=== PATIENT | female | born 1970 | race Caucasian/White ===

== ENCOUNTER 2017-10-27 16:56 | Emergency (ER) | payer MEDICAID ==
[~2017-10-27] VITALS: Ht 165.1 cm; Wt 154.2 kg
[~2017-10-27 16:56] MED LIST: ALBU17AE23 IH; ALBU8.5H2 INH; ALPR1T PO; ASP81CT PO; ASPI-875 PO; ATR20T PO; BENZ100C8 PO; BSP10T PO; BUPR150T6; CALC-793 PO; CANA300T PO; CYCL10TA9 PO; ESCT10T PO; FLOXIN; FLUT16SP22; FLUT1DIS27; FURO80TA3 PO; GLIP5TAB13; HYDR-34 PO; IBP800T PO; IBUP-1780 PO; INSASP10V SC; INSU100V6; INSU100V6 SQ; INSU300I SQ; LEVO75TA57 PO; LISI5TAB PO; MECL25TA3 PO; MORP30TA28 PO; MPR22TI; NEBI5TAB8 PO; NF-ESOM40C PO; OMEP40CA36 PO; OMG1KC; ONDA4TAB8 PO; OXYC-191 PO; OXYC1TAB87 PO; OXYC1TAB95 PO; POTA10TA36 PO; POTA20TA15 PO; PRCD5U GT; PREG100C22 PO; PREG200C PO; PRM25T PO; SCOP1PAT11 TD; SCR1T1 PO; SITA1TAB6 PO; SOLI10TA4 PO; SULF1TAB38; TRZ50T; [UNRECOGNIZED DRUG - REMARK]
--- OUTSIDE RECORDS SUMMARY | 2017-10-27 17:01 | XMS REPORT ---
Author Author SELVIN TAYLOR Organization [employer] Address Unknown Phone Unavailable Care Team Providers Care Automatic Pinsetter Adjuster Name Role Phone SELVIN TAYLOR Unavailable Allergies No Known Allergies Problems Problem Type Condition ICD-9 Code Onset Dates Condition Status Problem Counseling on substance use and abuse V65.42 Active Problem Bipolar I disorder, most recent episode (or current) depressed, in partial or unspecified remission 296.55 Active Problem Insomnia, unspecified 780.52 Active Problem 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 Problem Bipolar I disorder, most recent episode (or current) depressed, mild 296.51 Active Medications Medication Code System Code Instructions Start Date End Date Status Dosage Alprazolam [facility] [address]-25 1 MG Orally 3 times a day PRN must last 30 days Apr 23, 2014 1 tablet Results No Known Results Summary Purpose eClinicalWorks Submission
--- OUTSIDE RECORDS SUMMARY | 2017-10-27 17:01 | XMS REPORT ---
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 Unknown Non Drug Allergy Apr, Unknown SOCIAL HISTORY No smoking Hx information available PLAN OF CARE Activity Details Follow Up prn Reason:Multi TE"s- [address] Hendrickson VITAL SIGNS Blood pressure systolic 151 mmHg 2016-04-20 Blood pressure diastolic 87 mmHg 2016-04-20 MEDICATIONS Medication Instructions Dosage Frequency Start Date End Date Duration Status VESIcare 10 MG Orally Once a day 1 tablet 24h Active Hydrochlorothiazide Active Nexium 40 mg 1 Capsule by Oral route 2 times per day Nov, Active Oxycodone-Acetaminophen 10-325 mg 2 Tablet by Oral route every 4-6 hours PRN pain Apr, Active Ibuprofen 400 MG Orally Three times a day PRN 2 tablets Active Albuterol Sulfate 2.5 mg/0.5 mL 1 Inhaler by Inhalation route 4 times per day Jul, Active Meclizine HCl Active Levothyroxine Sodium 75 MCG Orally Once a day 1 tablet 24h Active Lasix 40 MG Orally Once a day 1 tablet 24h Active NovoLog 100 UNIT/ML Subcutaneous 2 times a day 40 units 12h Aug, Active promethazine 25 mg 1 Tablet by Oral route every 6 hours PRN nausea Nov, Active Potassium Chloride 10 mEq 2 Tablet by Oral route 2 times per day take additional 2 tabs if extra Lasix taken Nov, Active Amoxicillin 500 MG Orally 4 times daily 1 capsule 7 days Active Lisinopril 5 MG Orally Once a day 1 tablet 24h Active Xanax 1 MG TAKE ONE TABLET BY MOUTH THREE TIMES A DAY NEEDED 30 Active Nasonex 50 MCG/ACT Nasally Once a day 2 sprays in each nostril 24h Active Bystolic 5 MG Orally Once a day 1 tablet 24h Active Toujeo SoloStar Active Lyrica 200 MG Orally Once a day 1 capsule 24h Active RESULTS No Results PROCEDURES Procedure Date Ordered Related Diagnosis Body Site EXTRAC ERUPTED TOOTH/EXPOSED ROOT Apr 20, 2016 IMMUNIZATIONS No Known Immunizations
--- OUTSIDE RECORDS SUMMARY | 2017-10-27 17:02 | XMS REPORT ---
Author Author PARAS CLEARY [facility] e[employer] Address Unknown Phone Unavailable Care Team Providers Care Textile Machine Maintenance Mechanic Name Role Phone PARAS CLEARY Unavailable Allergies No Known Allergies Problems Problem Type Condition Code Onset Dates Condition Status Assessment Other insomnia not due to a substance or known physiological condition F51.09 Active Problem Counseling on substance use and abuse V65.42 Active Problem Bipolar I disorder, most recent episode (or current) depressed, in partial or unspecified remission 296.55 Active Problem Insomnia, unspecified 780.52 Active Assessment Bipolar disorder, in partial remission, most recent episode depressed F31.75 Active Assessment Agoraphobia with panic disorder F40.01 Active Problem 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 Problem Bipolar I disorder, most recent episode (or current) depressed, mild 296.51 Active Medications Medication Code System Code Instructions Start Date End Date Status Dosage Oxycodone-Acetaminophen [facility] [address]-38 10-325 mg Apr 22, 2014 2 Tablet by Oral route every 4-6 hours PRN pain Janumet [facility] [address]-74 50-1,000 mg Apr 22, 2014 1 Tablet by Oral route 1 time per day Diflucan [facility] [address]-05 100 mg December 06, 2013 1 Tablet by Oral route 1 time per day PRN yeast infection Invokana [facility] [address]-22 300 mg December 06, 2013 1 Tablet by Oral route 1 time per day NovoLog [facility] [address]-76 100 UNIT/ML Subcutaneous 2 times a day August 29, 2013 40 units Albuterol Sulfate [facility] [address]-42 2.5 mg/0.5 mL July 20, 2011 1 Inhaler by Inhalation route 4 times per day Bystolic [facility] [address]-25 5 MG Orally Once a day 1 tablet Lisinopril [facility] [address]-15 5 MG Orally Once a day 1 tablet Lantus [facility] [address]-21 100 UNIT/ML Subcutaneous Once a day qAM 140 units Levothyroxine Sodium [facility] [address]-79 75 MCG Orally Once a day 1 tablet Nexium [facility] [address]-18 40 mg December 06, 2013 1 Capsule by Oral route 2 times per day Cyclobenzaprine HCl [facility] [address]-77 10 MG Orally Three times a day 1 tablet Lyrica [facility] [address]-56 200 MG Orally Once a day 1 capsule Xanax [facility] [address]-37 1 TAKE ONE TABLET BY MOUTH THREE TIMES A DAY NEEDED Ibuprofen [facility] [address]-95 400 MG Orally Three times a day PRN 2 tablets VESIcare [facility] [address]-63 10 MG Orally Once a day 1 tablet Lipitor [facility] [address]-00 20 MG Orally Once a day 1 tablet Lasix [facility] [address]-43 80 MG Orally Once a day 1 tablet Potassium Chloride [facility] [address]-72 10 mEq December 06, 2013 2 Tablet by Oral route 2 times per day take additional 2 tabs if extra Lasix taken Trazodone HCl [facility] 86627543091 150 TAKE ONE TABLET BY MOUTH EVERY NIGHT AT BEDTIME NEEDED Nasonex [facility] [address]-67 50 MCG/ACT Nasally Once a day 2 sprays in each nostril promethazine [facility] 0 25 mg December 06, 2013 1 Tablet by Oral route every 6 hours PRN nausea Procedures Procedure Coding System Code Date Office Visit, Est Pt., Level 4 CPT-4 69643 May 29, 2015 Vital Signs Date/Time: May 29, 2015 Cardiac Monitoring Heart Rate 74 bpm Weight 321.5 lbs Height 65 in BMI 53.49 Index Blood Pressure Diastolic 78 mmHg Blood Pressure Systolic 130 mmHg Results No Known Results Summary Purpose eClinicalWorks Submission
--- OUTSIDE RECORDS SUMMARY | 2017-10-27 17:02 | XMS REPORT ---
Author Author CAMILA MOTA [facility] eClinicalWorks Address Unknown Phone Unavailable Care Team Providers Care Die Cutter Operator Name Role Phone CAMILA MOTA CP Unavailable Allergies No Known Allergies Problems Problem Type Condition Code Onset Dates Condition Status Problem Counseling [...] Instructions Start Date End Date Status Dosage Xanax [facility] [address]-70 1 TAKE ONE TABLET BY MOUTH THREE TIMES A DAY NEEDED Results No Known Results Summary Purpose eClinicalWorks Submission
--- OUTSIDE RECORDS SUMMARY | 2017-10-27 17:02 | XMS REPORT ---
Author Author CINTIA TELLEZ [employer] Address Unknown Phone Unavailable Care Team Providers Care Mica Plate Layer Name Role Phone CINTIA TELLEZ CP Unavailable Allergies, Adverse Reactions, Alerts Substance Reaction Event Type N.K.D.A. Info Not Available Non Drug Allergy Problems Problem Type Condition Code Onset Dates Condition Status Problem Counseling on substance use and abuse V65.42 Active Problem Bipolar I disorder, most recent episode (or current) depressed, in partial or unspecified remission 296.55 Active Problem Insomnia, unspecified 780.52 Active Assessment Dental caries K02.9 Active Problem 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 Problem Bipolar I disorder, most recent episode (or current) depressed, mild 296.51 Active Medications Medication Code System Code Instructions Start Date End Date Status Dosage Janumet [facility] [address]-56 50-1,000 mg Apr 22, 2014 1 Tablet by Oral route 1 time per day Lantus [facility] [address]-48 100 UNIT/ML Subcutaneous Once a day qAM 140 units Ibuprofen [facility] [address]-69 400 MG Orally Three times a day PRN 2 tablets Nasonex [facility] [address]-40 50 MCG/ACT Nasally Once a day 2 sprays in each nostril Lisinopril [facility] [address]-48 5 MG Orally Once a day 1 tablet Potassium Chloride [facility] [address]-67 10 mEq December 06, 2013 2 Tablet by Oral route 2 times per day take additional 2 tabs if extra Lasix taken Oxycodone-Acetaminophen [facility] [address]-51 10-325 mg Apr 22, 2014 2 Tablet by Oral route every 4-6 hours PRN pain Lasix [facility] [address]-02 80 MG Orally Once a day 1 tablet Diflucan [facility] [address]-73 100 mg December 06, 2013 1 Tablet by Oral route 1 time per day PRN yeast infection VESIcare [facility] [address]-67 10 MG Orally Once a day 1 tablet Nexium [facility] [address]-35 40 mg December 06, 2013 1 Capsule by Oral route 2 times per day Xanax [facility] [address]-34 1 TAKE ONE TABLET BY MOUTH THREE TIMES A DAY NEEDED Levothyroxine Sodium [facility] [address]-93 75 MCG Orally Once a day 1 tablet Lyrica [facility] [address]-49 200 MG Orally Once a day 1 capsule NovoLog [facility] [address]-07 100 UNIT/ML Subcutaneous 2 times a day August 29, 2013 40 units Albuterol Sulfate [facility] [address]-15 2.5 mg/0.5 mL July 20, 2011 1 Inhaler by Inhalation route 4 times per day Cyclobenzaprine HCl [facility] [address]-19 10 MG Orally Three times a day 1 tablet promethazine [facility] 0 25 mg December 06, 2013 1 Tablet by Oral route every 6 hours PRN nausea Invokana [facility] [address]-77 300 mg December 06, 2013 1 Tablet by Oral route 1 time per day Lipitor [facility] [address]-59 20 MG Orally Once a day 1 tablet Bystolic [facility] [address]-75 5 MG Orally Once a day 1 tablet Procedures Procedure Coding System Code Date EXTRAC ERUPTED TOOTH/EXPOSED ROOT CPT-4 D7140 Jun 01, 2015 EXTRAC ERUPTED TOOTH/EXPOSED ROOT CPT-4 D7140 Jun 01, 2015 Vital Signs Date/Time: Jun 01, 2015 Blood Pressure Diastolic 75 mmHg Blood Pressure Systolic 129 mmHg Height 65 in Results No Known Results Summary Purpose eClinicalWorks Submission
--- OUTSIDE RECORDS SUMMARY | 2017-10-27 17:02 | XMS REPORT ---
Author Author ANDRÉS Aguila [facility] Address Unknown Care Team Providers Care Senior Application Software Engineer Name Role Phone ANDRÉS Aguila Unavailable PROBLEMS Type Condition ICD9-CM Code [id number] Code Onset Dates Condition Status SNOMED Code Problem Bipolar I disorder, most recent episode (or current) depressed, mild 296.51 Active 410595385 Problem Bipolar I disorder, most recent episode (or current) depressed, in partial or unspecified remission 296.55 Active 06069913 Problem Counseling on substance use and abuse V65.42 Active 950797066 Problem 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 12511540 Problem Insomnia, unspecified 780.52 Active 327050387 ALLERGIES Substance Reaction Event Type Date Status N.K.D.A. Unknown Non Drug Allergy Mar, Unknown SOCIAL HISTORY No smoking Hx information available PLAN OF CARE Activity Details Follow Up prn Reason:TE 29 VITAL SIGNS Height 65 in 2016-04-04 Blood pressure systolic 129 mmHg 2016-04-04 Blood pressure diastolic 86 mmHg 2016-04-04 MEDICATIONS Medication Instructions Dosage Frequency Start Date End Date Duration Status VESIcare 10 MG Orally Once a day 1 tablet 24h Active Potassium Chloride 10 mEq 2 Tablet by Oral route 2 times per day take additional 2 tabs if extra Lasix taken Nov, Active Ibuprofen 400 MG Orally Three times a day PRN 2 tablets Active Albuterol Sulfate 2.5 mg/0.5 mL 1 Inhaler by Inhalation route 4 times per day Jul, Active Nexium 40 mg 1 Capsule by Oral route 2 times per day Nov, Active Lyrica 200 MG Orally Once a day 1 capsule 24h Active Lisinopril 5 MG Orally Once a day 1 tablet 24h Active promethazine 25 mg 1 Tablet by Oral route every 6 hours PRN nausea Nov, Active Levothyroxine Sodium 75 MCG Orally Once a day 1 tablet 24h Active Bystolic 5 MG Orally Once a day 1 tablet 24h Active Oxycodone-Acetaminophen 10-325 mg 2 Tablet by Oral route every 4-6 hours PRN pain 09 Apr, 2014 Active Amoxicillin 500 MG Orally 4 times daily 1 capsule 7 days Active NovoLog 100 UNIT/ML Subcutaneous 2 times a day 40 units 12h Aug, Active Nasonex 50 MCG/ACT Nasally Once a day 2 sprays in each nostril 24h Active Lasix 40 MG Orally Once a day 1 tablet 24h Active Xanax 1 MG TAKE ONE TABLET BY MOUTH THREE TIMES A DAY NEEDED 30 Active Yuliya Lu Active RESULTS No Results PROCEDURES Procedure Date Ordered Related Diagnosis Body Site LTD ORAL EVALUATION - PROBLEM FOCUS Apr 04, 2016 INTRAORL-PERIAPICAL 1 FILM 64305 Apr 04, 2016 IMMUNIZATIONS No Known Immunizations
--- OUTSIDE RECORDS SUMMARY | 2017-10-27 17:03 | XMS REPORT ---
Author Author SELVIN TAYLOR [facility] eClinicalWorks Address Unknown Phone Unavailable Care Team Providers Care Printing Gray Cloth Tender Name Role Phone SELVIN TAYLOR Unavailable Allergies, Adverse Reactions, Alerts Substance Reaction Event Type N.K.D.A. 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 [address]-54 300 mg December 06, 2013 1 Tablet by Oral route 1 time per day Lantus [facility] [address]-56 100 UNIT/ML Subcutaneous Once a day qAM 140 units Bystolic [facility] [address]-66 5 MG Orally Once a day 1 tablet Bactrim [facility] [address]-17 400-80 MG Orally Once a day 2 tablets Lipitor [facility] [address]-60 20 MG Orally Once a day 1 tablet Lyrica [facility] [address]-74 200 MG Orally Once a day 1 capsule Aspirin Adult Low Strength [facility] [address]-14 81 MG Orally Once a day 1 tablet Diflucan [facility] [address]-87 100 mg December 06, 2013 1 Tablet by Oral route 1 time per day PRN yeast infection Cyclobenzaprine HCl [facility] [address]-56 10 MG Orally Three times a day 1 tablet Albuterol Sulfate [facility] [address]-91 2.5 mg/0.5 mL July 20, 2011 1 Inhaler by Inhalation route 4 times per day promethazine [place] 0 25 mg December 06, 2013 1 Tablet by Oral route every 6 hours PRN nausea Nexium [facility] [address]-01 40 mg December 06, 2013 1 Capsule by Oral route 2 times per day Lasix [facility] [address]-37 80 MG Orally Once a day 1 tablet Lisinopril [facility] [address]-60 5 MG Orally Once a day 1 tablet Janumet [facility] [address]-78 50-1,000 mg Apr 22, 2014 1 Tablet by Oral route 1 time per day Oxycodone-Acetaminophen [facility] [address]-07 10-325 mg Apr 22, 2014 2 Tablet by Oral route every 4-6 hours PRN pain Trazodone HCl [facility] 50486751498 150 TAKE ONE TABLET BY MOUTH EVERY NIGHT AT BEDTIME NEEDED Alprazolam [facility] [address]-18 1 MG Orally 3 times a day PRN must last 30 days Apr 23, 2014 1 tablet Levothyroxine Sodium [facility] [address]-13 75 MCG Orally Once a day 1 tablet Nasonex [facility] [address]-58 50 MCG/ACT Nasally Once a day 2 sprays in each nostril NovoLog [facility] [address]-91 100 UNIT/ML Subcutaneous 2 times a day August 29, 2013 40 units Duloxetine HCl [facility] [address]-16 30 MG Orally Once a day November 27, 2014 1 capsule VESIcare [facility] [address]-89 10 MG Orally Once a day 1 tablet Ibuprofen [facility] [address]-41 400 MG Orally Three times a day PRN 2 tablets Potassium Chloride [facility] [address]-16 10 mEq December 06, 2013 2 Tablet by Oral route 2 times per day take additional 2 tabs if extra Lasix taken Procedures Procedure Coding System Code Date Office Visit, Est Pt., Level 3 CPT-4 54928 Jan 29, 2015 Vital Signs Date/Time: Jan 29, 2015 Temperature 98.0 F Weight 326.5 lbs Height 65 in BMI 54.33 Index Blood Pressure Diastolic 66 mmHg Blood Pressure Systolic 120 mmHg Cardiac Monitoring Heart Rate 76 bpm Results No Known Results Summary Purpose eClinicalWorks Submission
--- OUTSIDE RECORDS SUMMARY | 2017-10-27 17:03 | XMS REPORT | Continuity of Care Document ---
Author Author [facility] Address Unknown Phone Unavailable Allergies Active Description Code Type Severity Reaction Onset Reported/Identified Relationship to Patient Clinical Status Yes No Known Drug Allergies [id number] Drug Allergy Mild N/A 12/19/2008 Yes Sulfa(Sulfonamide Antibiotics) Drug Allergy 07/20/2011 Yes Sulfa(Sulfonamide Antibiotics) Drug Allergy N/A N/A 07/20/2011 Medications There is no data. Problems Date Dx Coded Attending Type Code Diagnosis Diagnosed By 08/10/2010 NILS SAENZ DO 296.30 MAJOR DEPRESSIVE AFFECTIVE DISORDER RECURRENT EPISODE UNSPECIFIED DEGREE 08/10/2010 NILS SAENZ DO 300.01 AN PANIC DIS W/O AGORA 08/10/2010 NILS SAENZ DO 307.47 OTHER DYSFUNCTIONS OF SLEEP STAGES OR AROUSAL FROM SLEEP 08/10/2010 NILS SAENZ DO 316 PSYCHIC FACTORS ASSOCIATED WITH DISEASES CLASSIFIED ELSEWHERE 08/10/2010 NILS SAENZ DO 296.30 MAJOR DEPRESSIVE AFFECTIVE DISORDER RECURRENT EPISODE UNSPECIFIED DEGREE 08/10/2010 NILS SAENZ DO 300.01 AN PANIC DIS W/O AGORA 08/10/2010 NILS SAENZ DO 307.47 OTHER DYSFUNCTIONS OF SLEEP STAGES OR AROUSAL FROM SLEEP 08/10/2010 NILS SAENZ DO 316 PSYCHIC FACTORS ASSOCIATED WITH DISEASES CLASSIFIED ELSEWHERE 08/10/2010 296.30 MAJOR DEPRESSIVE AFFECTIVE DISORDER RECURRENT EPISODE UNSPECIFIED DEGREE 08/10/2010 300.01 AN PANIC DIS W/O AGORA 08/10/2010 307.47 OTHER DYSFUNCTIONS OF SLEEP STAGES OR AROUSAL FROM SLEEP 08/10/2010 316 PSYCHIC FACTORS ASSOCIATED WITH DISEASES CLASSIFIED ELSEWHERE 08/10/2010 NILS SAENZ DO 296.30 MAJOR DEPRESSIVE AFFECTIVE DISORDER RECURRENT EPISODE UNSPECIFIED DEGREE 08/10/2010 NILS SAENZ DO 300.01 AN PANIC DIS W/O AGORA 08/10/2010 NILS SAENZ DO 307.47 OTHER DYSFUNCTIONS OF SLEEP STAGES OR AROUSAL FROM SLEEP 08/10/2010 NILS SAENZ DO 316 PSYCHIC FACTORS ASSOCIATED WITH DISEASES CLASSIFIED ELSEWHERE 08/10/2010 CAMILA MOTA MD 296.30 MAJOR DEPRESSIVE AFFECTIVE DISORDER RECURRENT EPISODE UNSPECIFIED DEGREE 08/10/2010 CAMILA MOTA MD 300.01 AN PANIC DIS W/O AGORA 08/10/2010 CAMILA MOTA MD 307.47 OTHER DYSFUNCTIONS OF SLEEP STAGES OR AROUSAL FROM SLEEP 08/10/2010 CAIMLA MOTA MD 316 PSYCHIC FACTORS ASSOCIATED WITH DISEASES CLASSIFIED ELSEWHERE 08/10/2010 BRANDON HUB BORER, SELVIN 296.30 MAJOR DEPRESSIVE AFFECTIVE DISORDER RECURRENT EPISODE UNSPECIFIED DEGREE 08/10/2010 BRANDON HUB BORER, SELVIN 300.01 AN PANIC DIS W/O AGORA 08/10/2010 BRANDON HUB BORER, SELVIN 307.47 OTHER DYSFUNCTIONS OF SLEEP STAGES OR AROUSAL FROM SLEEP 08/10/2010 BRANDON HUB BORER, SELVIN 316 PSYCHIC FACTORS ASSOCIATED WITH DISEASES CLASSIFIED ELSEWHERE 08/10/2010 BRANDON HUB BORER, SELVIN 296.30 MAJOR DEPRESSIVE AFFECTIVE DISORDER RECURRENT EPISODE UNSPECIFIED DEGREE 08/10/2010 BRANDON HUB BORER, SELVIN 300.01 AN PANIC DIS W/O AGORA 08/10/2010 BRANDON HUB BORER, SELVIN 307.47 OTHER DYSFUNCTIONS OF SLEEP STAGES OR AROUSAL FROM SLEEP 08/10/2010 BRANDON HUB BORER, SELVIN 316 PSYCHIC FACTORS ASSOCIATED WITH DISEASES CLASSIFIED ELSEWHERE 08/10/2010 BRANDON HUB BORER, SELVIN 296.30 MAJOR DEPRESSIVE AFFECTIVE DISORDER RECURRENT EPISODE UNSPECIFIED DEGREE 08/10/2010 BRANDON HUB BORER, SELVIN 300.01 AN PANIC DIS W/O AGORA 08/10/2010 BRANDON HUB BORER, SELVIN 307.47 OTHER DYSFUNCTIONS OF SLEEP STAGES OR AROUSAL FROM SLEEP 08/10/2010 BRANDON HUB BORER, SELVIN 316 PSYCHIC FACTORS ASSOCIATED WITH DISEASES CLASSIFIED ELSEWHERE 08/10/2010 BRANDON HUB BORER, SELVIN 296.30 MAJOR DEPRESSIVE AFFECTIVE DISORDER RECURRENT EPISODE UNSPECIFIED DEGREE 08/10/2010 BRANDON HUB BORER, SELVIN 300.01 AN PANIC DIS W/O AGORA 08/10/2010 BRANDON HUB BORER, SELVIN 307.47 OTHER DYSFUNCTIONS OF SLEEP STAGES OR AROUSAL FROM SLEEP 08/10/2010 BRANDON HUB BORER, SELVIN 316 PSYCHIC FACTORS ASSOCIATED WITH DISEASES CLASSIFIED ELSEWHERE 08/10/2010 BRANDON HUB BORER, SELVIN 296.30 MAJOR DEPRESSIVE AFFECTIVE DISORDER RECURRENT EPISODE UNSPECIFIED DEGREE 08/10/2010 LÓPEZ TAYLOR APRNETTE 300.01 AN PANIC DIS W/O AGORA 08/10/2010 BRANDON NEVAREZ SELVIN 307.47 OTHER DYSFUNCTIONS OF SLEEP STAGES OR AROUSAL FROM SLEEP 08/10/2010 BRANDON NEVAREZ SELVIN 316 PSYCHIC FACTORS ASSOCIATED WITH DISEASES CLASSIFIED ELSEWHERE 08/10/2010 ROSALINDA ANDERSENSCINTIA 296.30 MAJOR DEPRESSIVE AFFECTIVE DISORDER RECURRENT EPISODE UNSPECIFIED DEGREE 08/10/2010 TELLEZ GANESHSCINTIA 300.01 AN PANIC DIS W/O AGORA 08/10/2010 ROSALINDA ANDERSENSCINTIA 307.47 OTHER DYSFUNCTIONS OF SLEEP STAGES OR AROUSAL FROM SLEEP 08/10/2010 ROSALINDA ANDERSENSCINTIA 316 PSYCHIC FACTORS ASSOCIATED WITH DISEASES CLASSIFIED ELSEWHERE 08/10/2010 JAVIER ROBBINS PSYD 296.30 MAJOR DEPRESSIVE AFFECTIVE DISORDER RECURRENT EPISODE UNSPECIFIED DEGREE 08/10/2010 JAVIER ROBBINS PSYD L 300.01 AN PANIC DIS W/O AGORA 08/10/2010 JAVIER ROBBINS PSYD 307.47 OTHER DYSFUNCTIONS OF SLEEP STAGES OR AROUSAL FROM SLEEP 08/10/2010 JAVIER ROBBINS PSYD L 316 PSYCHIC FACTORS ASSOCIATED WITH DISEASES CLASSIFIED ELSEWHERE 08/10/2010 LÓPEZ TAYLOR APRNETTE 296.30 MAJOR DEPRESSIVE AFFECTIVE DISORDER RECURRENT EPISODE UNSPECIFIED DEGREE 08/10/2010 BRANDON NEVAREZ SELVIN 300.01 AN PANIC DIS W/O AGORA 08/10/2010 BRANDON NEVAREZ SELVIN 307.47 OTHER DYSFUNCTIONS OF SLEEP STAGES OR AROUSAL FROM SLEEP 08/10/2010 BRANDON NEVAREZ SELVIN 316 PSYCHIC FACTORS ASSOCIATED WITH DISEASES CLASSIFIED ELSEWHERE 08/10/2010 BRANDON NEVAREZ SELVIN 296.30 MAJOR DEPRESSIVE AFFECTIVE DISORDER RECURRENT EPISODE UNSPECIFIED DEGREE 08/10/2010 BRANDON NEVAREZ SELVIN 300.01 AN PANIC DIS W/O AGORA 08/10/2010 BRANDON NEVAREZ SELVIN 307.47 OTHER DYSFUNCTIONS OF SLEEP STAGES OR AROUSAL FROM SLEEP 08/10/2010 BRANDON NEVAREZ SELVIN 316 PSYCHIC FACTORS ASSOCIATED WITH DISEASES CLASSIFIED ELSEWHERE 08/15/2010 Ot 401.9 HYPERTENSION NOS 08/15/2010 Ot 490 BRONCHITIS NOS 08/15/2010 Ot 786.2 COUGH 11/10/2010 WERDER DO, NILS F 300.21 AN PANIC DIS W AGORA 11/10/2010 NILS SAENZ DO 300.21 AN PANIC DIS W AGORA 11/10/2010 300.21 AN PANIC DIS W AGORA 11/10/2010 NILS SAENZ DO 300.21 AN PANIC DIS W AGORA 11/10/2010 CAMILA MOTA MD 300.21 AN PANIC DIS W AGORA 11/10/2010 BRANDON HUB BORER, SELVIN 300.21 AN PANIC DIS W AGORA 11/10/2010 BRANDON HUB BORER, SELVIN 300.21 AN PANIC DIS W AGORA 11/10/2010 BRANDON HUB BORER, SELVIN 300.21 AN PANIC DIS W AGORA 11/10/2010 BRANDON HUB BORER, SELVIN 300.21 AN PANIC DIS W AGORA 11/10/2010 BRANDON HUB BORER, SELVIN 300.21 AN PANIC DIS W AGORA 11/10/2010 ROSALINDA FOURNIER, CINTIA 300.21 AN PANIC DIS W AGORA 11/10/2010 JAVIER ROBBINS PSYD 300.21 AN PANIC DIS W AGORA 11/10/2010 BRANDON HUB BORER, SELVIN 300.21 AN PANIC DIS W AGORA 11/10/2010 BRANDON HUB BORER, SELVIN 300.21 AN PANIC DIS W AGORA 01/10/2011 Ot 530.81 ESOPHAGEAL REFLUX 01/10/2011 Ot 535.50 UNSP GASTRITIS GASTRODUODENITIS W/O ME 01/10/2011 Ot 787.91 DIARRHEA 01/10/2011 Ot 789.00 ABDOMINAL PAIN, UNSPECIFIED SITE 02/08/2011 NILS SAENZ DO 296.32 MO DEPRESSIVE RECURRENT MODERATE 02/08/2011 NILS SAENZ DO 296.32 MO DEPRESSIVE RECURRENT MODERATE 02/08/2011 296.32 MO DEPRESSIVE RECURRENT MODERATE 02/08/2011 NILS SAENZ DO 296.32 MO DEPRESSIVE RECURRENT MODERATE 02/08/2011 CAMILA MOTA MD 296.32 MO DEPRESSIVE RECURRENT MODERATE 02/08/2011 BRANDON HUB BORER, SELVIN 296.32 MO DEPRESSIVE RECURRENT MODERATE 02/08/2011 BRANDON HUB BORER, SELVIN 296.32 MO DEPRESSIVE RECURRENT MODERATE 02/08/2011 BRANDON HUB BORER, SELVIN 296.32 MO DEPRESSIVE RECURRENT MODERATE 02/08/2011 BRANDON HUB BORER, SELVIN 296.32 MO DEPRESSIVE RECURRENT MODERATE 02/08/2011 BRANDON HUB BORER, SELVIN 296.32 MO DEPRESSIVE RECURRENT MODERATE 02/08/2011 TELLEZ SHANTANU, CINTIA 296.32 MO DEPRESSIVE RECURRENT MODERATE 02/08/2011 JAVIER ROBBINS PSYD 296.32 MO DEPRESSIVE RECURRENT MODERATE 02/08/2011 BRANDON HUB BORER, SELVIN 296.32 MO DEPRESSIVE RECURRENT MODERATE 02/08/2011 BRANDON HUB BORER, SELVIN 296.32 MO DEPRESSIVE RECURRENT MODERATE 01/20/2012 NILS SAENZ DO F 780.52 INSOMNIA UNSPECIFIED 01/20/2012 LETTY JONES NILS F V65.42 TOBACCO COUNSELING 01/20/2012 LETTY DO NILS F 780.52 INSOMNIA UNSPECIFIED 01/20/2012 LETTY DO NILS F V65.42 TOBACCO COUNSELING 01/20/2012 780.52 INSOMNIA UNSPECIFIED 01/20/2012 V65.42 TOBACCO COUNSELING 01/20/2012 LETTY JONES NILS F 780.52 INSOMNIA UNSPECIFIED 01/20/2012 LETTY JONES NILS F V65.42 TOBACCO COUNSELING 01/20/2012 CAMILA MOTA MD 780.52 INSOMNIA UNSPECIFIED 01/20/2012 CAMILA MOTA MD V65.42 TOBACCO COUNSELING 01/20/2012 BRANDON HUB BORER, SELVIN 780.52 INSOMNIA UNSPECIFIED 01/20/2012 BRANDON HUB BORER, SELVIN V65.42 TOBACCO COUNSELING 01/20/2012 BRANDON HUB BORER, SELVIN 780.52 INSOMNIA UNSPECIFIED 01/20/2012 BRANDON HUB BORER, SELVIN V65.42 TOBACCO COUNSELING 01/20/2012 BRANDON HUB BORER, SELVIN 780.52 INSOMNIA UNSPECIFIED 01/20/2012 BRANDON HUB BORER, SELVIN V65.42 TOBACCO COUNSELING 01/20/2012 BRANDON HUB BORER, SELVIN 780.52 INSOMNIA UNSPECIFIED 01/20/2012 BRANDON HUB BORER, SELVIN V65.42 TOBACCO COUNSELING 01/20/2012 BRANDON HUB BORER, SELVIN 780.52 INSOMNIA UNSPECIFIED 01/20/2012 BRANDON HUB BORER, SELVIN V65.42 TOBACCO COUNSELING 01/20/2012 TELLEZ CINTIA FOURNIER 780.52 INSOMNIA UNSPECIFIED 01/20/2012 TELLEZ CINTIA FOURNIER V65.42 TOBACCO COUNSELING 01/20/2012 JAVIER ROBBINS PSYD 780.52 INSOMNIA UNSPECIFIED 01/20/2012 JAVIER ROBBINS PSYD V65.42 TOBACCO COUNSELING 01/20/2012 SELVIN TAYLOR APRN 780.52 INSOMNIA UNSPECIFIED 01/20/2012 SELVIN TAYLOR APRN V65.42 TOBACCO COUNSELING 01/20/2012 SELVIN TAYLOR APRN 780.52 INSOMNIA UNSPECIFIED 01/20/2012 SELVIN TAYLOR APRN V65.42 TOBACCO COUNSELING 04/14/2012 Ot 465.9 ACUTE URI NOS 04/14/2012 Ot 786.09 RESPIRATORY ABNORM NEC 04/17/2012 Ot 041.12 METHICILLIN RESISTANT STAPHYLOCOCCUS AUR 04/17/2012 Ot 682.9 CELLULITIS NOS 06/26/2012 Ot 327.23 OBSTRUCTIVE SLEEP APNEA (ADULT) (PEDIATR 04/29/2013 DONALDO BARKSDALE HUB BORER Ot 455.3 EXT HEMORRHOID W/O COMPL 04/29/2013 DONALDO BARKSDALE HUB BORER Ot 569.3 RECTAL ANAL HEMORRHAGE 04/29/2013 DONALDO BARKSDALE HUB BORER Ot 578.1 BLOOD IN STOOL 07/24/2013 CHRISTINE JONES, KAY S Ot 244.9 HYPOTHYROIDISM NOS 07/24/2013 CHRISTINE DO, KAY S Ot 250.00 DIAB MILAN WO COMPL, TYPE II OR UNSPEC TY 07/24/2013 VERONDAMADO DO KAY S Ot 272.0 PURE HYPERCHOLESTEROLEM 07/24/2013 CHRISTINE DO, KAY S Ot 272.4 HYPERLIPIDEMIA NEC/NOS 07/24/2013 CHRISTINE JONES KAY S Ot 278.01 MORBID OBESITY 07/24/2013 VERONDAMADO DO KAY S Ot 300.00 ANXIETY STATE NOS 07/24/2013 VERONDAMADO JONES, KAY S Ot 305.1 TOBACCO USE DISORDER 07/24/2013 ORENDAMADO DO, KAY S Ot 311 DEPRESSIVE DISORDER NEC 07/24/2013 VERONDAMADO DO KAY S Ot 338.4 CHRONIC PAIN SYNDROME 07/24/2013 VERONDAMADO JONES KAY S Ot 355.9 MONONEURITIS NOS 07/24/2013 CHRISTINE JONES KAY S Ot 401.9 HYPERTENSION NOS 07/24/2013 ROBB KING DOQUELINE S Ot 455.8 HEMRRHOID NOS W COMP NEC 07/24/2013 DIAN KING DOLINE S Ot 496 CHR AIRWAY OBSTRUCT NEC 07/24/2013 VERONDROBB FISCHER DOQUELINE S Ot 530.81 ESOPHAGEAL REFLUX 07/24/2013 VERONDAMADO JONES KAY S Ot 722.6 DISC DEGENERATION NOS 07/24/2013 VERONDER DO KAY S Ot 727.09 SYNOVITIS NEC 07/24/2013 VERONDAMADO JONES KAY S Ot 729.1 MYALGIA AND MYOSITIS NOS 07/24/2013 VERONDAMADO JONES KAY S Ot 782.3 EDEMA 07/24/2013 VERONDAMADO JONES KAY S Ot 786.09 RESPIRATORY ABNORM NEC 07/24/2013 VERONDAMADO DO KAY S Ot 786.52 PAINFUL RESPIRATION 07/24/2013 CHRISTINE JONES KAY S Ot 786.59 CHEST PAIN NEC 07/24/2013 VEROSABIHA JONES KAY S Ot V13.02 PERSONAL HISTORY, URINARY (TRACT) INFECT 07/24/2013 CHRISTINE JONES KAY S Ot V17.49 FAMILY HISTORY OF OTHER CARDIOVASCULAR D 07/24/2013 FALGUNIAMADO JONES KAY S Ot V58.66 LONG-TERM (CURRENT) USE OF ASPIRIN 07/24/2013 FALGUNIAMADO JONES KAY S Ot V58.67 LONG-TERM (CURRENT) USE OF INSULIN 07/24/2013 CHRISTINE KAY S Ot V58.69 OTH MED,LT,CURRENT USE 07/24/2013 CHRISTINE JONES KAY S Ot V85.44 BODY MASS INDEX 60.0-69.9, ADULT 08/29/2013 CAMILA MOTA MD 296.51 MO BIPOLAR I DEPRESSED MILD 08/29/2013 CAMILA MOTA MD 307.42 PERSISTENT DISORDER OF INITIATING OR MAINTAINING SLEEP 08/29/2013 SELVIN TAYLOR APRN 296.51 MO BIPOLAR I DEPRESSED MILD 08/29/2013 SELVIN TAYLOR APRN 307.42 PERSISTENT DISORDER OF INITIATING OR MAINTAINING SLEEP 08/29/2013 SELVIN TAYLOR APRN 296.51 MO BIPOLAR I DEPRESSED MILD 08/29/2013 SELVIN TAYLOR APRN 307.42 PERSISTENT DISORDER OF INITIATING OR MAINTAINING SLEEP 08/29/2013 SELVIN TAYLOR APRN 296.51 MO BIPOLAR I DEPRESSED MILD 08/29/2013 SELVIN TAYLOR APRN 307.42 PERSISTENT DISORDER OF INITIATING OR MAINTAINING SLEEP 08/29/2013 SELVIN TAYLOR APRN 296.51 MO BIPOLAR I DEPRESSED MILD 08/29/2013 SELVIN TAYLOR APRN 307.42 PERSISTENT DISORDER OF INITIATING OR MAINTAINING SLEEP 08/29/2013 SELVIN TAYLOR APRN 296.51 MO BIPOLAR I DEPRESSED MILD 08/29/2013 SELVIN TAYLOR APRN 307.42 PERSISTENT DISORDER OF INITIATING OR MAINTAINING SLEEP 08/29/2013 CINTIA TELLEZ DDS 296.51 MO BIPOLAR I DEPRESSED MILD 08/29/2013 ROSALINDA ANDERSENSCINTIA 307.42 PERSISTENT DISORDER OF INITIATING OR MAINTAINING SLEEP 08/29/2013 JAVIER ROBBINS PSYD 296.51 MO BIPOLAR I DEPRESSED MILD 08/29/2013 JAVIER ROBBINS PSYD 307.42 PERSISTENT DISORDER OF INITIATING OR MAINTAINING SLEEP 08/29/2013 SELVIN TAYLOR APRN 296.51 MO BIPOLAR I DEPRESSED MILD 08/29/2013 SELVIN TAYLOR APRN 307.42 PERSISTENT DISORDER OF INITIATING OR MAINTAINING SLEEP 08/29/2013 SELVIN TAYLOR APRN 296.51 MO BIPOLAR I DEPRESSED MILD 08/29/2013 SELVIN TAYLOR APRN 307.42 PERSISTENT DISORDER OF INITIATING OR MAINTAINING SLEEP 04/22/2014 SELVIN TAYLOR APRN 296.55 MO BIPOLAR I DEPRESSED IN PART OR UNSPECIFIED REMISSION 04/22/2014 SELVIN TAYLOR APRN 296.55 MO BIPOLAR I DEPRESSED IN PART OR UNSPECIFIED REMISSION 09/15/2014 KAY KING DO S Ot 240.9 09/15/2014 KAY KING DO S Ot 789.00 09/22/2014 FRANCINE HORTA, MARIA VICTORIA Iyer Ot 244.9 HYPOTHYROIDISM NOS 09/22/2014 FRANCINE HORTA, MARIA VICTORIA Iyer Ot 250.00 DIAB MILAN WO COMPL, TYPE II OR UNSPEC TY 09/22/2014 FRANCINE HORTA, MARIA VICTORIA Iyer Ot 272.4 HYPERLIPIDEMIA NEC/NOS 09/22/2014 MARIA VICTORIA ESCAMILLA MD Ot 311 DEPRESSIVE DISORDER NEC 09/22/2014 MARIA VICTORIA ESCAMILLA MD Ot 401.9 HYPERTENSION NOS 09/22/2014 MARIA VICTORIA ESCAMILLA MD Ot 535.50 UNSP GASTRITIS GASTRODUODENITIS W/O ME 11/04/2014 ROBB KING DOQUELINE S Ot 240.9 11/04/2014 CHRISTINE JONES, KAY S Ot 789.00 01/11/2015 YASMEEN HARRINGTON DO Ot 780.4 DIZZINESS AND GIDDINESS 01/11/2015 YASMEEN HARRINGTON DO Ot 786.50 CHEST PAIN NOS 02/26/2015 VERONDER DO, KAY S Ot M54.6 03/12/2015 VERONDER , KAY S Ot M54.6 03/27/2015 VERONDER , KAY S Ot M54.6 04/01/2015 VERONDER DO, KAY S Ot M54.6 PAIN IN THORACIC SPINE 06/19/2015 Ot M51.36 07/01/2015 CHRISTINE JONES, KAY S Ot M51.36 07/10/2015 FALGUNIER , KAY S Ot M51.36 10/01/2015 Ot 785.0 TACHYCARDIA NOS 10/01/2015 Ot 786.09 RESPIRATORY ABNORM NEC 10/01/2015 Ot 786.50 CHEST PAIN NOS 10/01/2015 Ot 793.1 NOSP (ABN) FINDINGS ON RADIOLOGICAL OT 10/01/2015 Ot V81.5 SCREEN FOR NEPHROPATHY 10/01/2015 Ot 578.1 BLOOD IN STOOL 10/01/2015 Ot 700 CORNS AND CALLOSITIES 10/01/2015 Ot 729.5 PAIN IN LIMB 10/01/2015 Ot 782.3 EDEMA 10/01/2015 Ot 788.20 RETENTION OF URINE NOS 10/01/2015 Ot 041.12 METHICILLIN RESISTANT STAPHYLOCOCCUS AUR 10/01/2015 Ot 682.9 CELLULITIS NOS 10/01/2015 FALGUNIER DO, KAY S Ot 611.71 MASTODYNIA 10/01/2015 FALGUNIER DO, KAY S Ot 611.72 LUMP OR MASS IN BREAST 10/01/2015 FRANCINE HORTA, MARIA VICTORIA Iyer Ot V72.84 EXAM PRE-OPERATIVE NOS 10/01/2015 VERONDER , KAY S Ot 240.9 GOITER NOS 10/01/2015 FALGUNIER DO, KAY S Ot 789.00 ABDOMINAL PAIN, UNSPECIFIED SITE 10/01/2015 FRANCINE HORTA, MARIA VICTORIA Iyer Ot V72.84 EXAM PRE-OPERATIVE NOS 10/01/2015 Ot M51.36 OTHER INTERVERTEBRAL DISC DEGENERATION, 10/01/2015 KAY KING DO Ot M51.36 OTHER INTERVERTEBRAL DISC DEGENERATION, 10/02/2015 NELSON BARRAZA MD Ot G56.02 CARPAL TUNNEL SYNDROME, LEFT UPPER LIMB 10/02/2015 NELSON BARRAZA MD Ot M65.312 TRIGGER THUMB, LEFT THUMB 10/02/2015 NELSON BARRAZA MD Ot Z01.818 ENCOUNTER FOR OTHER PREPROCEDURAL EXAMIN 10/05/2015 NELSON BARRAZA MD Ot G56.02 CARPAL TUNNEL SYNDROME, LEFT UPPER LIMB 10/05/2015 NELSON BARRAZA MD Ot M65.312 TRIGGER THUMB, LEFT THUMB 10/05/2015 NELSON BARRAZA MD Ot Z01.818 ENCOUNTER FOR OTHER PREPROCEDURAL EXAMIN 10/06/2015 KAY KING DO Ot G47.33 OBSTRUCTIVE SLEEP APNEA (ADULT) (PEDIATR 10/07/2015 Ot R10.11 RIGHT UPPER QUADRANT PAIN 10/07/2015 Ot R11.2 NAUSEA WITH VOMITING, UNSPECIFIED 10/07/2015 Ot R10.11 RIGHT UPPER QUADRANT PAIN 10/07/2015 Ot R11.2 NAUSEA WITH VOMITING, UNSPECIFIED 10/07/2015 NELSON BARRAZA MD Ot E03.9 HYPOTHYROIDISM, UNSPECIFIED 10/07/2015 NELSON BARRAZA MD Ot E11.9 TYPE 2 DIABETES MELLITUS WITHOUT COMPLIC 10/07/2015 NELSON BARRAZA MD Ot E78.5 HYPERLIPIDEMIA, UNSPECIFIED 10/07/2015 NELSON BARRAZA MD Ot F17.210 NICOTINE DEPENDENCE, CIGARETTES, UNCOMPL 10/07/2015 NELSON BARRAZA MD Ot G56.02 CARPAL TUNNEL SYNDROME, LEFT UPPER LIMB 10/07/2015 NELSON BARRAZA MD Ot I10 ESSENTIAL (PRIMARY) HYPERTENSION 10/07/2015 NELSON BARRAZA MD Ot J44.9 CHRONIC OBSTRUCTIVE PULMONARY DISEASE, U 10/07/2015 NELSON BARRAZA MD Ot M65.312 TRIGGER THUMB, LEFT THUMB 10/07/2015 NELSON BARRAZA MD Ot Z11.2 ENCOUNTER FOR SCREENING FOR OTHER BACTER 10/08/2015 NELSON BARRAZA MD Ot E03.9 HYPOTHYROIDISM, UNSPECIFIED 10/08/2015 NELSON BARRAZA MD Ot E11.9 TYPE 2 DIABETES MELLITUS WITHOUT COMPLIC 10/08/2015 NELSON BARRAZA MD Ot E78.5 HYPERLIPIDEMIA, UNSPECIFIED 10/08/2015 NELSON BARRAZA MD Ot F17.210 NICOTINE DEPENDENCE, CIGARETTES, UNCOMPL 10/08/2015 NELSON BARRAZA MD Ot G56.02 CARPAL TUNNEL SYNDROME, LEFT UPPER LIMB 10/08/2015 NELSON BARRAZA MD Ot I10 ESSENTIAL (PRIMARY) HYPERTENSION 10/08/2015 NELSON BARRAZA MD Ot J44.9 CHRONIC OBSTRUCTIVE PULMONARY DISEASE, U 10/08/2015 NELSON BARRAZA MD Ot M65.312 TRIGGER THUMB, LEFT THUMB 10/08/2015 NELSON BARRAZA MD Ot Z11.2 ENCOUNTER FOR SCREENING FOR OTHER BACTER 10/08/2015 NELSON BARRAZA MD Ot E03.9 HYPOTHYROIDISM, UNSPECIFIED 10/08/2015 NELSON BARRAZA MD Ot E11.9 TYPE 2 DIABETES MELLITUS WITHOUT COMPLIC 10/08/2015 NELSON BARRAZA MD Ot E78.5 HYPERLIPIDEMIA, UNSPECIFIED 10/08/2015 NELSON BARRAZA MD Ot F17.210 NICOTINE DEPENDENCE, CIGARETTES, UNCOMPL 10/08/2015 NELSON BARRAZA MD Ot G56.02 CARPAL TUNNEL SYNDROME, LEFT UPPER LIMB 10/08/2015 NELSON BARRAZA MD Ot I10 ESSENTIAL (PRIMARY) HYPERTENSION 10/08/2015 NELSON BARRAZA MD Ot J44.9 CHRONIC OBSTRUCTIVE PULMONARY DISEASE, U 10/08/2015 NELSON BARRAZA MD Ot M65.312 TRIGGER THUMB, LEFT THUMB 10/08/2015 NELSON BARRAZA MD Ot Z11.2 ENCOUNTER FOR SCREENING FOR OTHER BACTER 10/16/2015 Ot R10.11 RIGHT UPPER QUADRANT PAIN 10/16/2015 Ot R11.2 NAUSEA WITH VOMITING, UNSPECIFIED 12/07/2015 PEGGY PORTER MD Ot E86.0 DEHYDRATION 12/07/2015 PEGGY PORTER MD Ot R20.0 ANESTHESIA OF SKIN 12/08/2015 PEGGY PORTER MD Ot E86.0 DEHYDRATION 12/08/2015 PEGGY PORTER MD Ot R20.0 ANESTHESIA OF SKIN 02/08/2016 Ot 785.0 TACHYCARDIA NOS 02/08/2016 Ot 786.09 RESPIRATORY ABNORM NEC 02/08/2016 Ot 786.50 CHEST PAIN NOS 02/08/2016 Ot 793.1 NOSP (ABN) FINDINGS ON RADIOLOGICAL OT 02/08/2016 Ot V81.5 SCREEN FOR NEPHROPATHY 02/08/2016 Ot 578.1 BLOOD IN STOOL 02/08/2016 Ot 700 CORNS AND CALLOSITIES 02/08/2016 Ot 729.5 PAIN IN LIMB 02/08/2016 Ot 782.3 EDEMA 02/08/2016 Ot 788.20 RETENTION OF URINE NOS 02/08/2016 Ot 041.12 METHICILLIN RESISTANT STAPHYLOCOCCUS AUR 02/08/2016 Ot 682.9 CELLULITIS NOS 02/08/2016 DIAN KING DOLINE S Ot 611.71 MASTODYNIA 02/08/2016 DIAN KING DOLINE S Ot 611.72 LUMP OR MASS IN BREAST 02/08/2016 FRANCINE HORTA, MARIA VICTORIA Iyer Ot V72.84 EXAM PRE-OPERATIVE NOS 02/08/2016 DIAN KING DOLINE S Ot 240.9 GOITER NOS 02/08/2016 DIAN KING DOLINE S Ot 789.00 ABDOMINAL PAIN, UNSPECIFIED SITE 02/08/2016 FRANCINE HORTA, MARIA VICTORIA Iyer Ot V72.84 EXAM PRE-OPERATIVE NOS 02/08/2016 Ot M51.36 OTHER INTERVERTEBRAL DISC DEGENERATION, 02/08/2016 DIAN KING DOLINE S Ot M51.36 OTHER INTERVERTEBRAL DISC DEGENERATION, 02/08/2016 Ot R10.11 RIGHT UPPER QUADRANT PAIN 02/08/2016 Ot R11.2 NAUSEA WITH VOMITING, UNSPECIFIED 02/09/2016 NEHAL HORTA, NELSON Harden Ot E04.9 NONTOXIC GOITER, UNSPECIFIED 02/09/2016 NELSON CALVERT MD Ot E04.9 NONTOXIC GOITER, UNSPECIFIED 02/19/2016 NELSON CALVERT MD Ot E04.9 NONTOXIC GOITER, UNSPECIFIED 02/26/2016 NELSON CALVERT MD Ot E04.9 NONTOXIC GOITER, UNSPECIFIED Procedures Code [place] [address] PSYCH DIAGNOSTIC EVALUATION 04/17/2014 Results There is no data. Encounters ACCT No. Visit Date/Time Discharge Status Pt. Type Provider Facility Loc./Unit Complaint [id number] 07/22/2014 13:25:00 07/22/2014 23:59:59 CLS Outpatient [facility] BORERSELVIN [id number] 04/22/2014 13:08:00 04/22/2014 23:59:59 CLS Outpatient [facility] BORERSELVIN Esposito [id number] 04/17/2014 12:50:00 04/17/2014 23:59:59 CLS Outpatient JAVIER ROBBINS PSYD [id number] 03/13/2014 10:06:00 03/13/2014 23:59:59 CLS Outpatient CINTIA TELLEZ DDS [id number] 01/21/2014 11:27:00 01/21/2014 23:59:59 CLS Outpatient BR[facility]ON [facility] BORER, SELVIN [id number] 01/21/2014 11:27:00 01/21/2014 23:59:59 CLS Outpatient [facility] BORER, SELVIN [id number] 12/06/2013 15:26:00 12/06/2013 23:59:59 CLS Outpatient [facility] BORER, SELVIN [id number] 12/06/2013 15:26:00 12/06/2013 23:59:59 CLS Outpatient BRANDON [facility] BORER, SELVIN [id number] 08/29/2013 13:10:00 08/29/2013 23:59:59 CLS Outpatient BRANDON H[facility] BORER, SELVIN [id number] 08/29/2013 13:10:00 08/29/2013 23:59:59 CLS Outpatient SVETLANA HORTA, CAMILA [id number] 11/24/2012 14:52:00 11/24/2012 23:59:59 CLS Outpatient NILS SAENZ DO [id number] 07/25/2012 13:36:00 07/25/2012 23:59:59 CLS Outpatient NILS SAENZ DO [id number] 04/26/2012 13:33:00 04/26/2012 23:59:59 CLS Outpatient NILS SAENZ DO [id number] 08/30/2012 14:19:00 Document Registration [id number] 02/08/2016 12:40:00 02/08/2016 23:59:59 CLS Outpatient NEHAL HORTA, NELSON Harden [facility] RAD GOITER [id number] 12/07/2015 16:12:00 12/07/2015 19:49:00 DIS Emergency CHARLOTTE HORTA, PEGGY Richardson [facility] ER DIZZINESS/NUMBNESS R SIDE [id number] 10/07/2015 09:46:00 10/07/2015 12:55:00 DIS Outpatient NELSON BARRAZA MD [facility] LEFT TRIGGER FINGER, LEFT CARPAL TUNNEL SYNDROME [id number] 10/05/2015 21:15:00 10/06/2015 06:05:00 DIS Outpatient KAY KING DO S [facility] SLEEP OBSERVED APNEAS, SNORING,HTN,MOOD DISORDER [id number] 10/02/2015 11:42:00 10/02/2015 12:32:00 DIS Outpatient NELSON BARRAZA MD [facility] PREOP LEFT TRIGGER THUMB , LEFT CARPAL TUNNEL SYNDROME [id number] 06/30/2015 14:44:00 06/30/2015 23:59:59 CLS Outpatient KAY KING DO S [facility] RAD LUMBAR DEG DISC DISEASE [id number] 02/19/2015 12:56:00 04/01/2015 14:52:00 DIS Outpatient KAY KING DO S [facility] REHAB THORACIC / RIB PAIN [id number] 01/11/2015 18:43:00 01/11/2015 21:33:00 DIS Emergency YASMEEN HARRINGTON DO [facility] ER DIZZINESS,HEADACHE, TINGLING,CHEST PAIN [id number] 09/22/2014 08:31:00 09/22/2014 10:55:00 DIS Outpatient MARIA VICTORIA ESCAMILLA MD [facility] SDC ABD PAIN; NAUSEA [id number] 09/18/2014 06:54:00 09/18/2014 23:59:59 CLS Outpatient MARIA VICTORIA ESCAMILLA MD [facility] PREOP ABD PAIN; NAUSEA [id number] 09/10/2014 07:07:00 09/10/2014 23:59:59 CLS Outpatient KAY KING DO S [facility] RAD ABDOMINAL PAIN THYROID GOITER [id number] 04/24/2014 15:13:00 04/24/2014 23:59:59 CLS Preadmit KAY KING DO S [facility] REHAB [id number] 02/20/2014 07:20:00 02/20/2014 23:59:59 CLS Outpatient FRANCINE HORTA, MARIA VICTORIA Iyer [facility] PREOP ABDOMINAL PAIN [id number] 07/23/2013 21:15:00 07/24/2013 19:15:00 DIS Inpatient ORENDER DO, KAY S [facility] CSD CHEST PAIN [id number] 07/10/2013 11:08:00 07/10/2013 23:59:59 CLS Outpatient FALGUNIER DO KAY S [facility] RAD MASTALGIA [id number] 04/29/2013 17:45:00 04/29/2013 23:03:00 DIS Emergency DONALDO BARKSDALE APRN [facility] ER RECTAL BLEED [id number] 04/27/2013 17:36:00 04/27/2013 23:59:59 CLS Outpatient [id number] 10/06/2015 09:10:00 Document Registration [id number] 10/01/2015 08:59:00 Document Registration [id number] 10/01/2015 08:59:00 Document Registration [id number] 06/16/2015 15:05:00 Document Registration [id number] 06/25/2012 20:19:00 Document Registration [id number] 04/18/2012 00:00:00 Document Registration [id number] 04/13/2012 22:18:00 Document Registration [id number] 01/23/2012 13:58:00 Document Registration [id number] 03/31/2011 19:43:00 Document Registration [id number] 02/03/2011 16:50:00 Document Registration [id number] 01/10/2011 11:30:00 Document Registration [id number] 12/08/2010 12:35:00 Document Registration [id number] 08/24/2010 07:39:00 Document Registration [id number] 08/15/2010 15:57:00 Document Registration [id number] 02/19/2015 12:57:03 ACT Document Registration 09/201710/03/2017 08:06:24 10/03/2017 23:59:59 CLS Outpatient Orender, Kay S.
--- OUTSIDE RECORDS SUMMARY | 2017-10-27 17:03 | XMS REPORT ---
Author Author CINTIA TELLEZ [facility] [place] eClinicalWorks Address Unknown Phone Unavailable Care Team Providers Care [employer] Supervisor Name Role Phone CINTIA TELLEZ Unavailable Allergies No Known Allergies Problems Problem Type Condition Code Onset Dates Condition Status Problem Counseling on substance use and abuse V65.42 Active Problem Bipolar I disorder, most recent episode (or current) depressed, in partial or unspecified remission 296.55 Active Problem Insomnia, unspecified 780.52 Active Assessment Dental examination Z01.20 Active Problem 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 Problem Bipolar I disorder, most recent episode (or current) depressed, mild 296.51 Active Medications No Known Medications Procedures Procedure Coding System Code Date Dental no charge CPT-4 D0099 September 17, 2015 Results No Known Results Summary Purpose eClinicalWorks Submission
--- NOTE | 2017-10-27 17:38 | ED Cough/URI ---
General Chief Complaint: Cough/Cold/Flu Symptoms Stated Complaint: CONGESTION Nursing Triage Note: pt reports cough/cold x 1 week but has progressively gotten worse. Pt reports zhong, and soa today. Source: patient Exam Limitations: no limitations History of Present Illness Date Seen by Provider: Oct 27, 2017 Time Seen by Provider: 17:35 Initial Comments To ER with complaints of several symptoms over the past week. These began on 10/23/17. It initially began with nasal congestion, headache and itchy throat. Since then she is reportedly worsening of symptoms now including headache, nausea, general malaise, shortness of breath, wheezing, palpitations, chest pain. She has a productive cough. Timing/Duration: week, getting worse Severity/Quality: moderate Associated Symptoms: cough, shortness of breath, wheezing Allergies and Home Medications Allergies Coded Allergies: baclofen (Verified Allergy, Unknown, 10/27/17) Home Medications Albuterol 8.5 Gm Hfa.aer.ad, 2 PUFF INH Q4H PRN for SHORTNESS OF BREATH, ( Reported) NEEDED FOR SHORTNESS OF BREATH Alprazolam 1 Mg Tablet, 1 MG PO TID, (Reported) Aspirin 81 Mg Tablet.dr, 81 MG PO DAILY, (Reported) Calcium/Vitamin D 1 Tab Tablet, 1 TAB PO DAILY, (Reported) Canagliflozin 300 Mg Tablet, 300 MG PO DAILY, (Reported) Cyclobenzaprine HCl 10 Mg Tablet, 10 MG PO TID PRN for MUSCLE SPASMS, (Reported) Esomeprazole Mag Trihydrate 40 Mg Capsule.dr, 40 MG PO BID, (Reported) Fluticasone Propionate 16 Gm Naspr, 1 SPRAY NA BID PRN for CONGESTION, (Reported ) NEEDED FOR CONGESTION Furosemide 80 Mg Tablet, 80 MG PO DAILY, (Reported) Hydrocodone Bit/Acetaminophen 1 Each Tablet, 1 TAB PO Q4H PRN for PAIN Prescribed by: NEYDA CARMICHAEL on 10/07/15 1232 Ibuprofen 800 Mg Tablet, 800 MG PO Q8H PRN for PAIN, (Reported) Insulin Aspart 10 Unit/0.1 Ml Vial, 25-45 UNITS SC TID, (Reported) WITH MEALS Insulin Glargine,Hum.rec.anlog 300 Unit/1 Ml Insuln.pen, 125 UNIT SQ DAILY, ( Reported) Levothyroxine Sodium 75 Mcg Tablet, 75 MCG PO DAILY, (Reported) Lisinopril 5 Mg Tablet, 5 MG PO DAILY, (Reported) Nebivolol Hcl 5 Mg Tablet, 5 MG PO HS, (Reported) Oxycodone Hcl/Acetaminophen 1 Tab Tablet, 1-2 TAB PO Q4H PRN for SEV, (Reported) TAKES 1 TO 2 (10-325MG) TABLETS NEEDED FOR SEVERE PAIN Potassium Chloride 10 Meq Tab.prt.sr, 20 MEQ PO DAILY, (Reported) TAKES 2 (10MEQ) TABLETS DAILY Pregabalin 200 Mg Capsule, 200 MG PO DAILY, (Reported) Promethazine Hcl 25 Mg Tablet, 25 MG PO BID PRN for NAUSEA, (Reported) NEEDED FOR NAUSEA Solifenacin Succinate 10 Mg Tablet, 10 MG PO DAILY, (Reported) Patient Home Medication List Home Medication List Reviewed: Yes Review of Systems Constitutional: see HPI; No chills, No fever EENTM: see HPI, nose congestion Respiratory: see HPI, cough, short of breath, wheezing Cardiovascular: no symptoms reported Genitourinary: no symptoms reported Musculoskeletal: no symptoms reported Skin: no symptoms reported Psychiatric/Neurological: No Symptoms Reported Hematologic/Lymphatic: No Symptoms Reported Immunological/Allergic: no symptoms reported Past Oxjwprs-Fwnsyl-Puhxdo Hx Patient Social History Alcohol Use: Denies Use Recreational Drug Use: No Smoking Status: Former Smoker Former Smoker, Quit: Oct 14, 2015 2nd Hand Smoke Exposure: No Recent Foreign Travel: No Contact w/Someone Who Travel: No Recent Infectious Disease Expo: No Recent Hopitalizations: No Physical Abuse: No Sexual Abuse: No Mistreated: No Fear: No Immunizations Up To Date Tetanus Booster (TDap): More than 5yrs Date of Pneumonia Vaccine: September 19, 2012 Seasonal Allergies Seasonal Allergies: No Past Medical History Surgeries: Yes ( X 3, RIGHT CTR) Adenoidectomy, Section, Hysterectomy, Oophorectomy, Tonsillectomy Respiratory: Yes COPD Cardiac: Yes High Cholesterol Neurological: Yes Reproductive Disorders: No Female 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 Sexually Transmitted Disease: No HIV/AIDS: No Gastrointestinal: Yes Gastroesophageal Reflux, Gall Bladder Disease Musculoskeletal: Yes Degenerate Disk Disease, Fibromyalgia, Back Injury, Chronic Back Pain, Fractures Endocrine: Yes Diabetes, Insulin dep, Hypothyroidsim Cancer: No Psychosocial: Yes Anxiety, Depression Nursing Suicide Risk Score: 0 Integumentary: No Blood Disorders: No Adverse Reaction/Blood Tranf: No Family Medical History No Pertinent Family Hx Physical Exam Vital Signs Vital Signs - First Documented 10/27/17 17:17 Temp 98.2 Pulse 102 Resp 20 B/P (MAP) 114/72 (86) Pulse Ox 94 O2 Delivery Room Air Capillary Refill : Less Than 3 Seconds General Appearance: WD/WN, no apparent distress Eyes: Bilateral Eye Normal Inspection, Bilateral Eye PERRL, Bilateral Eye EOMI HEENT: PERRL/EOMI, normal ENT inspection Respiratory: normal breath sounds, no respiratory distress, no accessory muscle use, decreased breath sounds, wheezing Cardiovascular: regular rate, rhythm, no murmur Gastrointestinal: normal bowel sounds, non tender, soft Extremities: normal range of motion, non-tender Neurologic/Psychiatric: alert, normal mood/affect, oriented x 3 Skin: normal color, warm/dry Progress/Results/Core Measures Suspected Sepsis Recent Fever Within 48 Hours: No Infection Criteria Present: None New/Unexplained Altered Menta: No Sepsis Screen: No Definite Risk SIRS Temperature:98.2 Pulse: 102 Respiratory Rate: 20 Laboratory Tests 10/27/17 18:40: White Blood Count 7.7 Blood Pressure 114 /72 Mean: 86 Laboratory Tests 10/27/17 18:40: Creatinine 1.04, Platelet Count 269, Total Bilirubin 0.3 Results/Orders Lab Results Laboratory Tests Test 10/27/17 18:40 10/27/17 18:51 Range/Units White Blood Count 7.7 4.3-11.0 10^3/uL Red Blood Count 4.77 4.35-5.85 10^6/uL Hemoglobin 13.9 11.5-16.0 G/DL Hematocrit 41 35-52 % Mean Corpuscular Volume 85 80-99 FL Mean Corpuscular Hemoglobin 29 25-34 PG Mean Corpuscular Hemoglobin Concent 34 32-36 G/DL Red Cell Distribution Width 13.6 10.0-14.5 % Platelet Count 269 130-400 10^3/uL Mean Platelet Volume 10.0 7.4-10.4 FL Neutrophils (%) (Auto) 47 42-75 % Lymphocytes (%) (Auto) 45 H 12-44 % Monocytes (%) (Auto) 7 0-12 % Eosinophils (%) (Auto) 1 0-10 % Basophils (%) (Auto) 0 0-10 % Neutrophils # (Auto) 3.6 1.8-7.8 X 10^3 Lymphocytes # (Auto) 3.5 1.0-4.0 X 10^3 Monocytes # (Auto) 0.5 0.0-1.0 X 10^3 Eosinophils # (Auto) 0.1 0.0-0.3 10^3/uL Basophils # (Auto) 0.0 0.0-0.1 10^3/uL Sodium Level 135 135-145 MMOL/L Potassium Level 4.1 3.6-5.0 MMOL/L Chloride Level 99 98-107 MMOL/L Carbon Dioxide Level 26 21-32 MMOL/L Anion Gap 10 5-14 MMOL/L Blood Urea Nitrogen 21 H 7-18 MG/DL Creatinine 1.04 0.60-1.30 MG/DL Estimat Glomerular Filtration Rate 57 BUN/Creatinine Ratio 20 Glucose Level 280 H 70-105 MG/DL Calcium Level 9.5 8.5-10.1 MG/DL Total Bilirubin 0.3 0.1-1.0 MG/DL Aspartate Amino Transf (AST/SGOT) 11 5-34 U/L Alanine Aminotransferase (ALT/SGPT) 15 0-55 U/L Alkaline Phosphatase 80 40-136 U/L Troponin I < 0.30 <0.30 NG/ML Total Protein 7.0 6.4-8.2 GM/DL Albumin 3.9 3.2-4.5 GM/DL D-Dimer 0.38 0.00-0.49 UG/ML My Orders Orders - DONALDO BARKSDALE APRN Troponin I (10/27/17 17:34) Continuous Ekg Monitoring (10/27/17 17:34) Cbc With Automated Diff (10/27/17 17:34) Comprehensive Metabolic Panel (10/27/17 17:34) Chest Pa/Lat (2 View) (10/27/17 17:34) Albuterol/Ipra Inhalation Soln (Duoneb I (10/27/17 17:45) Svn Small Volume Nebulizer (10/27/17 17:34) Ketorolac Injection (Toradol Injection) (10/27/17 17:45) Fibrin Degradation Products (10/27/17 18:51) Albuterol/Ipra Inhalation Soln (Duoneb I (10/27/17 19:00) Svn Small Volume Nebulizer (10/27/17 18:51) Promethazine Tablet (Phenergan Tablet) (10/27/17 19:15) Medications Given in ED Current Medications Medications Dose Ordered Sig/Yisel Route Start Time Stop Time Status Last Admin Dose Admin Albuterol/ Ipratropium 3 ml ONCE ONCE INH 10/27/17 17:45 10/27/17 17:46 DC 10/27/17 17:58 3 ML Albuterol/ Ipratropium 3 ml ONCE ONCE INH 10/27/17 19:00 10/27/17 19:01 DC 10/27/17 19:02 3 ML Ketorolac Tromethamine 60 mg ONCE ONCE IM 10/27/17 17:45 10/27/17 17:46 DC 10/27/17 18:11 60 MG Promethazine HCl 25 mg ONCE ONCE PO 10/27/17 19:15 10/27/17 19:16 DC 10/27/17 19:24 25 MG Vital Signs/I&O 10/27/17 10/27/17 10/27/17 10/27/17 17:17 17:17 17:59 19:04 Temp 98.2 Pulse 102 Resp 20 B/P (MAP) 114/72 (86) Pulse Ox 94 94 96 O2 Delivery Room Air Room Air Room Air Capillary Refill : Less Than 3 Seconds Blood Pressure Mean: 86 Diagnostic Imaging Diagonstic Imaging: Xray Plain Films/CT/US/NM/MRI: chest Comments NAME: KADEN PINK [facility] REC#: [id number] PT STATUS: REG ER : 1970 PHYSICIAN: DONALDO BARKSDALE APRN ADMIT DATE: 10/27/17/ER Draft Date of Exam:10/27/17 CHEST PA/LAT (2 VIEW) EXAM: Chest PA/LAT (2 views). INDICATION: Shortness of breath. Cough. COMPARISON: Chest radiograph, 01/11/2015. FINDINGS: Normal heart size and pulmonary vascularity. No focal pulmonary opacity, pleural effusion or pneumothorax. Osseous structures are unremarkable. IMPRESSION: No acute cardiopulmonary findings. Dictated on workstation # [id number] Dict: 10/27/17 1749 Trans: 10/27/17 1757 [facility] [id number] Interpreted by: VICK BAHENA MD Electronically signed by: Departure Impression Primary Impression: Upper respiratory infection Additional Impression: Bronchitis Disposition: 01 HOME, SELF-CARE Condition: Stable Departure-Patient Inst. Decision time for Depature: 19:27 Referrals: INDU KING DO (PCP/Family) Primary Care Physician Patient Instructions: NO INSTRUCTIONS GIVEN Add. Discharge Instructions: 1. Antibiotic as directed 2. Follow-up with your doctor next week 3. Return to ER for any worsening All discharge instructions reviewed with patient and/or family. Voiced understanding. Scripts Prednisone (Prednisone) 20 Mg Tab 40 MG PO DAILY, #6 TAB Prov: DONALDO BARKSDALE RAMP FLIGHT ATTENDANT 10/27/17 Azithromycin (Azithromycin) 250 Mg Tablet 250 MG PO DAILY, #4 TAB Prov: DONALDO BARKSDALE RAMP FLIGHT ATTENDANT 10/27/17 DONALDO BARKSDALE APRN Oct 27, 2017 17:38
[2017-10-27] MEDS ORDERED: KETOROLAC 60 MG/2 ML VIAL IM ONE (17:45)
[2017-10-27] MEDS ORDERED: RT-ALBUTEROL/IPRATROPIUM 3 ML (DUONEB) VIAL INH ONE ×2 (17:45→19:00)
--- NOTE | 2017-10-27 17:55 | Diagnostic Imaging Report ---
EXAM: Chest PA/LAT (2 views). INDICATION: Shortness of breath. Cough. COMPARISON: Chest radiograph, 01/11/2015. FINDINGS: Normal heart size and pulmonary vascularity. No focal pulmonary opacity, pleural effusion or pneumothorax. Osseous structures are unremarkable. IMPRESSION: No acute cardiopulmonary findings. Dictated by: Dictated on workstation # [id number]
[2017-10-27 18:50] LABS: EOSINOPHILS % (AUTO) 1 % (0-10); HEMATOCRIT 41 % (35-52); HEMOGLOBIN 13.9 G/DL (11.5-16.0); LYMPHOCYTES % (AUTO) 45 % (12-44); MEAN CORPUSCULAR HEMOGLOBIN 29 PG (25-34); MEAN CORPUSCULAR HGB CONC 34 G/DL (32-36); MEAN CORPUSCULAR VOLUME 85 FL (80-99); MONOCYTES % (AUTO) 7 % (0-12); NEUTROPHILS % (AUTO) 47 % (42-75); PLATELET COUNT 269 10^3/uL (130-400); RED BLOOD COUNT 4.77 10^6/uL (4.35-5.85); RED CELL DISTRIBUTION WIDTH 13.6 % (10.0-14.5); WHITE BLOOD COUNT 7.7 10^3/uL (4.3-11.0)
[2017-10-27 18:51] LABS: BASOPHILS % (AUTO) 0 % (0-10); EOSINOPHILS # (AUTO) 0.1 10^3/uL (0.0-0.3); LYMPHOCYTES # (AUTO) 3.5 X 10^3 (1.0-4.0); MONOCYTES # (AUTO) 0.5 X 10^3 (0.0-1.0); NEUTROPHILS # (AUTO) 3.6 X 10^3 (1.8-7.8)
[2017-10-27 19:15] LABS: ALANINE AMINOTRANSFERASE 15 U/L (0-55); ALBUMIN 3.9 GM/DL (3.2-4.5); ALKALINE PHOSPHATASE 80 U/L (40-136); BILIRUBIN,TOTAL 0.3 MG/DL (0.1-1.0); BUN/CREATININE RATIO 20; CALCIUM 9.5 MG/DL (8.5-10.1); CARBON DIOXIDE 26 MMOL/L (21-32); CHLORIDE 99 MMOL/L (98-107); CREATININE SERUM 1.04 MG/DL (0.60-1.30); GFR ESTIMATED 57; GLUCOSE 280 MG/DL (70-105); POTASSIUM 4.1 MMOL/L (3.6-5.0); SODIUM 135 MMOL/L (135-145)
[2017-10-27] MEDS ORDERED: PROMETHAZINE 25 MG (PHENERGAN) TAB PO ONE (19:15)
[2017-10-27] MEDS ORDERED: PRD20T PO (19:29)
[2017-10-27] MEDS ORDERED: AZIT250T12 PO (19:29)
[2017-10-27] MEDS ORDERED: AZITHROMYCIN 250 MG TAB (ZITHROMAX) PO SCH (19:30)
[2017-10-27] MEDS ORDERED: predniSONE 20 MG TAB PO ONE (19:30)
[2017-10-27 19:48] VITALS: BP 108/83
== END 2017-10-27 19:48 | disposition home or self-care (01) ==
LOC: EDUNIT# 16:56 → ER 16:57
DX: J06.9 Acute upper respiratory infection, unspecified (principal); J40 Bronchitis, not specified as acute or chronic; E78.00 Pure hypercholesterolemia, unspecified; K21.9 Gastro-esophageal reflux disease without esophagitis; E11.9 Type 2 diabetes mellitus without complications; E03.9 Hypothyroidism, unspecified; F41.9 Anxiety disorder, unspecified; F32.9 Major depressive disorder, single episode, unspecified; Z90.89 Acquired absence of other organs; Z87.59 Personal history of other complications of pregnancy, childbirth and the puerperium; Z90.710 Acquired absence of both cervix and uterus; Z87.19 Personal history of other diseases of the digestive system; Z87.81 Personal history of (healed) traumatic fracture; Z87.891 Personal history of nicotine dependence; Z79.4 Long term (current) use of insulin; Z88.6 Allergy status to analgesic agent
CPT/HCPCS: 36415; 71046; 80053; 84484; 85025; 85379; 94640; 94664; 96372

== ENCOUNTER → 2017-11-14 | Outpatient (CLI) | payer MEDICAID ==
[~2017-11-14] MED LIST changes: +AZIT250T12 PO; +PRD20T PO
--- NOTE | 2017-11-14 08:03 | Diagnostic Imaging Report ---
PROCEDURE: US Gallbladder. TECHNIQUE: Multiple real-time grayscale images were obtained over the right upper quadrant in various projections. INDICATION: Abdominal pain COMPARISON: 10/06/2015 FINDINGS: There is diffuse hepatic steatosis. This limits evaluation for focal hepatic abnormality. None are demonstrated. The common bile duct is not well seen however no gross biliary dilatation is demonstrated. The pancreas is not well visualized. The gallbladder appears unremarkable. Right kidney measures 12.1 cm in length and appears normal. No sonographic Campbell sign or ascites. IMPRESSION: Limited exam. There is diffuse hepatic steatosis. No additional abnormality is seen. Evaluation of the common bile duct and the pancreas however are limited. Dictated by: Dictated on workstation # [id number]
== END ==
LOC: RAD 07:25
PROVIDERS: ATTEND Family Medicine
DX: K76.0 Fatty (change of) liver, not elsewhere classified (principal)
CPT/HCPCS: 76705

== ENCOUNTER → 2017-12-22 | Outpatient (CLI) | payer MEDICAID ==
--- NOTE | 2017-12-22 12:28 | Diagnostic Imaging Report ---
PROCEDURE: US right lower extremity venous. TECHNIQUE: Multiple real-time grayscale images were obtained over the right lower extremity in various projections. Additional duplex Doppler and color Doppler images were also obtained. INDICATION: Right calf pain and swelling. There is no evidence of a right lower extremity DVT. Right lower extremity deep venous system shows normal compressibility with normal response to augmentation and Valsalva. No fluid collection or mass is seen. IMPRESSION: No evidence of right lower extremity DVT. Dictated by: Dictated on workstation # [id number]
== END ==
LOC: RAD 11:59
PROVIDERS: ATTEND Family Medicine
DX: M79.661 Pain in right lower leg (principal); M79.89 Other specified soft tissue disorders

== ENCOUNTER 2018-09-04 09:22 | Outpatient (CLI) | payer MEDICAID ==
[~2018-09-04] VITALS: Ht 165.1 cm; Wt 157.9 kg
[2018-09-04] MEDS ORDERED: HYDR25TA4 PO (12:21)
[2018-09-04] MEDS ORDERED: POTA10TA10 PO (12:21)
[2018-09-04] MEDS ORDERED: RT-ALBUINH IH (12:21)
[2018-09-04] MEDS ORDERED: INSU100I14 SQ (12:21)
[2018-09-04] MEDS ORDERED: FAMO-119 PO (12:21)
[2018-09-04] MEDS ORDERED: MECL-106 PO (12:21)
[2018-09-04] MEDS ORDERED: ALBU2.5V4 INH (12:21)
[2018-09-04] MEDS ORDERED: METF-399 PO (12:21)
[2018-09-04] MEDS ORDERED: LISI-556 PO (12:21)
[2018-09-04] MEDS ORDERED: LEVO75TA6 PO (12:21)
[2018-09-04] MEDS ORDERED: FURO40TA4 PO (12:21)
[2018-09-04] MEDS ORDERED: PREG200C PO (12:21)
[2018-09-04] MEDS ORDERED: OXYC-465 PO (12:21)
[2018-09-04] MEDS ORDERED: INSU100I32 SQ (12:25)
[2018-09-04] MEDS ORDERED: MULT-141 PO (12:25)
[2018-09-04] MEDS ORDERED: SEMA1PEN SQ (12:25)
[2018-09-04] MEDS ORDERED: TIZA4TAB11 PO (12:25)
[2018-09-04] MEDS ORDERED: PROM25TA14 PO (12:25)
[2018-09-04] MEDS ORDERED: FLUT16SP22 NSEACH (12:25)
[2018-09-04] MEDS ORDERED: NEBI5TAB8 PO (12:25)
[2018-09-05] MEDS ORDERED: PANT40TA2 PO (12:11)
== END 2018-09-04 12:27 | disposition home or self-care (01) ==
LOC: PREOP 09:22
PROVIDERS: ATTEND Surgery
DX: Z01.818 Encounter for other preprocedural examination (principal)

== ENCOUNTER 2018-09-05 11:10 | Day surgery (SDC) | payer MEDICAID ==
[~2018-09-05] VITALS: Ht 165.1 cm; Wt 157.9 kg
[~2018-09-05 11:10] MED LIST changes: +ALBU2.5V4 INH; +FAMO-119 PO; +FLUT16SP22 NSEACH; +FURO40TA4 PO; +HYDR25TA4 PO; +INSU100I14 SQ; +INSU100I32 SQ; +LEVO75TA6 PO; +LISI-556 PO; +MECL-106 PO; +METF-399 PO; +MULT-141 PO; +OXYC-465 PO; +POTA10TA10 PO; +PROM25TA14 PO; +RT-ALBUINH IH; +SEMA1PEN SQ; +TIZA4TAB11 PO
[2018-09-05] MEDS ORDERED: NS IV 500 ML 500 ML IV PRN (11:22)
[2018-09-05] MEDS ORDERED: NS IV 500 ML 500 ML ONE (11:23)
[2018-09-05] MEDS ORDERED: HURRICAINE EXT TUBE (BENZOCAINE) XX PRN (11:30)
[2018-09-05] MEDS ORDERED: LIDOCAINE JELLY 2% 6 ML SYRINGE MM PRN (11:30)
[2018-09-05] MEDS ORDERED: fentaNYL INJECTION 100 MCG/2 ML AMP IVP ONE (11:30)
[2018-09-05] MEDS ORDERED: MIDAZOLAM 2 MG/2 ML (VERSED) VIAL IVP ONE (11:30)
[2018-09-05 11:42] VITALS: BP 136/89
--- NOTE | 2018-09-05 12:06 | Progress Note-Pre Operative ---
Pre-Operative Progress Note H&P Reviewed The H&P was reviewed, patient examined and no changes noted. Date Seen by Provider: Sep 05, 2018 Time Seen by Provider: 12:00 Date H&P Reviewed: Sep 05, 2018 Time H&P Reviewed: 12:00 Pre-Operative Diagnosis: KURTIS ARIZMENDI MD Sep 05, 2018 12:06
[2018-09-05] MEDS ORDERED: PANT40TA2 PO (12:11)
--- NOTE | 2018-09-05 12:12 | Discharge Inst-Surgical ---
D/C Lap Instructions-KIDO New, Converted, or Re-Newed RX: RX on Chart Follow Up Activity as tolerated High Fiber Diet 25g or more per day Avoid Alcohol, Caffeine, Spicy [place] and Acid foods. Drink 64 fluid oz or more of fluids per day. Symptoms to Report: Fever over 101 degree F, Nausea/Vomiting If any problems/questions: Contact your physician or go to Emergency Room KURTIS TINOCO MD Sep 05, 2018 12:12
[2018-09-05] MEDS ORDERED: ACETAMINOPHEN 325 MG TABLET PO PRN (12:15)
[2018-09-05] MEDS ORDERED: HYDROcodone/APAP 5 MG/325 MG (LORTAB) TAB PO PRN (12:15)
[2018-09-05] MEDS ORDERED: morphine INJ 10 MG/ML 1ML (SYR OR VIAL) IV PRN (12:15)
[2018-09-05] MEDS ORDERED: ONDANSETRON 4 MG/2 ML (SDV) Z0FRAN IV PRN (12:15)
[2018-09-05] MEDS ORDERED: LIDOCAINE JELLY 2% 6 ML SYRINGE ONE (12:57)
[2018-09-05] MEDS ORDERED: HURRICAINE EXT TUBE (BENZOCAINE) ONE (12:57)
--- OUTSIDE RECORDS SUMMARY | 2018-09-05 13:18 | XMS REPORT ---
Author Author Migration, Doctor Organization [facility] Address Unknown Phone Unavailable Care Team Providers Care Hospice Registered Nurse Name Role Phone Migration, Doctor Unavailable Unavailable PROBLEMS Type Condition ICD9-CM Code ANX80-XF Code Onset Dates Condition Status SNOMED Code Problem Bipolar I disorder, most recent episode (or current) depressed, in partial or unspecified remission 296.55 Active 08076882 Problem Bipolar I disorder, most recent episode (or current) depressed, mild 296.51 Active 093976261 Problem Counseling on substance use and abuse V65.42 Active 507554700 Problem Insomnia, unspecified 780.52 Active 035433653 Problem 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 48882649 ALLERGIES No Information ENCOUNTERS Encounter Location Date Diagnosis [facility] [address] [address] 07 Apr, 2016 Dental caries K02.9 [facility] [address] [address] Mar, Dental examination Z01.20 [facility] [address] [id number] September, Dental examination Z01.20 [facility] [id number] [place] [id number] September, Dental examination Z01.20 [facility] [address] [id number] Aug, 2015 Encounter for dental examination and cleaning without abnormal findings Z01.20 [facility] [address] [address] Aug, [facility] [address] [address] Jul, [facility] [address] [address] Jun, [facility] [address] [id number] May, Dental caries K02.9 [facility] [id number] [place] [address] [id number]- [address] May, Bipolar disorder, in partial remission, most recent episode depressed F31.75 ; Agoraphobia with panic disorder F40.01 and Other insomnia not due to a substance or known physiological condition F51.09 [facility] [id number] [place] [address] 102752- [address] Jan, [facility] [id number] [place] [address]- [address] Jan, Panic disorder with agoraphobia and moderate panic attacks 300.21 ; Persistent disorder of initiating or maintaining sleep 307.42 and Unspecified episodic mood disorder 296.90 [facility] [id number] [place] [address] [id number]- [address] Dec, [facility] [id number] [place] [address] [id number] Nov, Dental examination V72.2 [facility] [id number] [place] [address] [id number]- [address]166 Nov, Persistent disorder of initiating or maintaining sleep 307.42 ; Bipolar I disorder, most recent episode (or current) depressed, in partial or unspecified remission 296.55 and Panic disorder with agoraphobia 300.21 [facility] [id number] [place] [address] [id number] Oct, Dental examination V72.2 [facility] [address] [place] [address]- [address] Oct, [facility] [id number] [place] [address] [id number] Oct, Dental examination V72.2 [facility] [id number] [place] [address] [id number] September, Dental examination V72.2 [facility] [address] [id number] [place] [id number] September, Dental examination V72.2 [facility] [address] [id number] [place] [address] September, [facility] [address] [id number] [place] [address] September, [facility] [address] [id number] [place] [address]- 6068 Aug, [facility] [address] [id number] [place] [address] 7759 Aug, [facility] [address] [id number] [place] [address]- 1293 Jul, [facility] [address] [id number] [place] [address] 3283 Jul, [facility] [address] [id number] [place] [address]- 9650 Jul, [facility] [address] [id number] [place] [address]- 9672 Jul, [facility] [address] [id number] [place] [address]- 62[address] Jul, [facility] [address] [id number] [place] [address]- 1288 Apr, [facility] [place] [facility] [address] [id number] [place] [address]- 7906 Apr, [facility] [place] [facility] [address] [id number] [place] [address]- 9741 Apr, [facility] [place] [facility] [address] [id number] [place] [address] Apr, [facility] [place] [facility] [address] [id number] [place] [address] Apr, [facility] [place] [facility] [address] [id number] [place] [address]- 0747 04 Apr, 2014 [facility] [place] [facility] [address] [id number] [place] [address]- 7559 Mar, [facility] [place] [facility] [address] [id number] [place] [address]- 0[address] 14 Mar, 2014 [facility] [place] [facility] [address] [id number] [place] [address]- 2129 17 Feb, 2014 [facility] [place] [facility] [address] [id number] [place] [address]- 8377 16 Feb, 2014 [facility] [place] [facility] [address] [id number] [place] [address]- 9619 16 Feb, 2014 [facility] [place] [facility] [address] [id number] [place] [address]- 3428 18 Jan, 2014 [facility] [place] [facility] [address] [id number] [place] [address]- 6184 18 Jan, 2014 [facility] [place] [facility] [address] [id number] [place] [address]- 1110 15 Jan, 2014 [facility] [place] [facility] [address] [id number] [place] [address]- 4700 15 Jan, 2014 [facility] [place] [facility] [address] [id number] [place] [address]- 8873 09 Jan, 2014 [facility] [place] [facility] [address] [id number] [place] [address]- 9910 Jan, [facility] [place] [facility] [address] [id number] [address] Dec, [facility] [place] [facility] [address] [id number] [place] [address]- 6265 Dec, [facility] [place] [facility] [address] [id number] [place] [address]- 3011 Nov, [facility] [place] [facility] [address] [id number] [place] [address]- 5399 Nov, [facility] [place] [facility] [address] [id number] [place] [address]- 1522 Nov, [facility] [place] [facility] [address] [id number] [place] [address]- 3292 Nov, [facility] [place] [facility] [address] [id number] [place] [address]- 2635 Oct, [facility] [place] [facility] [address] [id number] [place] [address]- 3596 Oct, [facility] [place] [facility] [address] [id number] [place] [address]- 9352 Oct, [facility] [place] [facility] [address] [id number] [place] [address]- 0196 Oct, [facility] [place] [facility] [address] [id number] [place] [address]- 3898 Aug, [facility] [place] [facility] [address] [id number] [place] [address]- 1693 Aug, [facility] [place] [facility] [address] [id number] [place] [address]- 7591 Jul, [facility] [place] [facility] [address] [id number] [place] [address]- 7201 Jul, [facility] [place] [facility] [address] [id number] [place] [address]- 3607 Jul, [facility] [place] [facility] [address] [id number] [place] [address]- 9526 Jul, [facility] [place] [facility] [address] [id number] [place] [address]- 9919 Jul, [facility] [place] [facility] [address] [id number] [place] [address]- 5430 Jul, [facility] [place] [facility] [address] [id number] [place] [address]- 0338 Jun, [facility] [place] [facility] [address] [id number] [place] [address]- 4228 Jun, [facility] [place] [facility] [address] [id number] [place] [address]- 1054 Jun, [facility] [place] [facility] [address] [id number] [place] [address]- 0429 Jun, [facility] [place] [facility] [address] [id number] [place] [address]- 6104 May, [facility] [place] [facility] [address] [id number] [place] [address]- 9468 May, [facility] [place] [facility] [address] [id number] [place] [address]- 7202 Apr, [facility] [place] [facility] [address] [id number] [place] [address]- 8913 Apr, [facility] [place] [facility] [address] [id number] [place] [address]- 4388 Feb, [facility] [place] [facility] [address] [id number] [place] [address]- 2623 Feb, [facility] [place] [facility] [address] [id number] [place] [address]- 3925 Feb, [facility] [place] [facility] [address] [id number] [place] [address]- 5610 Feb, [facility] [place] [facility] [address] [id number] [address]- 9910 Feb, [facility] [place] [facility] [address] [id number] [address]- 6111 Jan, [facility] [place] [facility] [address] [id number] [place] [address]- 8535 Jan, [facility] [place] [facility] [address] [id number] [place] [address]- 0681 Dec, [facility] [place] [facility] [address] [id number] [place] [address]- 8134 Nov, [facility] [place] [facility] [address] [id number] [place] [address] 2546 13 Nov, 2012 [facility] [address] [id number] [place] [address]- 6296 Oct, [facility] [address] [id number] [place] [address] 2546 Oct, [facility] [address] [id number] [place] [address]- 0056 September, [facility] [address] [id number] [place] [address]- 0492 September, [facility] [address] [id number] [place] [address]- 0505 Aug, [facility] [address] [id number] [place] [address]- 5476 Jul, [facility] [address] [id number] [place] [address]- 6819 Jul, [facility] [address] [id number] [place] [address]- 9804 Jun, [facility] [address] [id number] [place] [address]- 5456 Jun, [facility] [address] [id number] [place] [address]- 0556 Jun, [facility] [address] [id number] [place] [address]- 6706 May, [facility] [address] [id number] [place] [address]- 0866 May, [facility] [address] [id number] [place] [address]- 7346 May, [facility] [address] [id number] [place] [address]- 2316 Apr, [facility] [address] [id number] [place] [address]- 5467 Apr, [facility] [place] [facility] [address] [id number] [place] [address]- 8927 Apr, [facility] [place] [facility] [address] [id number] [place] [address]- 7976 Apr, [facility] [place] [facility] [address] [id number] [place] [address] 2546 Feb, [facility] [place] [facility] [address] [id number] [place] [address]- 2546 Feb, [facility] [place] [facility] [address] [id number] [place] [address]- 1609 Feb, [facility] [place] [facility] [address] [id number] [place] [address]- 8556 Jan, [facility] [place] [facility] [address] [id number] [place] [address] 2546 Jan, [facility] [place] [facility] [address] [id number] [place] [address]- 5970 Dec, [facility] [place] [facility] [address] [id number] [place] [address]- 3340 Nov, [facility] [place] [facility] [address] [id number] [place] [address]- 0786 Nov, [facility] [place] [facility] [address] [id number] [address]- 8956 Oct, [facility] [place] [facility] [address] [id number], [place] [address] 2546 Oct, [facility] [place] [facility] [address] [id number] [place] [address]- 2546 Oct, [facility] [place] [facility] [address] [id number] [place] [address]- 1296 September, [facility] [place] [facility] [address] [id number] [place] [address]- 2546 September, [facility] [place] [facility] [address] [id number] [place] [address]- 0366 September, [facility] [address] [id number] [place] [address]- 6250 Aug, [facility] [place] [facility] [address] [id number] [place] [address]- 8395 Aug, [facility] [address] [id number] [place] [address]- 0195 Aug, [facility] [place] [facility] [address] [id number] [place] [address]- 0445 Jul, [facility] [address] [id number] [place] [address]- 0215 Jul, [facility] [address] [id number] [place] [address]- 1762 Jul, [facility] [address] [id number] [place] [address]- 0747 Jul, [facility] [address] [id number] [place] [address]- 8294 Jul, [facility] [address] [id number] [place] [address]- 0691 Jun, [facility] [address] [id number] [place] [address]- 5341 Jun, [facility] [address] [id number] [place] [address]- 0862 May, [facility] [address] [id number] [place] [address]- 5134 May, [facility] [place] [facility] [address] [id number] [place] [address]- 0496 Apr, [facility] [place] [facility] [address] [id number] [place] [address]- 2546 Apr, [facility] [place] [facility] [address] [id number] [place] [address]- 6996 Mar, [facility] [address] [facility] [id number] [address]- [address] Mar, [facility] [address] [facility] [id number], [place] [address]- 3086 Mar, [facility] [address] [facility] [id number], [place] [address]- 7889 Feb, [facility] [address] [facility] [id number] [address]- 2646 Feb, [facility] [address] [id number] [address]- 8317 Feb, [facility] [address] [id number] [address]- 8804 Dec, [facility] [address] [id number] [address]- 2590 Nov, IMMUNIZATIONS No Known Immunizations SOCIAL HISTORY Never Assessed REASON FOR VISIT [facility] PLAN OF CARE VITAL SIGNS MEDICATIONS No Known Medications RESULTS No Results PROCEDURES No Known procedures INSTRUCTIONS MEDICATIONS ADMINISTERED No Known Medications MEDICAL (GENERAL) HISTORY Type Description Date Medical History high blood pressure Medical History copd Medical History thyroid Medical History diabetes type 2 Medical History back issues Surgical History tonsils 1975 Surgical History c section 1989 Surgical History c section 1997 Surgical History c section 1999 Surgical History hysterectomy 2005 Surgical History Carpal tunnel surgery 2016 Hospitalization History back pain Hospitalization History chest pain
--- OUTSIDE RECORDS SUMMARY | 2018-09-05 13:18 | XMS REPORT ---
Author Author Migration, Doctor Organization [facility] Address Unknown Phone Unavailable Care Team Providers Care Front Edger Name Role Phone Migration, Doctor Unavailable Unavailable PROBLEMS Type Condition ICD9-CM Code [id number] Code Onset Dates Condition Status SNOMED Code Problem Bipolar I disorder, most recent episode (or current) depressed, in partial or unspecified remission 296.55 Active 94064484 Problem Bipolar I disorder, most recent episode (or current) depressed, mild 296.51 Active 388854209 Problem Counseling on substance use and abuse V65.42 Active 098829320 Problem Insomnia, unspecified 780.52 Active 245798663 Problem 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 [id number] ALLERGIES No Information ENCOUNTERS Encounter Location Date Diagnosis [facility] [address] [address] 07 Apr, 2016 Dental caries K02.9 [facility] [address] [address] Mar, Dental examination Z01.20 [facility] [address] [id number] September, Dental examination Z01.20 [facility] [id number] [place] [address] [id number] September, Dental examination Z01.20 [facility] [address] [id number] Aug, 2015 Encounter for dental examination and cleaning without abnormal findings Z01.20 [facility] [address] [address] 11 Aug, 2015 [facility] [address] [address] Jul, [facility] [address] [address] Jun, [facility] [address] [id number] May, Dental caries K02.9 [facility] [id number] [place] [address]269- [address] May, Bipolar disorder, in partial remission, most recent episode depressed F31.75 ; Agoraphobia with panic disorder F40.01 and Other insomnia not due to a substance or known physiological condition F51.09 [facility] [id number] [place] [address] [id number]- [address] Jan, [facility] [id number] [place] [address]- 6[address] Jan, Panic disorder with agoraphobia and moderate panic attacks 300.21 ; Persistent disorder of initiating or maintaining sleep 307.42 and Unspecified episodic mood disorder 296.90 [facility] [id number] [place] [address] [id number] [address]66 Dec, [facility] [address] [place] [address] [id number] Nov, Dental examination V72.2 [facility] [id number] [place] [address] 856231- 9616 Nov, Persistent disorder of initiating or maintaining sleep 307.42 ; Bipolar I disorder, most recent episode (or current) depressed, in partial or unspecified remission 296.55 and Panic disorder with agoraphobia 300.21 [facility] [address] [place] [address] [id number] Oct, Dental examination V72.2 [facility] [address] [place] [address]- 25[address] Oct, [facility] [address] [place] [address] [id number] Oct, Dental examination V72.2 [facility] [id number] [place] [address] [id number] September, Dental examination V72.2 [facility] [address] [id number] [place] [id number] September, Dental examination V72.2 [facility] [address] [id number] [place] [address] September, [facility] [address] [id number] [place] [address] 34[address] September, [facility] [address] [id number] [place] [address]- 6883 Aug, [facility] [address] [id number] [place] [address]- 8678 Aug, [facility] [address] [id number] [place] [address]- 4520 Jul, [facility] [address] [id number] [place] [address]- 7571 Jul, [facility] [address] [id number] [place] [address]- 1498 Jul, [facility] [address] [id number] [place] [address]- 0761 Jul, [facility] [address] [id number] [place] [address]- 0416 Jul, [facility] [address] [id number] [place] [address]- 2765 Apr, [facility] [place] [facility] [address] [id number] [place] [address]- 9656 Apr, [facility] [place] [facility] [address] [id number] [place] [address]- 7580 Apr, [facility] [place] [facility] [address] [id number] [place] [address] Apr, [facility] [place] [facility] [address] [id number] [place] [address] Apr, [facility] [place] [facility] [address] [id number] [place] [address]- 0664 04 Apr, 2014 [facility] [place] [facility] [address] [id number] [place] [address]- 1122 Mar, [facility] [place] [facility] [address] [id number] [place] [address]- 1003 14 Mar, 2014 [facility] [place] [facility] [address] [id number] [place] [address]- 1092 17 Feb, 2014 [facility] [place] [facility] [address] [id number] [place] [address]- 4120 16 Feb, 2014 [facility] [place] [facility] [address] [id number] [place] [address]- 6368 16 Feb, 2014 [facility] [place] [facility] [address] [id number] [place] [address]- 0923 18 Jan, 2014 [facility] [place] [facility] [address] [id number] [place] [address]- 4577 18 Jan, 2014 [facility] [place] [facility] [address] [id number] [place] [address]- 2455 15 Jan, 2014 [facility] [place] [facility] [address] [id number] [place] [address]- 3886 15 Jan, 2014 [facility] [place] [facility] [address] [id number] [place] [address]- 4682 09 Jan, 2014 [facility] [place] [facility] [address] [id number] [place] [address]- 8281 Jan, [facility] [place] [facility] [address] [id number], [place] [address] Dec, [facility] [place] [facility] [address] [id number] [place] [address]- 1793 Dec, [facility] [place] [facility] [address] [id number] [place] [address]- 1938 Nov, [facility] [place] [facility] [address] [id number] [place] [address]- 3710 Nov, [facility] [place] [facility] [address] [id number] [place] [address]- 1600 Nov, [facility] [place] [facility] [address] [id number] [place] [address]- 3686 Nov, [facility] [place] [facility] [address] [id number] [place] [address]- 6068 Oct, [facility] [place] [facility] [address] [id number] [place] [address]- 5201 Oct, [facility] [place] [facility] [address] [id number] [place] [address]- 8382 Oct, [facility] [place] [facility] [address] [id number] [place] [address]- 4900 Oct, [facility] [place] [facility] [address] [id number] [place] [address]- 7158 Aug, [facility] [place] [facility] [address] [id number] [place] [address]- 2925 Aug, [facility] [place] [facility] [address] [id number] [place] [address]- 4798 Jul, [facility] [place] [facility] [address] [id number] [place] [address]- 1465 Jul, [facility] [place] [facility] [address] [id number] [place] [address]- 2801 Jul, [facility] [place] [facility] [address] [id number] [place] [address]- 7159 Jul, [facility] [place] [facility] [address] [id number] [place] [address]- 3591 Jul, [facility] [place] [facility] [address] [id number] [place] [address]- 1741 Jul, [facility] [place] [facility] [address] [id number] [place] [address]- 1028 Jun, [facility] [place] [facility] [address] [id number] [place] [address]- 4054 Jun, [facility] [place] [facility] [address] [id number] [place] [address]- 0335 Jun, [facility] [place] [facility] [address] [id number] [place] [address]- 5858 Jun, [facility] [place] [facility] [address] [id number] [place] [address]- 2132 May, [facility] [place] [facility] [address] [id number] [place] [address]- 3961 May, [facility] [place] [facility] [address] [id number] [place] [address]- 8871 Apr, [facility] [place] [facility] [address] [id number] [place] [address]- 4300 Apr, [facility] [place] [facility] [address] [id number] [place] [address]- 0054 Feb, [facility] [place] [facility] [address] [id number] [place] [address]- 2754 Feb, [facility] [place] [facility] [address] [id number] [place] [address]- 2087 Feb, [facility] [place] [facility] [address] [id number] [place] [address]- 4324 Feb, [facility] [place] [facility] [address] [id number], [place] [address]- 6167 Feb, [facility] [place] [facility] [address] [id number], [place] [address]- 4505 Jan, [facility] [place] [facility] [address] [id number] [place] [address]- 6720 Jan, [facility] [place] [facility] [address] [id number] [place] [address]- 0313 Dec, [facility] [place] [facility] [address] [id number] [place] [address]- 4636 Nov, [facility] [place] [facility] [address] [id number] [place] [address] 2546 13 Nov, 2012 [facility] [address] [id number] [place] [address]- 2573 Oct, [facility] [address] [id number] [place] [address] 2546 Oct, [facility] [address] [id number] [place] [address]- 0936 September, [facility] [address] [id number] [place] [address]- 6277 September, [facility] [address] [id number] [place] [address]- 0220 Aug, [facility] [address] [id number] [place] [address]- 4236 Jul, [facility] [address] [id number] [place] [address]- 4165 Jul, [facility] [address] [id number] [place] [address]- 6249 Jun, [facility] [address] [id number] [place] [address]- 7516 Jun, [facility] [address] [id number] [place] [address]- 4456 Jun, [facility] [address] [id number] [place] [address]- 3666 May, [facility] [address] [id number] [place] [address]- 5319 May, [facility] [address] [id number] [place] [address]- 8636 May, [facility] [address] [id number] [place] [address]- 2536 Apr, [facility] [address] [id number] [place] [address]- 8217 Apr, [facility] [place] [facility] [address] [id number] [place] [address]- 0140 Apr, [facility] [place] [facility] [address] [id number] [place] [address]- 1126 Apr, [facility] [place] [facility] [address] [id number] [place] [address] 2546 Feb, [facility] [place] [facility] [address] [id number] [place] [address]- 2546 Feb, [facility] [place] [facility] [address] [id number] [place] [address]- 2998 Feb, [facility] [place] [facility] [address] [id number] [place] [address]- 6596 Jan, [facility] [place] [facility] [address] [id number] [place] [address] 2546 Jan, [facility] [place] [facility] [address] [id number] [place] [address]- 6133 Dec, [facility] [place] [facility] [address] [id number] [place] [address]- 6229 Nov, [facility] [place] [facility] [address] [id number] [place] [address]- 0796 Nov, [facility] [place] [facility] [address] [id number], [place] [address]- 8476 Oct, [facility] [place] [facility] [address] [id number], [place] [address] 2546 Oct, [facility] [place] [facility] [address] [id number] [place] [address]- 2546 Oct, [facility] [place] [facility] [address] [id number] [place] [address]- 3706 September, [facility] [place] [facility] [address] [id number] [place] [address]- 2546 September, [facility] [place] [facility] [address] [id number] [place] [address]- 5846 September, [facility] [address] [id number] [place] [address]- 4541 Aug, [facility] [place] [facility] [address] [id number] [place] [address]- 2057 Aug, [facility] [address] [id number] [place] [address]- 2892 Aug, [facility] [place] [facility] [address] [id number] [place] [address]- 4858 Jul, [facility] [address] [id number] [place] [address]- 8865 Jul, [facility] [address] [id number] [place] [address]- 8439 Jul, [facility] [address] [id number] [place] [address]- 1133 Jul, [facility] [address] [id number] [place] [address]- 6854 Jul, [facility] [address] [id number] [place] [address]- 3785 Jun, [facility] [address] [id number] [place] [address]- 8329 Jun, [facility] [address] [id number] [place] [address]- 5663 May, [facility] [address] [id number] [place] [address]- 6666 May, [facility] [place] [facility] [address] [id number] [place] [address]- 9990 Apr, [facility] [place] [facility] [address] [id number] [place] [address]- 2546 Apr, [facility] [place] [facility] [address] [id number] [place] [address]- 2042 Mar, [facility] [address] [facility] [id number], [place] [address]- 9555 Mar, [facility] [address] [facility] [id number], [place] [address]- 7356 Mar, [facility] [address] [facility] [id number], [place] [address]- 9401 Feb, [facility] [address] [facility] [id number], [place] [address]- 2463 Feb, [facility] [address] [id number], [place] [address] 4976 Feb, [facility] [address] [id number], [place] [address]- 3799 Dec, [facility] [address] [id number], [place] [address]- 5349 Nov, IMMUNIZATIONS No Known Immunizations SOCIAL HISTORY Never Assessed REASON FOR VISIT [facility] [place] [place] CARE VITAL SIGNS MEDICATIONS No [...]
--- OUTSIDE RECORDS SUMMARY | 2018-09-05 13:19 | XMS REPORT ---
Author Author Migration, Doctor Organization [facility] Address Unknown Phone Unavailable Care Team Providers Care Rumper Name Role Phone Migration, Doctor Unavailable Unavailable PROBLEMS Type Condition ICD9-CM Code [id number] Code Onset Dates Condition Status SNOMED Code Problem Bipolar I disorder, most recent episode (or current) depressed, in partial or unspecified remission 296.55 Active 35730096 Problem Bipolar I disorder, most recent episode (or current) depressed, mild 296.51 Active 574618482 Problem Counseling on substance use and abuse V65.42 Active 636694729 Problem Insomnia, unspecified 780.52 Active 563884954 Problem 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 47166863 ALLERGIES No Information ENCOUNTERS Encounter Location Date Diagnosis [facility] [address] [address] 07 Apr, 2016 Dental caries K02.9 [facility] [address] [address] Mar, Dental examination Z01.20 [facility] [address] [id number] September, Dental examination Z01.20 [facility] [id number] [place] [address] [id number] September, Dental examination Z01.20 [facility] [address] [id number] Aug, 2015 Encounter for dental examination and cleaning without abnormal findings Z01.20 [facility] [address] [address] 11 Aug, 2015 [facility] [address] [address] Jul, [facility] [address] [address] Jun, [facility] [address] [id number] May, Dental caries K02.9 [facility] [id number] [place] [address] [id number]- [address] May, Bipolar disorder, in partial remission, most recent episode depressed F31.75 ; Agoraphobia with panic disorder F40.01 and Other insomnia not due to a substance or known physiological condition F51.09 [facility] [id number] [place] [address] [id number]- [address] Jan, [facility] [id number] [place] [address]68- 2685 Jan, Panic disorder with agoraphobia and moderate panic attacks 300.21 ; Persistent disorder of initiating or maintaining sleep 307.42 and Unspecified episodic mood disorder 296.90 [facility] [id number] [place] [address] [id number]- [address]26 Dec, [facility] [address] [place] [address] [id number] Nov, Dental examination V72.2 [facility] [id number] [place] [address] 347216- 7986 Nov, Persistent disorder of initiating or maintaining sleep 307.42 ; Bipolar I disorder, most recent episode (or current) depressed, in partial or unspecified remission 296.55 and Panic disorder with agoraphobia 300.21 [facility] [address] [place] [address] [id number] Oct, Dental examination V72.2 [facility] [address] [place] [address] 9[address]34- 2546 Oct, [facility] [address] [place] [address] [id number] Oct, Dental examination V72.2 [facility] [id number] [place] [address] [id number] September, Dental examination V72.2 [facility] [address] [id number] [place] [id number] September, Dental examination V72.2 [facility] [address] [id number] [place] [address] September, [facility] [address] [id number] [place] [address]- 0962 September, [facility] [address] [id number] [place] [address] 3609 Aug, [facility] [address] [id number] [place] [address]- 3827 Aug, [facility] [address] [id number] [place] [address]- 8920 Jul, [facility] [address] [id number] [place] [address]- 6092 Jul, [facility] [address] [id number] [place] [address]- 9445 Jul, [facility] [address] [id number] [place] [address]- 0906 Jul, [facility] [address] [id number] [place] [address]- 5807 Jul, [facility] [address] [id number] [place] [address]- 8233 Apr, [facility] [place] [facility] [address] [id number] [place] [address]- 3117 Apr, [facility] [place] [facility] [address] [id number] [place] [address]- 9395 Apr, [facility] [place] [facility] [address] [id number] [place] [address] Apr, [facility] [place] [facility] [address] [id number] [place] [address] Apr, [facility] [place] [facility] [address] [id number] [place] [address]- 3032 04 Apr, 2014 [facility] [place] [facility] [address] [id number] [place] [address]- 7622 Mar, [facility] [place] [facility] [address] [id number] [place] [address]- 7808 14 Mar, 2014 [facility] [place] [facility] [address] [id number] [place] [address]- 4810 17 Feb, 2014 [facility] [place] [facility] [address] [id number] [place] [address]- 5874 16 Feb, 2014 [facility] [place] [facility] [address] [id number] [place] [address]- 1316 16 Feb, 2014 [facility] [place] [facility] [address] [id number] [place] [address]- 3104 18 Jan, 2014 [facility] [place] [facility] [address] [id number] [place] [address]- 7318 18 Jan, 2014 [facility] [place] [facility] [address] [id number] [place] [address]- 6988 15 Jan, 2014 [facility] [place] [facility] [address] [id number] [place] [address]- 0058 15 Jan, 2014 [facility] [place] [facility] [address] [id number] [place] [address]- 6[address] 09 Jan, 2014 [facility] [place] [facility] [address] [id number] [place] [address]- 3149 Jan, [facility] [place] [facility] [address] [id number] [address]- 37[address] Dec, [facility] [place] [facility] [address] [id number] [place] [address]- 2921 Dec, [facility] [place] [facility] [address] [id number] [place] [address]- 8422 Nov, [facility] [place] [facility] [address] [id number] [place] [address]- 5040 Nov, [facility] [place] [facility] [address] [id number] [place] [address]- 0174 Nov, [facility] [place] [facility] [address] [id number] [place] [address]- 6103 Nov, [facility] [place] [facility] [address] [id number] [place] [address]- 2411 Oct, [facility] [place] [facility] [address] [id number] [place] [address]- 0125 Oct, [facility] [place] [facility] [address] [id number] [place] [address]- 1018 Oct, [facility] [place] [facility] [address] [id number] [place] [address]- 2740 Oct, [facility] [place] [facility] [address] [id number] [place] [address]- 4067 Aug, [facility] [place] [facility] [address] [id number] [place] [address]- 2124 Aug, [facility] [place] [facility] [address] [id number] [place] [address]- 4015 Jul, [facility] [place] [facility] [address] [id number] [place] [address]- 1723 Jul, [facility] [place] [facility] [address] [id number] [place] [address]- 4843 Jul, [facility] [place] [facility] [address] [id number] [place] [address]- 6533 Jul, [facility] [place] [facility] [address] [id number] [place] [address]- 1889 Jul, [facility] [place] [facility] [address] [id number] [place] [address]- 5076 Jul, [facility] [place] [facility] [address] [id number] [place] [address]- 0640 Jun, [facility] [place] [facility] [address] [id number] [place] [address]- 6715 Jun, [facility] [place] [facility] [address] [id number] [place] [address]- 2934 Jun, [facility] [place] [facility] [address] [id number] [place] [address]- 2863 Jun, [facility] [place] [facility] [address] [id number] [place] [address]- 5855 May, [facility] [place] [facility] [address] [id number] [place] [address]- 5450 May, [facility] [place] [facility] [address] [id number] [place] [address]- 4407 Apr, [facility] [place] [facility] [address] [id number] [place] [address]- 2874 Apr, [facility] [place] [facility] [address] [id number] [place] [address]- 0817 Feb, [facility] [place] [facility] [address] [id number] [place] [address]- 2152 Feb, [facility] [place] [facility] [address] [id number] [place] [address]- 2275 Feb, [facility] [place] [facility] [address] [id number] [place] [address]- 5180 Feb, [facility] [place] [facility] [address] [id number] [address]- 4440 Feb, [facility] [place] [facility] [address] [id number] [address]- 9171 Jan, [facility] [place] [facility] [address] [id number] [place] [address]- 2205 Jan, [facility] [place] [facility] [address] [id number] [place] [address]- 4674 Dec, [facility] [place] [facility] [address] [id number] [place] [address]- 6958 Nov, [facility] [place] [facility] [address] [id number] [place] [address] 2546 13 Nov, 2012 [facility] [address] [id number] [place] [address]- 5704 Oct, [facility] [address] [id number] [place] [address] 2546 Oct, [facility] [address] [id number] [place] [address]- 2626 September, [facility] [address] [id number] [place] [address]- 4413 September, [facility] [address] [id number] [place] [address]- 0592 Aug, [facility] [address] [id number] [place] [address]- 6456 Jul, [facility] [address] [id number] [place] [address]- 6933 Jul, [facility] [address] [id number] [place] [address]- 5440 Jun, [facility] [address] [id number] [place] [address]- 5266 Jun, [facility] [address] [id number] [place] [address]- 2586 Jun, [facility] [address] [id number] [place] [address]- 6816 May, [facility] [address] [id number] [place] [address]- 5260 May, [facility] [address] [id number] [place] [address]- 3306 May, [facility] [address] [id number] [place] [address]- 2936 Apr, [facility] [address] [id number] [place] [address]- 0742 Apr, [facility] [place] [facility] [address] [id number] [place] [address]- 8693 Apr, [facility] [place] [facility] [address] [id number] [place] [address]- 0096 Apr, [facility] [place] [facility] [address] [id number] [place] [address] 2546 Feb, [facility] [place] [facility] [address] [id number] [place] [address]- 2546 Feb, [facility] [place] [facility] [address] [id number] [place] [address]- 4616 Feb, [facility] [place] [facility] [address] [id number] [place] [address]- 4606 Jan, [facility] [place] [facility] [address] [id number] [place] [address] 2546 Jan, [facility] [place] [facility] [address] [id number] [place] [address]- 9315 Dec, [facility] [place] [facility] [address] [id number] [place] [address]- 6488 Nov, [facility] [place] [facility] [address] [id number] [place] [address]- 9116 Nov, [facility] [place] [facility] [address] [id number] [address]- 9186 Oct, [facility] [place] [facility] [address] [id number] [place] [address] 2546 Oct, [facility] [place] [facility] [address] [id number] [place] [address]- 2546 Oct, [facility] [place] [facility] [address] [id number] [place] [address]- 7896 September, [facility] [place] [facility] [address] [id number] [place] [address]- 2546 September, [facility] [place] [facility] [address] [id number] [place] [address]- 3332 September, [facility] [address] [id number] [place] [address]- 5701 Aug, [facility] [place] [facility] [address] [id number] [place] [address]- 0648 Aug, [facility] [address] [id number] [place] [address]- 9479 Aug, [facility] [place] [facility] [address] [id number] [place] [address]- 3512 Jul, [facility] [address] [id number] [place] [address]- 8051 Jul, [facility] [address] [id number] [place] [address]- 7504 Jul, [facility] [address] [id number] [place] [address]- 9156 Jul, [facility] [address] [id number] [place] [address]- 2857 Jul, [facility] [address] [id number] [place] [address]- 3826 Jun, [facility] [address] [id number] [place] [address]- 4975 Jun, [facility] [address] [id number] [place] [address]- 7295 May, [facility] [address] [id number] [place] [address]- 5287 May, [facility] [place] [facility] [address] [id number] [place] [address]- 3666 Apr, [facility] [place] [facility] [address] [id number] [place] [address]- 2546 Apr, [facility] [place] [facility] [address] [id number] [place] [address]- 6404 Mar, [facility] [address] [facility] [id number] [address]- 3787 Mar, [facility] [address] [facility] [id number] [place] [address]- 0706 Mar, [facility] [address] [facility] [id number] [place] [address]- 3939 Feb, [facility] [address] [facility] [id number] [place] [address]- 1391 Feb, [facility] [address] [id number] [address]- 9664 Feb, [facility] [address] [id number] [address]- 2566 Dec, [facility] [address] [id number] [address]- 9697 Nov, IMMUNIZATIONS No Known Immunizations SOCIAL HISTORY Never Assessed REASON FOR VISIT [facility] [place] VITAL SIGNS MEDICATIONS No [...]
--- OUTSIDE RECORDS SUMMARY | 2018-09-05 13:19 | XMS REPORT ---
Author Author Migration, Doctor Organization [facility] Address Unknown Phone Unavailable Care Team Providers Care Lead Architect Name Role Phone Migration, Doctor Unavailable Unavailable PROBLEMS Type Condition ICD9-CM Code GQK40-OT Code Onset Dates Condition Status SNOMED Code Problem Bipolar I disorder, most recent episode (or current) depressed, in partial or unspecified remission 296.55 Active 11170706 Problem Bipolar I disorder, most recent episode (or current) depressed, mild 296.51 Active 827643772 Problem Counseling on substance use and abuse V65.42 Active 072658626 Problem Insomnia, unspecified 780.52 Active 561831699 Problem 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 [id number] ALLERGIES No Information ENCOUNTERS Encounter Location Date Diagnosis [facility] [address] [address] 07 Apr, 2016 Dental caries K02.9 [facility] [address] [address] Mar, Dental examination Z01.20 [facility] [address] [id number] September, Dental examination Z01.20 [facility] [id number] [place] [address] [id number] September, Dental examination Z01.20 [facility] [address] [id number] Aug, Encounter for dental examination and cleaning without abnormal findings Z01.20 [facility] [address] [address] Aug, [facility] [address] [address] Jul, [facility] [address] [address] Jun, [facility] [id number] [place] [id number] May, Dental caries K02.9 [facility] [id number] [place] [address] [phone]- [address] May, Bipolar disorder, in partial remission, most recent episode depressed F31.75 ; Agoraphobia with panic disorder F40.01 and Other insomnia not due to a substance or known physiological condition F51.09 [facility] [id number] [place] [address] 285241- [address] Jan, [facility] [id number] [place] [address]- [address] Jan, Panic disorder with agoraphobia and moderate panic attacks 300.21 ; Persistent disorder of initiating or maintaining sleep 307.42 and Unspecified episodic mood disorder 296.90 [facility] [id number] [place] [address] 413054- [address] Dec, [facility] [id number] [place] [address] [id number] Nov, Dental examination V72.2 [facility] [id number] [place] [address] [id number]- 6766 Nov, Persistent disorder of initiating or maintaining sleep 307.42 ; Bipolar I disorder, most recent episode (or current) depressed, in partial or unspecified remission 296.55 and Panic disorder with agoraphobia 300.21 [facility] [id number] [place] [address] [id number] Oct, Dental examination V72.2 [facility] [id number] [place] [address]- [address] Oct, [facility] [id number] [place] [address] [id number] Oct, Dental examination V72.2 [facility] [id number] [place] [address] [id number] September, Dental examination V72.2 [facility] [address] [id number] [place] [id number] September, Dental examination V72.2 [facility] [address] [id number] [place] [address] September, [facility] [address] [id number] [place] [address]- 3265 September, [facility] [address] [id number] [place] [address]- 6757 Aug, [facility] [address] [id number] [place] [address]- 1460 Aug, [facility] [address] [id number] [place] [address]- 7886 Jul, [facility] [address] [id number] [place] [address]- 6666 Jul, [facility] [address] [id number] [place] [address]- 6481 Jul, [facility] [address] [id number] [place] [address]- 4683 Jul, [facility] [address] [id number] [place] [address]- 5201 Jul, [facility] [address] [id number] [place] [address]- 4934 Apr, [facility] [place] [facility] [address] [id number] [place] [address]- 1261 Apr, [facility] [place] [facility] [address] [id number] [place] [address]- 6133 Apr, [facility] [place] [facility] [address] [id number] [place] [address] Apr, [facility] [place] [facility] [address] [id number] [place] [address] Apr, [facility] [place] [facility] [address] [id number] [place] [address]- [address]26 04 Apr, 2014 [facility] [place] [facility] [address] [id number] [place] [address]- 9342 Mar, [facility] [place] [facility] [address] [id number] [place] [address]- 3396 14 Mar, 2014 [facility] [place] [facility] [address] [id number] [place] [address]- 7593 17 Feb, 2014 [facility] [place] [facility] [address] [id number] [place] [address]- 5633 16 Feb, 2014 [facility] [place] [facility] [address] [id number] [place] [address]- 7996 16 Feb, 2014 [facility] [place] [facility] [address] [id number] [place] [address]- 0411 18 Jan, 2014 [facility] [place] [facility] [address] [id number] [place] [address]- 7624 18 Jan, 2014 [facility] [place] [facility] [address] [id number] [place] [address]- 4084 15 Jan, 2014 [facility] [place] [facility] [address] [id number] [place] [address]- 0033 15 Jan, 2014 [facility] [place] [facility] [address] [id number] [place] [address]- 7289 09 Jan, 2014 [facility] [place] [facility] [address] [id number] [place] [address]- 7086 Jan, [facility] [place] [facility] [address] [id number] [place] [address]- 5[address] Dec, [facility] [place] [facility] [address] [id number] [place] [address]- 0707 Dec, [facility] [place] [facility] [address] [id number] [place] [address]- 5912 Nov, [facility] [place] [facility] [address] [id number] [place] [address]- 8358 Nov, [facility] [place] [facility] [address] [id number] [place] [address]- 2518 Nov, [facility] [place] [facility] [address] [id number] [place] [address]- 8299 Nov, [facility] [place] [facility] [address] [id number] [place] [address]- 5766 Oct, [facility] [place] [facility] [address] [id number] [place] [address]- 4241 Oct, [facility] [place] [facility] [address] [id number] [place] [address]- 2153 Oct, [facility] [place] [facility] [address] [id number] [place] [address]- 4295 Oct, [facility] [place] [facility] [address] [id number] [place] [address]- 0486 Aug, [facility] [place] [facility] [address] [id number] [place] [address]- 3338 Aug, [facility] [place] [facility] [address] [id number] [place] [address]- 5183 Jul, [facility] [place] [facility] [address] [id number] [place] [address]- 1039 Jul, [facility] [place] [facility] [address] [id number] [place] [address]- 9857 Jul, [facility] [place] [facility] [address] [id number] [place] [address]- 0293 Jul, [facility] [place] [facility] [address] [id number] [place] [address]- 5933 Jul, [facility] [place] [facility] [address] [id number] [place] [address]- 4252 Jul, [facility] [place] [facility] [address] [id number] [place] [address]- 7603 Jun, [facility] [place] [facility] [address] [id number] [place] [address]- 4467 Jun, [facility] [place] [facility] [address] [id number] [place] [address]- 7997 Jun, [facility] [place] [facility] [address] [id number] [place] [address]- 6370 Jun, [facility] [place] [facility] [address] [id number] [place] [address]- 0255 May, [facility] [place] [facility] [address] [id number] [place] [address]- 5086 May, [facility] [place] [facility] [address] [id number] [place] [address]- 0324 Apr, [facility] [place] [facility] [address] [id number] [place] [address]- 2989 Apr, [facility] [place] [facility] [address] [id number] [place] [address]- 7840 Feb, [facility] [place] [facility] [address] [id number] [place] [address]- 9458 Feb, [facility] [place] [facility] [address] [id number] [place] [address]- 6171 Feb, [facility] [place] [facility] [address] [id number] [place] [address]- 9191 Feb, [facility] [place] [facility] [address] [id number] [place] [address]- 3469 Feb, [facility] [place] [facility] [address] [id number] [place] [address]- 9038 Jan, [facility] [place] [facility] [address] [id number] [place] [address]- 9075 Jan, [facility] [place] [facility] [address] [id number] [place] [address]- 4750 Dec, [facility] [place] [facility] [address] [id number] [place] [address]- 8610 Nov, [facility] [place] [facility] [address] [id number] [place] [address] 2546 13 Nov, 2012 [facility] [address] [id number] [place] [address]- 6957 Oct, [facility] [address] [id number] [place] [address] 2546 Oct, [facility] [address] [id number] [place] [address]- 9246 September, [facility] [address] [id number] [place] [address]- 9853 September, [facility] [address] [id number] [place] [address]- 5550 Aug, [facility] [address] [id number] [place] [address]- 7906 Jul, [facility] [address] [id number] [place] [address]- 0902 Jul, [facility] [address] [id number] [place] [address]- 6233 Jun, [facility] [address] [id number] [place] [address]- 1686 Jun, [facility] [address] [id number] [place] [address]- 2616 Jun, [facility] [address] [id number] [place] [address]- 8276 May, [facility] [address] [id number] [place] [address]- 7500 May, [facility] [address] [id number] [place] [address]- 3196 May, [facility] [address] [id number] [place] [address]- 8616 Apr, [facility] [address] [id number] [place] [address]- 6200 Apr, [facility] [place] [facility] [address] [id number] [place] [address]- 2052 Apr, [facility] [place] [facility] [address] [id number] [place] [address]- 2586 Apr, [facility] [place] [facility] [address] [id number] [place] [address] 2546 Feb, [facility] [place] [facility] [address] [id number] [place] [address]- 2546 Feb, [facility] [place] [facility] [address] [id number] [place] [address]- 3633 Feb, [facility] [place] [facility] [address] [id number] [place] [address]- 4916 Jan, [facility] [place] [facility] [address] [id number] [place] [address] 2546 Jan, [facility] [place] [facility] [address] [id number] [place] [address]- 4129 Dec, [facility] [place] [facility] [address] [id number] [place] [address]- 6401 Nov, [facility] [place] [facility] [address] [id number] [place] [address]- 7956 Nov, [facility] [place] [facility] [address] [id number] [place] [address]- 8176 Oct, [facility] [place] [facility] [address] [id number] [place] [address] 2546 Oct, [facility] [place] [facility] [address] [id number] [place] [address]- 2546 Oct, [facility] [place] [facility] [address] [id number] [place] [address]- 4576 September, [facility] [place] [facility] [address] [id number] [place] [address]- 2546 September, [facility] [place] [facility] [address] [id number] [place] [address]- 5626 September, [facility] [address] [id number] [place] [address]- 4423 Aug, [facility] [place] [facility] [address] [id number] [place] [address]- 3450 Aug, [facility] [address] [id number] [place] [address]- 1472 Aug, [facility] [place] [facility] [address] [id number] [place] [address]- 9001 Jul, [facility] [address] [id number] [place] [address]- 8033 Jul, [facility] [address] [id number] [place] [address]- 7971 Jul, [facility] [address] [id number] [place] [address]- 7834 Jul, [facility] [address] [id number] [place] [address]- 8418 Jul, [facility] [address] [id number] [place] [address]- 8847 Jun, [facility] [address] [id number] [place] [address]- 3216 Jun, [facility] [address] [id number] [place] [address]- 5205 May, [facility] [address] [id number] [place] [address]- 9124 May, [facility] [place] [facility] [address] [id number] [place] [address]- 1308 Apr, [facility] [place] [facility] [address] [id number] [place] [address]- 2546 Apr, [facility] [place] [facility] [address] [id number] [place] [address]- 4936 Mar, [facility] [address] [facility] [id number] [place] [address]- 7219 Mar, [facility] [address] [facility] [id number] [place] [address]- 0656 Mar, [facility] [address] [facility] [id number] [place] [address]- 7328 Feb, [facility] [address] [facility] [id number] [place] [address]- 5195 Feb, [facility] [address] [id number] [place] [address]- 3300 Feb, [facility] [address] [id number] [place] [address]- 6933 Dec, [facility] [address] [id number] [place] [address]- 7656 Nov, IMMUNIZATIONS No Known Immunizations SOCIAL HISTORY Never Assessed REASON FOR VISIT [facility] PLAN OF CARE VITAL SIGNS MEDICATIONS No [...]
--- OUTSIDE RECORDS SUMMARY | 2018-09-05 13:19 | XMS REPORT ---
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 Shipyard Name Role Phone Migration, Doctor Unavailable Unavailable PROBLEMS Type Condition ICD9-CM Code LXE69-CG Code Onset Dates Condition Status SNOMED Code Problem Bipolar I disorder, most recent episode (or current) depressed, in partial or unspecified remission 296.55 Active 73224039 Problem Bipolar I disorder, most recent episode (or current) depressed, mild 296.51 Active 408068134 Problem Counseling on substance use and abuse V65.42 Active 304020859 Problem Insomnia, unspecified 780.52 Active 470427415 Problem 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 13450025 ALLERGIES No Information ENCOUNTERS Encounter Location Date Diagnosis [facility] [address] [address] 07 Apr, 2016 Dental caries K02.9 [facility] [address] [address] Mar, Dental examination Z01.20 [facility] [address] [id number] September, Dental examination Z01.20 [facility] [id number] [place] [address] [id number] September, Dental examination Z01.20 [facility] [address] [id number] Aug, 2015 Encounter for dental examination and cleaning without abnormal findings Z01.20 [facility] [address] [address] Aug, [facility] [address] [address] Jul, [facility] [address] [address] Jun, [facility] [address] [id number] May, Dental caries K02.9 [facility] [id number] [place] [id number] May, Bipolar disorder, in partial remission, most recent episode depressed F31.75 ; Agoraphobia with panic disorder F40.01 and Other insomnia not due to a substance or known physiological condition F51.09 [facility] [id number] [place] [address]- [address] Jan, [facility] [id number] [place] [address]- [address] Jan, Panic disorder with agoraphobia and moderate panic attacks 300.21 ; Persistent disorder of initiating or maintaining sleep 307.42 and Unspecified episodic mood disorder 296.90 [facility] [id number] [place] [address] 094919- [address] Dec, [facility] [address] [place] [address] [id number] Nov, Dental examination V72.2 [facility] [id number] [place] [address] 542912- [address] Nov, Persistent disorder of initiating or maintaining sleep 307.42 ; Bipolar I disorder, most recent episode (or current) depressed, in partial or unspecified remission 296.55 and Panic disorder with agoraphobia 300.21 [facility] [address] [place] [address] [id number] Oct, Dental examination V72.2 [facility] [address] [place] [address]- [address] Oct, [facility] [address] [place] [address] [id number] Oct, Dental examination V72.2 [facility] [id number] [place] [address] [id number] September, Dental examination V72.2 [facility] [address] [id number] [place] [id number] September, Dental examination V72.2 [facility] [address] [id number] [place] [address] September, [facility] [address] [id number] [place] [address] September, [facility] [address] [id number] [place] [address] Aug, [facility] [address] [id number] [place] [address]- 17[address] Aug, [facility] [address] [id number] [place] [address] Jul, [facility] [address] [id number] [place] [address]- 85[address] Jul, [facility] [address] [id number] [place] [address]- 15[address] Jul, [facility] [address] [id number] [place] [address]- 355[address] Jul, [facility] [address] [id number] [place] [address]- 9[address] Jul, [facility] [address] [id number] [place] [address]- 4[address] Apr, [facility] [place] [facility] [address] [id number] [place] [address]- 9867 Apr, [facility] [place] [facility] [address] [id number] [place] [address]- 49[address] Apr, [facility] [place] [facility] [address] [id number] [place] [address] Apr, [facility] [place] [facility] [address] [id number] [place] [address] Apr, [facility] [place] [facility] [address] [id number] [place] [address]- [address] 04 Apr, 2014 [facility] [place] [facility] [address] [id number] [place] [address]- 7099 Mar, [facility] [place] [facility] [address] [id number] [place] [address]- 6[address] 14 Mar, 2014 [facility] [place] [facility] [address] [id number] [place] [address]- 67[address] 17 Feb, 2014 [facility] [place] [facility] [address] [id number] [place] [address]- 4278 16 Feb, 2014 [facility] [place] [facility] [address] [id number] [place] [address]- 0503 16 Feb, 2014 [facility] [place] [facility] [address] [id number] [place] [address]- 69[address] 18 Jan, 2014 [facility] [place] [facility] [address] [id number] [place] [address]- 8830 18 Jan, 2014 [facility] [place] [facility] [address] [id number] [place] [address]- 3269 15 Jan, 2014 [facility] [place] [facility] [address] [id number] [place] [address]- 50[address] 15 Jan, 2014 [facility] [place] [facility] [address] [id number] [place] [address]- 5965 09 Jan, 2014 [facility] [place] [facility] [address] [id number] [place] [address]- 8149 Jan, [facility] [place] [facility] [address] [id number] [address] Dec, [facility] [place] [facility] [address] [id number] [place] [address]- 399[address] Dec, [facility] [place] [facility] [address] [id number] [place] [address]- 1632 Nov, [facility] [place] [facility] [address] [id number] [place] [address]- 1546 Nov, [facility] [place] [facility] [address] [id number] [place] [address]- 1434 Nov, [facility] [place] [facility] [address] [id number] [place] [address]- 7802 Nov, [facility] [place] [facility] [address] [id number] [place] [address]- 9290 Oct, [facility] [place] [facility] [address] [id number] [place] [address]- 6967 Oct, [facility] [place] [facility] [address] [id number] [place] [address]- [address] Oct, [facility] [place] [facility] [address] [id number] [place] [address]- 3181 Oct, [facility] [place] [facility] [address] [id number] [place] [address]- 3199 Aug, [facility] [place] [facility] [address] [id number] [place] [address]- 3655 Aug, [facility] [place] [facility] [address] [id number] [place] [address]- 0264 Jul, [facility] [place] [facility] [address] [id number] [place] [address]- 9952 Jul, [facility] [place] [facility] [address] [id number] [place] [address]- 8692 Jul, [facility] [place] [facility] [address] [id number] [place] [address]- 1333 Jul, [facility] [place] [facility] [address] [id number] [place] [address]- 0783 Jul, [facility] [place] [facility] [address] [id number] [place] [address]- 48[address] Jul, [facility] [place] [facility] [address] [id number] [place] [address]- 5326 Jun, [facility] [place] [facility] [address] [id number] [place] [address]- 8622 Jun, [facility] [place] [facility] [address] [id number] [place] [address]- 1770 Jun, [facility] [place] [facility] [address] [id number] [place] [address]- 1964 Jun, [facility] [place] [facility] [address] [id number] [place] [address]- 0724 May, [facility] [place] [facility] [address] [id number] [place] [address]- 2756 May, [facility] [place] [facility] [address] [id number] [place] [address]- 7501 Apr, [facility] [place] [facility] [address] [id number] [place] [address]- 8753 Apr, [facility] [place] [facility] [address] [id number] [place] [address]- 1361 Feb, [facility] [place] [facility] [address] [id number] [place] [address]- 0383 Feb, [facility] [place] [facility] [address] [id number] [place] [address]- 4998 Feb, [facility] [place] [facility] [address] [id number] [place] [address]- 6116 Feb, [facility] [place] [facility] [address] [id number], [place] [address]- 480[address] Feb, [facility] [place] [facility] [address] [id number], [place] [address]- 7082 Jan, [facility] [place] [facility] [address] [id number] [place] [address]- 5905 Jan, [facility] [place] [facility] [address] [id number] [place] [address]- 7329 Dec, [facility] [place] [facility] [address] [id number] [place] [address]- 6673 Nov, [facility] [place] [facility] [address] [id number] [place] [address] 2546 13 Nov, 2012 [facility] [address] [id number] [place] [address]- 8852 Oct, [facility] [address] [id number] [place] [address] 2546 Oct, [facility] [address] [id number] [place] [address]- 5246 September, [facility] [address] [id number] [place] [address]- 2133 September, [facility] [address] [id number] [place] [address]- 7036 Aug, [facility] [address] [id number] [place] [address]- 9506 Jul, [facility] [address] [id number] [place] [address]- 4287 Jul, [facility] [address] [id number] [place] [address]- 5987 Jun, [facility] [address] [id number] [place] [address]- 8736 Jun, [facility] [address] [id number] [place] [address]- 6326 Jun, [facility] [address] [id number] [place] [address]- 6476 May, [facility] [address] [id number] [place] [address]- 0901 May, [facility] [address] [id number] [place] [address]- 4036 May, [facility] [address] [id number] [place] [address]- 5186 Apr, [facility] [address] [id number] [place] [address]- 4457 Apr, [facility] [place] [facility] [address] [id number] [place] [address]- 4378 Apr, [facility] [place] [facility] [address] [id number] [place] [address]- 3426 Apr, [facility] [place] [facility] [address] [id number] [place] [address] 2546 Feb, [facility] [place] [facility] [address] [id number] [place] [address]- 2546 Feb, [facility] [place] [facility] [address] [id number] [place] [address]- 7363 Feb, [facility] [place] [facility] [address] [id number] [place] [address]- 3316 Jan, [facility] [place] [facility] [address] [id number] [place] [address] 2546 Jan, [facility] [place] [facility] [address] [id number] [place] [address]- 1265 Dec, [facility] [place] [facility] [address] [id number] [place] [address]- 9656 Nov, [facility] [place] [facility] [address] [id number] [place] [address]- 3316 Nov, [facility] [place] [facility] [address] [id number], [place] [address]- 7086 Oct, [facility] [place] [facility] [address] [id number], [place] [address] 2546 Oct, [facility] [place] [facility] [address] [id number] [place] [address]- 2546 Oct, [facility] [place] [facility] [address] [id number] [place] [address]- 6296 September, [facility] [place] [facility] [address] [id number] [place] [address]- 2546 September, [facility] [place] [facility] [address] [id number] [place] [address]- 1739 September, [facility] [address] [id number] [place] [address]- 4953 Aug, [facility] [place] [facility] [address] [id number] [place] [address]- 5419 Aug, [facility] [address] [id number] [place] [address]- 5414 Aug, [facility] [place] [facility] [address] [id number] [place] [address]- 6099 Jul, [facility] [address] [id number] [place] [address]- 3420 Jul, [facility] [address] [id number] [place] [address]- 5380 Jul, [facility] [address] [id number] [place] [address]- 2899 Jul, [facility] [address] [id number] [place] [address]- 7664 Jul, [facility] [address] [id number] [place] [address]- 9008 Jun, [facility] [address] [id number] [place] [address]- 0400 Jun, [facility] [address] [id number] [place] [address]- 9145 May, [facility] [address] [id number] [place] [address]- 1062 May, [facility] [place] [facility] [address] [id number] [place] [address]- 2787 Apr, [facility] [place] [facility] [address] [id number] [place] [address]- 2546 Apr, [facility] [place] [facility] [address] [id number] [place] [address]- 2324 Mar, [facility] [address] [facility] [id number], [place] [address]- 2271 Mar, [facility] [address] [facility] [id number], [place] [address]- 3566 Mar, [facility] [address] [facility] [id number], [place] [address]- 4323 Feb, [facility] [address] [facility] [id number], [place] [address]- 6311 Feb, [facility] [address] [id number], [place] [address]- 78[address] Feb, [facility] [address] [id number], [place] [address]- [address]33 Dec, [facility] [address] [id number], [place] [address]- 5834 Nov, IMMUNIZATIONS No Known Immunizations SOCIAL HISTORY Never Assessed REASON FOR VISIT [facility] [place] VITAL SIGNS MEDICATIONS [...]
--- OUTSIDE RECORDS SUMMARY | 2018-09-05 13:20 | XMS REPORT ---
Author Author Migration, Doctor Organization [facility] Address Unknown Phone Unavailable Care Team Providers Care Prism Inspector Name Role Phone Migration, Doctor Unavailable Unavailable PROBLEMS Type Condition ICD9-CM Code CSA23-FR Code Onset Dates Condition Status SNOMED Code Problem Bipolar I disorder, most recent episode (or current) depressed, in partial or unspecified remission 296.55 Active 49196935 Problem Bipolar I disorder, most recent episode (or current) depressed, mild 296.51 Active 892174959 Problem Counseling on substance use and abuse V65.42 Active 574571190 Problem Insomnia, unspecified 780.52 Active 438714479 Problem 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 62229892 ALLERGIES No Information ENCOUNTERS Encounter Location Date Diagnosis [facility] [address] [address] 07 Apr, 2016 Dental caries K02.9 [facility] [address] [address] Mar, Dental examination Z01.20 [facility] [address] [id number] September, Dental examination Z01.20 [facility] [id number] [place] [address] [id number] September, Dental examination Z01.20 [facility] [address] [id number] Aug, 2015 Encounter for dental examination and cleaning without abnormal findings Z01.20 [facility] [address] [address] Aug, [facility] [address] [address] Jul, [facility] [address] [address] Jun, [facility] [address] [id number] May, Dental caries K02.9 [facility] [id number] [place] [address]- [address] May, Bipolar disorder, in partial remission, most recent episode depressed F31.75 ; Agoraphobia with panic disorder F40.01 and Other insomnia not due to a substance or known physiological condition F51.09 [facility] [id number] [place] [address] 945614- [address] Jan, [facility] [id number] [place] [address]- 3692 Jan, Panic disorder with agoraphobia and moderate panic attacks 300.21 ; Persistent disorder of initiating or maintaining sleep 307.42 and Unspecified episodic mood disorder 296.90 [facility] [id number] [place] [address] 017305- [address] Dec, [facility] [id number] [place] [address] [id number] Nov, Dental examination V72.2 [facility] [id number] [place] [address] 408040- 4856 Nov, Persistent disorder of initiating or maintaining sleep 307.42 ; Bipolar I disorder, most recent episode (or current) depressed, in partial or unspecified remission 296.55 and Panic disorder with agoraphobia 300.21 [facility] [id number] [place] [address] [id number] Oct, Dental examination V72.2 [facility] [address] [place] [address]- 2546 Oct, [facility] [address] [place] [address] [id number] Oct, Dental examination V72.2 [facility] [id number] [place] [address] [id number] September, Dental examination V72.2 [facility] [address] [id number] [place] [id number] September, Dental examination V72.2 [facility] [address] [id number] [place] [address] September, [facility] [address] [id number] [place] [address]- 7[address] September, [facility] [address] [id number] [place] [address]- 8747 Aug, [facility] [address] [id number] [place] [address]- 0886 Aug, [facility] [address] [id number] [place] [address]- 6587 Jul, [facility] [address] [id number] [place] [address]- 5608 Jul, [facility] [address] [id number] [place] [address]- 9446 Jul, [facility] [address] [id number] [place] [address]- 7024 Jul, [facility] [address] [id number] [place] [address]- 1365 Jul, [facility] [address] [id number] [place] [address]- 1223 Apr, [facility] [place] [facility] [address] [id number] [place] [address] 1993 Apr, [facility] [place] [facility] [address] [id number] [place] [address]- 8752 Apr, [facility] [place] [facility] [address] [id number] [place] [address] Apr, [facility] [place] [facility] [address] [id number] [place] [address] Apr, [facility] [place] [facility] [address] [id number] [place] [address]- 9237 04 Apr, 2014 [facility] [place] [facility] [address] [id number] [place] [address]- 6095 Mar, [facility] [place] [facility] [address] [id number] [place] [address]- 0863 14 Mar, 2014 [facility] [place] [facility] [address] [id number] [place] [address]- 7803 17 Feb, 2014 [facility] [place] [facility] [address] [id number] [place] [address]- 6836 16 Feb, 2014 [facility] [place] [facility] [address] [id number] [place] [address]- 6782 16 Feb, 2014 [facility] [place] [facility] [address] [id number] [place] [address]- 9637 18 Jan, 2014 [facility] [place] [facility] [address] [id number] [place] [address]- 3921 18 Jan, 2014 [facility] [place] [facility] [address] [id number] [place] [address]- 0472 15 Jan, 2014 [facility] [place] [facility] [address] [id number] [place] [address]- 2301 15 Jan, 2014 [facility] [place] [facility] [address] [id number] [place] [address]- 4458 09 Jan, 2014 [facility] [place] [facility] [address] [id number] [place] [address]- 8333 Jan, [facility] [place] [facility] [address] [id number] [address] 7[address] Dec, [facility] [place] [facility] [address] [id number] [place] [address]- 0230 Dec, [facility] [place] [facility] [address] [id number] [place] [address]- 0243 Nov, [facility] [place] [facility] [address] [id number] [place] [address]- 1555 Nov, [facility] [place] [facility] [address] [id number] [place] [address]- 3019 Nov, [facility] [place] [facility] [address] [id number] [place] [address]- 4029 Nov, [facility] [place] [facility] [address] [id number] [place] [address]- 4946 Oct, [facility] [place] [facility] [address] [id number] [place] [address]- 7242 Oct, [facility] [place] [facility] [address] [id number] [place] [address]- 3807 Oct, [facility] [place] [facility] [address] [id number] [place] [address]- 8163 Oct, [facility] [place] [facility] [address] [id number] [place] [address]- 3263 Aug, [facility] [place] [facility] [address] [id number] [place] [address]- 5710 Aug, [facility] [place] [facility] [address] [id number] [place] [address]- 8653 Jul, [facility] [place] [facility] [address] [id number] [place] [address]- 5452 Jul, [facility] [place] [facility] [address] [id number] [place] [address]- 7266 Jul, [facility] [place] [facility] [address] [id number] [place] [address]- 0698 Jul, [facility] [place] [facility] [address] [id number] [place] [address]- 0086 Jul, [facility] [place] [facility] [address] [id number] [place] [address]- 4041 Jul, [facility] [place] [facility] [address] [id number] [place] [address]- 5942 Jun, [facility] [place] [facility] [address] [id number] [place] [address]- 8002 Jun, [facility] [place] [facility] [address] [id number] [place] [address]- 1748 Jun, [facility] [place] [facility] [address] [id number] [place] [address]- 2685 Jun, [facility] [place] [facility] [address] [id number] [place] [address]- 9545 May, [facility] [place] [facility] [address] [id number] [place] [address]- 0022 May, [facility] [place] [facility] [address] [id number] [place] [address]- 9340 Apr, [facility] [place] [facility] [address] [id number] [place] [address]- 8046 Apr, [facility] [place] [facility] [address] [id number] [place] [address]- 6537 Feb, [facility] [place] [facility] [address] [id number] [place] [address]- 0113 Feb, [facility] [place] [facility] [address] [id number] [place] [address]- 4102 Feb, [facility] [place] [facility] [address] [id number] [place] [address]- 3585 Feb, [facility] [place] [facility] [address] [id number], [place] [address]- 0861 Feb, [facility] [place] [facility] [address] [id number] [address]- 2176 Jan, [facility] [place] [facility] [address] [id number] [place] [address]- 8878 Jan, [facility] [place] [facility] [address] [id number] [place] [address]- 5295 Dec, [facility] [place] [facility] [address] [id number] [place] [address]- 0314 Nov, [facility] [place] [facility] [address] [id number] [place] [address] 2546 13 Nov, 2012 [facility] [address] [id number] [place] [address]- 1522 Oct, [facility] [address] [id number] [place] [address] 2546 Oct, [facility] [address] [id number] [place] [address]- 8126 September, [facility] [address] [id number] [place] [address]- 2221 September, [facility] [address] [id number] [place] [address]- 4548 Aug, [facility] [address] [id number] [place] [address]- 8246 Jul, [facility] [address] [id number] [place] [address]- 6563 Jul, [facility] [address] [id number] [place] [address]- 1983 Jun, [facility] [address] [id number] [place] [address]- 9116 Jun, [facility] [address] [id number] [place] [address]- 2556 Jun, [facility] [address] [id number] [place] [address]- 3386 May, [facility] [address] [id number] [place] [address]- 4611 May, [facility] [address] [id number] [place] [address]- 4916 May, [facility] [address] [id number] [place] [address]- 1416 Apr, [facility] [address] [id number] [place] [address]- 3727 Apr, [facility] [place] [facility] [address] [id number] [place] [address]- 4247 Apr, [facility] [place] [facility] [address] [id number] [place] [address]- 0356 Apr, [facility] [place] [facility] [address] [id number] [place] [address] 2546 Feb, [facility] [place] [facility] [address] [id number] [place] [address]- 2546 Feb, [facility] [place] [facility] [address] [id number] [place] [address]- 9501 Feb, [facility] [place] [facility] [address] [id number] [place] [address]- 2846 Jan, [facility] [place] [facility] [address] [id number] [place] [address] 2546 Jan, [facility] [place] [facility] [address] [id number] [place] [address]- 7649 Dec, [facility] [place] [facility] [address] [id number] [place] [address]- 9333 Nov, [facility] [place] [facility] [address] [id number] [place] [address]- 3586 Nov, [facility] [place] [facility] [address] [id number], [place] [address]- 0366 Oct, [facility] [place] [facility] [address] [id number], [place] [address] 2546 Oct, [facility] [place] [facility] [address] [id number] [place] [address]- 2546 Oct, [facility] [place] [facility] [address] [id number] [place] [address]- 3976 September, [facility] [place] [facility] [address] [id number] [place] [address]- 2546 September, [facility] [place] [facility] [address] [id number] [place] [address]- 3820 September, [facility] [address] [id number] [place] [address]- 2872 Aug, [facility] [place] [facility] [address] [id number] [place] [address]- 9764 Aug, [facility] [address] [id number] [place] [address]- 8583 Aug, [facility] [place] [facility] [address] [id number] [place] [address]- 3084 Jul, [facility] [address] [id number] [place] [address]- 1580 Jul, [facility] [address] [id number] [place] [address]- 0264 Jul, [facility] [address] [id number] [place] [address]- 2720 Jul, [facility] [address] [id number] [place] [address]- 6782 Jul, [facility] [address] [id number] [place] [address]- 5136 Jun, [facility] [address] [id number] [place] [address]- 8570 Jun, [facility] [address] [id number] [place] [address]- 7515 May, [facility] [address] [id number] [place] [address]- 1572 May, [facility] [place] [facility] [address] [id number] [place] [address]- 3460 Apr, [facility] [place] [facility] [address] [id number] [place] [address]- 2546 Apr, [facility] [place] [facility] [address] [id number] [place] [address]- 8880 Mar, [facility] [address] [facility] [id number], [place] [address]- 3956 Mar, [facility] [address] [id number] [address]- 6416 Mar, [facility] [address] [facility] [id number], [place] [address]- 7105 Feb, [facility] [address] [address]- 3076 Feb, [facility] [address] [facility] [id number], [place] [address]- 3040 Feb, [facility] [address] [id number] [address]- 1786 Dec, [facility] [address] [id number] [address]- 8240 Nov, IMMUNIZATIONS No Known Immunizations SOCIAL HISTORY Never Assessed REASON FOR VISIT [facility] [place] PLAN OF CARE VITAL SIGNS MEDICATIONS Medication Instructions Dosage Frequency Start Date End Date Duration Status NovoLog 100 unit/mL 45 units by Subcutaneous route 3 times per day Aug, Active duloxetine 30 mg 1 Capsule by Oral route 1 time per day Apr, Active promethazine 25 mg 1 Tablet by Oral route every 6 hours PRN nausea Nov, Active Janumet 50-1,000 mg 1 Tablet by Oral route 1 time per day Apr, Active Alprazolam 1 mg 1 tablet by Oral route 3 times per day PRN Must last 30 days. No early refills. Apr, Active Potassium Chloride 10 mEq 2 Tablet by Oral route 2 times per day take additional 2 tabs if extra Lasix taken Nov, Active Lantus 100 unit/mL 140 units by Subcutaneous route 1 time per day qAM AND60 units by Subcutaneous route 1 time per day qHS Nov, Active Nexium 40 mg 1 Capsule by Oral route 2 times per day Nov, Active Diflucan 100 mg 1 Tablet by Oral route 1 time per day PRN yeast infection Nov, Active Albuterol Sulfate 2.5 mg/0.5 mL 1 Inhaler by Inhalation route 4 times per day Jul, Active Invokana 300 mg 1 Tablet by Oral route 1 time per day Nov, Active Ibuprofen 800 mg 1 Tablet by Oral route 1 time per dayAs needed Jul Active Oxycodone-Acetaminophen 10-325 mg 2 Tablet by Oral route every 4-6 hours PRN pain Apr, Active RESULTS No Results PROCEDURES No Known procedures INSTRUCTIONS MEDICATIONS ADMINISTERED No Known Medications MEDICAL (GENERAL) HISTORY Type Description Date Medical History high blood pressure Medical History copd Medical History thyroid Medical History diabetes type 2 Medical History back issues Surgical History tonsils 1974 Surgical History c section 1989 Surgical History c section 1997 Surgical History c section 1999 Surgical History hysterectomy 2004 Surgical History Carpal tunnel surgery 2016 Hospitalization History back pain Hospitalization History chest pain
--- OUTSIDE RECORDS SUMMARY | 2018-09-05 13:22 | XMS REPORT | Continuity of Care Document ---
Author Organization Unknown Address Unknown Allergies Active Description Code Type Severity Reaction Onset Reported/Identified Relationship to Patient Clinical Status Yes No Known Drug Allergies [id number] Drug Allergy Mild N/A 12/19/2008 Yes Sulfa(Sulfonamide Antibiotics) Drug Allergy 07/20/2011 Yes Sulfa(Sulfonamide Antibiotics) Drug Allergy N/A N/A 07/20/2011 Yes baclofen [id number] Drug Allergy Unknown N/A 10/27/2017 Medications There is no data. Problems Date [...] SLEEP STAGES OR AROUSAL FROM SLEEP 08/10/2010 LETTY JONESNILS 316 PSYCHIC FACTORS ASSOCIATED WITH DISEASES CLASSIFIED ELSEWHERE 08/10/2010 CAMILA MOTA MD 296.30 MAJOR DEPRESSIVE AFFECTIVE DISORDER RECURRENT EPISODE UNSPECIFIED DEGREE 08/10/2010 CAMILA MOTA MD 300.01 AN PANIC DIS W/O AGORA 08/10/2010 CAMILA MOTA MD 307.47 OTHER DYSFUNCTIONS OF SLEEP STAGES OR AROUSAL FROM SLEEP 08/10/2010 CAMILA MOTA MD 316 PSYCHIC FACTORS ASSOCIATED WITH DISEASES CLASSIFIED ELSEWHERE 08/10/2010 BR[employer]ON [employer] INSTALLER, SELVIN 296.30 MAJOR DEPRESSIVE AFFECTIVE DISORDER RECURRENT EPISODE UNSPECIFIED DEGREE 08/10/2010 BR[employer]ON [employer] INSTALLER, SELVIN 300.01 AN PANIC DIS W/O AGORA 08/10/2010 BR[employer]ON [employer] INSTALLER, SELVIN 307.47 OTHER DYSFUNCTIONS OF SLEEP STAGES OR AROUSAL FROM SLEEP 08/10/2010 BR[employer]ON [employer] INSTALLER, SELVIN 316 PSYCHIC FACTORS ASSOCIATED WITH DISEASES CLASSIFIED ELSEWHERE 08/10/2010 BR[employer]ON [employer] INSTALLER, SELVIN 296.30 MAJOR DEPRESSIVE AFFECTIVE DISORDER RECURRENT EPISODE UNSPECIFIED DEGREE 08/10/2010 BR[employer]ON [employer] INSTALLER, SELVIN 300.01 AN PANIC DIS W/O AGORA 08/10/2010 BR[employer]ON [employer] INSTALLER, SELVIN 307.47 OTHER DYSFUNCTIONS OF SLEEP STAGES OR AROUSAL FROM SLEEP 08/10/2010 BR[employer]ON [employer] INSTALLER, SELVIN 316 PSYCHIC FACTORS ASSOCIATED WITH DISEASES CLASSIFIED ELSEWHERE 08/10/2010 BR[employer]ON [employer] INSTALLER, SELVIN 296.30 MAJOR DEPRESSIVE AFFECTIVE DISORDER RECURRENT EPISODE UNSPECIFIED DEGREE 08/10/2010 BR[employer]ON [employer] INSTALLER, SELVIN 300.01 AN PANIC DIS W/O AGORA 08/10/2010 BR[employer]ON [employer] INSTALLER, SELVIN 307.47 OTHER DYSFUNCTIONS OF SLEEP STAGES OR AROUSAL FROM SLEEP 08/10/2010 BR[employer]ON [employer] INSTALLER, SELVIN 316 PSYCHIC FACTORS ASSOCIATED WITH DISEASES CLASSIFIED ELSEWHERE 08/10/2010 BR[employer]ON [employer] INSTALLER, SELVIN 296.30 MAJOR DEPRESSIVE AFFECTIVE DISORDER RECURRENT EPISODE UNSPECIFIED DEGREE 08/10/2010 BR[employer]ON [employer] INSTALLER, SELVIN 300.01 AN PANIC DIS W/O AGORA 08/10/2010 BR[employer]ON [employer] INSTALLER, SELVIN 307.47 OTHER DYSFUNCTIONS OF SLEEP STAGES OR AROUSAL FROM SLEEP 08/10/2010 BR[employer]ON [employer] INSTALLER, SELVIN 316 PSYCHIC FACTORS ASSOCIATED WITH DISEASES CLASSIFIED ELSEWHERE 08/10/2010 BRNADON REFRIGERATION SYSTEMS INSTALLER, SELVIN 296.30 MAJOR DEPRESSIVE AFFECTIVE DISORDER RECURRENT EPISODE UNSPECIFIED DEGREE 08/10/2010 BRANDON NEVAREZ SELVIN 300.01 AN PANIC DIS W/O AGORA 08/10/2010 BRANDON NEVAREZ SELVIN 307.47 OTHER DYSFUNCTIONS OF SLEEP STAGES OR AROUSAL FROM SLEEP 08/10/2010 BRANDON NEVAREZ, SELVIN 316 PSYCHIC FACTORS ASSOCIATED WITH DISEASES CLASSIFIED ELSEWHERE 08/10/2010 ROSALINDA ANDERSENSCINTIA 296.30 MAJOR DEPRESSIVE AFFECTIVE DISORDER RECURRENT EPISODE UNSPECIFIED DEGREE 08/10/2010 TELLEZ DDSCINTIA 300.01 AN PANIC DIS W/O AGORA 08/10/2010 TELLEZ GANESHSCINTIA 307.47 OTHER DYSFUNCTIONS OF SLEEP STAGES OR AROUSAL FROM SLEEP 08/10/2010 ROSALINDA ANDERSENSCINTIA 316 PSYCHIC FACTORS ASSOCIATED WITH DISEASES CLASSIFIED ELSEWHERE 08/10/2010 JAVIER ROBBINS PSYD 296.30 MAJOR DEPRESSIVE AFFECTIVE DISORDER RECURRENT EPISODE UNSPECIFIED DEGREE 08/10/2010 JAVIER ROBBINS PSYD 300.01 AN PANIC DIS W/O AGORA 08/10/2010 [...] BRONCHITIS NOS 08/15/2010 Ot 786.2 COUGH 11/10/2010 NILS SAENZ DO 300.21 AN PANIC DIS W AGORA 11/10/2010 NILS SAENZ DO F 300.21 AN PANIC DIS W AGORA 11/10/2010 300.21 AN PANIC DIS W AGORA 11/10/2010 NILS SAENZ DO F 300.21 AN PANIC DIS W AGORA 11/10/2010 CAMILA MOTA MD 300.21 AN PANIC DIS W AGORA 11/10/2010 [employer] INSTALLER, SELVIN 300.21 AN PANIC DIS W AGORA 11/10/2010 BR[employer] INSTALLER, SELVIN 300.21 AN PANIC DIS W AGORA 11/10/2010 BR[employer]ON [employer] INSTALLER, SELVIN 300.21 AN PANIC DIS W AGORA 11/10/2010 BR[employer]ON [employer] INSTALLER, SELVIN 300.21 AN PANIC DIS W AGORA 11/10/2010 BR[employer]ON [employer] INSTALLER, SELVIN 300.21 AN PANIC DIS W AGORA 11/10/2010 CINTIA TELLEZ DDS 300.21 AN PANIC DIS W AGORA 11/10/2010 JAVIER ROBBINS PSYD 300.21 AN PANIC DIS W AGORA 11/10/2010 BR[employer] INSTALLER, SELVIN 300.21 AN PANIC DIS W AGORA 11/10/2010 BR[employer]ON [employer] INSTALLER, SELVIN 300.21 AN PANIC DIS W AGORA [...] 296.32 MO DEPRESSIVE RECURRENT MODERATE 02/08/2011 BR[employer] INSTALLER, SELVIN 296.32 MO DEPRESSIVE RECURRENT MODERATE 02/08/2011 BR[employer]ON [employer] INSTALLER, SELVIN 296.32 MO DEPRESSIVE RECURRENT MODERATE 02/08/2011 BR[employer]ON [employer] INSTALLER, SELVIN 296.32 MO DEPRESSIVE RECURRENT MODERATE 02/08/2011 BRANDON [employer] INSTALLER, SELVIN 296.32 MO DEPRESSIVE RECURRENT MODERATE 02/08/2011 BRANDON [employer] INSTALLER, SELVIN 296.32 MO DEPRESSIVE RECURRENT MODERATE 02/08/2011 CINTIA TELLEZ DDS 296.32 MO DEPRESSIVE RECURRENT MODERATE 02/08/2011 JAVIER ROBBINS PSYD 296.32 MO DEPRESSIVE RECURRENT MODERATE 02/08/2011 BR[employer]ON [employer] INSTALLER, SELVIN 296.32 MO DEPRESSIVE RECURRENT MODERATE 02/08/2011 BR[employer]ON [employer] INSTALLER, SELVIN 296.32 MO DEPRESSIVE RECURRENT MODERATE 01/20/2012 MARY SAENZ DOEN F 780.52 INSOMNIA UNSPECIFIED 01/20/2012 LETTY DO NILS F V65.42 TOBACCO COUNSELING 01/20/2012 LETTY DO NILS F 780.52 INSOMNIA UNSPECIFIED 01/20/2012 CATIEDER DO NILS F V65.42 TOBACCO COUNSELING 01/20/2012 780.52 INSOMNIA UNSPECIFIED 01/20/2012 V65.42 TOBACCO COUNSELING 01/20/2012 LETTY DO NILS F 780.52 INSOMNIA UNSPECIFIED 01/20/2012 LETTY DO NILS F V65.42 TOBACCO COUNSELING 01/20/2012 CAMILA MOTA MD 780.52 INSOMNIA UNSPECIFIED 01/20/2012 CAMILA MOTA MD V65.42 TOBACCO COUNSELING 01/20/2012 BR[employer]ON [employer] INSTALLER, SELVIN 780.52 INSOMNIA UNSPECIFIED 01/20/2012 BR[employer]ON [employer] INSTALLER, SELVIN V65.42 TOBACCO COUNSELING 01/20/2012 BR[employer]ON [employer] INSTALLER, SELVIN 780.52 INSOMNIA UNSPECIFIED 01/20/2012 BR[employer]ON [employer] INSTALLER, SELVIN V65.42 TOBACCO COUNSELING 01/20/2012 BR[employer]ON [employer] INSTALLER, SELVIN 780.52 INSOMNIA UNSPECIFIED 01/20/2012 BRANDON [employer]S INSTALLER, SELVIN V65.42 TOBACCO COUNSELING 01/20/2012 BRANDON [employer]S INSTALLER, SELVIN 780.52 INSOMNIA UNSPECIFIED 01/20/2012 BRANDON RE[employer] SYSTEMS INSTALLER, SELVIN V65.42 TOBACCO COUNSELING 01/20/2012 BRANDON RE[employer]S INSTALLER, SELVIN 780.52 INSOMNIA UNSPECIFIED 01/20/2012 BRANDON [employer] INSTALLER, SELVIN V65.42 TOBACCO COUNSELING 01/20/2012 TELLEZ CINTIA [...] SLEEP APNEA (ADULT) (PEDIATR 04/29/2013 DONALDO BARKSDALE REFRIGERATION SYSTEMS INSTALLER Ot 455.3 EXT HEMORRHOID W/O COMPL 04/29/2013 DONALDO BARKSDALE RE[employer]ATION SYSTEMS INSTALLER Ot 569.3 RECTAL ANAL HEMORRHAGE 04/29/2013 DONALDO BARKSDALE REFRIG[employer]ATION SYSTEMS INSTALLER Ot 578.1 BLOOD IN STOOL 07/24/2013 CHRISTINE JONES, KAY S Ot 244.9 HYPOTHYROIDISM NOS 07/24/2013 CHRISTINE JONES, KAY S Ot 250.00 DIAB MILAN WO COMPL, TYPE II OR UNSPEC TY 07/24/2013 CHRISTINE DO KAY S Ot 272.0 PURE HYPERCHOLESTEROLEM 07/24/2013 CHRISTINE JONES, KAY S Ot 272.4 HYPERLIPIDEMIA NEC/NOS 07/24/2013 ROBB REBOLLAR DOQUELINE S Ot 278.01 MORBID OBESITY 07/24/2013 CHRISTINE JONES KAY S Ot 300.00 ANXIETY STATE NOS 07/24/2013 CHRISTINE DO, KAY S Ot 305.1 TOBACCO USE DISORDER 07/24/2013 VERONDAMADO DO, KAY S Ot 311 DEPRESSIVE DISORDER NEC 07/24/2013 CHRISTINE JONES KAY S Ot 338.4 CHRONIC PAIN SYNDROME 07/24/2013 CHRISTINE JONES, KAY S Ot 355.9 MONONEURITIS NOS 07/24/2013 CHRISTINE JONES KAY S Ot 401.9 HYPERTENSION NOS 07/24/2013 RBOB REBOLLAR DOQUELINE S Ot 455.8 HEMRRHOID NOS W COMP NEC 07/24/2013 DIAN REBOLLAR DOLINE S Ot 496 CHR AIRWAY OBSTRUCT NEC 07/24/2013 DIAN REBOLLAR DOLINE S Ot 530.81 ESOPHAGEAL REFLUX 07/24/2013 VERONDROBB FISCHER DOQUELINE S Ot 722.6 DISC DEGENERATION NOS 07/24/2013 VERONDER ROBB JONESKAY S Ot 727.09 SYNOVITIS NEC 07/24/2013 VERONDROBB FISCHER DOQUELINE S Ot 729.1 MYALGIA AND MYOSITIS NOS 07/24/2013 VERONDAMADO JONES, KAY S Ot 782.3 EDEMA 07/24/2013 VERONDROBB FISCHER DOQUELINE S Ot 786.09 RESPIRATORY ABNORM NEC 07/24/2013 VERONDAMADO JONES KAY S Ot 786.52 PAINFUL RESPIRATION 07/24/2013 CHRISTINE JONES KAY S Ot 786.59 CHEST PAIN NEC 07/24/2013 DIAN REBOLLAR DOLINE S Ot V13.02 PERSONAL HISTORY, URINARY (TRACT) INFECT 07/24/2013 CHRISTINE JONES KAY S Ot V17.49 FAMILY HISTORY OF OTHER CARDIOVASCULAR D 07/24/2013 CHRISTINE JONES KAY S Ot V58.66 LONG-TERM (CURRENT) USE OF ASPIRIN 07/24/2013 FALGUNIAMADO JONES KAY S Ot V58.67 LONG-TERM (CURRENT) USE OF INSULIN 07/24/2013 FALGUNIAMADO JONES KAY S Ot V58.69 OTH MED,LT,CURRENT USE [...] IN PART OR UNSPECIFIED REMISSION 09/15/2014 KAY REBOLLAR DO S Ot 240.9 09/15/2014 KAY REBOLLAR DO S Ot 789.00 09/22/2014 FRANCINE HORTA, [...] 535.50 UNSP GASTRITIS GASTRODUODENITIS W/O ME 11/04/2014 CHRISTINE JONES, KAY S Ot 240.9 11/04/2014 CHRISTINE JONES, KAY S Ot 789.00 01/11/2015 YASMEEN HARRINGTON DO Ot 780.4 DIZZINESS AND GIDDINESS 01/11/2015 YASMEEN HARRINGTON DO Ot 786.50 CHEST PAIN NOS 02/26/2015 VERONDER DO, KAY S Ot M54.6 03/12/2015 VERONDER DO, KAY S Ot M54.6 03/27/2015 VERONDER DO, KAY S Ot M54.6 04/01/2015 VERONDER DO, KAY S Ot M54.6 PAIN IN THORACIC SPINE 06/19/2015 Ot M51.36 07/01/2015 CHRISTINE JONES, KAY S Ot M51.36 07/10/2015 CHRISTINE JONES, KAY S Ot M51.36 10/01/2015 Ot 785.0 [...] AUR 10/01/2015 Ot 682.9 CELLULITIS NOS 10/01/2015 CHRISTINE JONES, KAY S Ot 611.71 MASTODYNIA 10/01/2015 FALGUNIER , KAY S Ot 611.72 LUMP OR MASS IN BREAST 10/01/2015 FRANCINE HORTA, MARIA VICTORIA Iyer Ot V72.84 EXAM PRE-OPERATIVE NOS 10/01/2015 VERONDER DO, KAY S Ot 240.9 GOITER NOS 10/01/2015 VERONDER DO, KAY S Ot 789.00 ABDOMINAL PAIN, UNSPECIFIED SITE 10/01/2015 FRANCINE HORTA, MARIA VICTORIA Iyer Ot V72.84 EXAM PRE-OPERATIVE NOS 10/01/2015 Ot M51.36 OTHER INTERVERTEBRAL DISC DEGENERATION, 10/01/2015 KAY REBOLLAR DO Ot M51.36 OTHER INTERVERTEBRAL DISC DEGENERATION, 10/02/2015 NELSON BARRAZA MD Ot G56.02 CARPAL TUNNEL SYNDROME, LEFT UPPER LIMB 10/02/2015 NELSON BARRAZA MD Ot M65.312 TRIGGER THUMB, LEFT THUMB 10/02/2015 NELSON BARRAZA MD Ot Z01.818 ENCOUNTER FOR OTHER PREPROCEDURAL EXAMIN 10/05/2015 NELSON BARRAZA MD Ot G56.02 CARPAL TUNNEL SYNDROME, LEFT UPPER LIMB 10/05/2015 ENLSON BARRAZA MD Ot M65.312 TRIGGER THUMB, LEFT THUMB 10/05/2015 NELSON BARRAZA MD Ot Z01.818 ENCOUNTER FOR OTHER PREPROCEDURAL EXAMIN 10/06/2015 KAY REBOLLAR DO Ot G47.33 OBSTRUCTIVE SLEEP APNEA (ADULT) [...] AUR 02/08/2016 Ot 682.9 CELLULITIS NOS 02/08/2016 ORENDER DO, KAY S Ot 611.71 MASTODYNIA 02/08/2016 ORENDER DO, KAY S Ot 611.72 LUMP OR MASS IN BREAST 02/08/2016 FRANCINE HORTA, MARIA VICTORIA M Ot V72.84 EXAM PRE-OPERATIVE NOS 02/08/2016 ORENDER DO, KAY S Ot 240.9 GOITER NOS 02/08/2016 ORENDER DO, KAY S Ot 789.00 ABDOMINAL PAIN, UNSPECIFIED SITE 02/08/2016 FRANCINE HORTA, MARIA VICTORIA M Ot V72.84 EXAM PRE-OPERATIVE NOS 02/08/2016 Ot M51.36 OTHER INTERVERTEBRAL DISC DEGENERATION, 02/08/2016 ORENDER DO, KAY S Ot M51.36 OTHER INTERVERTEBRAL DISC DEGENERATION, 02/08/2016 Ot R10.11 RIGHT UPPER QUADRANT PAIN 02/08/2016 Ot R11.2 NAUSEA WITH VOMITING, UNSPECIFIED 02/09/2016 NEHAL HORTA, NELSON P Ot E04.9 NONTOXIC GOITER, UNSPECIFIED 02/09/2016 NELSON CALVERT MD Ot E04.9 NONTOXIC GOITER, UNSPECIFIED 02/19/2016 NELSON CALVERT MD Ot E04.9 NONTOXIC GOITER, UNSPECIFIED 02/26/2016 NELSON CALVERT MD Ot E04.9 NONTOXIC GOITER, UNSPECIFIED 10/27/2017 ORENDER DO, KAY S Ot 611.71 MASTODYNIA 10/27/2017 ORENDER DO, KAY S Ot 611.72 LUMP OR MASS IN BREAST 10/27/2017 FRANCINE HORTA, MARIA VICTORIA M Ot V72.84 EXAM PRE-OPERATIVE NOS 10/27/2017 ORENDER DO, KAY S Ot 240.9 GOITER NOS 10/27/2017 VERONDER DO, KAY S Ot 789.00 ABDOMINAL PAIN, UNSPECIFIED SITE 10/27/2017 FRANCINE HORTA, MARIA VICTORIA M Ot V72.84 EXAM PRE-OPERATIVE NOS 10/27/2017 Ot M51.36 OTHER INTERVERTEBRAL DISC DEGENERATION, 10/27/2017 VERONDER , KAY S Ot M51.36 OTHER INTERVERTEBRAL DISC DEGENERATION, 10/27/2017 Ot R10.11 RIGHT UPPER QUADRANT PAIN 10/27/2017 Ot R11.2 NAUSEA WITH VOMITING, UNSPECIFIED 10/27/2017 NEHAL HORTA, NELSON Harden Ot E04.9 NONTOXIC GOITER, UNSPECIFIED 10/27/2017 DONALDO BARKSDALE APRN Ot E03.9 HYPOTHYROIDISM, UNSPECIFIED 10/27/2017 DONALDO BARKSDALE APRN Ot E11.9 TYPE 2 DIABETES MELLITUS WITHOUT COMPLIC 10/27/2017 DONALDO BARKSDALE APRN Ot E78.00 PURE HYPERCHOLESTEROLEMIA, UNSPECIFIED 10/27/2017 DONALDO BARKSDALE APRN Ot F32.9 MAJOR DEPRESSIVE DISORDER, SINGLE EPISOD 10/27/2017 DONALDO BARKSDALE APRN Ot F41.9 ANXIETY DISORDER, UNSPECIFIED 10/27/2017 DONALDO BARKSDALE APRN Ot J06.9 ACUTE UPPER RESPIRATORY INFECTION, UNSPE 10/27/2017 DONALDO BARKSDALE APRN Ot J40 BRONCHITIS, NOT SPECIFIED ACUTE OR CH 10/27/2017 DONALDO BARKSDALE APRN Ot K21.9 GASTRO-ESOPHAGEAL REFLUX DISEASE WITHOUT 10/27/2017 DONALDO BARKSDALE APRN Ot R09.81 NASAL CONGESTION 10/27/2017 DONALDO BARKSDALE APRN Ot Z79.4 GLAZIER HELPER (CURRENT) USE OF INSULIN 10/27/2017 DONALDO BARKSDALE APRN Ot Z87.19 PERSONAL HISTORY OF OTHER DISEASES OF TH 10/27/2017 DONALDO BARKSDALE APRN Ot Z87.59 PERSONAL HISTORY OF COMP OF PREG, CHLDBR 10/27/2017 DONALDO BARKSDALE APRN Ot Z87.81 PERSONAL HISTORY OF (HEALED) TRAUMATIC F 10/27/2017 DONALDO BARKSDALE APRN Ot Z87.891 PERSONAL HISTORY OF NICOTINE DEPENDENCE 10/27/2017 DONALDO BARKSDALE APRN Ot Z88.6 ALLERGY STATUS TO ANALGESIC AGENT STATUS 10/27/2017 DONALDO BARKSDALE APRN Ot Z90.710 ACQUIRED ABSENCE OF BOTH CERVIX AND UTER 10/27/2017 DONALDO BARKSDALE APRN Ot Z90.89 ACQUIRED ABSENCE OF OTHER ORGANS 10/30/2017 DONALDO BARKSDALE APRN Ot E03.9 HYPOTHYROIDISM, UNSPECIFIED 10/30/2017 DONALDO BARKSDALE APRN Ot E11.9 TYPE 2 DIABETES MELLITUS WITHOUT COMPLIC 10/30/2017 DONALDO BARKSDALE APRN Ot E78.00 PURE HYPERCHOLESTEROLEMIA, UNSPECIFIED 10/30/2017 DONALDO BARKSDALE APRN Ot F32.9 MAJOR DEPRESSIVE DISORDER, SINGLE EPISOD 10/30/2017 DONALDO BARKSDALE APRN Ot F41.9 ANXIETY DISORDER, UNSPECIFIED 10/30/2017 DONALDO BARKSDALE APRN Ot J06.9 ACUTE UPPER RESPIRATORY INFECTION, UNSPE 10/30/2017 DONALDO BARKSDALE APRN Ot J40 BRONCHITIS, NOT SPECIFIED ACUTE OR CH 10/30/2017 DONALDO BARKSDALE APRN Ot K21.9 GASTRO-ESOPHAGEAL REFLUX DISEASE WITHOUT 10/30/2017 DONALDO BARKSDALE APRN Ot R09.81 NASAL CONGESTION 10/30/2017 DONALDO BARKSDALE APRN Ot Z79.4 INTERMEDIATE (CURRENT) USE OF INSULIN 10/30/2017 DONALDO BARKSDALE APRN Ot Z87.19 PERSONAL HISTORY OF OTHER DISEASES OF TH 10/30/2017 DONALDO BARKSDALE APRN Ot Z87.59 PERSONAL HISTORY OF COMP OF PREG, CHLDBR 10/30/2017 DONALDO BARKSDALE APRN Ot Z87.81 PERSONAL HISTORY OF (HEALED) TRAUMATIC F 10/30/2017 DONALDO BARKSDALE APRN Ot Z87.891 PERSONAL HISTORY OF NICOTINE DEPENDENCE 10/30/2017 DONALDO BARKSDALE APRN Ot Z88.6 ALLERGY STATUS TO ANALGESIC AGENT STATUS 10/30/2017 DONALDO BARKSDALE APRN Ot Z90.710 ACQUIRED ABSENCE OF BOTH CERVIX AND UTER 10/30/2017 DONALDO BARKSDALE APRN Ot Z90.89 ACQUIRED ABSENCE OF OTHER ORGANS 11/03/2017 DONALDO BARKSDALE APRN Ot E03.9 HYPOTHYROIDISM, UNSPECIFIED 11/03/2017 DONALDO BARKSDALE APRN Ot E11.9 TYPE 2 DIABETES MELLITUS WITHOUT COMPLIC 11/03/2017 DONALDO BARKSDALE APRN Ot E78.00 PURE HYPERCHOLESTEROLEMIA, UNSPECIFIED 11/03/2017 DONALDO BARKSDALE APRN Ot F32.9 MAJOR DEPRESSIVE DISORDER, SINGLE EPISOD 11/03/2017 DONALDO BARKSDALE APRN Ot F41.9 ANXIETY DISORDER, UNSPECIFIED 11/03/2017 DONALDO BARKSDALE APRN Ot J06.9 ACUTE UPPER RESPIRATORY INFECTION, UNSPE 11/03/2017 DONALDO BARKSDALE APRN Ot J40 BRONCHITIS, NOT SPECIFIED ACUTE OR CH 11/03/2017 DONALDO BARKSDALE APRN Ot K21.9 GASTRO-ESOPHAGEAL REFLUX DISEASE WITHOUT 11/03/2017 DONALDO BARKSDALE APRN Ot R09.81 NASAL CONGESTION 11/03/2017 DONALDO BARKSDALE APRN Ot Z79.4 INTERMEDIATE (CURRENT) USE OF INSULIN 11/03/2017 DONALDO BARKSDALE APRN Ot Z87.19 PERSONAL HISTORY OF OTHER DISEASES OF TH 11/03/2017 DONALDO BARKSDALE APRN Ot Z87.59 PERSONAL HISTORY OF COMP OF PREG, CHLDBR 11/03/2017 DONALDO BARKSDALE APRN Ot Z87.81 PERSONAL HISTORY OF (HEALED) TRAUMATIC F 11/03/2017 DONALDO BARKSDALE APRN Ot Z87.891 PERSONAL HISTORY OF NICOTINE DEPENDENCE 11/03/2017 DONALDO BARKSDALE APRN Ot Z88.6 ALLERGY STATUS TO ANALGESIC AGENT STATUS 11/03/2017 DONALDO BARKSDALE APRN Ot Z90.710 ACQUIRED ABSENCE OF BOTH CERVIX AND UTER 11/03/2017 DONALDO BARKSDALE APRN Ot Z90.89 ACQUIRED ABSENCE OF OTHER ORGANS 11/13/2017 ORENDER DO, KAY S Ot 611.71 MASTODYNIA 11/13/2017 ORENDER DO, KAY S Ot 611.72 LUMP OR MASS IN BREAST 11/13/2017 MARIA VICTORIA ESCAMILLA MD Ot V72.84 EXAM PRE-OPERATIVE NOS 11/13/2017 ORENDER DO, KAY S Ot 240.9 GOITER NOS 11/13/2017 ORENDER DO, KAY S Ot 789.00 ABDOMINAL PAIN, UNSPECIFIED SITE 11/13/2017 MARIA VICTORIA ESCAMILLA MD Ot V72.84 EXAM PRE-OPERATIVE NOS 11/13/2017 Ot M51.36 OTHER INTERVERTEBRAL DISC DEGENERATION, 11/13/2017 KAY ERBOLLAR DO Ot M51.36 OTHER INTERVERTEBRAL DISC DEGENERATION, 11/13/2017 Ot R10.11 RIGHT UPPER QUADRANT PAIN 11/13/2017 Ot R11.2 NAUSEA WITH VOMITING, UNSPECIFIED 11/13/2017 NEHAL HORTA, NELSON Harden Ot E04.9 NONTOXIC GOITER, UNSPECIFIED 11/16/2017 KAY REBOLLAR DO Ot K76.0 FATTY (CHANGE OF) LIVER, NOT ELSEWHERE C 11/16/2017 KAY REBOLLAR DO S Ot K76.0 FATTY (CHANGE OF) LIVER, NOT ELSEWHERE C 11/20/2017 CHRISTINE JONES, KAY Castañeda Ot K76.0 FATTY (CHANGE OF) LIVER, NOT ELSEWHERE C 11/24/2017 KAY REBOLLAR DO Ot K76.0 FATTY (CHANGE OF) LIVER, NOT ELSEWHERE C 01/02/2018 Ot M79.661 PAIN IN RIGHT LOWER LEG 01/02/2018 Ot M79.89 OTHER SPECIFIED SOFT TISSUE DISORDERS 01/09/2018 KAY REBOLLAR DO Ot M48.061 SPINAL STENOSIS, LUMBAR REGION WITHOUT N 01/09/2018 KAY REBOLLAR DO Ot M54.16 RADICULOPATHY, LUMBAR REGION 01/09/2018 KAY REBOLLAR DO Ot Z53.8 PROCEDURE AND TREATMENT NOT CARRIED OUT 01/09/2018 KAY REBOLLAR DO Ot Z95.0 PRESENCE OF CARDIAC PACEMAKER Procedures Code Description [place] [id number] [facility] DIAGNOSTIC EVALUATION 04/17/2014 Results Test Result Range Complete blood count (CBC) with automated white blood cell (WBC) differential - 10/27/17 18:40 Blood leukocytes automated count (number/volume) 7.7 10*3/uL 4.3-11.0 Blood erythrocytes automated count (number/volume) 4.77 10*6/uL 4.35-5.85 Venous blood hemoglobin measurement (mass/volume) 13.9 g/dL 11.5-16.0 Blood hematocrit (volume fraction) 41 % 35-52 Automated erythrocyte mean corpuscular volume 85 [foz_us] 80-99 Automated erythrocyte mean corpuscular hemoglobin (mass per erythrocyte) 29 pg 25-34 Automated erythrocyte mean corpuscular hemoglobin concentration measurement ( mass/volume) 34 g/dL 32-36 Automated erythrocyte distribution width ratio 13.6 % 10.0-14.5 Automated blood platelet count (count/volume) 269 10*3/uL 130-400 Automated blood platelet mean volume measurement 10.0 [foz_us] 7.4-10.4 Automated blood neutrophils/100 leukocytes 47 % 42-75 Automated blood lymphocytes/100 leukocytes 45 % 12-44 Blood monocytes/100 leukocytes 7 % 0-12 Automated blood eosinophils/100 leukocytes 1 % 0-10 Automated blood basophils/100 leukocytes 0 % 0-10 Blood neutrophils automated count (number/volume) 3.6 10*3 1.8-7.8 Blood lymphocytes automated count (number/volume) 3.5 10*3 1.0-4.0 Blood monocytes automated count (number/volume) 0.5 10*3 0.0-1.0 Automated eosinophil count 0.1 10*3/uL 0.0-0.3 Automated blood basophil count (count/volume) 0.0 10*3/uL 0.0-0.1 Comprehensive metabolic panel - 10/27/17 18:40 Serum or plasma sodium measurement (moles/volume) 135 mmol/L 135-145 Serum or plasma potassium measurement (moles/volume) 4.1 mmol/L 3.6-5.0 Serum or plasma chloride measurement (moles/volume) 99 mmol/L 98-107 Carbon dioxide 26 mmol/L 21-32 Serum or plasma anion gap determination (moles/volume) 10 mmol/L 5-14 Serum or plasma urea nitrogen measurement (mass/volume) 21 mg/dL 7-18 Serum or plasma creatinine measurement (mass/volume) 1.04 mg/dL 0.60-1.30 Serum or plasma urea nitrogen/creatinine mass ratio 20 NRG Serum or plasma creatinine measurement with calculation of estimated glomerular filtration rate 57 NRG Serum or plasma glucose measurement (mass/volume) 280 mg/dL 70-105 Serum or plasma calcium measurement (mass/volume) 9.5 mg/dL 8.5-10.1 Serum or plasma total bilirubin measurement (mass/volume) 0.3 mg/dL 0.1-1.0 Serum or plasma alkaline phosphatase measurement (enzymatic activity/volume) 80 U/L 40-136 Serum or plasma aspartate aminotransferase measurement (enzymatic activity/ volume) 11 U/L 5-34 Serum or plasma alanine aminotransferase measurement (enzymatic activity/volume ) 15 U/L 0-55 Serum or plasma protein measurement (mass/volume) 7.0 g/dL 6.4-8.2 Serum or plasma albumin measurement (mass/volume) 3.9 g/dL 3.2-4.5 Serum or plasma troponin i.cardiac measurement (mass/volume) - 10/27/17 18:40 Serum or plasma troponin i.cardiac measurement (mass/volume) < ng/ mL <0.30 Fibrin D-dimer FEU measurement in platelet poor plasma (mass/volume) - 18:51 Fibrin D-dimer FEU measurement in platelet poor plasma (mass/volume) 0.38 ug/mL 0.00-0.49 Encounters ACCT No. Visit Date/Time Discharge Status Pt. Type Provider Facility Loc./Unit Complaint 09/201709/03/2018 00:17:13 ACT Outpatient Kay Rebollar [id number] 03/21/2018 15:49:00 03/21/2018 23:59:59 CLS Preadmit DIAN REBOLLAR DOLINE S [facility] RAD LT MASTODYNIA/LT UPPER OUTER QUAD NODULE [id number] 01/08/2018 16:14:00 01/08/2018 23:59:59 CLS Outpatient KAY REBOLLAR DO S [facility] RAD SPINAL STENOSIS AND RADICULOPATHY [id number] 11/27/2017 09:07:00 11/27/2017 23:59:59 CLS Preadmit KAY REBOLLAR DO S [facility] CARD UNSPECIFIED ABDOMINAL PAIN R10.9 [id number] 11/14/2017 07:25:00 11/14/2017 23:59:59 CLS Outpatient KAY REBOLLAR DO S [facility] RAD RUQ PAIN [id number] 10/27/2017 16:57:00 10/27/2017 19:48:00 DIS Emergency DONALDO BARKSDALE APRN [facility] ER CONGESTION [id number] 02/08/2016 12:40:00 02/08/2016 23:59:59 CLS Outpatient NELSON CALVERT MD [facility] RAD GOITER [id number] 12/07/2015 16:12:00 12/07/2015 19:49:00 DIS Emergency CHARLOTTE HORTA, PEGGY Richardson [facility] ER DIZZINESS/NUMBNESS R SIDE [id number] 10/07/2015 09:46:00 10/07/2015 12:55:00 DIS Outpatient NELSON BARRAZA MD [facility] SDC LEFT TRIGGER FINGER, LEFT CARPAL TUNNEL SYNDROME [id number] 10/05/2015 21:15:00 10/06/2015 06:05:00 DIS Outpatient KAY REBOLLAR DO [facility] SLEEP OBSERVED APNEAS, SNORING,HTN,MOOD DISORDER [id number] 10/02/2015 11:42:00 10/02/2015 12:32:00 DIS Outpatient NELSON BARRAZA MD [facility] PREOP LEFT TRIGGER THUMB , LEFT CARPAL TUNNEL SYNDROME [id number] 06/30/2015 14:44:00 06/30/2015 23:59:59 CLS Outpatient KAY REBOLLAR DO [facility] RAD LUMBAR DEG DISC DISEASE [id number] 02/19/2015 12:56:00 04/01/2015 14:52:00 DIS Outpatient KAY REBOLLAR DO [facility] REHAB THORACIC / RIB PAIN [id number] 01/11/2015 18:43:00 01/11/2015 21:33:00 DIS Emergency YASMEEN HARRINGTON DO [facility] ER DIZZINESS,HEADACHE, TINGLING,CHEST PAIN [id number] 09/22/2014 08:31:00 09/22/2014 10:55:00 DIS Outpatient MARIA VICTORIA ESCAMILLA MD [facility] SDC ABD PAIN; NAUSEA [id number] 09/18/2014 06:54:00 09/18/2014 23:59:59 CLS Outpatient MARIA VICTORIA ESCAMILLA MD [facility] PREOP ABD PAIN; NAUSEA [id number] 09/10/2014 07:07:00 09/10/2014 23:59:59 CLS Outpatient KAY REBOLLAR DO [facility] RAD ABDOMINAL PAIN THYROID GOITER [id number] 04/24/2014 15:13:00 04/24/2014 23:59:59 CLS Preadmit CHRISTINE JONESKAY S [facility] REHAB [id number] 02/20/2014 07:20:00 02/20/2014 23:59:59 CLS Outpatient MARIA VICTORIA ESCAMILLA MD [facility] PREOP ABDOMINAL PAIN [id number] 07/23/2013 21:15:00 07/24/2013 19:15:00 DIS Inpatient CHRISTINE JONESKAY S [facility] CSD CHEST PAIN [id number] 07/10/2013 11:08:00 07/10/2013 23:59:59 CLS Outpatient CHRISTINE JONESKAY S [facility] RAD MASTALGIA [id number] 04/29/2013 17:45:00 04/29/2013 23:03:00 DIS Emergency DONALDO BARKSDALE APRN [facility] ER RECTAL BLEED [id number] 04/27/2013 17:36:00 04/27/2013 23:59:59 CLS Outpatient [id number] 09/05/2018 12:30:00 PEN Preadmit KURTIS TINOCO MD [facility] ENDO RELUX/N V [id number] 09/04/2018 09:22:00 ACT Outpatient KURTIS TINOCO MD [facility] PREOP EGD [id number] 12/22/2017 11:59:00 Document Registration [id number] 10/06/2015 09:10:00 Document Registration [id number] 10/01/2015 08:59:00 Document Registration [id number] 10/01/2015 08:59:00 Document Registration [id number] 06/16/2015 15:05:00 Document Registration [id number] 06/25/2012 20:19:00 Document Registration [id number] 04/18/2012 00:00:00 Document Registration [id number] 04/13/2012 22:18:00 Document Registration [id number] 01/23/2012 13:58:00 Document Registration [id number] 03/31/2011 19:43:00 Document Registration [id number] 02/03/2011 16:50:00 Document Registration [id number] 01/10/2011 11:30:00 Document Registration [id number] 12/08/2010 12:35:00 Document Registration [id number] 08/24/2010 07:39:00 Document Registration [id number] 08/15/2010 15:57:00 Document Registration [id number] 07/22/2014 13:25:00 07/22/2014 23:59:59 CLS Outpatient [employer], SELVIN [id number] 04/22/2014 13:08:00 04/22/2014 23:59:59 CLS Outpatient [employer], SELVIN [id number] 04/17/2014 12:50:00 04/17/2014 23:59:59 CLS Outpatient JAVIER ROBBINS PSYD [id number] 03/13/2014 10:06:00 03/13/2014 23:59:59 CLS Outpatient CINTIA TELLEZ DDS [id number] 01/21/2014 11:27:00 01/21/2014 23:59:59 CLS Outpatient [employer], SELVIN [id number] 01/21/2014 11:27:00 01/21/2014 23:59:59 CLS Outpatient [employer], SELVIN [id number] 12/06/2013 15:26:00 12/06/2013 23:59:59 CLS Outpatient [employer], SELVIN [id number] 12/06/2013 15:26:00 12/06/2013 23:59:59 CLS Outpatient [employer], SELVIN [id number] 08/29/2013 13:10:00 08/29/2013 23:59:59 CLS Outpatient [employer], SELVIN [id number] 08/29/2013 13:10:00 08/29/2013 23:59:59 CLS Outpatient CAMILA MOTA MD [id number] 11/24/2012 14:52:00 11/24/2012 23:59:59 CLS Outpatient NILS SAENZ DO [id number] 07/25/2012 13:36:00 07/25/2012 23:59:59 CLS Outpatient NILS SAENZ DO [id number] 04/26/2012 13:33:00 04/26/2012 23:59:59 [facility] Outpatient NILS SAENZ DO [id number] 08/30/2012 14:19:00 Document Registration
[2018-09-05] MEDS ORDERED: PROPOFOL INJECTION 50 ML IV ONE (13:29)
[2018-09-05] MEDS ORDERED: MIDAZOLAM 2 MG/2 ML (VERSED) VIAL ONE (13:30)
[2018-09-05 14:20] VITALS: BP 146/81
--- NOTE | 2018-09-05 14:26 | Anesthesia-General Post-Op ---
MAC Patient Condition Mental Status/LOC: Same as Preop Cardiovascular: Satisfactory Nausea/Vomiting: Absent Respiratory: Satisfactory Pain: Controlled Complications: Absent Post Op Complications Complications None Follow Up Care/Instructions Patient Instructions None needed. Anesthesiology Discharge Order Discharge Order Patient is doing well, no complaints, stable vital signs, no apparent adverse anesthesia problems. No complications reported per nursing. WILMAR ADAM CRNA Sep 05, 2018 14:26
--- NOTE | 2018-09-05 14:29 | Progress Note-Post Operative ---
Post-Operative Progess Note Surgeon (s)/Director Of Restaurant Operations (s) Surgeon KURTIS TINOCO MD Director Of Restaurant Operations: none Pre-Operative Diagnosis GERD Post-Operative Diagnosis reflux esophagitis(stage 2), small HH(1.5cm), moderate gastritis. Procedure & Operative Findings Date of Procedure 09/05/18 Procedure Performed/Findings EGD with bx. Anesthesia Type MAC Estimated Blood Loss Estimated blood loss (mL): minimal Specimens/Packing Specimens Removed ge jxn, antrum KURTIS TINOCO MD Sep 05, 2018 14:29
[2018-09-05 14:50] VITALS: BP 138/82
[2018-09-05 14:58] VITALS: BP 138/82
--- NOTE | 2018-09-05 21:55 | OPERATIVE REPORT ---
DATE OF SERVICE: 09/05/2018 ATTENDING PRIMARY CARE PHYSICIAN: Kay Rebollar DO PREOPERATIVE DIAGNOSES: Gastroesophageal reflux disease, epigastric pain. POSTOPERATIVE DIAGNOSES: Reflux esophagitis stage II, small hiatal hernia approximately 1.5 to 2 cm in size. Moderate severity gastritis. PROCEDURE: EGD with biopsy. SURGEON: Kurtis Tinoco MD ANESTHESIA: Monitored anesthesia care. ESTIMATED BLOOD LOSS: Minimal. FINDINGS: Reflux esophagitis stage II, small hiatal hernia approximately 1.5 to 2 cm in size, moderate severity gastritis more towards the stomach, antrum; however, no formal ulcerations. Pylorus and duodenum appeared normal with no distal obstructions. DISPOSITION: The patient tolerated the procedure well. INDICATIONS: The patient is a 47-year-old female with issues with nausea, vomiting, diarrhea and epigastric burning sensation consistent with reflux. She states that she has had gastroesophageal reflux disease and has had previous upper endoscopies before, with the last one done in 2010. She states that spicy foods do seem to trigger her symptoms more so recently. Back in 2006, she did have a workup for gallbladder, which was negative at that time. Currently, she is taking Nexium two times a day. DESCRIPTION OF PROCEDURE: The patient was brought to the endoscopy suite, laid in left lateral decubitus position with head slightly elevated. After adequate IV pain and sedative medications and monitored anesthesia care administered by anesthesia, the mouthpiece was applied. The endoscope was placed in the mouth, visualizing the pharynx and hypopharyngeal region. Vocal cords, epiglottis and vallecula identified and appeared to be normal. The endoscope was then gently intubated at the esophageal opening and esophagus insufflated. The endoscope was then advanced to the first, second and third portion of esophagus at the level of the GE junction. A reflux esophagitis stage II identified. There were no ulcers or strictures identified in this region. A biopsy was taken with forceps with visualization of good hemostasis. The endoscope was then advanced in the stomach and endoscope retroflexed, visualizing a small hiatal hernia approximately 1.5 to 2 cm in size. A biopsy was taken of the GE junction with forceps with visualization of good hemostasis. The endoscope was then advanced in the stomach and endoscope retroflexed, visualizing a small hiatal hernia approximately 1.5 to 2 cm in size. There was a moderate severity gastritis more towards the stomach, antrum; however, no formal ulcerations, polyps or any neoplasms. A biopsy was taken with forceps to rule out H. pylori with visualization of good hemostasis. The endoscope was then advanced to the pylorus and the first and second portion of the duodenum, which appeared normal and no distal obstructions. The endoscope was then slowly withdrawn while taking a second look and suctioning residual air with no additional findings. The patient tolerated the procedure well. We will again start with medical management with the necessary lifestyle and diet accommodation including small and more frequent meals, avoidance of eating at night as well as head elevation while lying supine. She also needs to avoid caffeinated beverages, spicy, greasy and acidic foods. We will also proceed with a trial of adding Protonix 40 mg daily as well as Nexium 40 mg daily to see if this helps with her symptoms. If she continues to have symptoms of nausea, vomiting after eating meals, this may be an evolving gallbladder etiology and we will repeat the ultrasound and HIDA scan. Job ID: [id number] DocumentID: [id number] Dictated Date: 09/05/2018 14:18:58 Television Repairman Date: 09/05/2018 21:54:56 Dictated By: KURTIS TINOCO MD
== END 2018-09-05 15:19 | disposition home or self-care (01) ==
LOC: ENDO 11:10
PROVIDERS: ATTEND Surgery
DX: K21.0 Gastro-esophageal reflux disease with esophagitis (principal); K44.9 Diaphragmatic hernia without obstruction or gangrene; K29.50 Unspecified chronic gastritis without bleeding; K31.89 Other diseases of stomach and duodenum; E11.40 Type 2 diabetes mellitus with diabetic neuropathy, unspecified; J44.9 Chronic obstructive pulmonary disease, unspecified; M79.7 Fibromyalgia; M19.91 Primary osteoarthritis, unspecified site; K58.9 Irritable bowel syndrome, unspecified; E03.9 Hypothyroidism, unspecified; I10 Essential (primary) hypertension; H81.09 Meniere's disease, unspecified ear; Z79.4 Long term (current) use of insulin; Z79.899 Other long term (current) drug therapy; Z87.891 Personal history of nicotine dependence; Z80.49 Family history of malignant neoplasm of other genital organs; E78.5 Hyperlipidemia, unspecified; G47.33 Obstructive sleep apnea (adult) (pediatric); E66.01 Morbid (severe) obesity due to excess calories; Z68.43 Body mass index [BMI] 50.0-59.9, adult

== ENCOUNTER → 2018-09-13 | Outpatient (CLI) | payer MEDICAID ==
[~2018-09-13] MED LIST changes: +PANT40TA2 PO
--- NOTE | 2018-09-13 07:45 | Diagnostic Imaging Report ---
PROCEDURE: US Gallbladder. TECHNIQUE: Multiple real-time grayscale images were obtained over the right upper quadrant in various projections. INDICATION: Right upper quadrant pain. FINDINGS: Liver measures 22 cm. There is increased echogenicity of liver compatible with fatty infiltration. There is no intrahepatic biliary ductal dilatation. The pancreas and common bile duct are obscured by bowel gas. There is no cholelithiasis, gallbladder wall thickening or pericholecystic fluid. Right kidney is normal in appearance. There is no ascites. IMPRESSION: Technically limited exam due to patient's body habitus. There is hepatomegaly and fatty infiltration of the liver. No cholelithiasis. Pancreas and common bile duct are obscured by bowel gas. Dictated by: Dictated on workstation # [id number]
== END ==
LOC: RAD 07:03
PROVIDERS: ATTEND Surgery
DX: K76.0 Fatty (change of) liver, not elsewhere classified (principal)
CPT/HCPCS: 76705

== ENCOUNTER 2018-10-02 19:42 | Emergency (ER) | payer MEDICAID ==
[~2018-10-02] VITALS: Ht 165.1 cm; Wt 157.9 kg
[2018-10-02 20:19] LABS: BILIRUBIN,URINE NEGATIVE (NEGATIVE); CLARITY,URINE CLEAR; COLOR,URINE YELLOW; GLUCOSE, URINE (UA) NEGATIVE (NEGATIVE); KETONES,URINE NEGATIVE (NEGATIVE); LEUKOCYTE ESTERASE ,URINE 1+ (NEGATIVE); NITRITE,URINE NEGATIVE (NEGATIVE); PH,URINE 5 (5-9); PROTEIN,URINE NEGATIVE (NEGATIVE); UROBILINOGEN,URINE NORMAL (NORMAL)
[2018-10-02 20:24] LABS: BASOPHILS % (AUTO) 0 % (0-10); EOSINOPHILS # (AUTO) 0.1 10^3/uL (0.0-0.3); EOSINOPHILS % (AUTO) 1 % (0-10); HEMATOCRIT 42 % (35-52); HEMOGLOBIN 14.2 G/DL (11.5-16.0); LYMPHOCYTES # (AUTO) 2.6 X 10^3 (1.0-4.0); LYMPHOCYTES % (AUTO) 31 % (12-44); MEAN CORPUSCULAR HEMOGLOBIN 29 PG (25-34); MEAN CORPUSCULAR HGB CONC 34 G/DL (32-36); MEAN CORPUSCULAR VOLUME 85 FL (80-99); MEAN PLATELET VOLUME 10.6 FL (7.4-10.4); MONOCYTES # (AUTO) 0.5 X 10^3 (0.0-1.0); MONOCYTES % (AUTO) 7 % (0-12); NEUTROPHILS # (AUTO) 5.1 X 10^3 (1.8-7.8); NEUTROPHILS % (AUTO) 62 % (42-75); PLATELET COUNT 334 10^3/uL (130-400); RED CELL DISTRIBUTION WIDTH 13.8 % (10.0-14.5); WHITE BLOOD COUNT 8.3 10^3/uL (4.3-11.0)
[2018-10-02 20:37] LABS: BACTERIA,URINE FEW /HPF
[2018-10-02 20:40] LABS: BILIRUBIN,TOTAL 0.3 MG/DL (0.1-1.0); CALCIUM 9.6 MG/DL (8.5-10.1); CREATININE SERUM 1.46 MG/DL (0.60-1.30); POTASSIUM 4.1 MMOL/L (3.6-5.0)
[2018-10-02 20:41] LABS: ALBUMIN 4.1 GM/DL (3.2-4.5); TOTAL PROTEIN 7.4 GM/DL (6.4-8.2)
[2018-10-02] MEDS ORDERED: NS IV 1000 ML 1,000 ML IV ONE (20:43)
[2018-10-02] MEDS ORDERED: inSUlin (REGULAR) HUMAN 1 UNIT/0.01 ML (CHARGE PER UNIT) IV ONE (20:45)
--- NOTE | 2018-10-02 21:14 | Diagnostic Imaging Report ---
Clinical indication: Patient with right upper quadrant pain. EXAMS: X-ray of the chest PA view and x-ray of the abdomen supine and upright views. COMPARISONS: Chest x-ray dated 10/27/2017. FINDINGS: LUNGS/ PLEURA: Stable increased lung markings throughout both lungs, likely chronic. There is no interval lung infiltrate seen. There is no pneumothorax. There is no pleural effusion. MEDIASTINUM: Unremarkable. PULMONARY VASCULATURE: Unremarkable. HEART: Unremarkable. BONES/ EXTRATHORACIC SOFT TISSUE: There are mildly hypertrophic spurs involving the thoracic spine. ABDOMEN AND PELVIS: Unremarkable x-ray of the abdomen with nonobstructed bowel gas pattern. There is no evidence of abdominal free air. There is a small amount of stool seen throughout the colon. Multiple calcifications overlying the pelvis, suspected to represent phleboliths. There are no focal calcifications overlying the expected regions/ pathways of both kidneys, ureters, and bladder regions. There are spurs involving both hips. There is sclerosis of the symphysis pubis region. There is degenerative spurs involving the lumbar spine. IMPRESSION: 1: Stable chest x-ray exam with no interval radiographic evidence of acute cardiopulmonary process. 2: Unremarkable x-ray of the abdomen. There is a small amount of stool seen throughout the colon. Dictated by: Dictated on workstation # [id number]
--- NOTE | 2018-10-02 21:44 | Diagnostic Imaging Report ---
Clinical indication: Patient reports abdominal pain over the last 2 days that has moved into the right upper quadrant. Exam: CT exam of the abdomen and pelvis is performed without IV or oral contrast using stone protocol. Coronal and sagittal reformatted images were created. Comparisons: CT scan of the abdomen and pelvis performed with and without IV contrast dated 12/08/2010. Findings: Visualized lung bases: Unremarkable. Liver: Unremarkable as visualized. Gallbladder: Unremarkable. Pancreas: Unremarkable as visualized. Spleen: Unremarkable as visualized. Adrenal glands: Unremarkable. Kidneys/ ureters: There is a 4 mm calcification seen along the upper lateral pelvic wall which is near the proximal internal iliac chain region and near the expected region of the ureter. There is also a 4 mm calcification near the left common iliac chain bifurcation region which is near the expected region of the ureter. There is no adjacent fat stranding or hydronephrosis. There is no other concern for urinary tract stones. These findings may represent vascular calcifications, but urinary tract stones can not be completely excluded. Otherwise, both kidneys and ureters are unremarkable. Aorta: Unremarkable as visualized. Intraabdominal/ retroperitoneal contents: Unremarkable. Intestines: Unremarkable as visualized. Appendix: Unremarkable. Bladder: Unremarkable as visualized. Pelvic organs: Multiple phleboliths are seen in the pelvis. The uterus is surgically resected. There is no gross abnormality in the expected regions of the ovaries. Ovaries are not identified and may possibly be surgically resected. Extra abdominal/ pelvis regions: Unremarkable. Abdominal wall: Unremarkable. Bones: There are degenerative spurs involving both hips. There is sclerosis of the symphysis pubis region. There are degenerative spurs involving the visualized lower thoracic spine and lumbar spine. There is lower lumbar spine facet arthropathy. Impression: 1: There is calcification seen on the right and left sides of the upper pelvis regions which are near the regions of the distal ureters. These are suspected to represent vascular calcifications, but distal ureteral stones cannot be completely excluded. Urinalysis may help better evaluate for hematuria. These calcifications are not seen on the prior CT scan. 2: Otherwise, the remainder of this exam shows no acute abnormality. Dictated by: Dictated on workstation # [id number]
[2018-10-02] MEDS ORDERED: HYOSCYAMINE 0.125 MG (LEVSIN) TAB PO ONE (22:00)
[2018-10-02] MEDS ORDERED: SUCRALFATE 1 GM (CARAFATE) TAB PO ONE (22:00)
[2018-10-02] MEDS ORDERED: KETOROLAC 30 MG/ML VIAL IVP ONE (22:00)
[2018-10-02] MEDS ORDERED: HYOS0.1283 SL (22:01)
[2018-10-02] MEDS ORDERED: SUCR1TAB36 PO (22:01)
--- NOTE | 2018-10-02 22:01 | ED Abdominal Pain ---
General Chief Complaint: Abdominal/GI Problems Stated Complaint: STOMACH PAIN Nursing Triage Note: pt reports andominal pain over the last three days that has moved into the RUQ. verbalized intermittent nausea. denies NV upon presentation to the ED Sepsis Screen: No Definite Risk Source of Information: Patient, Old Records Exam Limitations: No Limitations History of Present Illness Date Seen by Provider: October 02, 2018 Time Seen by Provider: 20:00 Initial Comments PT ARRIVES VIA POV FROM HOME C/O RUQ PAIN SINCE LAST PM IS ONGOING PROBLEM WITH UPPER ABDOMINAL PAIN FOR SEVERAL WEEKS, BUT SINCE 3 DAYS AGO THE PAIN IS MORE IN RUQ AND HAS BEEN WORSE THAN NORMAL WORSENED BY FOOD OR MOVEMENTS/POSITIONS NO RELIEF WITH OTC PEPTO BISMOL, PROMETHAZINE, NEXIUM, PANTOPRAZOLE, FAMOTIDINE +NAUSEA, NO VOMITING--ATE REGULAR MEAL AT 1700--PASTA, CHICKEN, BROCCOLI, [place]. NO DIARRHEA, HAS ONGOING CONSTIPATION--HAD BM TODAY NO FEVER NO URINARY SYMPTOMS, OTHER THAN DECREASED OUTPUT PT HAD EGD 09/05/[address] TINOCO--SMALL 1.5-2 CM HIATAL HERNIA, MODERATELY SEVERE GASTRITIS PT HAD GALLBLADDER ULTRASOUND 09/13/18--FATTY LIVER, OTHERWISE NO ACUTE PROCESS PT STATES SHE IS SUPPOSED TO HAVE A HIDA SCAN BUT IT HAS NOT BEEN SCHEDULED YET HAS NOT FOLLOWED UP WITH ANYONE SINCE THE ABOVE TESTS HAVE BEEN DONE PCP: DR. KING SURGEON: DR. TINOCO Allergies and Home Medications Allergies Coded Allergies: baclofen (Verified Allergy, Unknown, 10/02/18) Home Medications Albuterol Sulfate 1 Puff Puff, 2 PUFF IH Q4H PRN for WHEEZING, (Reported) 1 PUFF = 90 MCG Albuterol Sulfate 2.5 Mg/3 Ml Vial.neb, 2.5 MG INH Q4H PRN for SHORTNESS OF BREATH, (Reported) Famotidine 20 Mg Tablet, 20 MG PO BID, (Reported) Fluticasone Propionate 16 Gm [place].susp, 2 GM NSEACH DAILY, (Reported) Furosemide 40 Mg Tablet, 40 MG PO DAILY, (Reported) Hydrochlorothiazide 25 Mg Tablet, 25 MG PO DAILY, (Reported) Hyoscyamine Sulfate 0.125 Mg Tab.subl, 1-2 TAB SL Q4H Prescribed by: YASMEEN HARRINGTON on 10/02/182200 Ibuprofen 800 Mg Tablet, 800 MG PO Q8H PRN for PAIN, (Reported) Insulin Aspart 300 Units/3 Ml Solution, 48-50 UNITS SQ ACHS, (Reported) Insulin Degludec 100 Unit/1 Ml Insuln.pen, 100 UNIT SQ BID, (Reported) Levothyroxine Sodium 75 Mcg Tablet, 75 MCG PO DAILY, (Reported) Lisinopril 5 Mg Tablet, 5 MG PO DAILY, (Reported) Meclizine HCl 25 Mg Tablet, 25 MG PO Q6H PRN for VERTIGO, (Reported) Metformin HCl 1,000 Mg Tablet, 1,000 MG PO BID, (Reported) Multivit with Calcium,Iron,Min 1 Each Tablet, 1 EACH PO DAILY, (Reported) Nebivolol HCl 5 Mg Tablet, 5 MG PO HS, (Reported) Oxycodone HCl/Acetaminophen 1 Each Tablet, 1-2 EACH PO Q4H PRN for PAIN- MODERATE, (Reported) Pantoprazole Sodium 40 Mg Tablet.dr, 40 MG PO DAILY Prescribed by: KURTIS TINOCO on 09/05/18 121 Potassium Chloride 10 Meq Tablet.er, 20 MEQ PO DAILY, (Reported) take 2 (10mEq) tabs Pregabalin 200 Mg Capsule, 200 MG PO BID, (Reported) Promethazine HCl 25 Mg Tablet, 25 MG PO Q6H PRN for NAUSEA/VOMITING, (Reported) Semaglutide 1 Mg/0.75 Ml Pen.injctr, 1 MG SQ WEEK, (Reported) Sucralfate 1 Gm Tablet, 1 GM PO QIDACHS Prescribed by: YASMEEN HARRINGTON on 10/02/182200 Tizanidine HCl 4 Mg Tablet, 8 MG PO HS, (Reported) take 2 (4mg) tabs Patient Home Medication List Home Medication List Reviewed: Yes Review of Systems Review of Systems Constitutional: no symptoms reported; No chills, No diaphoresis, No dizziness, No fever Respiratory: No Symptoms Reported Cardiovascular: No Symptoms Reported Gastrointestinal: See HPI, Abdominal Pain, Constipated; Denies Diarrhea; Naus ea; Denies Poor Appetite, Denies Poor Fluid Intake, Denies Vomiting Genitourinary: See HPI; Denies Burning, Denies Frequency, Denies Flank Pain, Denies Urgency Musculoskeletal: no symptoms reported Skin: no symptoms reported Psychiatric/Neurological: No Symptoms Reported Endocrine: No Symptoms Reported Hematologic/Lymphatic: No Symptoms Reported Past Iajchgn-Fpnhhq-Lqqblq Hx Patient Social History Alcohol Use: Occasionally Uses Recreational Drug Use: No Smoking Status: Former Smoker (1 PPD) Former Smoker, Quit: Aug 13, 2017 2nd Hand Smoke Exposure: No Recent Foreign Travel: No Contact w/Someone Who Travel: No Recent Infectious Disease Expo: No Recent Hopitalizations: No Immunizations Up To Date Tetanus Booster (TDap): Unknown PED Vaccines UTD: Yes Date of Pneumonia Vaccine: September 19, 2012 Seasonal Allergies Seasonal Allergies: No Past Medical History Surgeries: Yes ( X 3; HYST/BSO; BILATERAL CARPAL TUNNEL RELEASE; LEFT THUMB TRIGGER FINGER SURGERY; EGD 09/05/18) Adenoidectomy, Section, Hysterectomy, Oophorectomy, Tonsillectomy Respiratory: Yes Sleep Apnea, COPD Currently Using CPAP: Yes Cardiac: Yes High Cholesterol, Hypertension Neurological: Yes Neuropathy, Vertigo : No Reproductive Disorders: No 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 Sexually Transmitted Disease: No HIV/AIDS: No Genitourinary: No Gastrointestinal: Yes (GASTRITIS DX ON EGD 09/05/18) Gastroesophageal Reflux, Hiatal Hernia, Irritable Bowel Musculoskeletal: Yes Degenerate Disk Disease, Fibromyalgia, Back Injury, Chronic Back Pain, Fractures Endocrine: Yes (MORBID OBESITY) Diabetes, Insulin dep, Hypothyroidsim HEENT: Yes (MISSING TEETH/POOR DENTITION) Cancer: No Psychosocial: Yes Sleep Difficulties, Anxiety, Depression Integumentary: Yes (MRSA/ABSCESSES/CELLULITIS/FOLLICULITIS; ) Blood Disorders: No Adverse Reaction/Blood Tranf: No Family Medical History No Pertinent Family Hx Physical Exam Vital Signs Vital Signs - First Documented 10/02/18 19:54 Temp 97.4 Pulse 81 Resp 20 B/P (MAP) 126/67 (86) Pulse Ox 97 O2 Delivery Nasal Cannula Capillary Refill : Less Than 3 Seconds Height/Weight/BMI Height: 5'5.00" Weight: 348lbs. 0.0oz. [id number]; 57.9 BMI Method:Stated General Appearance: no apparent distress, obese HEENT: PERRL/EOMI, other (MISSING TOP/FRONT TEETH) Neck: normal inspection Respiratory: normal breath sounds, no respiratory distress, no accessory muscle use Cardiovascular: regular rate, rhythm, no murmur Gastrointestinal: normal bowel sounds, soft; No distended, No guarding, No rebound; tenderness (RUQ); No hernia, No mass Extremities: normal inspection, no pedal edema, normal capillary refill Back: no CVA tenderness Neurologic/Psychiatric: office administration II-XII nml as tested, no motor/sensory deficits, alert, normal mood/affect, oriented x 3 Skin: normal color, warm/dry, tattoos/piercings (TATTOOS) Progress/Results/Core Measures Results/Orders Lab Results Laboratory Tests Test 10/02/18 20:05 10/02/18 20:12 10/02/18 22:23 Range/Units Urine Color YELLOW Urine Clarity CLEAR Urine pH 5 5-9 Urine Specific [place] 1.020 1.016-1.022 Urine Protein NEGATIVE NEGATIVE Urine Glucose (UA) NEGATIVE NEGATIVE Urine Ketones NEGATIVE NEGATIVE Urine Nitrite NEGATIVE NEGATIVE Urine Bilirubin NEGATIVE NEGATIVE Urine Urobilinogen NORMAL NORMAL MG/DL Urine Leukocyte Esterase 1+ H NEGATIVE Urine RBC (Auto) NEGATIVE NEGATIVE Urine RBC NONE /HPF Urine WBC NONE /HPF Urine Squamous Epithelial Cells 2-5 /HPF Urine Crystals NONE /LPF Urine Bacteria FEW H /HPF Urine Casts NONE /LPF Urine Mucus SMALL H /LPF Urine Culture Indicated NO White Blood Count 8.3 4.3-11.0 10^3/uL Red Blood Count 4.98 4.35-5.85 10^6/uL Hemoglobin 14.2 11.5-16.0 G/DL Hematocrit 42 35-52 % Mean Corpuscular Volume 85 80-99 FL Mean Corpuscular Hemoglobin 29 25-34 PG Mean Corpuscular Hemoglobin Concent 34 32-36 G/DL Red Cell Distribution Width 13.8 10.0-14.5 % Platelet Count 334 130-400 10^3/uL Mean Platelet Volume 10.6 H 7.4-10.4 FL Neutrophils (%) (Auto) 62 42-75 % Lymphocytes (%) (Auto) 31 12-44 % Monocytes (%) (Auto) 7 0-12 % Eosinophils (%) (Auto) 1 0-10 % Basophils (%) (Auto) 0 0-10 % Neutrophils # (Auto) 5.1 1.8-7.8 X 10^3 Lymphocytes # (Auto) 2.6 1.0-4.0 X 10^3 Monocytes # (Auto) 0.5 0.0-1.0 X 10^3 Eosinophils # (Auto) 0.1 0.0-0.3 10^3/uL Basophils # (Auto) 0.0 0.0-0.1 10^3/uL Sodium Level 133 L 135-145 MMOL/L Potassium Level 4.1 3.6-5.0 MMOL/L Chloride Level 99 98-107 MMOL/L Carbon Dioxide Level 19 L 21-32 MMOL/L Anion Gap 15 H 5-14 MMOL/L Blood Urea Nitrogen 25 H 7-18 MG/DL Creatinine 1.46 H 0.60-1.30 MG/DL Estimat Glomerular Filtration Rate 38 BUN/Creatinine Ratio 17 Glucose Level 348 H 70-105 MG/DL Calcium Level 9.6 8.5-10.1 MG/DL Corrected Calcium 9.5 8.5-10.1 MG/DL Total Bilirubin 0.3 0.1-1.0 MG/DL Aspartate Amino Transf (AST/SGOT) 14 5-34 U/L Alanine Aminotransferase (ALT/SGPT) 22 0-55 U/L Alkaline Phosphatase 80 40-136 U/L Total Protein 7.4 6.4-8.2 GM/DL Albumin 4.1 3.2-4.5 GM/DL Amylase Level 40 25-125 U/L Lipase 26 8-78 U/L Glucometer 270 H 70-110 MG/DL My Orders Orders - YASMEEN HARRINGTON DO Ed Iv/Invasive Line Start (10/02/18 20:13) Amylase (10/02/18 20:13) Cbc With Automated Diff (10/02/18 20:13) Comprehensive Metabolic Panel (10/02/18 20:13) Lipase (10/02/18 20:13) Ua Culture If Indicated (10/02/18 20:13) Ct Abdomen/Pelvis Wo (10/02/18 20:43) Acute Abd Series (10/02/18 20:43) Ed Iv/Invasive Line Start (10/02/18 20:43) Ns Iv 1000 Ml (Sodium Chloride 0.9%) (10/02/18 20:43) Insulin (Regular) Human (Humulin R (Per (10/02/18 20:45) Accucheck Stat ONCE (10/02/18 21:57) Hyoscyamine Sl Tablet (Levsin Sl Tablet) (10/02/18 22:00) Ketorolac Injection (Toradol Injection) (10/02/18 22:00) Sucralfate Tablet (Carafate Tablet) (10/02/18 22:00) Medications Given in ED Current Medications Medications Dose Ordered Sig/Yisel Route Start Time Stop Time Status Last Admin Dose Admin Hyoscyamine Sulfate 0.25 mg ONCE ONCE PO 10/02/18 22:00 10/02/18 22:01 DC 10/02/18 22:15 0.25 MG Insulin Human Regular 20 unit ONCE ONCE IV 10/02/18 20:45 10/02/18 21:26 DC 10/02/18 21:38 20 UNIT Ketorolac Tromethamine 30 mg ONCE ONCE IVP 10/02/18 22:00 10/02/18 22:01 DC 10/02/18 22:15 30 MG Sodium Chloride 1,000 ml @ 0 mls/hr Q0M ONCE IV 10/02/18 20:43 10/02/18 21:26 DC 10/02/18 21:37 1,000 MLS/HR Sucralfate 1 gm ONCE ONCE PO 10/02/18 22:00 10/02/18 22:01 DC 10/02/18 22:24 1 GM Vital Signs/I&O 10/02/18 10/02/18 19:54 22:42 Temp 97.4 97.4 Pulse 81 80 Resp 20 20 B/P (MAP) 126/67 (86) 112/64 (80) Pulse Ox 97 97 O2 Delivery Nasal Cannula Room Air Blood Pressure Mean: 86 Progress Progress Note : Progress Note SYMPTOMS IMPROVED AT DISMISSAL REPEAT ACCUCHECK DOWN TO 270 AT DISMISSAL Diagnostic Imaging Comments ACUTE ABDOMEN XRAYS--NO ACUTE PROCESS CT ABDOMEN/PELVIS--NO ACUTE PROCESS, PELVIC CALCIFICATIONS-SUSPECT VASCULAR CALCIFICATIONS VS BILATERAL DISTAL URETERAL CALCIFICATIONS PER RADIOLOGIST REPORTS @ 2151 Reviewed: Reviewed by Me Departure Impression Primary Impression: RUQ abdominal pain Additional Impressions: Uncontrolled diabetes mellitus RENAL INSUFFICIENCY/DEHYRATION Disposition: 01 HOME, SELF-CARE Condition: Improved Departure-Patient Inst. Referrals: KURTIS TINOCO MD, JACQUELINE S DO (PCP/Family) Primary Care Physician Patient Instructions: Acute Abdomen (Belly Pain), Adult (DC), Diabetes Type 2 (DC), Diabetes and Diet, Dehydration, Adult (DC) Add. Discharge Instructions: CLEAR LIQUIDS--WATER, BROTH, JELLO, GATORADE BLAND DIET--NO SPICY, GREASY/HIGH FAT OR ACIDIC FOOD OR DRINK FOLLOW UP WITH DR. TINOCO OR DR. KING THIS WEEK FOR FURTHER CARE All discharge instructions reviewed with patient and/or family. Voiced understanding. Scripts Sucralfate (Carafate) 1 Gm Tablet 1 GM PO QIDACHS, #60 TAB Prov: YASMEEN HARRINGTON DO 10/02/18 Hyoscyamine Sulfate (Levsin-Sl) 0.125 Mg Tab.subl 1-2 TAB SL Q4H for Abdominal Pain, #15 TAB Prov: YASMEEN HARRINGTON DO 10/02/18 YASMEEN HARRINGTON DO October 02, 2018 22:01
[2018-10-02 22:42] VITALS: BP 112/64
[2018-10-03] MEDS ORDERED: DICY20TA10 PO (23:14)
== END 2018-10-02 22:42 | disposition home or self-care (01) ==
LOC: EDUNIT# 19:42 → ER 19:43
DX: R10.11 Right upper quadrant pain (principal); E11.40 Type 2 diabetes mellitus with diabetic neuropathy, unspecified; N28.9 Disorder of kidney and ureter, unspecified; G56.03 Carpal tunnel syndrome, bilateral upper limbs; G47.30 Sleep apnea, unspecified; J44.9 Chronic obstructive pulmonary disease, unspecified; K21.9 Gastro-esophageal reflux disease without esophagitis; K58.9 Irritable bowel syndrome, unspecified; E03.9 Hypothyroidism, unspecified; E66.01 Morbid (severe) obesity due to excess calories; F41.9 Anxiety disorder, unspecified; F32.9 Major depressive disorder, single episode, unspecified; Z68.43 Body mass index [BMI] 50.0-59.9, adult; Z86.14 Personal history of Methicillin resistant Staphylococcus aureus infection; Z87.19 Personal history of other diseases of the digestive system; Z88.8 Allergy status to other drugs, medicaments and biological substances; Z79.51 Long term (current) use of inhaled steroids; Z79.4 Long term (current) use of insulin; Z87.891 Personal history of nicotine dependence; Z90.89 Acquired absence of other organs; Z98.890 Other specified postprocedural states; Z90.710 Acquired absence of both cervix and uterus
CPT/HCPCS: 36415; 74022; 74176; 80053; 81000; 82150; 82962; 83690; 85025

== ENCOUNTER 2018-10-03 21:37 | Emergency (ER) | payer MEDICAID ==
[~2018-10-03] VITALS: Ht 165.1 cm; Wt 154.2 kg
[~2018-10-03 21:37] MED LIST changes: +HYOS0.1283 SL; +SUCR1TAB36 PO
[2018-10-03] MEDS ORDERED: NS IV 1000 ML 1,000 ML IV ONE (22:14)
[2018-10-03] MEDS ORDERED: KETOROLAC 30 MG/ML VIAL IVP STA (22:14)
[2018-10-03] MEDS ORDERED: ONDANSETRON 4 MG/2 ML (SDV) Z0FRAN IVP ONE (22:15)
[2018-10-03] MEDS ORDERED: HYOSCYAMINE 0.125 MG (LEVSIN) TAB SL ONE (22:15)
[2018-10-03 22:29] LABS: BASOPHILS % (AUTO) 0 % (0-10); EOSINOPHILS # (AUTO) 0.1 10^3/uL (0.0-0.3); EOSINOPHILS % (AUTO) 1 % (0-10); HEMATOCRIT 40 % (35-52); HEMOGLOBIN 13.5 G/DL (11.5-16.0); LYMPHOCYTES # (AUTO) 2.6 X 10^3 (1.0-4.0); LYMPHOCYTES % (AUTO) 33 % (12-44); MEAN CORPUSCULAR HEMOGLOBIN 29 PG (25-34); MEAN CORPUSCULAR HGB CONC 34 G/DL (32-36); MEAN CORPUSCULAR VOLUME 83 FL (80-99); MEAN PLATELET VOLUME 9.9 FL (7.4-10.4); MONOCYTES # (AUTO) 0.5 X 10^3 (0.0-1.0); MONOCYTES % (AUTO) 7 % (0-12); NEUTROPHILS # (AUTO) 4.6 X 10^3 (1.8-7.8); NEUTROPHILS % (AUTO) 59 % (42-75); PLATELET COUNT 294 10^3/uL (130-400); RED CELL DISTRIBUTION WIDTH 13.8 % (10.0-14.5); WHITE BLOOD COUNT 7.9 10^3/uL (4.3-11.0)
--- NOTE | 2018-10-03 22:32 | ED Abdominal Pain ---
General Chief Complaint: Abdominal/GI Problems Stated Complaint: ABD PAIN Nursing Triage Note: PT REPORTS RUQ ABD PAIN THAT KEEPS GETTING WORSE. PT WAS SEEN IN THE ED LAST NIGHT FOR SAME PROBLEM. PT HAS HIDA SCAN SCHEDULED FRO 10/11/18 Sepsis Screen: No Definite Risk Source of Information: Patient, Old Records History of Present Illness Date Seen by Provider: October 03, 2018 Time Seen by Provider: 22:15 Initial Comments PT ARRIVES VIA POV FROM HOME C/O UPPER ABDOMINAL PAIN FOR SEVERAL WEEKS, LOCALIZING TO RUQ FOR THE LAST COUPLE OF DAYS STATES PAIN HAS BEEN "SEVERE AND EXCRUCIATING" SINCE THIS AFTERNOON, AND WORSE SINCE 1900 TONIGHT PAIN IS WORSENED BY FOOD AND MOVEMENTS/POSITIONS + NAUSEA, NO VOMITING NO BM TODAY BUT HAD A BM YESTERDAY--ONGOING CONSTIPATION PT WAS SEEN IN THIS ER LAST PM FOR SAME--WORK UP, INCLUDING LAB AND CT WERE NEGATIVE FOR ACUTE PROCESS ( OTHER THAN CHRONICALLY ELEVATED BLOOD GLUCOSE AND CHRONIC RENAL INSUFFICIENCY) PT HAS BEEN SEEN BY DR. KING AND BY DR. TINOCO AND HAS HAD OUTPATIENT ULTRASOUND AND EGD DONE RECENTLY. EGD SHOWED SMALL HIATAL HERNIA AND GASTRITIS. PT STATES SHE HAS HIDA SCAN SCHEDULED FOR 10/11/18 HAS NOT FOLLOWED UP WITH DR. KING OR DR. TINOCO SINCE ANY OF THE ABOVE OUTPATIENT TESTS HAVE BEEN DONE PT WAS PRESCRIBED LEVSIN AND CARAFATE LAST PM, WHICH PT HAS NOT STARTED YET. PT TAKES OXYCODONE AND STATES SHE TAKES 1-2 EVERY 4 HOURS EVERY DAY AND LAST DOSE WAS AT 1930 TONIGHT, WITHOUT RELIEF. PT IS ALSO ON NEXIUM, PANTOPRAZOLE, FAMOTIDINE, PROMETHAZINE, AND PEPTOBISMOL PT HAS CONTINUED TO EAT REGULAR MEALS--STATES TODAY SHE ATE [employer] FOR LUNCH, AND HAD [employer] FOR DINNER AROUND [id number] PT HAS BEEN DRINKING LIQUIDS WELL PT IS DIABETIC, STATES HER BLOOD GLUCOSE WAS 213 JUST PRIOR TO ARRIVAL PCP: DR. KING SURGEON: DR. TINOCO Allergies and Home Medications Allergies Coded Allergies: baclofen (Verified Allergy, Unknown, 10/02/18) Home Medications Albuterol Sulfate 1 Puff Puff, 2 PUFF IH Q4H PRN for WHEEZING, (Reported) 1 PUFF = 90 MCG Albuterol Sulfate 2.5 Mg/3 Ml Vial.neb, 2.5 MG INH Q4H PRN for SHORTNESS OF BREATH, (Reported) Dicyclomine HCl 20 Mg Tablet, 20 MG PO Q6H Prescribed by: YASMEEN HARRINGTON on 10/03/18 2314 Famotidine 20 Mg Tablet, 20 MG PO BID, (Reported) Fluticasone Propionate 16 Gm [place].susp, 2 GM NSEACH DAILY, (Reported) Furosemide 40 Mg Tablet, 40 MG PO DAILY, (Reported) Hydrochlorothiazide 25 Mg Tablet, 25 MG PO DAILY, (Reported) Hyoscyamine Sulfate 0.125 Mg Tab.subl, 1-2 TAB SL Q4H Prescribed by: YASMEEN HARRINGTON on 10/02/182200 Ibuprofen 800 Mg Tablet, 800 MG PO Q8H PRN for PAIN, (Reported) Insulin Aspart 300 Units/3 Ml Solution, 48-50 UNITS SQ ACHS, (Reported) Insulin Degludec 100 Unit/1 Ml Insuln.pen, 100 UNIT SQ BID, (Reported) Levothyroxine Sodium 75 Mcg Tablet, 75 MCG PO DAILY, (Reported) Lisinopril 5 Mg Tablet, 5 MG PO DAILY, (Reported) Meclizine HCl 25 Mg Tablet, 25 MG PO Q6H PRN for VERTIGO, (Reported) Metformin HCl 1,000 Mg Tablet, 1,000 MG PO BID, (Reported) Multivit with Calcium,Iron,Min 1 Each Tablet, 1 EACH PO DAILY, (Reported) Nebivolol HCl 5 Mg Tablet, 5 MG PO HS, (Reported) Oxycodone HCl/Acetaminophen 1 Each Tablet, 1-2 EACH PO Q4H PRN for PAIN- MODERATE, (Reported) Pantoprazole Sodium 40 Mg Tablet.dr, 40 MG PO DAILY Prescribed by: KURTIS TINOCO on 09/05/18 1211 Potassium Chloride 10 Meq Tablet.er, 20 MEQ PO DAILY, (Reported) take 2 (10mEq) tabs Pregabalin 200 Mg Capsule, 200 MG PO BID, (Reported) Promethazine HCl 25 Mg Tablet, 25 MG PO Q6H PRN for NAUSEA/VOMITING, (Reported) Semaglutide 1 Mg/0.75 Ml Pen.injctr, 1 MG SQ WEEK, (Reported) Sucralfate 1 Gm Tablet, 1 GM PO QIDACHS Prescribed by: YASMEEN HARRINGTON on 10/02/182200 Tizanidine HCl 4 Mg Tablet, 8 MG PO HS, (Reported) take 2 (4mg) tabs Patient Home Medication List Home Medication List Reviewed: Yes Review of Systems Review of Systems Constitutional: no symptoms reported; No chills, No fever Respiratory: No Symptoms Reported Cardiovascular: No Symptoms Reported Gastrointestinal: See HPI, Abdominal Pain, Constipated; Denies Diarrhea; Nausea; Denies Vomiting Genitourinary: No Symptoms Reported Musculoskeletal: see HPI, back pain (CHRONIC / STABLE) Skin: no symptoms reported Psychiatric/Neurological: No Symptoms Reported Endocrine: See HPI Hematologic/Lymphatic: No Symptoms Reported Past [id number]-Weumeb Hx Patient Social History Alcohol Use: Occasionally Uses Recreational Drug Use: No Smoking Status: Former Smoker (1 PPD) Former Smoker, Quit: Aug 13, 2017 2nd Hand Smoke Exposure: No Recent Foreign Travel: No Contact w/Someone Who Travel: No Recent Infectious Disease Expo: No Recent Hopitalizations: No Physical Abuse: No Sexual Abuse: No Immunizations Up To Date Tetanus Booster (TDap): Unknown PED Vaccines UTD: Yes Date of Pneumonia Vaccine: September 19, 2012 Seasonal Allergies Seasonal Allergies: No Past Medical History Surgeries: Yes ( X 3; HYST/BSO; BILATERAL CARPAL TUNNEL RELEASE; LEFT THUMB TRIGGER FINGER RELEASE; EGD 09/05/18) Adenoidectomy, Section, Hysterectomy, Oophorectomy, Tonsillectomy Respiratory: Yes Sleep Apnea, COPD Currently Using CPAP: Yes Cardiac: Yes High Cholesterol, Hypertension Neurological: Yes Neuropathy, Vertigo Reproductive Disorders: No Female Reproductive Disorders: Denies 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 Sexually Transmitted Disease: No HIV/AIDS: No Genitourinary: No Gastrointestinal: Yes (GASTRITIS DX ON EGD 09/05/18) Gastroesophageal Reflux, Hiatal Hernia, Irritable Bowel Musculoskeletal: Yes Degenerate Disk Disease, Fibromyalgia, Back Injury, Chronic Back Pain, Fractures Endocrine: Yes (MORBID OBESITY) Diabetes, Insulin dep, Hypothyroidsim HEENT: Yes (MISSING TEETH/POOR DENTITION) Cancer: No Psychosocial: Yes Sleep Difficulties, Anxiety, Depression Integumentary: Yes (MRSA/ABSCESSES/CELLULITIS/FOLLICULITIS; ) Blood Disorders: No Adverse Reaction/Blood Tranf: No Family Medical History No Pertinent Family Hx Physical Exam Vital Signs Vital Signs - First Documented 10/03/18 10/03/18 21:58 23:40 Temp 97.2 Pulse 90 Resp 16 B/P (MAP) 143/97 (112) Pulse Ox 92 O2 Delivery Room Air Capillary Refill : Less Than 3 Seconds Height/Weight/BMI Height: 5'5.00" Weight: 340lbs. 0.0oz. [id number]; 57.9 BMI Method:Stated General Appearance: obese (MORBIDLY OBESE), other (HOLDING RUQ) HEENT: other (POOR DENTITION/MULTIPLE MISSING TEETH INCLUDING TOP FRONT TEETH) Respiratory: normal breath sounds, no respiratory distress, no accessory muscle use Cardiovascular: regular rate, rhythm, no murmur Gastrointestinal: normal bowel sounds, soft, tenderness (RUQ) Extremities: normal inspection, no pedal edema Back: no CVA tenderness Neurologic/Psychiatric: slipman II-XII nml as tested, no motor/sensory deficits, alert, oriented x 3 Skin: normal color, warm/dry, tattoos/piercings (TATTOOS) Progress/Results/Core Measures Results/Orders Lab Results Laboratory Tests Test 10/03/18 22:23 10/03/18 22:31 Range/Units White Blood Count 7.9 4.3-11.0 10^3/uL Red Blood Count 4.74 4.35-5.85 10^6/uL Hemoglobin 13.5 11.5-16.0 G/DL Hematocrit 40 35-52 % Mean Corpuscular Volume 83 80-99 FL Mean Corpuscular Hemoglobin 29 25-34 PG Mean Corpuscular Hemoglobin Concent 34 32-36 G/DL Red Cell Distribution Width 13.8 10.0-14.5 % Platelet Count 294 130-400 10^3/uL Mean Platelet Volume 9.9 7.4-10.4 FL Neutrophils (%) (Auto) 59 42-75 % Lymphocytes (%) (Auto) 33 12-44 % Monocytes (%) (Auto) 7 0-12 % Eosinophils (%) (Auto) 1 0-10 % Basophils (%) (Auto) 0 0-10 % Neutrophils # (Auto) 4.6 1.8-7.8 X 10^3 Lymphocytes # (Auto) 2.6 1.0-4.0 X 10^3 Monocytes # (Auto) 0.5 0.0-1.0 X 10^3 Eosinophils # (Auto) 0.1 0.0-0.3 10^3/uL Basophils # (Auto) 0.0 0.0-0.1 10^3/uL Sodium Level 136 135-145 MMOL/L Potassium Level 3.7 3.6-5.0 MMOL/L Chloride Level 101 98-107 MMOL/L Carbon Dioxide Level 21 21-32 MMOL/L Anion Gap 14 5-14 MMOL/L Blood Urea Nitrogen 26 H 7-18 MG/DL Creatinine 1.08 0.60-1.30 MG/DL Estimat Glomerular Filtration Rate 54 BUN/Creatinine Ratio 24 Glucose Level 209 H 70-105 MG/DL Calcium Level 9.3 8.5-10.1 MG/DL Corrected Calcium 9.4 8.5-10.1 MG/DL Total Bilirubin 0.2 0.1-1.0 MG/DL Aspartate Amino Transf (AST/SGOT) 11 5-34 U/L Alanine Aminotransferase (ALT/SGPT) 16 0-55 U/L Alkaline Phosphatase 73 40-136 U/L Total Protein 6.8 6.4-8.2 GM/DL Albumin 3.9 3.2-4.5 GM/DL Amylase Level 37 25-125 U/L Lipase 25 8-78 U/L Urine Opiates Screen NEGATIVE NEGATIVE Urine Oxycodone Screen POSITIVE H NEGATIVE Urine Methadone Screen NEGATIVE NEGATIVE Urine Propoxyphene Screen NEGATIVE NEGATIVE Urine Barbiturates Screen NEGATIVE NEGATIVE Ur Tricyclic Antidepressants Screen NEGATIVE NEGATIVE Urine Phencyclidine Screen NEGATIVE NEGATIVE Urine Amphetamines Screen NEGATIVE NEGATIVE Urine Methamphetamines Screen NEGATIVE NEGATIVE Urine Benzodiazepines Screen NEGATIVE NEGATIVE Urine Cocaine Screen NEGATIVE NEGATIVE Urine Cannabinoids Screen NEGATIVE NEGATIVE My Orders Orders - YASMEEN HARRINGTON DO Ed Iv/Invasive Line Start (10/03/18 22:14) Amylase (10/03/18 22:14) Cbc With Automated Diff (10/03/18 22:14) Comprehensive Metabolic Panel (10/03/18 22:14) Drug Screen Stat (Urine) (10/03/18 22:14) Lipase (10/03/18 22:14) Ondansetron Injection (Zofran Injectio (10/03/18 22:15) Hyoscyamine Sl Tablet (Levsin Sl Tablet) (10/03/18 22:15) Ed Iv/Invasive Line Start (10/03/18 22:14) Ns Iv 1000 Ml (Sodium Chloride 0.9%) (10/03/18 22:14) Ketorolac Injection (Toradol Injection) (10/03/18 22:14) Rx-Dicyclomine Capsule (Rx-Bentyl Capsul (10/03/18 23:08) Rx-Hyoscyamine Tab (Rx-Levsin Sl) (10/03/18 23:08) Dicyclomine Capsule (Bentyl Capsule) (10/03/18 23:15) Medications Given in ED Current Medications Medications Dose Ordered Sig/Yisel Route Start Time Stop Time Status Last Admin Dose Admin Hyoscyamine Sulfate 0.25 mg ONCE ONCE SL 10/03/18 22:15 10/03/18 22:17 DC 10/03/18 22:32 0.25 MG Ondansetron HCl 4 mg ONCE ONCE IVP 10/03/18 22:15 10/03/18 22:17 DC 10/03/18 22:32 4 MG Sodium Chloride 1,000 ml @ 0 mls/hr Q0M ONCE IV 10/03/18 22:14 10/03/18 22:17 DC 10/03/18 22:33 1,000 MLS/HR Vital Signs/I&O 10/03/18 10/03/18 21:58 23:40 Temp 97.2 98.0 Pulse 90 80 Resp 16 18 B/P (MAP) 143/97 (112) 113/56 (75) Pulse Ox 92 98 O2 Delivery Room Air Blood Pressure Mean: 112 Progress Progress Note : Progress Note GIVEN TORADOL, LEVSIN, BENTYL AND ZOFRAN WITH SIGNIFICANT IMPROVEMENT IN SYMPTOMS Departure Impression Primary Impression: RUQ abdominal pain Disposition: 01 HOME, SELF-CARE Condition: Improved Departure-Patient Inst. Referrals: KURTIS TINOCO MD, JACQUELINE S DO (PCP/Family) Primary Care Physician Patient Instructions: Acute Abdomen (Belly Pain), Adult (DC) Add. Discharge Instructions: CLEAR LIQUIDS--WATER, BROTH, JELLO, GATORADE NO FOOD UNTIL YOUR PAIN HAS BEEN GONE FOR 24 HOURS, THEN ADD BRATS DIET TO CLEAR LIQUIDS--BANANAS, RICE, APPLESAUCE, TOAST, SALTINES CONTINUE YOUR REGULAR MEDICATIONS PRESCRIBED KEEP YOUR APPOINTMENT FOR HIDA SCAN FOLLOW UP WITH DR. TINOCO THIS WEEK FOR FURTHER CARE All discharge instructions reviewed with patient and/or family. Voiced understanding. Scripts Dicyclomine HCl (Dicyclomine HCl) 20 Mg Tablet 20 MG PO Q6H for Abdominal Pain, #20 TAB Prov: YASMEEN HARRINGTON DO 10/03/18 YASMEEN HARRINGTON DO October 03, 2018 22:32
[2018-10-03 22:51] LABS: ALBUMIN 3.9 GM/DL (3.2-4.5); BILIRUBIN,TOTAL 0.2 MG/DL (0.1-1.0); CALCIUM 9.3 MG/DL (8.5-10.1); CREATININE SERUM 1.08 MG/DL (0.60-1.30); POTASSIUM 3.7 MMOL/L (3.6-5.0); TOTAL PROTEIN 6.8 GM/DL (6.4-8.2)
[2018-10-03 22:53] LABS: AMPHETAMINE SCREEN, URINE NEGATIVE (NEGATIVE); BARBITURATE SCREEN URINE NEGATIVE (NEGATIVE); BENZODIAZEPINES SCREEN URINE NEGATIVE (NEGATIVE); CANNABINOID SCREEN, URINE NEGATIVE (NEGATIVE); COCAINE SCREEN URINE NEGATIVE (NEGATIVE); METHADONE STAT NEGATIVE (NEGATIVE); METHAMPHETAMINE SCREEN URINE S NEGATIVE (NEGATIVE); OPIATE SCREEN URINE NEGATIVE (NEGATIVE); OXYCODONE STAT POSITIVE (NEGATIVE); PROPOXYPHENE STAT NEGATIVE (NEGATIVE); TRICYCLIC ANTIDEPRESSANTS SCRE NEGATIVE (NEGATIVE)
[2018-10-03] MEDS ORDERED: RX-HYOSCYAMINE 0.125 MG SL (LEVSIN) PPK#6 SL STA (23:08)
[2018-10-03] MEDS ORDERED: RX-DICYCLOMINE 10 MG (BENTYL) CAP PPK#4 PO STA (23:08)
[2018-10-03] MEDS ORDERED: DICY20TA10 PO (23:14)
[2018-10-03] MEDS ORDERED: DICYCLOMINE 10 MG (BENTYL) CAP PO SCH (23:15)
[2018-10-03 23:40] VITALS: BP 113/56
== END 2018-10-03 23:47 | disposition home or self-care (01) ==
LOC: EDUNIT# 21:37 → ER 21:38
DX: R10.11 Right upper quadrant pain (principal); E11.9 Type 2 diabetes mellitus without complications; J44.9 Chronic obstructive pulmonary disease, unspecified; I10 Essential (primary) hypertension; E78.00 Pure hypercholesterolemia, unspecified; E11.40 Type 2 diabetes mellitus with diabetic neuropathy, unspecified; K21.9 Gastro-esophageal reflux disease without esophagitis; K58.9 Irritable bowel syndrome, unspecified; E66.01 Morbid (severe) obesity due to excess calories; E03.9 Hypothyroidism, unspecified; F41.9 Anxiety disorder, unspecified; F32.9 Major depressive disorder, single episode, unspecified; Z79.4 Long term (current) use of insulin; Z88.8 Allergy status to other drugs, medicaments and biological substances; Z87.891 Personal history of nicotine dependence; Z90.89 Acquired absence of other organs; Z68.43 Body mass index [BMI] 50.0-59.9, adult
CPT/HCPCS: 36415; 80053; 80306; 82150; 83690; 85025

== ENCOUNTER → 2018-10-11 | Outpatient (CLI) | payer MEDICAID ==
[~2018-10-11] MED LIST changes: +CATHETER FLUSH 10 ML SYR IV PRN; +DICY20TA10 PO
--- NOTE | 2018-10-11 13:02 | Diagnostic Imaging Report ---
INDICATION: Right upper quadrant abdominal pain.. CORRELATION STUDY: 03/28/2007 (It is noted that Kinevac/CCK was utilized for stimulation during the prior study.) FINDINGS: The patient was administered 5.37 mCi of Tc 99m Choletec and sequential imaging was performed over the right upper abdomen. There is progressive, homogeneous accumulation of radiotracer within the liver parenchyma. There is filling of the bile ducts and subsequent filling of the gallbladder. There is progressive clearance of activity from the liver parenchyma and accumulation of radiotracer within loops of small bowel. The patient was then administered a fatty meal, utilizing 8 ounces of Ensure. The gallbladder ejection fraction was calculated to be approximately 49%. (Normal values post fatty meal stimulation are 33% or greater.) The patient reported no significant abdominal discomfort during the examination. IMPRESSION: 1. Hepatobiliary scan demonstrates a patent biliary tree. 2. Normal gallbladder ejection fraction of approximately 49%. Dictated by: Dictated on workstation # [id number]
== END ==
LOC: CARD 10:14
PROVIDERS: ATTEND Surgery
DX: R10.11 Right upper quadrant pain (principal)
CPT/HCPCS: 78227

== ENCOUNTER 2018-10-17 08:35 | Outpatient (CLI) | payer MEDICAID ==
[~2018-10-17] VITALS: Ht 165.1 cm; Wt 154.2 kg
[~2018-10-17 08:35] MED LIST changes: -CATHETER FLUSH 10 ML SYR IV PRN
[2018-10-17] MEDS ORDERED: NF-ESOM40C PO (10:02)
[2018-10-17] MEDS ORDERED: OXYB5TAB9 PO (10:02)
[2018-10-17] MEDS ORDERED: BUDE10.2 IH (10:02)
[2018-10-18] MEDS ORDERED: OXYC1TAB12 PO (08:42)
== END 2018-10-17 10:42 | disposition home or self-care (01) ==
LOC: PREOP 08:35
PROVIDERS: ATTEND Surgery
DX: Z01.818 Encounter for other preprocedural examination (principal)

== ENCOUNTER 2018-10-18 08:25 | Day surgery (SDC) | payer MEDICAID ==
[2018-10-18] VITALS (12 sets, daily range): BP systolic 125–181; BP diastolic 65–102
[~2018-10-18] VITALS: Ht 165.1 cm; Wt 154.2 kg
[~2018-10-18 08:25] MED LIST changes: +BUDE10.2 IH; +OXYB5TAB9 PO
--- OUTSIDE RECORDS SUMMARY | 2018-10-18 08:29 | XMS REPORT ---
Author Author Migration, Doctor Organization [facility] Address Unknown Phone Unavailable Care Team Providers Care Mounter Hand Name Role Phone Migration, Doctor Unavailable Unavailable PROBLEMS Type Condition ICD9-CM Code [id number] Code Onset Dates Condition Status SNOMED Code Problem Bipolar I disorder, most recent episode (or current) depressed, in partial or unspecified remission 296.55 Active 54417535 Problem Bipolar I disorder, most recent episode (or current) depressed, mild 296.51 Active 191433244 Problem Counseling on substance use and abuse V65.42 Active 922098429 Problem Insomnia, unspecified 780.52 Active 274622081 Problem 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 38007444 ALLERGIES No Information ENCOUNTERS Encounter Location Date Diagnosis [facility] [address] [address] 07 Apr, 2016 Dental caries K02.9 [facility] [address] [address] Mar, Dental examination Z01.20 [facility] [address] [id number] September, Dental examination Z01.20 [facility] [id number] [place] [id number] September, Dental examination Z01.20 [facility] [address] [id number] 13 Aug, 2015 Encounter for dental examination and cleaning without abnormal findings Z01.20 [facility] [address] [address] Aug, [facility] [address] [address] Jul, [facility] [address] [address] Jun, [facility] [address] [id number] May, Dental caries K02.9 [facility] [id number] [place] [address] May, Bipolar disorder, in partial remission, most recent episode depressed F31.75 ; Agoraphobia with panic disorder F40.01 and Other insomnia not due to a substance or known physiological condition F51.09 [facility] [id number] [place] [address] Jan, [facility] [id number] [place] [address] Jan, Panic disorder with agoraphobia and moderate panic attacks 300.21 ; Persistent disorder of initiating or maintaining sleep 307.42 and Unspecified episodic mood disorder 296.90 [facility] [id number] [place] [address] Dec, [facility] [id number] [place] [id number] Nov, Dental examination V72.2 [facility] [id number] [place] [address] Nov, Persistent disorder of initiating or maintaining sleep 307.42 ; Bipolar I disorder, most recent episode (or current) depressed, in partial or unspecified remission 296.55 and Panic disorder with agoraphobia 300.21 [facility] [address] [place] [id number] Oct, Dental examination V72.2 [facility] [id number] [place] [address] Oct, [facility] [address] [place] [address] [id number] Oct, Dental examination V72.2 [facility] [id number] [place] [id number] September, Dental examination V72.2 [facility] [address] [id number] [place] [id number] September, Dental examination V72.2 [facility] [address] [id number] [place] [address] September, [facility] [address] [id number] [place] [address] September, [facility] [address] [id number] [place] [address] Aug, [facility] [address] [id number] [place] [address] Aug, [facility] [address] [id number] [place] [address] Jul, [facility] [address] [id number] [place] [address] Jul, [facility] [address] [id number] [place] [address] Jul, [facility] [address] [id number] [place] [address] Jul, [facility] [address] [id number] [place] [address] Jul, [facility] [address] [id number] [place] [address] Apr, [facility] [place] [facility] [address] [id number] [place] [address] Apr, [facility] [place] [facility] [address] [id number] [place] [address] Apr, [facility] [place] [facility] [address] [id number] [place] [address] Apr, [facility] [place] [facility] [address] [id number] [place] [address] Apr, [facility] [place] [facility] [address] [id number] [place] [address] 04 Apr, 2014 [facility] [place] [facility] [address] [id number] [place] [address] Mar, [facility] [place] [facility] [address] [id number] [place] [address] 14 Mar, 2014 [facility] [place] [facility] [address] [id number] [place] [address] 17 Feb, 2014 [facility] [place] [facility] [address] [id number] [place] [address] 16 Feb, 2014 [facility] [place] [facility] [address] [id number] [place] [address] 16 Feb, 2014 [facility] [place] [facility] [address] [id number] [place] [address] 18 Jan, 2014 [facility] [place] [facility] [address] [id number] [place] [address] 18 Jan, 2014 [facility] [place] [facility] [address] [id number] [place] [address] 15 Jan, 2014 [facility] [place] [facility] [address] [id number] [place] [address] 15 Jan, 2014 [facility] [place] [facility] [address] [id number] [place] [address] 09 Jan, 2014 [facility] [place] [facility] [address] [id number] [place] [address] Jan, [facility] [place] [facility] [address] [id number], [place] [address] Dec, [facility] [place] [facility] [address] [id number] [place] [address] Dec, [facility] [place] [facility] [address] [id number] [place] [address] Nov, [facility] [place] [facility] [address] [id number] [place] [address] Nov, [facility] [place] [facility] [address] [id number] [place] [address] Nov, [facility] [place] [facility] [address] [id number] [place] [address] Nov, [facility] [place] [facility] [address] [id number] [place] [address] Oct, [facility] [place] [facility] [address] [id number] [place] [address] Oct, [facility] [place] [facility] [address] [id number] [place] [address] Oct, [facility] [place] [facility] [address] [id number] [place] [address] Oct, [facility] [place] [facility] [address] [id number] [place] [address] Aug, [facility] [place] [facility] [address] [id number] [place] [address] Aug, [facility] [place] [facility] [address] [id number] [place] [address] Jul, [facility] [place] [facility] [address] [id number] [place] [address] Jul, [facility] [place] [facility] [address] [id number] [place] [address] Jul, [facility] [place] [facility] [address] [id number] [place] [address] Jul, [facility] [place] [facility] [address] [id number] [place] [address] Jul, [facility] [place] [facility] [address] [id number] [place] [address] Jul, [facility] [place] [facility] [address] [id number] [place] [address] Jun, [facility] [place] [facility] [address] [id number] [place] [address] Jun, [facility] [place] [facility] [address] [id number] [place] [address] Jun, [facility] [place] [facility] [address] [id number] [place] [address] Jun, [facility] [place] [facility] [address] [id number] [place] [address] May, [facility] [place] [facility] [address] [id number] [place] [address] May, [facility] [place] [facility] [address] [id number] [place] [address] Apr, [facility] [place] [facility] [address] [id number] [place] [address] Apr, [facility] [place] [facility] [address] [id number] [place] [address] Feb, [facility] [place] [facility] [address] [id number] [place] [address] Feb, [facility] [place] [facility] [address] [id number] [place] [address] Feb, [facility] [place] [facility] [address] [id number] [place] [address] Feb, [facility] [place] [facility] [address] [id number], [place] [address] Feb, [facility] [place] [facility] [address] [id number], [place] [address] Jan, [facility] [place] [facility] [address] [id number] [place] [address] Jan, [facility] [place] [facility] [address] [id number] [place] [address] Dec, [facility] [place] [facility] [address] [id number] [place] [address] Nov, [facility] [place] [facility] [address] [id number] [place] [address] 13 Nov, 2012 [facility] [address] [id number] [place] [address] Oct, [facility] [address] [id number] [place] [address] Oct, [facility] [address] [id number] [place] [address] September, [facility] [address] [id number] [place] [address] September, [facility] [address] [id number] [place] [address] Aug, [facility] [address] [id number] [place] [address] Jul, [facility] [address] [id number] [place] [address] Jul, [facility] [address] [id number] [place] [address] Jun, [facility] [address] [id number] [place] [address] Jun, [facility] [address] [id number] [place] [address] Jun, [facility] [address] [id number] [place] [address] May, [facility] [address] [id number] [place] [address] May, [facility] [address] [id number] [place] [address] May, [facility] [address] [id number] [place] [address] Apr, [facility] [address] [id number] [place] [address] Apr, [facility] [place] [facility] [address] [id number] [place] [address] Apr, [facility] [place] [facility] [address] [id number] [place] [address] Apr, [facility] [place] [facility] [address] [id number] [place] [address] Feb, [facility] [place] [facility] [address] [id number] [place] [address] Feb, [facility] [place] [facility] [address] [id number] [place] [address] Feb, [facility] [place] [facility] [address] [id number] [place] [address] Jan, [facility] [place] [facility] [address] [id number] [place] [address] Jan, [facility] [place] [facility] [address] [id number] [place] [address] Dec, [facility] [place] [facility] [address] [id number] [place] [address] Nov, [facility] [place] [facility] [address] [id number] [place] [address] Nov, [facility] [place] [facility] [address] [id number], [place] [address] Oct, [facility] [place] [facility] [address] [id number], [place] [address] Oct, [facility] [place] [facility] [address] [id number] [place] [address] Oct, [facility] [place] [facility] [address] [id number] [place] [address] September, [facility] [place] [facility] [address] [id number] [place] [address] September, [facility] [place] [facility] [address] [id number] [place] [address] September, [facility] [address] [id number] [place] [address] Aug, [facility] [place] [facility] [address] [id number] [place] [address] Aug, [facility] [address] [id number] [place] [address] Aug, [facility] [place] [facility] [address] [id number] [place] [address] Jul, [facility] [address] [id number] [place] [address] Jul, [facility] [address] [id number] [place] [address] Jul, [facility] [address] [id number] [place] [address] Jul, [facility] [address] [id number] [place] [address] Jul, [facility] [address] [id number] [place] [address] Jun, [facility] [address] [id number] [place] [address] Jun, [facility] [address] [id number] [place] [address] May, [facility] [address] [id number] [place] [address] May, [facility] [place] [facility] [address] [id number] [place] [address] Apr, [facility] [place] [facility] [address] [id number] [place] [address] Apr, [facility] [place] [facility] [address] [id number] [place] [address] Mar, [facility] [address] [facility] [id number], [place] [address] Mar, [facility] [address] [facility] [id number], [place] [address] Mar, [facility] [address] [facility] [id number], [place] [address] Feb, [facility] [address] [facility] [id number], [place] [address] Feb, [facility] [address] [id number], [place] [address] Feb, [facility] [address] [id number], [place] [address] Dec, [facility] [address] [id number], [place] [address] Nov, IMMUNIZATIONS No Known Immunizations SOCIAL HISTORY Never Assessed REASON FOR VISIT [facility] [place] VITAL SIGNS MEDICATIONS No [...]
--- OUTSIDE RECORDS SUMMARY | 2018-10-18 08:29 | XMS REPORT ---
Author Author Migration, Doctor Organization [facility] Address Unknown Phone Unavailable Care Team Providers Care Expressive Art Therapist Name Role Phone Migration, Doctor Unavailable Unavailable PROBLEMS Type Condition ICD9-CM Code FTX22-WG Code Onset Dates Condition Status SNOMED Code Problem Bipolar I disorder, most recent episode (or current) depressed, in partial or unspecified remission 296.55 Active 67343126 Problem Bipolar I disorder, most recent episode (or current) depressed, mild 296.51 Active 641277183 Problem Counseling on substance use and abuse V65.42 Active 416052611 Problem Insomnia, unspecified 780.52 Active 380052005 Problem 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 65167494 ALLERGIES No Information ENCOUNTERS Encounter Location Date Diagnosis [facility] [address] [address] 07 Apr, 2016 Dental caries K02.9 [facility] [address] [address] Mar, Dental examination Z01.20 [facility] [address] [id number] September, Dental examination Z01.20 [facility] [id number] [place] [id number] September, Dental examination Z01.20 [facility] [address] [id number] 13 Aug, 2015 Encounter for dental examination and cleaning without abnormal findings Z01.20 [facility] [address] [address] Aug, [facility] [address] [address] Jul, [facility] [address] [address] Jun, [facility] [address] [id number] May, Dental caries K02.9 [facility] [id number] [place] [address] May, Bipolar disorder, in partial remission, most recent episode depressed F31.75 ; Agoraphobia with panic disorder F40.01 and Other insomnia not due to a substance or known physiological condition F51.09 [facility] [id number] [place] [address] Jan, [facility] [id number] [place] [address] Jan, Panic disorder with agoraphobia and moderate panic attacks 300.21 ; Persistent disorder of initiating or maintaining sleep 307.42 and Unspecified episodic mood disorder 296.90 [facility] [id number] [place] [address] Dec, [facility] [id number] [place] [id number] Nov, Dental examination V72.2 [facility] [id number] [place] [address] Nov, Persistent disorder of initiating or maintaining sleep 307.42 ; Bipolar I disorder, most recent episode (or current) depressed, in partial or unspecified remission 296.55 and Panic disorder with agoraphobia 300.21 [facility] [id number] [place] [id number] Oct, Dental examination V72.2 [facility] [id number] [place] [address] Oct, [facility] [id number] [place] [id number] Oct, Dental examination V72.2 [facility] [id number] [place] [id number] September, Dental examination V72.2 [facility] [address] [id number] [place] [id number] September, Dental examination V72.2 [facility] [address] [id number] [place] [address] September, [facility] [address] [id number] [place] [address] September, [facility] [address] [id number] [place] [address] Aug, [facility] [address] [id number] [place] [address] Aug, [facility] [address] [id number] [place] [address] Jul, [facility] [address] [id number] [place] [address] Jul, [facility] [address] [id number] [place] [address] Jul, [facility] [address] [id number] [place] [address] Jul, [facility] [address] [id number] [place] [address] Jul, [facility] [address] [id number] [place] [address] Apr, [facility] [place] [facility] [address] [id number] [place] [address] Apr, [facility] [place] [facility] [address] [id number] [place] [address] Apr, [facility] [place] [facility] [address] [id number] [place] [address] Apr, [facility] [place] [facility] [address] [id number] [place] [address] Apr, [facility] [place] [facility] [address] [id number] [place] [address] 04 Apr, 2014 [facility] [place] [facility] [address] [id number] [place] [address] Mar, [facility] [place] [facility] [address] [id number] [place] [address] 14 Mar, 2014 [facility] [place] [facility] [address] [id number] [place] [address] 17 Feb, 2014 [facility] [place] [facility] [address] [id number] [place] [address] 16 Feb, 2014 [facility] [place] [facility] [address] [id number] [place] [address] 16 Feb, 2014 [facility] [place] [facility] [address] [id number] [place] [address] 18 Jan, 2014 [facility] [place] [facility] [address] [id number] [place] [address] 18 Jan, 2014 [facility] [place] [facility] [address] [id number] [place] [address] 15 Jan, 2014 [facility] [place] [facility] [address] [id number] [place] [address] 15 Jan, 2014 [facility] [place] [facility] [address] [id number] [place] [address] 09 Jan, 2014 [facility] [place] [facility] [address] [id number] [place] [address] Jan, [facility] [place] [facility] [address] [id number], [place] [address] Dec, [facility] [place] [facility] [address] [id number] [place] [address] Dec, [facility] [place] [facility] [address] [id number] [place] [address] Nov, [facility] [place] [facility] [address] [id number] [place] [address] Nov, [facility] [place] [facility] [address] [id number] [place] [address] Nov, [facility] [place] [facility] [address] [id number] [place] [address] Nov, [facility] [place] [facility] [address] [id number] [place] [address] Oct, [facility] [place] [facility] [address] [id number] [place] [address] Oct, [facility] [place] [facility] [address] [id number] [place] [address] Oct, [facility] [place] [facility] [address] [id number] [place] [address] Oct, [facility] [place] [facility] [address] [id number] [place] [address] Aug, [facility] [place] [facility] [address] [id number] [place] [address] Aug, [facility] [place] [facility] [address] [id number] [place] [address] Jul, [facility] [place] [facility] [address] [id number] [place] [address] Jul, [facility] [place] [facility] [address] [id number] [place] [address] Jul, [facility] [place] [facility] [address] [id number] [place] [address] Jul, [facility] [place] [facility] [address] [id number] [place] [address] Jul, [facility] [place] [facility] [address] [id number] [place] [address] Jul, [facility] [place] [facility] [address] [id number] [place] [address] Jun, [facility] [place] [facility] [address] [id number] [place] [address] Jun, [facility] [place] [facility] [address] [id number] [place] [address] Jun, [facility] [place] [facility] [address] [id number] [place] [address] Jun, [facility] [place] [facility] [address] [id number] [place] [address] May, [facility] [place] [facility] [address] [id number] [place] [address] May, [facility] [place] [facility] [address] [id number] [place] [address] Apr, [facility] [place] [facility] [address] [id number] [place] [address] Apr, [facility] [place] [facility] [address] [id number] [place] [address] Feb, [facility] [place] [facility] [address] [id number] [place] [address] Feb, [facility] [place] [facility] [address] [id number] [place] [address] Feb, [facility] [place] [facility] [address] [id number] [place] [address] Feb, [facility] [place] [facility] [address] [id number], [place] [address] Feb, [facility] [place] [facility] [address] [id number], [place] [address] Jan, [facility] [place] [facility] [address] [id number] [place] [address] Jan, [facility] [place] [facility] [address] [id number] [place] [address] Dec, [facility] [place] [facility] [address] [id number] [place] [address] Nov, [facility] [place] [facility] [address] [id number] [place] [address] 13 Nov, 2012 [facility] [address] [id number] [place] [address] Oct, [facility] [address] [id number] [place] [address] Oct, [facility] [address] [id number] [place] [address] September, [facility] [address] [id number] [place] [address] September, [facility] [address] [id number] [place] [address] Aug, [facility] [address] [id number] [place] [address] Jul, [facility] [address] [id number] [place] [address] Jul, [facility] [address] [id number] [place] [address] Jun, [facility] [address] [id number] [place] [address] Jun, [facility] [address] [id number] [place] [address] Jun, [facility] [address] [id number] [place] [address] May, [facility] [address] [id number] [place] [address] May, [facility] [address] [id number] [place] [address] May, [facility] [address] [id number] [place] [address] Apr, [facility] [address] [id number] [place] [address] Apr, [facility] [place] [facility] [address] [id number] [place] [address] Apr, [facility] [place] [facility] [address] [id number] [place] [address] Apr, [facility] [place] [facility] [address] [id number] [place] [address] Feb, [facility] [place] [facility] [address] [id number] [place] [address] Feb, [facility] [place] [facility] [address] [id number] [place] [address] Feb, [facility] [place] [facility] [address] [id number] [place] [address] Jan, [facility] [place] [facility] [address] [id number] [place] [address] Jan, [facility] [place] [facility] [address] [id number] [place] [address] Dec, [facility] [place] [facility] [address] [id number] [place] [address] Nov, [facility] [place] [facility] [address] [id number] [place] [address] Nov, [facility] [place] [facility] [address] [id number], [place] [address] Oct, [facility] [place] [facility] [address] [id number], [place] [address] Oct, [facility] [place] [facility] [address] [id number] [place] [address] Oct, [facility] [place] [facility] [address] [id number] [place] [address] September, [facility] [place] [facility] [address] [id number] [place] [address] September, [facility] [place] [facility] [address] [id number] [place] [address] September, [facility] [address] [id number] [place] [address] Aug, [facility] [place] [facility] [address] [id number] [place] [address] Aug, [facility] [address] [id number] [place] [address] Aug, [facility] [place] [facility] [address] [id number] [place] [address] Jul, [facility] [address] [id number] [place] [address] Jul, [facility] [address] [id number] [place] [address] Jul, [facility] [address] [id number] [place] [address] Jul, [facility] [address] [id number] [place] [address] Jul, [facility] [address] [id number] [place] [address] Jun, [facility] [address] [id number] [place] [address] Jun, [facility] [address] [id number] [place] [address] May, [facility] [address] [id number] [place] [address] May, [facility] [place] [facility] [address] [id number] [place] [address] Apr, [facility] [place] [facility] [address] [id number] [place] [address] Apr, [facility] [place] [facility] [address] [id number] [place] [address] Mar, [facility] [address] [facility] [id number], [place] [address] Mar, [facility] [address] [facility] [id number], [place] [address] Mar, [facility] [address] [facility] [id number], [place] [address] Feb, [facility] [address] [facility] [id number], [place] [address] Feb, [facility] [address] [id number] [address] Feb, [facility] [address] [id number] [address] Dec, [facility] [address] [id number] [address] Nov, IMMUNIZATIONS No Known Immunizations SOCIAL HISTORY Never Assessed REASON FOR VISIT [facility] [place] CARE VITAL SIGNS MEDICATIONS No [...]
--- OUTSIDE RECORDS SUMMARY | 2018-10-18 08:29 | XMS REPORT ---
Author Author Migration, Doctor Organization [facility] Address Unknown Phone Unavailable Care Team Providers Care Acid Dipper Name Role Phone Migration, Doctor Unavailable Unavailable PROBLEMS Type Condition ICD9-CM Code [id number] Code Onset Dates Condition Status SNOMED Code Problem Bipolar I disorder, most recent episode (or current) depressed, in partial or unspecified remission 296.55 Active 69696945 Problem Bipolar I disorder, most recent episode (or current) depressed, mild 296.51 Active 220763239 Problem Counseling on substance use and abuse V65.42 Active 995748678 Problem Insomnia, unspecified 780.52 Active 086272550 Problem 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 89052091 ALLERGIES No Information ENCOUNTERS Encounter Location Date Diagnosis [facility] [address] [address] 07 Apr, 2016 Dental caries K02.9 [facility] [address] [address] Mar, Dental examination Z01.20 [facility] [address] [id number] September, Dental examination Z01.20 [facility] [id number] [place] [id number] September, Dental examination Z01.20 [facility] [address] [id number] 13 Aug, 2015 Encounter for dental examination and cleaning without abnormal findings Z01.20 [facility] [address] [address] Aug, [facility] [address] [address] Jul, [facility] [address] [address] Jun, [facility] [id number] [id number] May, Dental caries K02.9 [facility] [id number] [place] [address] May, Bipolar disorder, in partial remission, most recent episode depressed F31.75 ; Agoraphobia with panic disorder F40.01 and Other insomnia not due to a substance or known physiological condition F51.09 [facility] [id number] [place] [id number] Jan, [facility] [id number] [place] [address] Jan, Panic disorder with agoraphobia and moderate panic attacks 300.21 ; Persistent disorder of initiating or maintaining sleep 307.42 and Unspecified episodic mood disorder 296.90 [facility] [id number] [place] [address] Dec, [facility] [id number] [place] [id number] Nov, Dental examination V72.2 [facility] [id number] [place] [id number] Nov, Persistent disorder of initiating or maintaining sleep 307.42 ; Bipolar I disorder, most recent episode (or current) depressed, in partial or unspecified remission 296.55 and Panic disorder with agoraphobia 300.21 [facility] [id number] [place] [id number] Oct, Dental examination V72.2 [facility] [id number] [place] [address] Oct, [facility] [id number] [place] [id number] Oct, Dental examination V72.2 [facility] [id number] [place] [id number] September, Dental examination V72.2 [facility] [address] [id number] [place] [id number] September, Dental examination V72.2 [facility] [address] [id number] [place] [address] September, [facility] [address] [id number] [place] [address] September, [facility] [address] [id number] [place] [address] Aug, [facility] [address] [id number] [place] [address] Aug, [facility] [address] [id number] [place] [address] Jul, [facility] [address] [id number] [place] [address] Jul, [facility] [address] [id number] [place] [address] Jul, [facility] [address] [id number] [place] [address] Jul, [facility] [address] [id number] [place] [address] Jul, [facility] [address] [id number] [place] [address] Apr, [facility] [place] [facility] [address] [id number] [place] [address] Apr, [facility] [place] [facility] [address] [id number] [place] [address] Apr, [facility] [place] [facility] [address] [id number] [place] [address] Apr, [facility] [place] [facility] [address] [id number] [place] [address] Apr, [facility] [place] [facility] [address] [id number] [place] [address] 04 Apr, 2014 [facility] [place] [facility] [address] [id number] [place] [address] Mar, [facility] [place] [facility] [address] [id number] [place] [address] 14 Mar, 2014 [facility] [place] [facility] [address] [id number] [place] [address] 17 Feb, 2014 [facility] [place] [facility] [address] [id number] [place] [address] 16 Feb, 2014 [facility] [place] [facility] [address] [id number] [place] [address] 16 Feb, 2014 [facility] [place] [facility] [address] [id number] [place] [address] 18 Jan, 2014 [facility] [place] [facility] [address] [id number] [place] [address] 18 Jan, 2014 [facility] [place] [facility] [address] [id number] [place] [address] 15 Jan, 2014 [facility] [place] [facility] [address] [id number] [place] [address] 15 Jan, 2014 [facility] [place] [facility] [address] [id number] [place] [address] 09 Jan, 2014 [facility] [place] [facility] [address] [id number] [place] [address] Jan, [facility] [place] [facility] [address] [id number] [address] Dec, [facility] [place] [facility] [address] [id number] [place] [address] Dec, [facility] [place] [facility] [address] [id number] [place] [address] Nov, [facility] [place] [facility] [address] [id number] [place] [address] Nov, [facility] [place] [facility] [address] [id number] [place] [address] Nov, [facility] [place] [facility] [address] [id number] [place] [address] Nov, [facility] [place] [facility] [address] [id number] [place] [address] Oct, [facility] [place] [facility] [address] [id number] [place] [address] Oct, [facility] [place] [facility] [address] [id number] [place] [address] Oct, [facility] [place] [facility] [address] [id number] [place] [address] Oct, [facility] [place] [facility] [address] [id number] [place] [address] Aug, [facility] [place] [facility] [address] [id number] [place] [address] Aug, [facility] [place] [facility] [address] [id number] [place] [address] Jul, [facility] [place] [facility] [address] [id number] [place] [address] Jul, [facility] [place] [facility] [address] [id number] [place] [address] Jul, [facility] [place] [facility] [address] [id number] [place] [address] Jul, [facility] [place] [facility] [address] [id number] [place] [address] Jul, [facility] [place] [facility] [address] [id number] [place] [address] Jul, [facility] [place] [facility] [address] [id number] [place] [address] Jun, [facility] [place] [facility] [address] [id number] [place] [address] Jun, [facility] [place] [facility] [address] [id number] [place] [address] Jun, [facility] [place] [facility] [address] [id number] [place] [address] Jun, [facility] [place] [facility] [address] [id number] [place] [address] May, [facility] [place] [facility] [address] [id number] [place] [address] May, [facility] [place] [facility] [address] [id number] [place] [address] Apr, [facility] [place] [facility] [address] [id number] [place] [address] Apr, [facility] [place] [facility] [address] [id number] [place] [address] Feb, [facility] [place] [facility] [address] [id number] [place] [address] Feb, [facility] [place] [facility] [address] [id number] [place] [address] Feb, [facility] [place] [facility] [address] [id number] [place] [address] Feb, [facility] [place] [facility] [address] [id number] [address] Feb, [facility] [place] [facility] [address] [id number], [place] [address] Jan, [facility] [place] [facility] [address] [id number] [place] [address] Jan, [facility] [place] [facility] [address] [id number] [place] [address] Dec, [facility] [place] [facility] [address] [id number] [place] [address] Nov, [facility] [place] [facility] [address] [id number] [place] [address] 13 Nov, 2012 [facility] [address] [id number] [place] [address] Oct, [facility] [address] [id number] [place] [address] Oct, [facility] [address] [id number] [place] [address] September, [facility] [address] [id number] [place] [address] September, [facility] [address] [id number] [place] [address] Aug, [facility] [address] [id number] [place] [address] Jul, [facility] [address] [id number] [place] [address] Jul, [facility] [address] [id number] [place] [address] Jun, [facility] [address] [id number] [place] [address] Jun, [facility] [address] [id number] [place] [address] Jun, [facility] [address] [id number] [place] [address] May, [facility] [address] [id number] [place] [address] May, [facility] [address] [id number] [place] [address] May, [facility] [address] [id number] [place] [address] Apr, [facility] [address] [id number] [place] [address] Apr, [facility] [place] [facility] [address] [id number] [place] [address] Apr, [facility] [place] [facility] [address] [id number] [place] [address] Apr, [facility] [place] [facility] [address] [id number] [place] [address] Feb, [facility] [place] [facility] [address] [id number] [place] [address] Feb, [facility] [place] [facility] [address] [id number] [place] [address] Feb, [facility] [place] [facility] [address] [id number] [place] [address] Jan, [facility] [place] [facility] [address] [id number] [place] [address] Jan, [facility] [place] [facility] [address] [id number] [place] [address] Dec, [facility] [place] [facility] [address] [id number] [place] [address] Nov, [facility] [place] [facility] [address] [id number] [place] [address] Nov, [facility] [place] [facility] [address] [id number], [place] [address] Oct, [facility] [place] [facility] [address] [id number], [place] [address] Oct, [facility] [place] [facility] [address] [id number] [place] [address] Oct, [facility] [place] [facility] [address] [id number] [place] [address] September, [facility] [place] [facility] [address] [id number] [place] [address] September, [facility] [place] [facility] [address] [id number] [place] [address] September, [facility] [address] [id number] [place] [address] Aug, [facility] [place] [facility] [address] [id number] [place] [address] Aug, [facility] [address] [id number] [place] [address] Aug, [facility] [place] [facility] [address] [id number] [place] [address] Jul, [facility] [address] [id number] [place] [address] Jul, [facility] [address] [id number] [place] [address] Jul, [facility] [address] [id number] [place] [address] Jul, [facility] [address] [id number] [place] [address] Jul, [facility] [address] [id number] [place] [address] Jun, [facility] [address] [id number] [place] [address] Jun, [facility] [address] [id number] [place] [address] May, [facility] [address] [id number] [place] [address] May, [facility] [place] [facility] [address] [id number] [place] [address] Apr, [facility] [place] [facility] [address] [id number] [place] [address] Apr, [facility] [place] [facility] [address] [id number] [place] [address] Mar, [facility] [address] [facility] [id number], [place] [address] Mar, [facility] [address] [facility] [id number], [place] [address] Mar, [facility] [address] [facility] [id number], [place] [address] Feb, [facility] [address] [facility] [id number], [place] [address] Feb, [facility] [address] [id number] [address] Feb, [facility] [address] [id number] [address] Dec, [facility] [address] [id number] [address] Nov, IMMUNIZATIONS No Known Immunizations SOCIAL HISTORY Never Assessed REASON FOR VISIT [facility] PLAN OF CARE VITAL SIGNS MEDICATIONS No [...]
--- OUTSIDE RECORDS SUMMARY | 2018-10-18 08:35 | XMS REPORT | Continuity of Care Document ---
Author Organization Unknown Address Unknown Allergies Active Description Code Type Severity Reaction Onset Reported/Identified Relationship to Patient Clinical Status Yes No Known Drug Allergies [id number] Drug Allergy Mild N/A 12/19/2008 Yes Sulfa(Sulfonamide Antibiotics) Drug Allergy 07/20/2011 Yes Sulfa(Sulfonamide Antibiotics) Drug Allergy N/A N/A 07/20/2011 Yes baclofen [id number] Drug Allergy Unknown N/A 10/02/2018 Medications There is no data. Problems Date [...] ASSOCIATED WITH DISEASES CLASSIFIED ELSEWHERE 08/10/2010 BRANDON FIXED ASSETS ACCOUNTANT, SELVIN 296.30 MAJOR DEPRESSIVE AFFECTIVE DISORDER RECURRENT EPISODE UNSPECIFIED DEGREE 08/10/2010 BRANDON FIXED ASSETS ACCOUNTANT, SELVIN 300.01 AN PANIC DIS W/O AGORA 08/10/2010 BRANDON FIXED ASSETS ACCOUNTANT, SELVIN 307.47 OTHER DYSFUNCTIONS OF SLEEP STAGES OR AROUSAL FROM SLEEP 08/10/2010 BRANDON FIXED ASSETS ACCOUNTANT, SELVIN 316 PSYCHIC FACTORS ASSOCIATED WITH DISEASES CLASSIFIED ELSEWHERE 08/10/2010 BRANDON FIXED ASSETS ACCOUNTANT, SELVIN 296.30 MAJOR DEPRESSIVE AFFECTIVE DISORDER RECURRENT EPISODE UNSPECIFIED DEGREE 08/10/2010 BRANDON FIXED ASSETS ACCOUNTANT, SELVIN 300.01 AN PANIC DIS W/O AGORA 08/10/2010 BRANDON FIXED ASSETS ACCOUNTANT, SELVIN 307.47 OTHER DYSFUNCTIONS OF SLEEP STAGES OR AROUSAL FROM SLEEP 08/10/2010 BRANDON FIXED ASSETS ACCOUNTANT, SELVIN 316 PSYCHIC FACTORS ASSOCIATED WITH DISEASES CLASSIFIED ELSEWHERE 08/10/2010 BRANDON FIXED ASSETS ACCOUNTANT, SELVIN 296.30 MAJOR DEPRESSIVE AFFECTIVE DISORDER RECURRENT EPISODE UNSPECIFIED DEGREE 08/10/2010 BRANDON FIXED ASSETS ACCOUNTANT, SELVIN 300.01 AN PANIC DIS W/O AGORA 08/10/2010 BRANDON FIXED ASSETS ACCOUNTANT, SELVIN 307.47 OTHER DYSFUNCTIONS OF SLEEP STAGES OR AROUSAL FROM SLEEP 08/10/2010 BRANDON FIXED ASSETS ACCOUNTANT, SELVIN 316 PSYCHIC FACTORS ASSOCIATED WITH DISEASES CLASSIFIED ELSEWHERE 08/10/2010 BRANDON FIXED ASSETS ACCOUNTANT, SELVIN 296.30 MAJOR DEPRESSIVE AFFECTIVE DISORDER RECURRENT EPISODE UNSPECIFIED DEGREE 08/10/2010 BRANDON FIXED ASSETS ACCOUNTANT, SELVIN 300.01 AN PANIC DIS W/O AGORA 08/10/2010 BRANDON FIXED ASSETS ACCOUNTANT, SELVIN 307.47 OTHER DYSFUNCTIONS OF SLEEP STAGES OR AROUSAL FROM SLEEP 08/10/2010 BRANDON FIXED ASSETS ACCOUNTANT, SELVIN 316 PSYCHIC FACTORS ASSOCIATED WITH DISEASES CLASSIFIED ELSEWHERE 08/10/2010 BRANDON FIXED ASSETS ACCOUNTANT, SELVIN 296.30 MAJOR DEPRESSIVE AFFECTIVE DISORDER RECURRENT [...] AN PANIC DIS W AGORA 11/10/2010 BRANDON FIXED ASSETS ACCOUNTANT, SELVIN 300.21 AN PANIC DIS W AGORA 11/10/2010 BRANDON FIXED ASSETS ACCOUNTANT, SELVIN 300.21 AN PANIC DIS W AGORA 11/10/2010 BRANDON FIXED ASSETS ACCOUNTANT, SELVIN 300.21 AN PANIC DIS W AGORA 11/10/2010 BRANDON FIXED ASSETS ACCOUNTANT, SELVIN 300.21 AN PANIC DIS W AGORA 11/10/2010 BRANDON FIXED ASSETS ACCOUNTANT, SELVIN 300.21 AN PANIC DIS W AGORA 11/10/2010 CINTIA TELLEZ DDS 300.21 AN PANIC DIS W AGORA 11/10/2010 JAVIER ROBBINS PSYD 300.21 AN PANIC DIS W AGORA 11/10/2010 BRANDON FIXED ASSETS ACCOUNTANT, SELVIN 300.21 AN PANIC DIS W AGORA 11/10/2010 BRANDON FIXED ASSETS ACCOUNTANT, SELVIN 300.21 AN PANIC DIS W AGORA [...] 296.32 MO DEPRESSIVE RECURRENT MODERATE 02/08/2011 BRANDON FIXED ASSETS ACCOUNTANT, SELVIN 296.32 MO DEPRESSIVE RECURRENT MODERATE 02/08/2011 BRANDON FIXED ASSETS ACCOUNTANT, SELVIN 296.32 MO DEPRESSIVE RECURRENT MODERATE 02/08/2011 BRANDON FIXED ASSETS ACCOUNTANT, SELVIN 296.32 MO DEPRESSIVE RECURRENT MODERATE 02/08/2011 BRANDON FIXED ASSETS ACCOUNTANT, SELVIN 296.32 MO DEPRESSIVE RECURRENT MODERATE 02/08/2011 BRANDON FIXED ASSETS ACCOUNTANT, SELVIN 296.32 MO DEPRESSIVE RECURRENT MODERATE 02/08/2011 CINTIA TELLEZ DDS 296.32 MO DEPRESSIVE RECURRENT MODERATE 02/08/2011 JAVIER ROBBINS PSYD 296.32 MO DEPRESSIVE RECURRENT MODERATE 02/08/2011 BRANDON FIXED ASSETS ACCOUNTANT, SELVIN 296.32 MO DEPRESSIVE RECURRENT MODERATE 02/08/2011 BRANDON FIXED ASSETS ACCOUNTANT, SELVIN 296.32 MO DEPRESSIVE RECURRENT MODERATE 01/20/2012 [...] MOTA MD V65.42 TOBACCO COUNSELING 01/20/2012 BRANDON FIXED ASSETS ACCOUNTANT, SELVIN 780.52 INSOMNIA UNSPECIFIED 01/20/2012 BRANDON FIXED ASSETS ACCOUNTANT, SELVIN V65.42 TOBACCO COUNSELING 01/20/2012 BRANDON FIXED ASSETS ACCOUNTANT, SELVIN 780.52 INSOMNIA UNSPECIFIED 01/20/2012 BRANDON FIXED ASSETS ACCOUNTANT, SELVIN V65.42 TOBACCO COUNSELING 01/20/2012 BRANDON FIXED ASSETS ACCOUNTANT, SELVIN 780.52 INSOMNIA UNSPECIFIED 01/20/2012 BRANDON FIXED ASSETS ACCOUNTANT, SELVIN V65.42 TOBACCO COUNSELING 01/20/2012 BRANDON FIXED ASSETS ACCOUNTANT, SELVIN 780.52 INSOMNIA UNSPECIFIED 01/20/2012 BRANDON FIXED ASSETS ACCOUNTANT, SELVIN V65.42 TOBACCO COUNSELING 01/20/2012 BRANDON FIXED ASSETS ACCOUNTANT, SELVIN 780.52 INSOMNIA UNSPECIFIED 01/20/2012 BRANDON FIXED ASSETS ACCOUNTANT, SELVIN V65.42 TOBACCO COUNSELING 01/20/2012 TELLEZ CINTIA [...] SLEEP APNEA (ADULT) (PEDIATR 04/29/2013 DONALDO BARKSDALE FIXED ASSETS ACCOUNTANT Ot 455.3 EXT HEMORRHOID W/O COMPL 04/29/2013 DONALDO BARKSDALE FIXED ASSETS ACCOUNTANT Ot 569.3 RECTAL ANAL HEMORRHAGE 04/29/2013 DONALDO BARKSDALE FIXED ASSETS ACCOUNTANT Ot 578.1 BLOOD IN STOOL 07/24/2013 CHRISTINE [...] S Ot 401.9 HYPERTENSION NOS 07/24/2013 ROBB REBOLLAR DOQUELINE S Ot 455.8 HEMRRHOID NOS [...] 296.51 MO BIPOLAR I DEPRESSED MILD 08/29/2013 SEVLIN TAYLOR APRN 307.42 PERSISTENT DISORDER OF INITIATING [...] OF INITIATING OR MAINTAINING SLEEP 08/29/2013 JAVIER ROBIBNS PSYD 296.51 MO BIPOLAR I DEPRESSED MILD [...] 2 DIABETES MELLITUS WITHOUT COMPLIC 10/08/2015 NELSON BARRAAZ MD Ot E78.5 HYPERLIPIDEMIA, UNSPECIFIED 10/08/2015 NELSON [...] CONGESTION 10/27/2017 DONALDO BARKSDALE APRN Ot 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 10/27/2017 DONALDO BARKSDALE [...] CONGESTION 10/30/2017 DONALDO BARKSDALE APRN Ot Z79.4 SNF (CURRENT) USE OF INSULIN 10/30/2017 DONALDO BARKSDALE [...] CONGESTION 11/03/2017 DONALDO BARKSDALE APRN Ot Z79.4 SNF (CURRENT) USE OF INSULIN 11/03/2017 DONALDO BARKSDALE [...] Ot M51.36 OTHER INTERVERTEBRAL DISC DEGENERATION, 11/13/2017 ORENDER DO, KAY S Ot M51.36 OTHER INTERVERTEBRAL DISC DEGENERATION, 11/13/2017 Ot R10.11 RIGHT UPPER QUADRANT PAIN 11/13/2017 Ot R11.2 NAUSEA WITH VOMITING, UNSPECIFIED 11/13/2017 NEHAL HORTA, NELSON Harden Ot E04.9 NONTOXIC GOITER, UNSPECIFIED 11/16/2017 ORENDER DO, KAY S Ot K76.0 FATTY (CHANGE OF) LIVER, NOT ELSEWHERE C 11/16/2017 ORENDER DO, KAY S Ot K76.0 FATTY (CHANGE OF) LIVER, NOT ELSEWHERE C 11/20/2017 ORENDER DO, KAY S Ot K76.0 FATTY (CHANGE OF) LIVER, NOT ELSEWHERE C 11/24/2017 ORENDER DO, KAY S Ot K76.0 FATTY (CHANGE OF) LIVER, NOT ELSEWHERE C 01/02/2018 Ot M79.661 PAIN IN RIGHT LOWER LEG 01/02/2018 Ot M79.89 OTHER SPECIFIED SOFT TISSUE DISORDERS 01/09/2018 ORENDER DO, KAY S Ot M48.061 SPINAL STENOSIS, LUMBAR REGION WITHOUT N 01/09/2018 VERONDER DO, KAY S Ot M54.16 RADICULOPATHY, LUMBAR REGION 01/09/2018 ORENDER DO, KAY S Ot Z53.8 PROCEDURE AND TREATMENT NOT CARRIED OUT 01/09/2018 VERONDER DO, KAY S Ot Z95.0 PRESENCE OF CARDIAC PACEMAKER 09/04/2018 EARNEST HORTA, KURTIS Ot Z01.818 ENCOUNTER FOR OTHER PREPROCEDURAL EXAMIN 09/05/2018 ORENDER DO, KAY S Ot 611.71 MASTODYNIA 09/05/2018 ORENDER DO, AKY S Ot 611.72 LUMP OR MASS IN BREAST 09/05/2018 FRANCINE HORTA, MARIA VICTORIA Iyer Ot V72.84 EXAM PRE-OPERATIVE NOS 09/05/2018 ORENDER DO, KAY S Ot 240.9 GOITER NOS 09/05/2018 ORENDER DO, KAY S Ot 789.00 ABDOMINAL PAIN, UNSPECIFIED SITE 09/05/2018 FRANCINE HORTA, MARIA VICTORIA Iyer Ot V72.84 EXAM PRE-OPERATIVE NOS 09/05/2018 Ot M51.36 OTHER INTERVERTEBRAL DISC DEGENERATION, 09/05/2018 KAY REBOLLAR DO Ot M51.36 OTHER INTERVERTEBRAL DISC DEGENERATION, 09/05/2018 Ot R10.11 RIGHT UPPER QUADRANT PAIN 09/05/2018 Ot R11.2 NAUSEA WITH VOMITING, UNSPECIFIED 09/05/2018 NEHAL HORTA, NELSON Harden Ot E04.9 NONTOXIC GOITER, UNSPECIFIED 09/05/2018 KAY REBOLLAR DO Ot K76.0 FATTY (CHANGE OF) LIVER, NOT ELSEWHERE C 09/05/2018 Ot M79.661 PAIN IN RIGHT LOWER LEG 09/05/2018 Ot M79.89 OTHER SPECIFIED SOFT TISSUE DISORDERS 09/05/2018 KAY REBOLLAR DO Ot M48.061 SPINAL STENOSIS, LUMBAR REGION WITHOUT N 09/05/2018 KAY REBOLLAR DO Ot M54.16 RADICULOPATHY, LUMBAR REGION 09/05/2018 DIAN REBOLLAR DOLINE Garry Ot Z53.8 PROCEDURE AND TREATMENT NOT CARRIED OUT 09/05/2018 CHRISTINE JONES KAY Castañeda Ot Z95.0 PRESENCE OF CARDIAC PACEMAKER 09/05/2018 KURTIS TINOCO MD Ot E03.9 HYPOTHYROIDISM, UNSPECIFIED 09/05/2018 KURTIS TINOCO MD Ot E11.40 TYPE 2 DIABETES MELLITUS WITH DIABETIC N 09/05/2018 KURTIS TINOCO MD, Ot E66.01 MORBID (SEVERE) OBESITY DUE TO EXCESS CA 09/05/2018 KURTIS TINOCO MD, Ot E78.5 HYPERLIPIDEMIA, UNSPECIFIED 09/05/2018 KURTIS TINOCO MD, Ot G47.33 OBSTRUCTIVE SLEEP APNEA (ADULT) (PEDIATR 09/05/2018 KURTIS TINOCO MD Ot H81.09 MENIERE'S DISEASE, UNSPECIFIED EAR 09/05/2018 KURTIS TINOCO MD Ot I10 ESSENTIAL (PRIMARY) HYPERTENSION 09/05/2018 KURTIS TINOCO MD, Ot J44.9 CHRONIC OBSTRUCTIVE PULMONARY DISEASE, U 09/05/2018 KURTIS TINOCO MD Ot K21.0 GASTRO-ESOPHAGEAL REFLUX DISEASE WITH ES 09/05/2018 KURTIS TINOCO MD Ot K29.50 UNSPECIFIED CHRONIC GASTRITIS WITHOUT BL 09/05/2018 KURTIS TINOCO MD, Ot K31.89 OTHER DISEASES OF STOMACH AND DUODENUM 09/05/2018 KURTIS TINOCO MD, Ot K44.9 DIAPHRAGMATIC HERNIA WITHOUT OBSTRUCTION 09/05/2018 KURTIS TINOCO MD, Ot K58.9 IRRITABLE BOWEL SYNDROME WITHOUT DIARRHE 09/05/2018 KURTIS TINOCO MD, Ot M19.91 PRIMARY OSTEOARTHRITIS, UNSPECIFIED SITE 09/05/2018 KURTIS TINOCO MD, Ot M79.7 FIBROMYALGIA 09/05/2018 KURTIS TINOCO MD, Ot Z68.43 BODY MASS INDEX (BMI) 50-59.9, ADULT 09/05/2018 KURTIS TINOCO MD, Ot 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 09/05/2018 KURTIS TINOCO MD, Ot Z79.899 OTHER RELIGIOUS STUDIES PROFESSOR (CURRENT) DRUG THERAPY 09/05/2018 KURTIS TINOCO MD, Ot Z80.49 FAMILY HISTORY OF MALIGNANT NEOPLASM OF 09/05/2018 KURTIS TINOCO MD, Ot Z87.891 PERSONAL HISTORY OF NICOTINE DEPENDENCE 09/07/2018 KURTIS TINOCO MD, Ot E03.9 HYPOTHYROIDISM, UNSPECIFIED 09/07/2018 KURTIS TINOCO MD, Ot E11.40 TYPE 2 DIABETES MELLITUS WITH DIABETIC N 09/07/2018 KURTIS TINOCO MD, Ot E66.01 MORBID (SEVERE) OBESITY DUE TO EXCESS CA 09/07/2018 KURTIS TINOCO MD, Ot E78.5 HYPERLIPIDEMIA, UNSPECIFIED 09/07/2018 KURTIS TINOCO MD, Ot G47.33 OBSTRUCTIVE SLEEP APNEA (ADULT) (PEDIATR 09/07/2018 KURTIS TINOCO MD, Ot H81.09 MENIERE'S DISEASE, UNSPECIFIED EAR 09/07/2018 KURTIS TINOCO MD, Ot I10 ESSENTIAL (PRIMARY) HYPERTENSION 09/07/2018 KURTIS TINOCO MD, Ot J44.9 CHRONIC OBSTRUCTIVE PULMONARY DISEASE, U 09/07/2018 KURTIS TINOCO MD, Ot K21.0 GASTRO-ESOPHAGEAL REFLUX DISEASE WITH ES 09/07/2018 KURTIS TINOCO MD, Ot K29.50 UNSPECIFIED CHRONIC GASTRITIS WITHOUT BL 09/07/2018 KURTIS TINOCO MD, Ot K31.89 OTHER DISEASES OF STOMACH AND DUODENUM 09/07/2018 KURTIS TINOCO MD, Ot K44.9 DIAPHRAGMATIC HERNIA WITHOUT OBSTRUCTION 09/07/2018 KURTIS TINOCO MD, Ot K58.9 IRRITABLE BOWEL SYNDROME WITHOUT DIARRHE 09/07/2018 KURTIS TINOCO MD, Ot M19.91 PRIMARY OSTEOARTHRITIS, UNSPECIFIED SITE 09/07/2018 KURTIS TINOOC MD, Ot M79.7 FIBROMYALGIA 09/07/2018 KURTIS TINOCO MD, Ot Z68.43 BODY MASS INDEX (BMI) 50-59.9, ADULT 09/07/2018 KURTIS TINOCO MD, Ot Z79.4 SNF (CURRENT) USE OF INSULIN 09/07/2018 KURTIS TINOCO MD, Ot Z79.899 OTHER SNF (CURRENT) DRUG THERAPY 09/07/2018 KURTIS TINOCO MD, Ot Z80.49 FAMILY HISTORY OF MALIGNANT NEOPLASM OF 09/07/2018 KURTIS TINOCO MD, Ot Z87.891 PERSONAL HISTORY OF NICOTINE DEPENDENCE 09/10/2018 KURTIS TINOCO MD, Ot Z01.818 ENCOUNTER FOR OTHER PREPROCEDURAL EXAMIN 09/13/2018 KURTIS TINOCO MD, Ot E03.9 HYPOTHYROIDISM, UNSPECIFIED 09/13/2018 KURTIS TINOCO MD, Ot E11.40 TYPE 2 DIABETES MELLITUS WITH DIABETIC N 09/13/2018 KURTIS TINOCO MD, Ot E66.01 MORBID (SEVERE) OBESITY DUE TO EXCESS CA 09/13/2018 KURTIS TINOCO MD, Ot E78.5 HYPERLIPIDEMIA, UNSPECIFIED 09/13/2018 KURTIS TINOCO MD, Ot G47.33 OBSTRUCTIVE SLEEP APNEA (ADULT) (PEDIATR 09/13/2018 KURTIS TINOCO MD, Ot H81.09 MENIERE'S DISEASE, UNSPECIFIED EAR 09/13/2018 KURTIS TINOCO MD, Ot I10 ESSENTIAL (PRIMARY) HYPERTENSION 09/13/2018 KURTIS TINOCO MD, Ot J44.9 CHRONIC OBSTRUCTIVE PULMONARY DISEASE, U 09/13/2018 KURTIS TINOCO MD, Ot K21.0 GASTRO-ESOPHAGEAL REFLUX DISEASE WITH ES 09/13/2018 KURTIS TINOCO MD, Ot K29.50 UNSPECIFIED CHRONIC GASTRITIS WITHOUT BL 09/13/2018 KURTIS TINOCO MD, Ot K31.89 OTHER DISEASES OF STOMACH AND DUODENUM 09/13/2018 KURTIS TINOCO MD, Ot K44.9 DIAPHRAGMATIC HERNIA WITHOUT OBSTRUCTION 09/13/2018 KURTIS TINOCO MD, Ot K58.9 IRRITABLE BOWEL SYNDROME WITHOUT DIARRHE 09/13/2018 KURTIS TINOCO MD, Ot M19.91 PRIMARY OSTEOARTHRITIS, UNSPECIFIED SITE 09/13/2018 KURTIS TINOCO MD, Ot M79.7 FIBROMYALGIA 09/13/2018 KURTIS TINOCO MD, Ot Z68.43 BODY MASS INDEX (BMI) 50-59.9, ADULT 09/13/2018 KURTIS TINOCO MD, Ot Z79.4 SNF (CURRENT) USE OF INSULIN 09/13/2018 KURTIS TINOCO MD, Ot Z79.899 OTHER RELIGIOUS STUDIES PROFESSOR (CURRENT) DRUG THERAPY 09/13/2018 KURTIS TINOCO MD, Ot Z80.49 FAMILY HISTORY OF MALIGNANT NEOPLASM OF 09/13/2018 KURTIS TINOCO MD, Ot Z87.891 PERSONAL HISTORY OF NICOTINE DEPENDENCE 09/13/2018 VERONDER DO, KAY S Ot 611.71 MASTODYNIA 09/13/2018 VERONDER DO, KAY S Ot 611.72 LUMP OR MASS IN BREAST 09/13/2018 FRANCINE HORTA, MARIA VICTORIA Iyer Ot V72.84 EXAM PRE-OPERATIVE NOS 09/13/2018 ORENDER DO, KAY S Ot 240.9 GOITER NOS 09/13/2018 ORENDER DO, KAY S Ot 789.00 ABDOMINAL PAIN, UNSPECIFIED SITE 09/13/2018 FRANCINE HORTA, MARIA VICTORIA Iyer Ot V72.84 EXAM PRE-OPERATIVE NOS 09/13/2018 Ot M51.36 OTHER INTERVERTEBRAL DISC DEGENERATION, 09/13/2018 ORENDER DO, KAY S Ot M51.36 OTHER INTERVERTEBRAL DISC DEGENERATION, 09/13/2018 Ot R10.11 RIGHT UPPER QUADRANT PAIN 09/13/2018 Ot R11.2 NAUSEA WITH VOMITING, UNSPECIFIED 09/13/2018 NEHAL HORTA, NELSON Harden Ot E04.9 NONTOXIC GOITER, UNSPECIFIED 09/13/2018 ORENDER DO, KAY S Ot K76.0 FATTY (CHANGE OF) LIVER, NOT ELSEWHERE C 09/13/2018 Ot M79.661 PAIN IN RIGHT LOWER LEG 09/13/2018 Ot M79.89 OTHER SPECIFIED SOFT TISSUE DISORDERS 09/13/2018 VERONDER DO, KAY S Ot M48.061 SPINAL STENOSIS, LUMBAR REGION WITHOUT N 09/13/2018 VERONDER DO, KAY S Ot M54.16 RADICULOPATHY, LUMBAR REGION 09/13/2018 KAY REBOLLAR DO Ot Z53.8 PROCEDURE AND TREATMENT NOT CARRIED OUT 09/13/2018 KAY REBOLLAR DO Ot Z95.0 PRESENCE OF CARDIAC PACEMAKER 09/16/2018 KURTIS TINOCO MD, Ot K76.0 FATTY (CHANGE OF) LIVER, NOT ELSEWHERE C 09/19/2018 KURTIS TINOCO MD, Ot E03.9 HYPOTHYROIDISM, UNSPECIFIED 09/19/2018 KURTIS TINOCO MD, Ot E11.40 TYPE 2 DIABETES MELLITUS WITH DIABETIC N 09/19/2018 KURTIS TINOCO MD, Ot E66.01 MORBID (SEVERE) OBESITY DUE TO EXCESS CA 09/19/2018 KURTIS TINOCO MD, Ot E78.5 HYPERLIPIDEMIA, UNSPECIFIED 09/19/2018 KURTIS TINOCO MD, Ot G47.33 OBSTRUCTIVE SLEEP APNEA (ADULT) (PEDIATR 09/19/2018 KURTIS TINOCO MD, Ot H81.09 MENIERE'S DISEASE, UNSPECIFIED EAR 09/19/2018 KURTIS TINOCO MD, Ot I10 ESSENTIAL (PRIMARY) HYPERTENSION 09/19/2018 KURTIS TINOCO MD, Ot J44.9 CHRONIC OBSTRUCTIVE PULMONARY DISEASE, U 09/19/2018 KURTIS TINOCO MD, Ot K21.0 GASTRO-ESOPHAGEAL REFLUX DISEASE WITH ES 09/19/2018 KURTIS TINOCO MD, Ot K29.50 UNSPECIFIED CHRONIC GASTRITIS WITHOUT BL 09/19/2018 KURTIS TINOCO MD, Ot K31.89 OTHER DISEASES OF STOMACH AND DUODENUM 09/19/2018 KURTIS TINOCO MD, Ot K44.9 DIAPHRAGMATIC HERNIA WITHOUT OBSTRUCTION 09/19/2018 KURTIS TINOCO MD, Ot K58.0 IRRITABLE BOWEL SYNDROME WITH DIARRHEA 09/19/2018 KURTIS TINOCO MD, Ot M19.91 PRIMARY OSTEOARTHRITIS, UNSPECIFIED SITE 09/19/2018 KURTIS TINOCO MD, Ot M79.7 FIBROMYALGIA 09/19/2018 KURTIS TINOCO MD, Ot Z68.43 BODY MASS INDEX (BMI) 50-59.9, ADULT 09/19/2018 KURTIS TINOCO MD, Ot Z79.4 SNF (CURRENT) USE OF INSULIN 09/19/2018 KURTIS TINOCO MD, Ot Z79.899 OTHER SNF (CURRENT) DRUG THERAPY 09/19/2018 KURTIS TINOCO MD, Ot Z80.49 FAMILY HISTORY OF MALIGNANT NEOPLASM OF 09/19/2018 KURTIS TINOCO MD, Ot Z87.891 PERSONAL HISTORY OF NICOTINE DEPENDENCE 10/02/2018 YASMEEN HARRINGTON DO Ot E03.9 HYPOTHYROIDISM, UNSPECIFIED 10/02/2018 YASMEEN HARRINGTON DO Ot E11.40 TYPE 2 DIABETES MELLITUS WITH DIABETIC N 10/02/2018 YASMEEN HARRINGTON DO Ot E66.01 MORBID (SEVERE) OBESITY DUE TO EXCESS CA 10/02/2018 YASMEEN HARRINGTON DO Ot F32.9 MAJOR DEPRESSIVE DISORDER, SINGLE EPISOD 10/02/2018 YASMEEN HARRINGTON DO Ot F41.9 ANXIETY DISORDER, UNSPECIFIED 10/02/2018 YASMEEN HARRINGTON DO Ot G47.30 SLEEP APNEA, UNSPECIFIED 10/02/2018 YASMEEN HARRINGTON DO Ot G56.03 CARPAL TUNNEL SYNDROME, BILATERAL UPPER 10/02/2018 YASMEEN HARRINGTON DO Ot J44.9 CHRONIC OBSTRUCTIVE PULMONARY DISEASE, U 10/02/2018 YASMEEN HARRINGTON DO Ot K21.9 GASTRO-ESOPHAGEAL REFLUX DISEASE WITHOUT 10/02/2018 BRUNILDA HARRINGTON DOA Tessa Ot K58.9 IRRITABLE BOWEL SYNDROME WITHOUT DIARRHE 10/02/2018 YASMEEN HARRINGTON DO Ot N28.9 DISORDER OF KIDNEY AND URETER, UNSPECIFI 10/02/2018 YASMEEN HARRINGTON DO Ot R10.11 RIGHT UPPER QUADRANT PAIN 10/02/2018 YASMEEN HARRINGTON DO Ot Z68.43 BODY MASS INDEX (BMI) 50-59.9, ADULT 10/02/2018 YASMEEN HARRINGTON DO Ot 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 10/02/2018 YASMEEN HARRINGTON DO Ot Z79.51 SNF (CURRENT) USE OF INHALED STERO 10/02/2018 YASMEEN HARRINGTON DO Ot Z86.14 PERSONAL HISTORY OF METHICILLIN RESIS ST 10/02/2018 YASMEEN HARRINGTON DO Ot Z87.19 PERSONAL HISTORY OF OTHER DISEASES OF TH 10/02/2018 YASMEEN HARRINGTON DO Ot Z87.891 PERSONAL HISTORY OF NICOTINE DEPENDENCE 10/02/2018 YASMEEN HARRINGTON DO Ot Z88.8 ALLERGY STATUS TO OTH DRUG/MEDS/BIOL SUB 10/02/2018 JUANY YASMEEN Ot Z90.710 ACQUIRED ABSENCE OF BOTH CERVIX AND UTER 10/02/2018 YASMEEN HARRINGTON DO Ot Z90.89 ACQUIRED ABSENCE OF OTHER ORGANS 10/02/2018 JUANY YASMEEN JONES Ot Z98.890 OTHER SPECIFIED POSTPROCEDURAL STATES 10/04/2018 YASMEEN HARRINGTON DO Ot E03.9 HYPOTHYROIDISM, UNSPECIFIED 10/04/2018 JUANY YASMEEN JONES Ot E11.40 TYPE 2 DIABETES MELLITUS WITH DIABETIC N 10/04/2018 YASMEEN HARRINGTON DO Ot E66.01 MORBID (SEVERE) OBESITY DUE TO EXCESS CA 10/04/2018 YASMEEN HARRINGTON DO Ot F32.9 MAJOR DEPRESSIVE DISORDER, SINGLE EPISOD 10/04/2018 YASMEEN HARRINGTON DO Ot F41.9 ANXIETY DISORDER, UNSPECIFIED 10/04/2018 YASMEEN HARRINGTON DO Ot G47.30 SLEEP APNEA, UNSPECIFIED 10/04/2018 JUANY YASMEEN JONES Ot G56.03 CARPAL TUNNEL SYNDROME, BILATERAL UPPER 10/04/2018 JUANY YASMEEN JONES Ot J44.9 CHRONIC OBSTRUCTIVE PULMONARY DISEASE, U 10/04/2018 YASMEEN HARRINGTON DO Ot K21.9 GASTRO-ESOPHAGEAL REFLUX DISEASE WITHOUT 10/04/2018 YASMEEN HARRINGTON DO Ot K58.9 IRRITABLE BOWEL SYNDROME WITHOUT DIARRHE 10/04/2018 YASMEEN HARRINGTON DO Ot N28.9 DISORDER OF KIDNEY AND URETER, UNSPECIFI 10/04/2018 YASMEEN HARRINGTON DO Ot R10.11 RIGHT UPPER QUADRANT PAIN 10/04/2018 YASMEEN HARRINGTON DO Ot Z68.43 BODY MASS INDEX (BMI) 50-59.9, ADULT 10/04/2018 YASMEEN HARRINGTON DO Ot Z79.4 SNF (CURRENT) USE OF INSULIN 10/04/2018 YASMEEN HARRINGTON DO Ot Z79.51 RELIGIOUS STUDIES PROFESSOR (CURRENT) USE OF INHALED STERO 10/04/2018 YASMEEN HARRINGTON DO Ot Z86.14 PERSONAL HISTORY OF METHICILLIN RESIS ST 10/04/2018 YASMEEN HARRINGTON DO Ot Z87.19 PERSONAL HISTORY OF OTHER DISEASES OF TH 10/04/2018 JUANY JONES YASMEEN Tessa Ot Z87.891 PERSONAL HISTORY OF NICOTINE DEPENDENCE 10/04/2018 JUANY YASMEEN K Ot Z88.8 ALLERGY STATUS TO OTH DRUG/MEDS/BIOL SUB 10/04/2018 JUAYN YASMEEN Tessa Ot Z90.710 ACQUIRED ABSENCE OF BOTH CERVIX AND UTER 10/04/2018 JUANY YASMEEN Tessa Ot Z90.89 ACQUIRED ABSENCE OF OTHER ORGANS 10/04/2018 JUANY YASMEEN Tessa Ot Z98.890 OTHER SPECIFIED POSTPROCEDURAL STATES 10/05/2018 JUANY YASMEEN Tessa Ot E03.9 HYPOTHYROIDISM, UNSPECIFIED 10/05/2018 JUANY YASMEEN Tessa Ot E11.40 TYPE 2 DIABETES MELLITUS WITH DIABETIC N 10/05/2018 JUANY YASMEEN K Ot E11.9 TYPE 2 DIABETES MELLITUS WITHOUT COMPLIC 10/05/2018 JUANY YASMEEN K Ot E66.01 MORBID (SEVERE) OBESITY DUE TO EXCESS CA 10/05/2018 JUANY YASMEEN K Ot E78.00 PURE HYPERCHOLESTEROLEMIA, UNSPECIFIED 10/05/2018 JUANY YASMEEN K Ot F32.9 MAJOR DEPRESSIVE DISORDER, SINGLE EPISOD 10/05/2018 JUANY YASMEEN K Ot F41.9 ANXIETY DISORDER, UNSPECIFIED 10/05/2018 JUANY DO YASMEEN K Ot I10 ESSENTIAL (PRIMARY) HYPERTENSION 10/05/2018 JUANY DO YASMEEN K Ot J44.9 CHRONIC OBSTRUCTIVE PULMONARY DISEASE, U 10/05/2018 JUANY JONES YASMEEN K Ot K21.9 GASTRO-ESOPHAGEAL REFLUX DISEASE WITHOUT 10/05/2018 JUANY YASMEEN JONES Ot K58.9 IRRITABLE BOWEL SYNDROME WITHOUT DIARRHE 10/05/2018 JUANY YASMEEN JONES Ot R10.11 RIGHT UPPER QUADRANT PAIN 10/05/2018 JUANY YASMEEN JONES Ot Z68.43 BODY MASS INDEX (BMI) 50-59.9, ADULT 10/05/2018 YASMEEN HARRINGTON DO Ot 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 10/05/2018 JUANY DO YASMEEN K Ot Z87.891 PERSONAL HISTORY OF NICOTINE DEPENDENCE 10/05/2018 JUANY YASMEEN JONES Ot Z88.8 ALLERGY STATUS TO OTH DRUG/MEDS/BIOL SUB 10/05/2018 YASMEEN HARRINGTON DO Ot Z90.89 ACQUIRED ABSENCE OF OTHER ORGANS 10/12/2018 KURTIS TINOCO MD, Ot R10.11 RIGHT UPPER QUADRANT PAIN 10/12/2018 KURTIS TINOCO MD, Ot R10.11 RIGHT UPPER QUADRANT PAIN 10/17/2018 KURTIS TINOCO MD, Ot R10.11 RIGHT UPPER QUADRANT PAIN Procedures Code Description [place] [id number] [facility] DIAGNOSTIC EVALUATION 04/17/2014 Results Test Result Range [...] Automated erythrocyte mean corpuscular hemoglobin concentration measurement (mass/volume) 34 g/dL 32-36 Automated erythrocyte distribution width ratio 13.6 % 10.0- 14.5 Automated blood platelet count (count/volume) 269 10*3/uL [...] Blood monocytes automated count (number/volume) 0.5 10*3 0.0- 1.0 Automated eosinophil count 0.1 10*3/uL 0.0-0.3 Automated [...] Serum or plasma aspartate aminotransferase measurement (enzymatic activity/volume) 11 U/L 5-34 Serum or plasma alanine aminotransferase measurement (enzymatic activity/volume) 15 U/L 0-55 Serum or plasma protein measurement (mass/volume) 7.0 g/dL 6.4-8.2 Serum or plasma albumin measurement (mass/volume) 3.9 g/dL 3.2-4.5 Serum or plasma troponin i.cardiac measurement (mass/volume) - 10/27/17 18:40 Serum or plasma troponin i.cardiac measurement (mass/volume) < ng/mL <0.30 Fibrin D-dimer FEU measurement in platelet poor plasma (mass/volume) - 10/27/17 18:51 Fibrin D-dimer FEU measurement in platelet poor plasma (mass/volume) 0.38 ug/mL 0.00-0.49 Complete urinalysis with reflex to culture - 10/02/18 20:05 Urine color determination YELLOW NRG Urine clarity determination CLEAR NRG Urine pH measurement by test strip 5 5-9 Specific gravity of urine by test strip 1.020 1.016-1.022 Urine protein assay by test strip, semi-quantitative NEGATIVE NEGATIVE Urine glucose detection by automated test strip NEGATIVE NEGATIVE Erythrocytes detection in urine sediment by light microscopy NEGATIVE NEGATIVE Urine ketones detection by automated test strip NEGATIVE NEGATIVE Urine nitrite detection by test strip NEGATIVE NEGATIVE Urine total bilirubin detection by test strip NEGATIVE NEGATIVE Urine urobilinogen measurement by automated test strip (mass/volume) NORMAL NORMAL Urine leukocyte esterase detection by dipstick 1+ NEGATIVE Automated urine sediment erythrocyte count by microscopy (number/high power field) NONE NRG Automated urine sediment leukocyte count by microscopy (number/high power field) NONE NRG Bacteria detection in urine sediment by light microscopy FEW NRG Squamous epithelial cells detection in urine sediment by light microscopy 2-5 NRG Crystals detection in urine sediment by light microscopy NONE NRG Casts detection in urine sediment by light microscopy NONE NRG Mucus detection in urine sediment by light microscopy SMALL NRG Complete urinalysis with reflex to culture NO NRG Complete blood count (CBC) with automated white blood cell (WBC) differential - 10/02/18 20:12 Blood leukocytes automated count (number/volume) 8.3 10*3/uL 4.3-11.0 Blood erythrocytes automated count (number/volume) 4.98 10*6/uL 4.35-5.85 Venous blood hemoglobin measurement (mass/volume) 14.2 g/dL 11.5-16.0 Blood hematocrit (volume fraction) 42 % 35-52 Automated erythrocyte mean corpuscular volume 85 [foz_us] 80-99 Automated erythrocyte mean corpuscular hemoglobin (mass per erythrocyte) 29 pg 25-34 Automated erythrocyte mean corpuscular hemoglobin concentration measurement (mass/volume) 34 g/dL 32-36 Automated erythrocyte distribution width ratio 13.8 % 10.0- 14.5 Automated blood platelet count (count/volume) 334 10*3/uL 130-400 Automated blood platelet mean volume measurement 10.6 [foz_us] 7.4-10.4 Automated blood neutrophils/100 leukocytes 62 % 42-75 Automated blood lymphocytes/100 leukocytes 31 % 12-44 Blood monocytes/100 leukocytes 7 % 0-12 Automated blood eosinophils/100 leukocytes 1 % 0-10 Automated blood basophils/100 leukocytes 0 % 0-10 Blood neutrophils automated count (number/volume) 5.1 10*3 1.8-7.8 Blood lymphocytes automated count (number/volume) 2.6 10*3 1.0-4.0 Blood monocytes automated count (number/volume) 0.5 10*3 0.0- 1.0 Automated eosinophil count 0.1 10*3/uL 0.0-0.3 Automated blood basophil count (count/volume) 0.0 10*3/uL 0.0-0.1 Comprehensive metabolic panel - 10/02/18 20:12 Serum or plasma sodium measurement (moles/volume) 133 mmol/L 135-145 Serum or plasma potassium measurement (moles/volume) 4.1 mmol/L 3.6-5.0 Serum or plasma chloride measurement (moles/volume) 99 mmol/L 98-107 Carbon dioxide 19 mmol/L 21-32 Serum or plasma anion gap determination (moles/volume) 15 mmol/L 5-14 Serum or plasma urea nitrogen measurement (mass/volume) 25 mg/dL 7-18 Serum or plasma creatinine measurement (mass/volume) 1.46 mg/dL 0.60-1.30 Serum or plasma urea nitrogen/creatinine mass ratio 17 NRG Serum or plasma creatinine measurement with calculation of estimated glomerular filtration rate 38 NRG Serum or plasma glucose measurement (mass/volume) 348 mg/dL 70-105 Serum or plasma calcium measurement (mass/volume) 9.6 mg/dL 8.5-10.1 Serum or plasma total bilirubin measurement (mass/volume) 0.3 mg/dL 0.1-1.0 Serum or plasma alkaline phosphatase measurement (enzymatic activity/volume) 80 U/L 40-136 Serum or plasma aspartate aminotransferase measurement (enzymatic activity/volume) 14 U/L 5-34 Serum or plasma alanine aminotransferase measurement (enzymatic activity/volume) 22 U/L 0-55 Serum or plasma protein measurement (mass/volume) 7.4 g/dL 6.4-8.2 Serum or plasma albumin measurement (mass/volume) 4.1 g/dL 3.2-4.5 CALCIUM CORRECTED 9.5 mg/dL 8.5-10.1 Serum or plasma amylase measurement (enzymatic activity/volume) - 10/02/18 20:12 Serum or plasma amylase measurement (enzymatic activity/volume) 40 U/L 25-125 Lipase - 10/02/18 20:12 Lipase 26 U/L 8-78 Capillary blood glucose measurement by glucometer (mass/volume) - 10/02/18 22:23 Capillary blood glucose measurement by glucometer (mass/volume) 270 mg/dL 70-110 Complete blood count (CBC) with automated white blood cell (WBC) differential - 10/03/18 22:23 Blood leukocytes automated count (number/volume) 7.9 10*3/uL 4.3-11.0 Blood erythrocytes automated count (number/volume) 4.74 10*6/uL 4.35-5.85 Venous blood hemoglobin measurement (mass/volume) 13.5 g/dL 11.5-16.0 Blood hematocrit (volume fraction) 40 % 35-52 Automated erythrocyte mean corpuscular volume 83 [foz_us] 80-99 Automated erythrocyte mean corpuscular hemoglobin (mass per erythrocyte) 29 pg 25-34 Automated erythrocyte mean corpuscular hemoglobin concentration measurement (mass/volume) 34 g/dL 32-36 Automated erythrocyte distribution width ratio 13.8 % 10.0- 14.5 Automated blood platelet count (count/volume) 294 10*3/uL 130-400 Automated blood platelet mean volume measurement 9.9 [foz_us] 7.4-10.4 Automated blood neutrophils/100 leukocytes 59 % 42-75 Automated blood lymphocytes/100 leukocytes 33 % 12-44 Blood monocytes/100 leukocytes 7 % 0-12 Automated blood eosinophils/100 leukocytes 1 % 0-10 Automated blood basophils/100 leukocytes 0 % 0-10 Blood neutrophils automated count (number/volume) 4.6 10*3 1.8-7.8 Blood lymphocytes automated count (number/volume) 2.6 10*3 1.0-4.0 Blood monocytes automated count (number/volume) 0.5 10*3 0.0- 1.0 Automated eosinophil count 0.1 10*3/uL 0.0-0.3 Automated blood basophil count (count/volume) 0.0 10*3/uL 0.0-0.1 Comprehensive metabolic panel - 10/03/18 22:23 Serum or plasma sodium measurement (moles/volume) 136 mmol/L 135-145 Serum or plasma potassium measurement (moles/volume) 3.7 mmol/L 3.6-5.0 Serum or plasma chloride measurement (moles/volume) 101 mmol/L 98-107 Carbon dioxide 21 mmol/L 21-32 Serum or plasma anion gap determination (moles/volume) 14 mmol/L 5-14 Serum or plasma urea nitrogen measurement (mass/volume) 26 mg/dL 7-18 Serum or plasma creatinine measurement (mass/volume) 1.08 mg/dL 0.60-1.30 Serum or plasma urea nitrogen/creatinine mass ratio 24 NRG Serum or plasma creatinine measurement with calculation of estimated glomerular filtration rate 54 NRG Serum or plasma glucose measurement (mass/volume) 209 mg/dL 70-105 Serum or plasma calcium measurement (mass/volume) 9.3 mg/dL 8.5-10.1 Serum or plasma total bilirubin measurement (mass/volume) 0.2 mg/dL 0.1-1.0 Serum or plasma alkaline phosphatase measurement (enzymatic activity/volume) 73 U/L 40-136 Serum or plasma aspartate aminotransferase measurement (enzymatic activity/volume) 11 U/L 5-34 Serum or plasma alanine aminotransferase measurement (enzymatic activity/volume) 16 U/L 0-55 Serum or plasma protein measurement (mass/volume) 6.8 g/dL 6.4-8.2 Serum or plasma albumin measurement (mass/volume) 3.9 g/dL 3.2-4.5 CALCIUM CORRECTED 9.4 mg/dL 8.5-10.1 Serum or plasma amylase measurement (enzymatic activity/volume) - 10/03/18 22:23 Serum or plasma amylase measurement (enzymatic activity/volume) 37 U/L 25-125 Lipase - 10/03/18 22:23 Lipase 25 U/L 8-78 Urine drug screening test - 10/03/18 22:31 Urine phencyclidine detection by screening method NEGATIVE NEGATIVE Urine benzodiazepines detection by screening method NEGATIVE NEGATIVE Urine cocaine detection NEGATIVE NEGATIVE Urine amphetamines detection by screening method NEGATIVE NEGATIVE Urine methamphetamine detection by screening method NEGATIVE NEGATIVE Urine cannabinoids detection by screening method NEGATIVE NEGATIVE Urine opiates detection by screening method NEGATIVE NEGATIVE Urine barbiturates detection NEGATIVE NEGATIVE Screening urine tricyclic antidepressants detection NEGATIVE NEGATIVE Urine methadone detection by screening method NEGATIVE NEGATIVE Urine oxycodone detection POSITIVE NEGATIVE Urine propoxyphene detection NEGATIVE NEGATIVE Encounters ACCT No. Visit Date/Time Discharge Status Pt. Type Provider Facility Loc./Unit Complaint 09/201710/10/2018 16:36:49 10/10/2018 23:59:59 CLS Outpatient Kay Rebollar [id number] 10/17/2018 08:35:00 10/17/2018 10:42:00 DIS Outpatient KURTIS TINOCO MD [facility] PREOP LAPAROSCOPIC CHOLECYSTECTOMY [id number] 10/11/2018 10:14:00 10/11/2018 23:59:59 CLS Outpatient KURTIS TINOCO MD [facility] CARD RUQ PAIN [id number] 10/03/2018 21:38:00 10/03/2018 23:47:00 DIS Outpatient YASMEEN HARRINGTON DO [facility] ER ABD PAIN [id number] 10/02/2018 19:43:00 10/02/2018 22:42:00 DIS Emergency JUANY YASMEEN JONES [facility] ER STOMACH PAIN [id number] 09/13/2018 07:03:00 09/13/2018 23:59:59 CLS Outpatient KURTIS TINOCO MD [facility] RAD RUQ PAIN [id number] 09/05/2018 11:10:00 09/05/2018 15:19:00 DIS Outpatient KURTIS TINOCO MD [facility] ENDO RELUX/N V [id number] 09/04/2018 09:22:00 09/04/2018 12:27:00 DIS Outpatient KURTIS TINOCO MD [facility] PREOP EGD [id number] 03/21/2018 15:49:00 03/21/2018 23:59:59 CLS Preadmit KAY REBOLLAR DO S [facility] RAD LT MASTODYNIA/LT UPPER OUTER QUAD NODULE [id number] 01/08/2018 16:14:00 01/08/2018 23:59:59 CLS Outpatient CHRISTINE JONES KAY S [facility] RAD SPINAL STENOSIS AND RADICULOPATHY [id number] 11/27/2017 09:07:00 11/27/2017 23:59:59 CLS Preadmit ROBB REBOLLAR DOQUELINE S [facility] CARD UNSPECIFIED ABDOMINAL PAIN R10.9 [id number] 11/14/2017 07:25:00 11/14/2017 23:59:59 CLS Outpatient CHRISTINE JONES KAY S [facility] RAD RUQ PAIN [id number] 10/27/2017 16:57:00 10/27/2017 19:48:00 DIS Emergency DONALDO BARKSDALE FIXED ASSETS ACCOUNTANT [facility] ER CONGESTION [id number] 02/08/2016 12:40:00 02/08/2016 23:59:59 CLS Outpatient NELSON CALVERT MD [facility] RAD GOITER [id number] 12/07/2015 16:12:00 12/07/2015 19:49:00 DIS Emergency PEGGY PROTER MD [facility] ER DIZZINESS/NUMBNESS R SIDE [id number] 10/07/2015 09:46:00 10/07/2015 12:55:00 DIS Outpatient NELSON BARRAZA MD [facility] LEFT TRIGGER FINGER, LEFT CARPAL TUNNEL SYNDROME [id number] 10/05/2015 21:15:00 10/06/2015 06:05:00 DIS Outpatient KAY REBOLLAR DO [facility] SLEEP OBSERVED APNEAS,SNORING,HTN,MOOD DISORDER [id number] 10/02/2015 11:42:00 10/02/2015 12:32:00 DIS Outpatient NELSON BARRAZA MD [facility] PREOP LEFT TRIGGER THUMB, LEFT CARPAL TUNNEL SYNDROME [id number] 06/30/2015 14:44:00 06/30/2015 23:59:59 CLS Outpatient KAY REBOLLAR DO [facility] RAD LUMBAR DEG DISC DISEASE [id number] 02/19/2015 12:56:00 04/01/2015 14:52:00 DIS Outpatient KAY REBOLLAR DO [facility] REHAB THORACIC / RIB PAIN [id number] 01/11/2015 18:43:00 01/11/2015 21:33:00 DIS Emergency YASMEEN HARRINGTON DO [facility] ER DIZZINESS,HEADACHE,TINGLING,CHEST PAIN [id number] 09/22/2014 08:31:00 09/22/2014 10:55:00 DIS Outpatient MARIA VICTORIA ESCAMILLA MD [facility] ABD PAIN; NAUSEA [id number] 09/18/2014 06:54:00 09/18/2014 23:59:59 CLS Outpatient MARIA VICTORIA ESCAMILLA MD [facility] PREOP ABD PAIN; NAUSEA [id number] 09/10/2014 07:07:00 09/10/2014 23:59:59 CLS Outpatient FALGUNIER ROBBKAY S [facility] RAD ABDOMINAL PAIN THYROID GOITER [id number] 04/24/2014 15:13:00 04/24/2014 23:59:59 CLS Preadmit CHRISTINE JONES KAY S [facility] REHAB [id number] 02/20/2014 07:20:00 02/20/2014 23:59:59 CLS Outpatient MARIA VICTORIA ESCAMILLA MD [facility] PREOP ABDOMINAL PAIN [id number] 07/23/2013 21:15:00 07/24/2013 19:15:00 DIS Inpatient CHRISTINE DOROBBKAY S [facility] CSD CHEST PAIN [id number] 07/10/2013 11:08:00 07/10/2013 23:59:59 CLS Outpatient CHRISTINE JONES KAY S [facility] RAD MASTALGIA [id number] 04/29/2013 17:45:00 04/29/2013 23:03:00 DIS Emergency DONALDO BARKSDALE APRN [facility] ER RECTAL BLEED [id number] 04/27/2013 17:36:00 04/27/2013 23:59:59 CLS Outpatient [id number] 10/18/2018 09:15:00 PEN Preadmit KURTIS TINOCO MD [facility] SDC BILIARY DYSKENESIA [id number] 12/22/2017 11:59:00 Document Registration [id number] 10/06/2015 09:10:00 Document Registration [id number] 10/01/2015 08:59:00 Document Registration [id number] 10/01/2015 08:59:00 Document Registration [id number] 06/16/2015 15:05:00 Document Registration [id number] 06/25/2012 20:19:00 Document Registration [id number] 04/18/2012 00:00:00 Document Registration [id number] 04/13/2012 22:18:00 Document Registration [id number] 01/23/2012 13:58:00 Document Registration [id number] 03/31/2011 19:43:00 Document Registration [id number] 02/03/2011 16:50:00 Document Registration [id number] 01/10/2011 11:30:00 Document Registration [id number] 12/08/2010 12:35:00 Document Registration [id number] 08/24/2010 07:39:00 Document Registration [id number] 08/15/2010 15:57:00 Document Registration [id number] 07/22/2014 13:25:00 07/22/2014 23:59:59 CLS Outpatient BRANDON FIXED ASSETS ACCOUNTANTSELVIN Esposito [id number] 04/22/2014 13:08:00 04/22/2014 23:59:59 CLS Outpatient BRANDON FIXED ASSETS ACCOUNTANTSELVIN Esposito [id number] 04/17/2014 12:50:00 04/17/2014 23:59:59 CLS Outpatient JAVIER ROBBINS PSYD [id number] 03/13/2014 10:06:00 03/13/2014 23:59:59 CLS Outpatient CINTIA TELLEZ DDS [id number] 01/21/2014 11:27:00 01/21/2014 23:59:59 CLS Outpatient BRANDON SELVIN NEVAREZ [id number] 01/21/2014 11:27:00 01/21/2014 23:59:59 CLS Outpatient BRANDON FIXED ASSETS ACCOUNTANTSELVIN Esposito [id number] 12/06/2013 15:26:00 12/06/2013 23:59:59 CLS Outpatient BRANDON FIXED ASSETS ACCOUNTANTSELVIN Esposito [id number] 12/06/2013 15:26:00 12/06/2013 23:59:59 CLS Outpatient BRANDON FIXED ASSETS ACCOUNTANTSELVIN Esposito [id number] 08/29/2013 13:10:00 08/29/2013 23:59:59 CLS Outpatient BRANDON FIXED ASSETS ACCOUNTANT, SELVIN [id number] 08/29/2013 13:10:00 08/29/2013 23:59:59 CLS Outpatient CAMILA MOTA MD [id number] 11/24/2012 14:52:00 11/24/2012 23:59:59 CLS Outpatient NILS SAENZ DO [id number] 07/25/2012 13:36:00 07/25/2012 23:59:59 CLS Outpatient WERDER DO, NILS F [id number] 04/26/2012 13:33:00 04/26/2012 23:59:59 [facility] Outpatient NILS SAENZ DO [id number] 08/30/2012 14:19:00 Document Registration
--- NOTE | 2018-10-18 08:39 | Progress Note-Pre Operative ---
Pre-Operative Progress Note H&P Reviewed The H&P was reviewed, patient examined and no changes noted. Date Seen by Provider: Oct 18, 2018 Time Seen by Provider: 08:35 Date H&P Reviewed: Oct 18, 2018 Time H&P Reviewed: 08:30 Pre-Operative Diagnosis: Symptomatic Biliary Dyskinesia ANGUS WATKINS APRN Oct 18, 2018 08:39
[2018-10-18] MEDS ORDERED: OXYC1TAB12 PO (08:42)
--- NOTE | 2018-10-18 08:44 | Discharge Inst-Surgical ---
D/C Lap Instructions-KIDO New, Converted, or Re-Newed RX: RX on Chart Follow Up Appt in 2 weeks Activity as tolerated No driving for 24 hours No [address] while on pain medications Incentive Spirometry use every 2 hours while awake Regular Diet Symptoms to Report: Fever over 101 degree F, Nausea/Vomiting Infection Signs and Symptoms to report: Increased redness, Foul odor of wound, Increased drainage Bathing instructions: May shower Operative Area Clean/Dry; Keep incision clean/dry If any problems/questions: Contact your physician or go to Emergency Room ANGUS WATKINS APRN Oct 18, 2018 08:44
[2018-10-18] MEDS ORDERED: ceFAZolin 2 GM/50 ML NS 50 ML IV ONE (08:45)
[2018-10-18] MEDS: LACTATED RINGERS 1,000 ML IV PRN ×3 (08:45→14:14)
[2018-10-18] MEDS ORDERED: morphine INJ 10 MG/ML 1ML (SYR OR VIAL) IVP PRN (08:45)
[2018-10-18] MEDS ORDERED: ACETAMINOPHEN 325 MG TABLET PO PRN (08:45)
[2018-10-18] MEDS ORDERED: ONDANSETRON 4 MG/2 ML (SDV) Z0FRAN IVP PRN ×3 (08:45→14:30)
[2018-10-18] MEDS ORDERED: HYDROcodone/APAP 5 MG/325 MG (LORTAB) TAB PO ONE (08:45)
[2018-10-18] MEDS ORDERED: ceFAZolin 2 GM/50 ML NS 50 ML ONE (08:53)
[2018-10-18] MEDS ORDERED: BUP/EPI 0.5% 1:200,000 (SENSORCAINE) 30 ML VIAL ONE (11:05)
[2018-10-18] MEDS ORDERED: proPOfol 200 MG/20 ML (DIPRIVAN) VIAL IV ONE (11:16)
[2018-10-18] MEDS ORDERED: ONDANSETRON 4 MG/2 ML (SDV) Z0FRAN ONE ×2 (11:16→11:17)
[2018-10-18] MEDS ORDERED: MIDAZOLAM 2 MG/2 ML (VERSED) VIAL ONE (11:17)
[2018-10-18] MEDS ORDERED: fentaNYL INJECTION 100 MCG/2 ML AMP ONE (11:17)
[2018-10-18] MEDS ORDERED: LIDOCAINE PF 2% 5 ML (XYLOCAINE) VIAL ONE (11:20)
[2018-10-18] MEDS ORDERED: morphine INJ 10 MG/ML 1ML (SYR OR VIAL) ONE (12:19)
[2018-10-18] MEDS ORDERED: ROCURONIUM 10 MG/ML 5 ML SYRINGE IV ONE (12:56)
[2018-10-18] MEDS ORDERED: SEVOFLURANE (ULTANE) 15 ML INHAL SOLN ONE (12:56)
[2018-10-18] MEDS ORDERED: fentaNYL INJECTION 100 MCG/2 ML AMP IVP ONE (13:15)
[2018-10-18] MEDS ORDERED: MEPERIDINE (DEMEROL) INJ 50 MG/ML IVP ONE (13:15)
[2018-10-18] MEDS ORDERED: morphine INJ 10 MG/ML 1ML (SYR OR VIAL) IVP ONE (13:15)
--- NOTE | 2018-10-18 14:08 | Progress Note-Post Operative ---
Post-Operative Progess Note Surgeon (s)/Technical Solutions Director (s) Surgeon KURTIS TINOCO MD Technical Solutions Director: lupe canales PER DIEM PHYSICAL THERAPIST ASSISTANT Pre-Operative Diagnosis Symptomatic Biliary Dyskinesia Post-Operative Diagnosis same. omental torsion. Procedure & Operative Findings Date of Procedure 10/18/18 Procedure Performed/Findings laparoscopic cholecystectomy and segmental omentectomy. Anesthesia Type GET Estimated Blood Loss Estimated blood loss (mL): minimal Specimens/Packing Specimens Removed gallbladder, omentum KURTIS TINOCO MD Oct 18, 2018 14:08
[2018-10-18] MEDS ORDERED: HYDROmorphone 2 MG/ML VIAL (DILAUDID) IV ONE (14:30)
--- NOTE | 2018-10-18 14:31 | Anesthesia-General Post-Op ---
General Patient Condition Mental Status/LOC: Same as Preop Cardiovascular: Satisfactory Nausea/Vomiting: Absent Respiratory: Satisfactory Pain: Controlled Complications: Absent Post Op Complications Complications None Follow Up Care/Instructions Patient Instructions None needed. Anesthesia/Patient Condition Patient Condition Patient is doing well, no complaints, stable vital signs, no apparent adverse anesthesia problems. No complications reported per nursing. FIDEL MONTEIRO CRNA Oct 18, 2018 14:31
[2018-10-18] MEDS ORDERED: HYDROcodone/APAP 5 MG/325 MG (LORTAB) TAB ONE (15:57)
--- NOTE | 2018-10-18 16:30 | NUR ---
CALLED ZOFRAN 4MG 1 TAB PO Q4HR PRN FOR NAUSEA #30 INTO [facility].
--- NOTE | 2018-10-18 21:28 | OPERATIVE REPORT ---
DATE OF SERVICE: 10/18/2018 ATTENDING PRIMARY CARE PHYSICIAN: Kay Rebollar DO. PREOPERATIVE DIAGNOSIS: Symptomatic biliary dyskinesia. POSTOPERATIVE DIAGNOSES: 1. Symptomatic biliary dyskinesia. 2. Greater omental torsion. PROCEDURES PERFORMED: Laparoscopic cholecystectomy and segmental omentectomy. SURGEON: Kurtis Tinoco MD. ELECTRIC ORGAN CHECKER: Madan Hazel APRN. ANESTHESIA: General endotracheal. ESTIMATED BLOOD LOSS: Minimal. FINDINGS: Slightly distended gallbladder, thickened mesentery as well as omentum, hepatomegaly. An omental torsion was also identified, which was partially ischemic and adherent to the abdominal wall. This was hard in consistency. Once segmental resection of the omentum was performed, this was examined which appeared to be ischemic changes; however, no tumors or masses. DISPOSITION: The patient tolerated the procedure well. INDICATIONS: The patient is a 47-year-old female, who has had significant amount of pain, abdominal bloating, distention as well as nausea for the past few months. She reports that this was much more severe approximately 2 weeks ago and she presented to the Emergency Department 2 days in a row. She underwent a workup, which did not show anything at that time. An ultrasound was performed, which did not show any gallstones; however, we did proceed with a HIDA scan as well as ejection fraction and during the administration of a Kinevac analogue, she does report having reproduction of symptoms with worsening right upper abdominal quadrant pain, nausea and abdominal bloating. She does not report any fever nor chills at home. DESCRIPTION OF PROCEDURE: The patient was brought to the operating room, laid supine on the table. After adequate IV pain and sedating medications and general endotracheal intubation, the abdomen was prepped and draped in standard surgical fashion. A 0.5% Marcaine with epinephrine was then used to anesthetize the overlying skin in the left upper abdominal quadrant. A transverse skin incision made using a 15-blade. An #0 silk suture was applied to the medial aspect of the incision for retraction and a Veress needle inserted with a low opening pressure of 0 mmHg and the abdomen was then insufflated to 15 mmHg pressure. The Veress needle was removed and a 5 mm Xcel trocar placed followed by a 5 mm 45-degree angle laparoscope visualizing the peritoneal cavity. There was a hard adherent as well as hemorrhagic tongue of omentum from the mid transverse colon towards the anterior abdominal wall. With gentle dissection, this did come off the abdominal wall. Based on the appearance of the lesion, this appeared to be a torsed portion of the omentum with ischemic changes. We then proceeded to place a supraumbilical 10 mm port after the skin and peritoneal lining were anesthetized using 0.5% Marcaine with epinephrine and a transverse skin incision made using a 15-blade. In a similar manner, a right upper abdominal quadrant 5 mm port was placed. The patient was then placed in reverse Trendelenburg position as well as plane right side up, left side down. There was a moderate distention of the gallbladder. There was no gallbladder wall inflammation. There was also hepatomegaly identified. We first proceeded with the laparoscopic cholecystectomy. The fundus of the gallbladder was retracted anteriorly and superiorly and the hepatoduodenal ligament opened using blunt dissection as well as electrocautery on the hook instrument. The entire critical view of safety was identified including the triangle of Calot as well as the cystic duct and artery as the only two structures going into the gallbladder as well as the cystic plate behind the proximal gallbladder. A timeout was then taken and the cystic duct and artery were then clipped proximally, distally and cut with EndoShears. The gallbladder was then dissected off the liver bed using cautery on the hook instrument with visualization of good hemostasis as well as no leaking ducts of Luschka. The gallbladder was then removed through the 10 mm port site using EndoCatch bag. We then proceeded with a segmental resection of the torsed greater omentum. The omental adhesions were dissected down using electrocautery on the EndoShears. The torsion was identified at the vascular pedicle. This was cauterized and cut using electrocautery on the EndoShears device. Good hemostasis was observed. The specimen was then brought out using an EndoCatch bag and sent to pathology. This was examined on the back table, which was hard in consistency with ischemic changes; however, there did not appear to be any masses or nodules. We then proceeded with closure of the fascia using a Benigno-Lindsey device and several #0 Vicryl sutures. The abdomen was desufflated and remaining ports removed. All skin incisions were closed using 4-0 Monocryl running subcuticular sutures. Wounds were then cleaned and covered with Dermabond. The patient tolerated the procedure well. We will start IV and oral pain medication as well as a clear liquid diet. Once she is tolerating clears, has good pain control with oral pain medication and is ambulating well, we will discharge her home. She will be instructed to do no heavy lifting or exertion for the next two weeks. Job ID: [id number] DocumentID: [id number] Dictated Date: 10/18/2018 16:45:08 [employer] Offset Press Operator Date: 10/18/2018 21:28:06 Dictated By: KURTIS TINOCO MD
== END 2018-10-18 16:40 | disposition home or self-care (01) ==
LOC: SDC 08:25
PROVIDERS: ATTEND Surgery
DX: K80.10 Calculus of gallbladder with chronic cholecystitis without obstruction (principal); K56.2 Volvulus; I10 Essential (primary) hypertension; E11.42 Type 2 diabetes mellitus with diabetic polyneuropathy; J44.9 Chronic obstructive pulmonary disease, unspecified; G47.33 Obstructive sleep apnea (adult) (pediatric); K21.9 Gastro-esophageal reflux disease without esophagitis; K44.9 Diaphragmatic hernia without obstruction or gangrene; E66.01 Morbid (severe) obesity due to excess calories; Z68.43 Body mass index [BMI] 50.0-59.9, adult; Z87.891 Personal history of nicotine dependence; Z79.4 Long term (current) use of insulin; Z79.899 Other long term (current) drug therapy
CPT/HCPCS: 82962; 87081; 88304; 88307

== ENCOUNTER 2019-07-18 13:32 | Outpatient (RCR) | payer MEDICAID ==
[~2019-07-18 13:32] MED LIST changes: -MECL-106 PO; +MECL-149 PO; +OXYB5TAB13 PO; -OXYB5TAB9 PO; +OXYC1TAB12 PO
== END 2019-10-16 | disposition home or self-care (01) ==
PROVIDERS: ATTEND Family Medicine
DX: M51.36 Other intervertebral disc degeneration, lumbar region (principal); R32 Unspecified urinary incontinence; K21.9 Gastro-esophageal reflux disease without esophagitis; M81.0 Age-related osteoporosis without current pathological fracture; E10.9 Type 1 diabetes mellitus without complications; J44.9 Chronic obstructive pulmonary disease, unspecified; F32.9 Major depressive disorder, single episode, unspecified; H81.09 Meniere's disease, unspecified ear; Z87.81 Personal history of (healed) traumatic fracture; Z90.710 Acquired absence of both cervix and uterus; Z98.890 Other specified postprocedural states

== ENCOUNTER 2020-11-30 20:04 | Inpatient (IN) | payer MEDICAID ==
[~2020-11-30] VITALS: Ht 168.8 cm; Wt 174.6 kg
[~2020-11-30 20:04] MED LIST changes: -CASIRIVIMAB/IMDEVIMAB 1,200 MG in NS (IVPB) 250 ML IV ONE; -CELE-63 PO; -CHOL500044 PO; -DEXA4TAB PO; -DULO60CA59 PO; -EPINEPHrine INJECTION 1 MG/ML AMP IM PRN; -ERGO1250 PO; -INSU100I10 SC; -INSU100I55 SC; -METO5TAB2 PO; -ONDA-105 PO; -PANT40TA52 PO; -POTA10TA PO; -PREG200C28 PO; -SOLI10TA7 PO; -diphenhydrAMINE 50 MG/ML INJ (BENADRYL) IV PRN
[2020-11-30 20:28] LABS: BASOPHILS % (AUTO) 0 % (0-10); EOSINOPHILS % (AUTO) 0 % (0-10); HEMATOCRIT 43 % (35-52); LYMPHOCYTES # (AUTO) 0.8 10^3/uL (1.0-4.0); LYMPHOCYTES % (AUTO) 23 % (12-44); MEAN CORPUSCULAR HEMOGLOBIN 28 pg (25-34); MEAN CORPUSCULAR HGB CONC 33 g/dL (32-36); MEAN CORPUSCULAR VOLUME 86 fL (80-99); MEAN PLATELET VOLUME 10.2 fL (9.0-12.2); MONOCYTES # (AUTO) 0.1 10^3/uL (0.0-1.0); MONOCYTES % (AUTO) 3 % (0-12); NEUTROPHILS # (AUTO) 2.5 10^3/uL (1.8-7.8); NEUTROPHILS % (AUTO) 73 % (42-75); PLATELET COUNT 180 10^3/uL (130-400); WHITE BLOOD COUNT 3.4 10^3/uL (4.3-11.0)
--- NOTE | 2020-11-30 20:28 | ED Cough/URI ---
General Chief Complaint: Cough/Cold/Flu Symptoms Stated Complaint: COVID + SOB Nursing Triage Note: PT PRESENTS TO THE ED VIA EMS TO ROOM TEN. TESTED POS FOR COVID THIS MONDAY, RECIEVING BAM INFUSION. PT STATES SHE HAS HAD TO USE INCREASING AMOUNTS OF HOME 02 TO KEEP HER SATS ABOVE 90. STATES SHE HAS A COPD HX, DENIES SOB OR CP. Source: patient Exam Limitations: no limitations (DONALDO BARKSDALE APRN) History of Present Illness Date Seen by Provider: Nov 30, 2020 Time Seen by Provider: 20:28 Initial Comments To ER by [facility] from home with reports of shortness of breath. This is day 10 of illness. She is known to be Covid positive. She actually received Regeneron infusion today. She is unvaccinated against Covid. She has COPD and chronically wears oxygen at 1 L per nasal cannula. She has had to increase her oxygen supplementation to 4 L per nasal cannula to maintain saturation of 95%. Timing/Duration: constant Severity/Quality: moderate, dry cough Associated Symptoms: cough, shortness of breath (DONALDO BARKSDALE APRN) Allergies and Home Medications Allergies Coded Allergies: baclofen (Verified Allergy, Unknown, 10/02/18) Home Medications Albuterol Sulfate 1 Puff Puff, 2 PUFF IH Q4H PRN for WHEEZING, (Reported) 1 PUFF = 90 MCG Albuterol Sulfate 2.5 Mg/3 Ml Vial.neb, 2.5 MG INH Q4H PRN for SHORTNESS OF BREATH, (Reported) Budesonide/Formoterol Fumarate 10.2 Gm Hfa.aer.ad, 2 PUFF IH HS, (Reported) Dicyclomine HCl 20 Mg Tablet, 20 MG PO Q6H Prescribed by: YASMEEN HARRINGTON on 10/03/18 2314 Esomeprazole Magnesium 40 Mg Cap, 40 MG PO DAILY, (Reported) Fluticasone Propionate 16 Gm [place].susp, 2 GM NSEACH DAILY, (Reported) Furosemide 40 Mg Tablet, 40 MG PO DAILY, (Reported) Hydrochlorothiazide 25 Mg Tablet, 25 MG PO DAILY, (Reported) Hyoscyamine Sulfate 0.125 Mg Tab.subl, 1-2 TAB SL Q4H Prescribed by: YASMEEN HARRINGTON on 10/02/182200 Ibuprofen 800 Mg Tablet, 800 MG PO Q8H PRN for PAIN, (Reported) Insulin Aspart 300 Units/3 Ml Solution, 48-50 UNITS SQ ACHS, (Reported) Insulin Degludec 100 Unit/1 Ml Insuln.pen, 100 UNIT SQ BID, (Reported) Levothyroxine Sodium 75 Mcg Tablet, 75 MCG PO DAILY, (Reported) Lisinopril 5 Mg Tablet, 5 MG PO DAILY, (Reported) Meclizine HCl 25 Mg Tablet, 25 MG PO Q6H PRN for VERTIGO, (Reported) Metformin HCl 1,000 Mg Tablet, 1,000 MG PO BID, (Reported) Multivit with Calcium,Iron,Min 1 Each Tablet, 1 EACH PO DAILY, (Reported) Nebivolol HCl 5 Mg Tablet, 5 MG PO HS, (Reported) Oxybutynin Chloride 5 Mg Tablet, 5 MG PO DAILY, (Reported) Oxycodone HCl/Acetaminophen 1 Each Tablet, 1-2 EACH PO Q4H PRN for PAIN- MODERATE, (Reported) Oxycodone HCl/Acetaminophen 1 Each Tablet, 1-2 TAB PO Q4H PRN for PAIN-MODERATE Prescribed by: ANGUS WATKINS on 10/18/18 0842 Pantoprazole Sodium 40 Mg Tablet.dr, 40 MG PO DAILY Prescribed by: KURTIS TINOCO on 09/05/18 1211 Potassium Chloride 10 Meq Tablet.er, 20 MEQ PO DAILY, (Reported) take 2 (10mEq) tabs Pregabalin 200 Mg Capsule, 200 MG PO BID, (Reported) Promethazine HCl 25 Mg Tablet, 25 MG PO Q6H PRN for NAUSEA/VOMITING, (Reported) Semaglutide 1 Mg/0.75 Ml Pen.injctr, 1 MG SQ WEEK, (Reported) Sucralfate 1 Gm Tablet, 1 GM PO QIDACHS Prescribed by: YASMEEN HARRINGTON on 10/02/181 Tizanidine HCl 4 Mg Tablet, 8 MG PO HS, (Reported) take 2 (4mg) tabs Patient Home Medication List Home Medication List Reviewed: Yes (DONALDO BARKSDALE APRN) Review of Systems Review of Systems Constitutional: see HPI, malaise, weakness EENTM: see HPI Respiratory: see HPI, cough, short of breath Cardiovascular: no symptoms reported Genitourinary: no symptoms reported Musculoskeletal: no symptoms reported Skin: no symptoms reported Psychiatric/Neurological: No Symptoms Reported Hematologic/Lymphatic: No Symptoms Reported (DONALDO BARKSDALE APRN) Past Phqexaf-Btrrbk-Ujjmon Hx Immunizations Up To Date Tetanus Booster (TDap): Unknown PED Vaccines UTD: Yes (DONALDO BARKSDALE APRN) Seasonal Allergies Seasonal Allergies: No (DONALDO BARKSDALE APRN) Past Medical History Surgeries: Yes (c/s x3, bilat CTR, L thumb) Adenoidectomy, Section, Hysterectomy, Oophorectomy, Tonsillectomy Respiratory: Yes Sleep Apnea, COPD Currently Using CPAP: Yes Cardiac: Yes High Cholesterol, Hypertension Neurological: Yes Neuropathy, Vertigo Reproductive Disorders: No 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 Sexually Transmitted Disease: No HIV/AIDS: No Genitourinary: No Gastrointestinal: Yes (GASTRITIS DX ON EGD 09/05/18) Gastroesophageal Reflux, Hiatal Hernia, Gall Bladder Disease, Irritable Bowel Musculoskeletal: Yes Degenerate Disk Disease, Fibromyalgia, Back Injury, Chronic Back Pain, Fractures Endocrine: Yes (MORBID OBESITY) Diabetes, Insulin dep, Hypothyroidsim HEENT: Yes (MISSING TEETH/POOR DENTITION) Cancer: No Psychosocial: Yes Sleep Difficulties, Anxiety, Depression Integumentary: Yes ( hx of MRSA/ABSCESSES/CELLULITIS/FOLLICULITIS; ) Blood Disorders: No Adverse Reaction/Blood Tranf: No (DONALDO BARKSDALE APRN) Family Medical History No Pertinent Family Hx (DONALDO BARKSDALE APRN) Physical Exam Vital Signs - First Documented 11/30/20 20:04 Temp 39.0 Pulse 117 Resp 22 B/P (MAP) 151/77 (101) Pulse Ox 95 O2 Delivery Nasal Cannula O2 Flow Rate 4.00 (KWESI MENDOZA MD) Capillary Refill : Less Than 3 Seconds (DONALDO BARKSDALE APRN) Height: 5'5.00" Weight: 340lbs. 0.0oz. 154.242503zv; 63.00 BMI Method:Stated General Appearance: WD/WN, no apparent distress, obese Eyes: Bilateral Eye Normal Inspection, Bilateral Eye PERRL, Bilateral Eye EOMI HEENT: PERRL/EOMI, normal ENT inspection Neck: non-tender, full range of motion Respiratory: normal breath sounds, no respiratory distress, no accessory muscle use Cardiovascular: no murmur, tachycardia Gastrointestinal: normal bowel sounds, non tender, soft Neurologic/Psychiatric: alert, normal mood/affect, oriented x 3 Skin: normal color, warm/dry (DONALDO BARKSDALE APRN) Progress/Results/Core Measures Suspected Sepsis SIRS Temperature: Pulse: 117 Respiratory Rate: 22 Laboratory Tests 11/30/20 20:20: White Blood Count 3.4L Blood Pressure 151 /77 Mean: 101 Laboratory Tests 11/30/20 20:20: Creatinine 1.10, Platelet Count 180, Total Bilirubin 0.5 (DONALDO BARKSDALE APRN) Results/Orders Lab Results Laboratory Tests Test 11/30/20 20:20 Range/Units White Blood Count 3.4 L 4.3-11.0 10^3/uL Red Blood Count 5.01 3.80-5.11 10^6/uL Hemoglobin 14.0 11.5-16.0 g/dL Hematocrit 43 35-52 % Mean Corpuscular Volume 86 80-99 fL Mean Corpuscular Hemoglobin 28 25-34 pg Mean Corpuscular Hemoglobin Concent 33 32-36 g/dL Red Cell Distribution Width 14.6 H 10.0-14.5 % Platelet Count 180 130-400 10^3/uL Mean Platelet Volume 10.2 9.0-12.2 fL Immature Granulocyte % (Auto) 1 % Neutrophils (%) (Auto) 73 42-75 % Lymphocytes (%) (Auto) 23 12-44 % Monocytes (%) (Auto) 3 0-12 % Eosinophils (%) (Auto) 0 0-10 % Basophils (%) (Auto) 0 0-10 % Neutrophils # (Auto) 2.5 1.8-7.8 10^3/uL Lymphocytes # (Auto) 0.8 L 1.0-4.0 10^3/uL Monocytes # (Auto) 0.1 0.0-1.0 10^3/uL Eosinophils # (Auto) 0.0 0.0-0.3 10^3/uL Basophils # (Auto) 0.0 0.0-0.1 10^3/uL Immature Granulocyte # (Auto) 0.0 0.0-0.1 10^3/uL D-Dimer 1.17 H 0.00-0.49 UG/ML Sodium Level 132 L 135-145 MMOL/L Potassium Level 3.9 3.6-5.0 MMOL/L Chloride Level 95 L 98-107 MMOL/L Carbon Dioxide Level 24 21-32 MMOL/L Anion Gap 13 5-14 MMOL/L Blood Urea Nitrogen 21 H 7-18 MG/DL Creatinine 1.10 0.60-1.30 MG/DL Estimat Glomerular Filtration Rate 52 BUN/Creatinine Ratio 19 Glucose Level 271 H 70-105 MG/DL Calcium Level 8.4 L 8.5-10.1 MG/DL Corrected Calcium 8.6 8.5-10.1 MG/DL Total Bilirubin 0.5 0.1-1.0 MG/DL Aspartate Amino Transf (AST/SGOT) 302 H 5-34 U/L Alanine Aminotransferase (ALT/SGPT) 172 H 0-55 U/L Alkaline Phosphatase 285 H 40-136 U/L C-Reactive Protein High Sensitivity 5.68 H 0.00-0.50 MG/DL B-Type Natriuretic Peptide < 10.0 <100.0 PG/ML Total Protein 6.8 6.4-8.2 GM/DL Albumin 3.7 3.2-4.5 GM/DL Procalcitonin 0.34 H <0.10 NG/ML (KWESI MENDOZA MD) Vital Signs/I&O 11/30/20 11/30/20 20:04 20:05 Temp 39.0 Pulse 117 Resp 22 B/P (MAP) 151/77 (101) Pulse Ox 95 O2 Delivery Nasal Cannula Nasal Cannula O2 Flow Rate 4.00 4.00 (KWESI MENDOZA MD) Vital Signs/I&O Capillary Refill : Less Than 3 Seconds (DONALDO BARKSDALE APRN) Blood Pressure Mean: 101 Departure Communication (Admissions) Spoke with Dr. Rebollar, will admit on supplemental oxygen at a higher rate than she takes at home, remdesivir, prophylactic dose Lovenox and continue the dexamethasone. NAME: KADEN PINK [facility] REC#: [id number] PT STATUS: ADM IN : 1970 PHYSICIAN: DONALDO BARKSDALE APRN ADMIT DATE: 11/30/20 Draft Date of Exam:11/30/20 CT ANGIO CHEST W PROCEDURE: CT angiography of the chest with contrast. TECHNIQUE: Multiple contiguous axial images were obtained through the chest after uneventful bolus administration of intravenous contrast. 3D reconstructed CTA MIP acquisitions were also performed. Auto Exposure Controls were utilized during the CT exam to meet ALARA standards for radiation dose reduction. INDICATION: Shortness breath. COMPARISON: None. FINDINGS: The heart is prominent with coronary artery disease. The pulmonary arteries and aorta are normal. There is no embolism. Bilateral pulmonary infiltrates are present compatible with pneumonia. There is no pneumothorax or effusion. Osseous structures are normal. Upper abdominal solid organs are intact. Fatty liver is present. IMPRESSION: 1. Bilateral pulmonary infiltrates compatible with pneumonia. 2. No pulmonary embolism. 3. Coronary artery disease Dictated on workstation # [id number] Dict: 11/30/202136 Trans: 11/30/202138 [facility] [id number] Interpreted by: INGA ARTEAGA Electronically signed by: (DONALDO BARKSDALE APRN) Impression Primary Impression: COVID-19 Additional Impression: Hypoxia Disposition: ADMITTED INPATIENT Condition: Stable Admissions Decision to Admit Reason: Admit from ER (General) Decision to Admit/Date: Nov 30, 2020 Time/Decision to Admit Time: 21:26 (DONALDO BARKSDALE APRN) Departure-Patient Inst. Referrals: INDU REBOLLAR DO (PCP/Family) Primary Care Physician ATTENDING PHYSICIAN NOTE: I was physically present as attending physician in the emergency department during the care of this patient, but I was not directly involved in the decision making or delivery of care for this patient. (KWESI MENDOZA MD) DONALDO BARKSDALE APRN Nov 30, 2020 20:28 KWESI MENDOZA MD Dec 01, 2020 06:49
[2020-11-30 20:36] LABS: ALBUMIN 3.7 GM/DL (3.2-4.5); POTASSIUM 3.9 MMOL/L (3.6-5.0)
[2020-11-30 20:37] LABS: CALCIUM 8.4 MG/DL (8.5-10.1)
[2020-11-30 20:39] LABS: TOTAL PROTEIN 6.8 GM/DL (6.4-8.2)
[2020-11-30 20:40] LABS: BILIRUBIN,TOTAL 0.5 MG/DL (0.1-1.0)
[2020-11-30 20:42] LABS: CREATININE SERUM 1.1 MG/DL (0.60-1.30)
--- NOTE | 2020-11-30 21:11 | Diagnostic Imaging Report ---
INDICATION: Covid positive, shortness of breath. COMPARISON: 01/11/2015 FINDINGS: Single view of the chest demonstrates slight cardiac enlargement. There are bilateral pulmonary infiltrates representing CHF versus pneumonia. There is no pneumothorax or effusion. Osseous structures are normal. IMPRESSION: Bilateral pulmonary infiltrates representing pneumonia versus CHF. Dictated by: Dictated on workstation # [id number]
[2020-11-30] MEDS ORDERED: NS 100 ML (IVPB) BAG IV ONE (21:15)
[2020-11-30] MEDS ORDERED: HOLD METFORMIN - RECEIVED CONTRAST 20 ML VIAL IV SCH (21:15)
[2020-11-30] MEDS ORDERED: IOHEXOL 350 MG/ML 100 ML (OMNIPAQUE 350) VIAL IV ONE (21:15)
--- NOTE | 2020-11-30 21:39 | Diagnostic Imaging Report ---
PROCEDURE: CT angiography of the chest with contrast. TECHNIQUE: Multiple contiguous axial images were obtained through the chest after uneventful bolus administration of intravenous contrast. 3D reconstructed CTA MIP acquisitions were also performed. Auto Exposure Controls were utilized during the CT exam to meet ALARA standards for radiation dose reduction. INDICATION: Shortness breath. COMPARISON: None. FINDINGS: The heart is prominent with coronary artery disease. The pulmonary arteries and aorta are normal. There is no embolism. Bilateral pulmonary infiltrates are present compatible with pneumonia. There is no pneumothorax or effusion. Osseous structures are normal. Upper abdominal solid organs are intact. Fatty liver is present. IMPRESSION: 1. Bilateral pulmonary infiltrates compatible with pneumonia. 2. No pulmonary embolism. 3. Coronary artery disease Dictated by: Dictated on workstation # [id number]
[2020-11-30] MEDS ORDERED: KETOROLAC 30 MG/ML VIAL IVP ONE (22:00)
[2020-11-30 23:00] VITALS: BP 99/69
[2020-12-01] VITALS (7 sets, daily range): BP systolic 99–162; BP diastolic 62–83
[2020-12-01] MEDS: ONDANSETRON 4 MG/2 ML (SDV) Z0FRAN IVP PRN ×2 (04:05→09:02)
[2020-12-01] MEDS: ACETAMINOPHEN 325 MG TABLET PO PRN ×2 (04:06→08:00)
[2020-12-01] MEDS: dexAMETHasone 6 MG TAB (DECADRON) PO SCH (06:10)
[2020-12-01] MEDS ORDERED: REMDESIVIR INJ 200 MG in NS (IVPB) 210 ML IV ONE (09:00)
[2020-12-01] MEDS: ENOXAPARIN 60 MG/0.6 ML (LOVENOX) SYR SC SCH ×2 (09:01→21:14)
[2020-12-01] MEDS: RT-ALBUTEROL INHALER HFA (VENTOLIN HFA) 18 GM IH SCH ×2 (10:21→18:23)
[2020-12-01] MEDS ORDERED: AZITHROMYCIN INJECTION 500 MG in NS (IVPB) 250 ML IV NR (13:00)
[2020-12-01] MEDS ORDERED: PANTOPRAZOLE 40 MG (PROTONIX) TAB PO NR (13:00)
[2020-12-01] MEDS ORDERED: SCOPOLAMINE 1.5 MG (TRANSDERM-SCOP) PATCH TD NR (13:00)
[2020-12-01] MEDS: cefTRIAXone 1,000 MG in WATER (STERILE) FOR INJECTION 10 ML IV SCH (15:04)
[2020-12-01] MEDS: PROMETHAZINE INJ 25 MG/ML (PHENERGAN) AMP IVP PRN ×2 (15:13→21:14)
[2020-12-01] MEDS: inSUlin ASPART (NovoLOG) 1 UNIT/0.01 ML (CHARGE PER UNIT) SC SCH ×2 (16:56→21:19)
[2020-12-01] MEDS ORDERED: NEBIVOLOL 5 MG TAB (NON-FORMULARY) PO ONE (17:00)
--- NOTE | 2020-12-01 17:15 | History & Physical ---
History of Present Illness History of Present Illness Reason for visit/HPI This is a 50 year old female who has class 3 obesity with COPD and poorly controlled diabetes. She tested positive for COVID-19 on 11/26/20. She was immediately started on Decadron 6mg daily, aspirin 325mg daily, albuterol MDI 2puffs every 4hrs, Incentive Spirometry and instructed on proning. She was scheduled for Regeneron infusion on 11/30/20. After her infusion she was having worsening oxygen saturations and presented to the emergency room for evaluation. She does have bilateral pulmonary infiltrates with elevated liver enzymes. She was only requiring 2-4 liters of nasal cannula to keep her oxygen saturations above 90% but due to her worsening symptoms and numerous comorbidities it was decided to admit her for more aggressive treatment. Date of Admission Nov 30, 2020 at 20:28 Date Seen by a Provider: Dec 01, 2020 Time Seen by a Provider: 12:30 I consulted on this patient on 12/01/20 17:10 Attending Physician Indu Rebollar DO Admitting Physician Indu Rebollar DO Consult Allergies and Home Medications Allergies Coded Allergies: baclofen (Verified Allergy, Unknown, 10/02/18) Home Medications Albuterol Sulfate 1 Puff Puff, 2 PUFF IH Q4H PRN for WHEEZING, (Reported) 1 PUFF = 90 MCG Albuterol Sulfate 2.5 Mg/3 Ml Vial.neb, 2.5 MG INH Q4H PRN for SHORTNESS OF BREATH, (Reported) Budesonide/Formoterol Fumarate 10.2 Gm Hfa.aer.ad, 2 PUFF IH HS, (Reported) Dicyclomine HCl 20 Mg Tablet, 20 MG PO Q6H Prescribed by: YASMEEN HARRINGTON on 10/03/18 2314 Esomeprazole Magnesium 40 Mg Cap, 40 MG PO DAILY, (Reported) Fluticasone Propionate 16 Gm [place].susp, 2 GM NSEACH DAILY, (Reported) Furosemide 40 Mg Tablet, 40 MG PO DAILY, (Reported) Hydrochlorothiazide 25 Mg Tablet, 25 MG PO DAILY, (Reported) Hyoscyamine Sulfate 0.125 Mg Tab.subl, 1-2 TAB SL Q4H Prescribed by: YASMEEN HARRINGTON on 10/02/182200 Ibuprofen 800 Mg Tablet, 800 MG PO Q8H PRN for PAIN, (Reported) Insulin Aspart 300 Units/3 Ml Solution, 48-50 UNITS SQ ACHS, (Reported) Insulin Degludec 100 Unit/1 Ml Insuln.pen, 100 UNIT SQ BID, (Reported) Levothyroxine Sodium 75 Mcg Tablet, 75 MCG PO DAILY, (Reported) Lisinopril 5 Mg Tablet, 5 MG PO DAILY, (Reported) Meclizine HCl 25 Mg Tablet, 25 MG PO Q6H PRN for VERTIGO, (Reported) Metformin HCl 1,000 Mg Tablet, 1,000 MG PO BID, (Reported) Multivit with Calcium,Iron,Min 1 Each Tablet, 1 EACH PO DAILY, (Reported) Nebivolol HCl 5 Mg Tablet, 5 MG PO HS, (Reported) Oxybutynin Chloride 5 Mg Tablet, 5 MG PO DAILY, (Reported) Oxycodone HCl/Acetaminophen 1 Each Tablet, 1-2 EACH PO Q4H PRN for PAIN- MODERATE, (Reported) Oxycodone HCl/Acetaminophen 1 Each Tablet, 1-2 TAB PO Q4H PRN for PAIN-MODERATE Prescribed by: ANGUS WATKINS on 10/18/18 0842 Pantoprazole Sodium 40 Mg Tablet.dr, 40 MG PO DAILY Prescribed by: KURTIS TINOCO on 09/05/18 1211 Potassium Chloride 10 Meq Tablet.er, 20 MEQ PO DAILY, (Reported) take 2 (10mEq) tabs Pregabalin 200 Mg Capsule, 200 MG PO BID, (Reported) Promethazine HCl 25 Mg Tablet, 25 MG PO Q6H PRN for NAUSEA/VOMITING, (Reported) Semaglutide 1 Mg/0.75 Ml Pen.injctr, 1 MG SQ WEEK, (Reported) Sucralfate 1 Gm Tablet, 1 GM PO QIDACHS Prescribed by: YASMEEN HARRINGTON on 10/02/181 Tizanidine HCl 4 Mg Tablet, 8 MG PO HS, (Reported) take 2 (4mg) tabs Patient Home Medication List Home Medication List Reviewed: Yes Past Fppqwgm-Untylb-Vujkpz Hx Patient Social History Tobacco Use?: No Smoking Status: Former Smoker Smokeless Tobacco Frequency: Former User Use of E-Cig and/or Vaping dev: No Substance use?: No Alcohol Use?: No Pt feels they are or have been: No Immunizations Up To Date Date of Influenza Vaccine: Feb 12, 2018 Tetanus Booster (TDap): Unknown Hepatitis A: No Hepatitis B: No PED Vaccines UTD: Yes Date of Pneumonia Vaccine: September 12, 2016 Seasonal Allergies Seasonal Allergies: No Current Status status: Unable to obtain status: No Advance Directives: No Communicates: Verbally Primary Language: Barbadian Preferred Spoken Language: Barbadian Is interpretation needed?: No Implanted or Applied Medical D: None Past Medical History Surgeries: Adenoidectomy, Section, Hysterectomy, Oophorectomy, Tonsillectomy Sleep Apnea, COPD Currently Using CPAP: Yes High Cholesterol, Hypertension Neuropathy, Vertigo 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 Sexually Transmitted Disease: No HIV/AIDS: No Gastroesophageal Reflux, Hiatal Hernia, Gall Bladder Disease, Irritable Bowel Degenerate Disk Disease, Fibromyalgia, Back Injury, Chronic Back Pain, Fractures Diabetes, Insulin dep, Hypothyroidsim Sleep Difficulties, Anxiety, Depression Blood Disorders: No Adverse Reaction/Blood Tranf: No Family Medical History No Pertinent Family Hx Review of Systems Constitutional: weakness Respiratory: cough, dyspnea on exertion, short of breath, wheezing Cardiovascular: No no symptoms reported, No see HPI, No chest pain, No edema, No Hx of Intervention, No palpitations, No syncope, No vascular heart diseas, No other Gastrointestinal: diarrhea, loss of appetite, nausea Genitourinary: decreased output Musculoskeletal: back pain, muscle weakness Skin: No no symptoms reported, No see HPI, No change in color, No change in hair/nails, No dryness, No hx of skin cancer, No lesions, No lumps, No pruritus, No rash, No other Psychiatric/Neurological: Headache, Numbness, Weakness Physical Exam Vital Signs Vital Signs - First Documented 11/30/20 20:04 Temp 39.0 Pulse 117 Resp 22 B/P (MAP) 151/77 (101) Pulse Ox 95 O2 Delivery Nasal Cannula O2 Flow Rate 4.00 Capillary Refill : Less Than 3 Seconds Height, Weight, BMI Height: 5'5.00" Weight: 340lbs. 0.0oz. 154.261071yn; 61.27 BMI Method:Stated General Appearance: Mild Distress HEENT: Normal ENT Inspection Respiratory: Decreased Breath Sounds, Rales, Rhonci, Wheezing Cardiovascular: Regular Rate, Rhythm, Gallop/S4 Gastrointestinal: Normal Bowel Sounds, Non Tender, Soft Rectal: Deferred Back: No CVA Tenderness Extremity: Non Tender, No Calf Tenderness, No Pedal Edema Neurologic/Psychiatric: Alert, Oriented x3 Skin: Warm/Dry Comments Laboratory Tests 11/30/20 20:20: White Blood Count 3.4L, Red Blood Count 5.01, Hemoglobin 14.0, Hematocrit 43, Mean Corpuscular Volume 86, Mean Corpuscular Hemoglobin 28, Mean Corpuscular Hemoglobin Concent 33, Red Cell Distribution Width 14.6H, Platelet Count 180, Mean Platelet Volume 10.2, Immature Granulocyte % (Auto) 1, Neutrophils (%) (Auto) 73, Lymphocytes (%) (Auto) 23, Monocytes (%) (Auto) 3, Eosinophils (%) (Auto) 0, Basophils (%) (Auto) 0, Neutrophils # (Auto) 2.5, Lymphocytes # (Auto) 0.8L, Monocytes # (Auto) 0.1, Eosinophils # (Auto) 0.0, Basophils # (Auto) 0.0, Immature Granulocyte # (Auto) 0.0, D-Dimer 1.17H, Sodium Level 132L, Potassium Level 3.9, Chloride Level 95L, Carbon Dioxide Level 24, Anion Gap 13, Blood Urea Nitrogen 21H, Creatinine 1.10, Estimat Glomerular Filtration Rate 52, BUN/Creatinine Ratio 19, Glucose Level 271H, Calcium Level 8.4L, Corrected Calcium 8.6, Total Bilirubin 0.5, Aspartate Amino Transf (AST/SGOT) 302H, Alanine Aminotransferase (ALT/SGPT) 172H, Alkaline Phosphatase 285H, C-Reactive Protein High Sensitivity 5.68H, B-Type Natriuretic Peptide < 10.0, Total Protein 6.8, Albumin 3.7, Procalcitonin 0.34H 12/01/20 15:53: Glucometer 256H Assessment/Plan Assessment and Plan 1. Acute Respiratory Distress due to COVID-19--admit and use oxygen and will titrate or go to vapotherm if needed, IV decadron, IS, albuterol MDI, lovenox for DVT prophylaxis 2. COVID-19 pneumonia--will add Rocephin/Zithromax for secondary pneumonia, on remdesivir 3. COPD--Albuterol MDI and Decadron as above 4. Hypertension/Tachycardia--restart bystolic 5. Diabetes mellitus--insulin requiring, start accuchecks with SSI C Updated daughter on condition Admission Diagnosis Admission Status: Inpatient Order (span 2 midnights) Reason for Inpatient Admission: Will need IV decadron, respiratory support, remdesivir INDU REBOLLAR DO Dec 01, 2020 17:15
[2020-12-01] MEDS: oxyCODONE/APAP 10/325MG (PERCOCET 10) TABLET PO PRN (21:14)
[2020-12-01] MEDS: RT-ALBUTEROL INHALER HFA (VENTOLIN HFA) 18 GM IH PRN (21:24)
[2020-12-02] MEDS: oxyCODONE/APAP 10/325MG (PERCOCET 10) TABLET PO PRN ×2 (03:51→13:46)
[2020-12-02] MEDS: PROMETHAZINE INJ 25 MG/ML (PHENERGAN) AMP IVP PRN ×2 (03:51→20:03)
[2020-12-02] MEDS: ONDANSETRON 4 MG/2 ML (SDV) Z0FRAN IVP PRN ×2 (03:51→20:03)
[2020-12-02] MEDS: RT-ALBUTEROL INHALER HFA (VENTOLIN HFA) 18 GM IH PRN (03:52)
[2020-12-02 04:01] VITALS: BP 125/75
[2020-12-02 06:16] LABS: HEMATOCRIT 43 % (35-52); HEMOGLOBIN 14.2 g/dL (11.5-16.0); MEAN CORPUSCULAR HEMOGLOBIN 28 pg (25-34); MEAN CORPUSCULAR HGB CONC 33 g/dL (32-36); MEAN CORPUSCULAR VOLUME 85 fL (80-99); MEAN PLATELET VOLUME 10.3 fL (9.0-12.2); PLATELET COUNT 167 10^3/uL (130-400); WHITE BLOOD COUNT 5.1 10^3/uL (4.3-11.0)
[2020-12-02] MEDS: LEVOTHYROXINE 75 MCG (LEVOTHROID) TABLET PO SCH (06:23)
[2020-12-02] MEDS: dexAMETHasone 6 MG TAB (DECADRON) PO SCH (06:23)
[2020-12-02] MEDS: inSUlin ASPART (NovoLOG) 1 UNIT/0.01 ML (CHARGE PER UNIT) SC SCH ×4 (06:23→21:49)
[2020-12-02 06:40] LABS: ALANINE AMINOTRANSFERASE 93 U/L (0-55); ALBUMIN 3.3 GM/DL (3.2-4.5); ALKALINE PHOSPHATASE 193 U/L (40-136); BILIRUBIN,TOTAL 0.4 MG/DL (0.1-1.0); BUN/CREATININE RATIO 22; CARBON DIOXIDE 23 MMOL/L (21-32); CHLORIDE 98 MMOL/L (98-107); CREATININE SERUM 0.85 MG/DL (0.60-1.30); GFR ESTIMATED > 60; GLUCOSE 169 MG/DL (70-105); POTASSIUM 3.8 MMOL/L (3.6-5.0); SODIUM 130 MMOL/L (135-145); TOTAL PROTEIN 6.5 GM/DL (6.4-8.2)
[2020-12-02] MEDS: RT-ALBUTEROL INHALER HFA (VENTOLIN HFA) 18 GM IH SCH ×2 (07:11→22:27)
--- NOTE | 2020-12-02 08:19 | Diagnostic Imaging Report ---
Indication: COVID COMPARISON: 11/30/2020. Progressive 5 lobe infiltrates present with stable heart size and no convincing evidence for pleural fluid or pneumothorax. IMPRESSION: Worsened 5 lobe infiltrates. Report was faxed to [facility] by bob at 8:18AM. Dictated by: Dictated on workstation # [id number]
[2020-12-02 08:31] VITALS: BP 126/62
[2020-12-02] MEDS ORDERED: NEBIVOLOL 5 MG TAB (NON-FORMULARY) PO SCH (09:00)
[2020-12-02] MEDS: ENOXAPARIN 60 MG/0.6 ML (LOVENOX) SYR SC SCH ×2 (09:08→20:02)
[2020-12-02] MEDS: REMDESIVIR INJ 100 MG in NS (IVPB) 230 ML IV SCH (09:08)
[2020-12-02] MEDS: PANTOPRAZOLE 40 MG (PROTONIX) TAB PO SCH (09:08)
[2020-12-02] MEDS: AZITHROMYCIN 250 MG TAB (ZITHROMAX) PO SCH (09:08)
[2020-12-02 11:08] VITALS: BP 126/71
[2020-12-02] MEDS: cefTRIAXone 1,000 MG in WATER (STERILE) FOR INJECTION 10 ML IV SCH (13:46)
[2020-12-02 15:03] LABS: ABG OXYGEN SATURATION 90 % (94-100); ABG PCO2 39 MMHG (35-45); ABG PH 7.39 (7.37-7.43); ABG PO2 65 MMHG (79-93); ABG TCO2 24.5 MMOL/L (21.0-31.0)
[2020-12-02 15:04] LABS: ALLENS TEST POSITIVE; INSPIRED O2 4 L; PATIENT TEMP 36.6; VENTILATOR NO
[2020-12-02 16:13] VITALS: BP 107/63
--- NOTE | 2020-12-02 17:01 | Progress Note ---
Subjective Date Seen by a Provider: Dec 02, 2020 Time Seen by a Provider: 12:30 Subjective/Events-last exam Fwup acute respiratory distress, COVID-19 pneumonia, COPD, HTN, Class 3 obesity, DM--insulin requiring, ANTONIO. Patient c/o sever fatigue. On 3L NC and sats at 88-90%. Objective Exam Vital Signs Date Time Temp Pulse Resp B/P (MAP) Pulse Ox O2 Delivery O2 Flow Rate FiO2 12/02/20 16:13 35.8 78 18 107/63 (78) 91 Nasal Cannula 3.00 12/02/20 11:08 36.6 86 18 126/71 (89) 89 Nasal Cannula 3.00 12/02/20 08:31 35.9 85 20 126/62 (83) 92 Nasal Cannula 4.00 12/02/20 08:00 Nasal Cannula 2.00 12/02/20 07:11 93 Nasal Cannula 2.00 12/02/20 04:01 36.8 92 20 125/75 (92) 92 Nasal Cannula 4.00 12/01/20 23:50 36.2 90 20 105/62 (76) 95 Nasal Cannula 2.00 12/01/20 20:52 36.6 94 20 140/71 (94) 94 Nasal Cannula 2.00 12/01/20 20:00 Nasal Cannula 2.00 12/01/20 18:23 93 Nasal Cannula 2.00 I & O 12/02/20 06:59 Intake Total 2910 ml Output Total 3400 ml Balance -490 ml Capillary Refill : Less Than 3 Seconds General Appearance: Mild Distress Respiratory: Crackles, Decreased Breath Sounds, Wheezing Cardiovascular: Regular Rate, Rhythm, Systolic Murmur Gastrointestinal: normal bowel sounds, non tender, soft Extremity: Non Tender, No Calf Tenderness, No Pedal Edema Neurologic/Psychiatric: Alert Results Lab Laboratory Tests 12/01/20 20:52: Glucometer 267H 12/02/20 06:06: Glucometer 190H 12/02/20 06:10: White Blood Count 5.1, Red Blood Count 5.07, Hemoglobin 14.2, Hematocrit 43, Mean Corpuscular Volume 85, Mean Corpuscular Hemoglobin 28, Mean Corpuscular Hemoglobin Concent 33, Red Cell Distribution Width 14.4, Platelet Count 167, Mean Platelet Volume 10.3, Sodium Level 130L, Potassium Level 3.8, Chloride Level 98, Carbon Dioxide Level 23, Anion Gap 9, Blood Urea Nitrogen 19H, Creatinine 0.85, Estimat Glomerular Filtration Rate > 60, BUN/Creatinine Ratio 22, Glucose Level 169H, Calcium Level 8.0L, Corrected Calcium 8.6, Total Bilirubin 0.4, Aspartate Amino Transf (AST/SGOT) 88H, Alanine Aminotransferase (ALT/SGPT) 93H, Alkaline Phosphatase 193H, Total Protein 6.5, Albumin 3.3 12/02/20 11:04: Glucometer 213H 12/02/20 13:36: Glucometer 315H 12/02/20 15:00: Blood Gas Puncture Site RIGHT RADIAL, Blood Gas Patient Temperature 36.6, Arterial Blood pH 7.39, Arterial Blood Partial Pressure CO2 39, Arterial Blood Partial Pressure O2 65L, Arterial Blood HCO3 23, Arterial Blood Total CO2 24.5, Arterial Blood Oxygen Saturation 90L, Arterial Blood Base Excess -1.0, [place] POSITIVE, Blood Gas Ventilator Setting NO, Blood Gas Inspired Oxygen 4 L Assessment/Plan Assessment/Plan Assess & Plan/Chief Complaint 1. Acute Respiratory Distress with Hypoxia--on oxygen via NC at 3L--increased to 4L and will check ABG, consult pulmonology 2. COVID-19 Pneumonia--CXR worsening, on Remdesivir, Decadron, Albuterol, IS and lovenox as well as Rocephin/Zithromax for secondary bacterial pneumonia 3. COPD--on albuterol, add ipratropium 4. ANTONIO--needs to restart CPAP--will see if family can bring up home CPAP 5. Diabetes mellitus--insulin requiring--on SSI C, add levemir 6. Class 3 Obesity--patient is very high risk due to numerous comorbidities Clinical Quality Measures Admission Status Admission Dx 1. Acute Respiratory Distress due to COVID-19--admit and use oxygen and will titrate or go to vapotherm if needed, IV decadron, IS, albuterol MDI, lovenox for DVT prophylaxis 2. COVID-19 pneumonia--will add Rocephin/Zithromax for secondary pneumonia, on remdesivir 3. COPD--Albuterol MDI and Decadron as above 4. Hypertension/Tachycardia--restart bystolic 5. Diabetes mellitus--insulin requiring, start accuchecks with SSI C Updated daughter on condition INDU KING DO Dec 02, 2020 17:01
[2020-12-02] MEDS: NYSTATIN ORAL SUSP 5 ML UDC PO SCH ×2 (18:21→23:56)
[2020-12-02] MEDS ORDERED: IPRATROPIUM INHALER (ATROVENT) 12.9 GM INH SCH (19:00)
[2020-12-02 19:05] VITALS: BP 116/65
[2020-12-02] MEDS: UMECLIDINIUM BROMIDE (INCRUSE ELLIPTA) 7'S IH SCH (22:27)
[2020-12-02 23:56] VITALS: BP 106/67
[2020-12-03 04:11] VITALS: BP 102/62
[2020-12-03] MEDS: NYSTATIN ORAL SUSP 5 ML UDC PO SCH ×3 (05:51→16:09)
[2020-12-03] MEDS: dexAMETHasone 6 MG TAB (DECADRON) PO SCH (05:51)
[2020-12-03] MEDS: ONDANSETRON 4 MG/2 ML (SDV) Z0FRAN IVP PRN ×2 (05:51→20:36)
[2020-12-03] MEDS: inSUlin ASPART (NovoLOG) 1 UNIT/0.01 ML (CHARGE PER UNIT) SC SCH ×4 (06:21→21:06)
[2020-12-03] MEDS: LEVOTHYROXINE 75 MCG (LEVOTHROID) TABLET PO SCH (06:21)
[2020-12-03] MEDS: RT-ALBUTEROL INHALER HFA (VENTOLIN HFA) 18 GM IH PRN (06:42)
[2020-12-03 06:58] LABS: HEMATOCRIT 43 % (35-52); MEAN CORPUSCULAR HEMOGLOBIN 28 pg (25-34); MEAN CORPUSCULAR HGB CONC 32 g/dL (32-36); MEAN CORPUSCULAR VOLUME 86 fL (80-99); MEAN PLATELET VOLUME 10.3 fL (9.0-12.2); PLATELET COUNT 210 10^3/uL (130-400); WHITE BLOOD COUNT 4.4 10^3/uL (4.3-11.0)
[2020-12-03 07:28] LABS: ALBUMIN 3.3 GM/DL (3.2-4.5); BILIRUBIN,TOTAL 0.4 MG/DL (0.1-1.0); CALCIUM 8.3 MG/DL (8.5-10.1); CREATININE SERUM 0.95 MG/DL (0.60-1.30); POTASSIUM 4.2 MMOL/L (3.6-5.0); TOTAL PROTEIN 6.8 GM/DL (6.4-8.2)
[2020-12-03] MEDS: UMECLIDINIUM BROMIDE (INCRUSE ELLIPTA) 7'S IH SCH (07:29)
[2020-12-03] MEDS: RT-ALBUTEROL INHALER HFA (VENTOLIN HFA) 18 GM IH SCH ×2 (07:30→20:09)
--- NOTE | 2020-12-03 07:49 | Diagnostic Imaging Report ---
EXAMINATION: Chest 1 view HISTORY: Pneumonia, Covid. COMPARISON: 12/02/2020 FINDINGS: Stable enlargement of the cardiac silhouette and prominence of pulmonary vasculature. Stable patchy interstitial and airspace opacities throughout both lungs. No significant pleural effusion or pneumothorax. The osseous structures are intact. IMPRESSION: 1. Stable patchy interstitial and airspace opacities throughout both lungs compatible with history of Covid-19 pneumonia. Dictated by: Dictated on workstation # [id number]
[2020-12-03 08:00] VITALS: BP 127/64
[2020-12-03] MEDS: ENOXAPARIN 60 MG/0.6 ML (LOVENOX) SYR SC SCH ×2 (09:25→20:36)
[2020-12-03] MEDS: REMDESIVIR INJ 100 MG in NS (IVPB) 230 ML IV SCH (09:25)
[2020-12-03] MEDS: PANTOPRAZOLE 40 MG (PROTONIX) TAB PO SCH (09:25)
[2020-12-03] MEDS: AZITHROMYCIN 250 MG TAB (ZITHROMAX) PO SCH (09:25)
--- NOTE | 2020-12-03 10:16 | Pulmonary Consultation ---
History of Present Illness History of Present Illness Date Seen by Provider: Dec 03, 2020 Time Seen by Provider: 10:41 Date of Admission Asked to see pt re: COVID PNA, 50 yo F with morbid obesity [BMI 61], COPD on Incruse, tested + for COVID 11/26, Sx started on November 23, started on po Decadron, Remdesivir given Regeneron on 11/30. Feeling better, some coughing, productive of brownish sputum, no blood, no CP, no leg pain/swelling D dimer elevated, started on Lovenox 60 bid I reviewed CXR from today has mild increase in HS and extensive bilateral infiltrates Currently on 7 lpm NC with SpO2 92% Was not vaccinated for COVID Lost sense of smell/taste, taste is starting to come back Also started on azithromycin and ceftriaxone Allergies and Home Medications Allergies Coded Allergies: baclofen (Verified Allergy, Unknown, 10/02/18) Home Medications Albuterol Sulfate 1 Puff Puff, 2 PUFF IH Q4H PRN for WHEEZING, (Reported) Celecoxib 200 Mg Capsule, 200 MG PO BID, (Reported) Cholecalciferol (Vitamin D3) 125 Mcg Tablet, 125 MCG PO JAMES,MO,WE,FR,SA, (Reported) Dexamethasone 4 Mg Tablet, 6 MG PO DAILY, (Reported) FILLED 11-26-2020 #11/7 DAY SUPPLY TAKES 1 & (4NG) TABS Duloxetine HCl 60 Mg Capsule.dr, 60 MG PO DAILY, (Reported) Ergocalciferol (Vitamin D2) 1,250 Mcg Capsule, 1,250 MCG PO TUE,DARRON, (Reported) Esomeprazole Magnesium 40 Mg Cap, 40 MG PO BID, (Reported) Fluticasone Propionate 16 Gm Bittinger.susp, 1-2 SPRAYS NSEACH DAILY PRN for CONGESTION, (Reported) Furosemide 40 Mg Tablet, 40 MG PO DAILY, (Reported) Hydrochlorothiazide 25 Mg Tablet, 25 MG PO DAILY, (Reported) Insulin Aspart 100 Unit/1 Ml Insuln.pen, 55 UNITS SC AC, (Reported) Insulin Glargine,Hum.rec.anlog 100 Unit/1 Ml Insuln.pen, 160 UNITS SC BID, (Reported) Levothyroxine Sodium 75 Mcg Tablet, 75 MCG PO DAILY, (Reported) Lisinopril 5 Mg Tablet, 5 MG PO DAILY, (Reported) Meclizine HCl 25 Mg Tablet, 25 MG PO Q6H PRN for VERTIGO, (Reported) Metoclopramide HCl 5 Mg Tablet, 5 MG PO BID, (Reported) Ondansetron HCl 4 Mg Tablet, 4 MG PO Q8H PRN for NAUSEA/VOMITING-1ST LINE, (Reported) Pantoprazole Sodium 40 Mg Tablet.dr, 40 MG PO DAILY, (Reported) Potassium Chloride 10 Meq Tablet.er, 20 MEQ PO DAILY, (Reported) TAKES 2 (10MEQ) TABS Pregabalin 200 Mg Capsule, 200 MG PO BID, (Reported) Solifenacin Succinate 10 Mg Tablet, 10 MG PO DAILY, (Reported) Past Medical/Social/Family Hx Patient Social History Tobacco Use?: No Smoking Status: Former Smoker Smokeless Tobacco Frequency: Former User Use of E-Cig and/or Vaping dev: No Substance use?: No smoked 30y x 1PPD quit 4y ago, Alcohol Use?: No Pt stated abuse/neglect: No Immunizations Up To Date Influenza Vaccine Up-to-Date: Yes; Up-to-Date Tetanus Booster (TDap): Unknown Hepatitis A: No Hepatitis B: No TB Skin Test: None Date of Pneumonia Vaccine: September 12, 2016 Current Status status: Unable to obtain status: No Advance Directives: No Communicates: Verbally Primary Language: Canadian Preferred Spoken Language: Canadian Is interpretation needed?: No Implanted or Applied Medical D: None Past Medical History HTN on Lisinopril 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 0.0oz. 154.553735uw; 61.27 BMI Method:Stated Exam Exam Patient acknowledged, consented, and participated in this virtual visit which was conducted using real time audio/video Vital Signs Date Time Temp Pulse Resp B/P (MAP) Pulse Ox O2 Delivery O2 Flow Rate FiO2 12/03/20 08:00 36.0 68 20 127/64 (85) 92 Nasal Cannula 7.00 12/03/20 07:30 94 Nasal Cannula 7.00 12/03/20 07:30 94 Nasal Cannula 7.00 12/03/20 04:11 36.5 63 20 102/62 (75) 93 NIV CPAP 12/02/20 23:56 36.6 67 20 106/67 (80) 93 NIV CPAP 12/02/20 20:00 Nasal Cannula 4.00 12/02/20 19:05 36.2 72 20 116/65 (82) 93 Nasal Cannula 4.00 12/02/20 16:13 35.8 78 18 107/63 (78) 91 Nasal Cannula 3.00 12/02/20 11:08 36.6 86 18 126/71 (89) 89 Nasal Cannula 3.00 l I & O 12/03/20 06:59 Intake Total 1120 ml Output Total 1800 ml Balance -680 ml Height & Weight Height: 5'5.00" Weight: 340lbs. 0.0oz. 154.074734xz; 61.27 BMI Method:Stated General Appearance: Mild Distress HEENT: Normal ENT Inspection Respiratory: Crackles, Decreased Breath Sounds, Wheezing Cardiovascular: Regular Rate, Rhythm, Systolic Murmur Capillary Refill: Less Than 3 Seconds Gastrointestinal: normal bowel sounds, non tender, soft Extremity: Non Tender, No Calf Tenderness, No Pedal Edema Neurologic/Psychiatric: Alert Skin: Warm/Dry Results Lab Laboratory Tests 12/02/20 06:10 12/03/20 06:47 Assessment/Plan Assessment/Plan Fairly extensive COVID PNA, continue above Rx, closely monitor oxygen needs Time spent with patient (mins): 20 DEBRA CHEEMA MD Dec 03, 2020 10:16
[2020-12-03] MEDS ORDERED: SOLI10TA7 PO (10:57)
[2020-12-03] MEDS ORDERED: INSU100I55 SC (10:57)
[2020-12-03] MEDS ORDERED: CHOL500044 PO (10:57)
[2020-12-03] MEDS ORDERED: POTA10TA PO (10:57)
[2020-12-03] MEDS ORDERED: ONDA-105 PO (10:57)
[2020-12-03] MEDS ORDERED: DEXA4TAB PO (10:57)
[2020-12-03] MEDS ORDERED: METO5TAB2 PO (10:57)
[2020-12-03] MEDS ORDERED: CELE-63 PO (10:57)
[2020-12-03] MEDS ORDERED: ERGO1250 PO (10:57)
[2020-12-03] MEDS ORDERED: INSU100I10 SC (10:57)
[2020-12-03] MEDS ORDERED: PREG200C28 PO (10:57)
[2020-12-03] MEDS ORDERED: DULO60CA59 PO (10:57)
[2020-12-03] MEDS ORDERED: PANT40TA52 PO (10:57)
[2020-12-03 11:39] VITALS: BP 130/67
--- NOTE | 2020-12-03 12:53 | Progress Note ---
Subjective Date Seen by a Provider: Dec 03, 2020 Time Seen by a Provider: 12:51 Subjective/Events-last exam Fwup acute respiratory distress, COVID-19 pneumonia, COPD, HTN, Class 3 obesity, DM--insulin requiring, ANTONIO. Sitting up in chair. Feels better today. Objective Exam Vital Signs Date Time Temp Pulse Resp B/P (MAP) Pulse Ox O2 Delivery O2 Flow Rate FiO2 12/03/20 11:39 36.1 67 20 130/67 (88) 92 Nasal Cannula 7.00 12/03/20 08:00 36.0 68 20 127/64 (85) 92 Nasal Cannula 7.00 12/03/20 08:00 High Flow N/C 6.00 12/03/20 07:30 94 Nasal Cannula 7.00 12/03/20 07:30 94 Nasal Cannula 7.00 12/03/20 04:11 36.5 63 20 102/62 (75) 93 NIV CPAP 12/02/20 23:56 36.6 67 20 106/67 (80) 93 NIV CPAP 12/02/20 20:00 Nasal Cannula 4.00 12/02/20 19:05 36.2 72 20 116/65 (82) 93 Nasal Cannula 4.00 12/02/20 16:13 35.8 78 18 107/63 (78) 91 Nasal Cannula 3.00 I & O 12/03/20 07:00 Intake Total 1120 ml Output Total 1800 ml Balance -680 ml Capillary Refill : Less Than 3 Seconds General Appearance: No Apparent Distress Respiratory: Decreased Breath Sounds, Rales, Wheezing Cardiovascular: Regular Rate, Rhythm Gastrointestinal: normal bowel sounds, non tender, soft Extremity: Non Tender, No Calf Tenderness, No Pedal Edema Neurologic/Psychiatric: Alert, Oriented x3 Results Lab Laboratory Tests 12/02/20 13:36: Glucometer 315H 12/02/20 15:00: Blood Gas Puncture Site RIGHT RADIAL, Blood Gas Patient Temperature 36.6, Arterial Blood pH 7.39, Arterial Blood Partial Pressure CO2 39, Arterial Blood Partial Pressure O2 65L, Arterial Blood HCO3 23, Arterial Blood Total CO2 24.5, Arterial Blood Oxygen Saturation 90L, Arterial Blood Base Excess -1.0, Clayton Test POSITIVE, Blood Gas Ventilator Setting NO, Blood Gas Inspired Oxygen 4 L 12/02/20 20:43: Glucometer 368H 12/03/20 05:49: Glucometer 320H 12/03/20 06:47: White Blood Count 4.4, Red Blood Count 5.04, Hemoglobin 14.0, Hematocrit 43, Mean Corpuscular Volume 86, Mean Corpuscular Hemoglobin 28, Mean Corpuscular Hemoglobin Concent 32, Red Cell Distribution Width 14.6H, Platelet Count 210, Mean Platelet Volume 10.3, Sodium Level 132L, Potassium Level 4.2, Chloride Level 99, Carbon Dioxide Level 24, Anion Gap 9, Blood Urea Nitrogen 22H, Creatinine 0.95, Estimat Glomerular Filtration Rate 62, BUN/Creatinine Ratio 23, Glucose Level 342H, Calcium Level 8.3L, Corrected Calcium 8.9, Total Bilirubin 0.4, Aspartate Amino Transf (AST/SGOT) 40H, Alanine Aminotransferase (ALT/SGPT) 64H, Alkaline Phosphatase 172H, Total Protein 6.8, Albumin 3.3 12/03/20 09:29: Glucometer 359H Assessment/Plan Assessment/Plan Assess & Plan/Chief Complaint 1. Acute Respiratory Distress with Hypoxia--on oxygen via NC at 7L 2. COVID-19 Pneumonia--CXR stable, on Remdesivir, Decadron, Albuterol, IS and lovenox as well as Rocephin/Zithromax for secondary bacterial pneumonia 3. COPD--on albuterol and ipratropium 4. ANTONIO--restarted CPAP 5. Diabetes mellitus--insulin requiring--on SSI C, increase levemir dose 6. Class 3 Obesity--patient is very high risk due to numerous comorbidities Clinical Quality Measures Admission Status Admission Dx 1. Acute Respiratory Distress due to COVID-19--admit and use oxygen and will titrate or go to vapotherm if needed, IV decadron, IS, albuterol MDI, lovenox for DVT prophylaxis 2. COVID-19 pneumonia--will add Rocephin/Zithromax for secondary pneumonia, on remdesivir 3. COPD--Albuterol MDI and Decadron as above 4. Hypertension/Tachycardia--restart bystolic 5. Diabetes mellitus--insulin requiring, start accuchecks with SSI C Updated daughter on condition INDU KING DO Dec 03, 2020 12:53
[2020-12-03] MEDS: cefTRIAXone 1,000 MG in WATER (STERILE) FOR INJECTION 10 ML IV SCH (13:40)
[2020-12-03 15:43] VITALS: BP 139/70
[2020-12-03 19:15] VITALS: BP 143/70
[2020-12-04] VITALS (7 sets, daily range): BP systolic 112–147; BP diastolic 65–71
[2020-12-04] MEDS: NYSTATIN ORAL SUSP 5 ML UDC PO SCH ×4 (00:18→18:03)
[2020-12-04] MEDS: dexAMETHasone 6 MG TAB (DECADRON) PO SCH (06:36)
[2020-12-04] MEDS: LEVOTHYROXINE 75 MCG (LEVOTHROID) TABLET PO SCH (06:36)
[2020-12-04] MEDS: inSUlin ASPART (NovoLOG) 1 UNIT/0.01 ML (CHARGE PER UNIT) SC SCH ×4 (06:37→20:59)
--- NOTE | 2020-12-04 07:08 | Diagnostic Imaging Report ---
REASON FOR EXAMINATION: Covid pneumonia. Upright AP portable chest was obtained and compared to yesterday. FINDINGS: Heart size and mediastinum are stable. Bilateral 5 lobe infiltrate consistent with pneumonia. No significant change. No effusion or pneumothorax. IMPRESSION: 1. Stable chest with diffuse bilateral infiltrates consistent with Covid pneumonia. No significant change. Dictated by: Dictated on workstation # [id number]
[2020-12-04] MEDS: REMDESIVIR INJ 100 MG in NS (IVPB) 230 ML IV SCH (09:59)
[2020-12-04] MEDS: ENOXAPARIN 60 MG/0.6 ML (LOVENOX) SYR SC SCH ×2 (10:00→20:58)
[2020-12-04] MEDS: PANTOPRAZOLE 40 MG (PROTONIX) TAB PO SCH (10:00)
[2020-12-04] MEDS: AZITHROMYCIN 250 MG TAB (ZITHROMAX) PO SCH (10:00)
--- NOTE | 2020-12-04 11:25 | Progress Note ---
Subjective Date Seen by a Provider: Dec 04, 2020 Time Seen by a Provider: 10:45 Subjective/Events-last exam Fwup acute respiratory distress, COVID-19 pneumonia, COPD, HTN, Class 3 obesity, DM--insulin requiring, ANTONIO. Sitting up in chair. Did not sleep well last night. Not feeling as good today. On 6L NC but only sating 89-90% right now. Objective Exam Vital Signs Date Time Temp Pulse Resp B/P (MAP) Pulse Ox O2 Delivery O2 Flow Rate FiO2 12/04/20 08:03 35.7 60 20 122/70 (87) 92 NIV CPAP 10.00 12/04/20 05:00 35.7 68 20 147/67 (93) 96 NIV CPAP 10.00 12/04/20 00:55 36.0 63 18 119/67 (84) 94 NIV CPAP 10.00 12/03/20 20:35 High Flow N/C 7.00 12/03/20 20:10 92 Nasal Cannula 7.00 12/03/20 19:15 36.3 73 18 143/70 (94) 92 Nasal Cannula 7.00 12/03/20 15:43 36.4 66 18 139/70 (93) 93 Nasal Cannula 6.00 12/03/20 11:39 36.1 67 20 130/67 (88) 92 Nasal Cannula 7.00 I & O 12/04/20 07:00 Intake Total 2280 ml Output Total 1700 ml Balance 580 ml Capillary Refill : Less Than 3 Seconds General Appearance: Mild Distress Respiratory: Decreased Breath Sounds, Wheezing Cardiovascular: Regular Rate, Rhythm Extremity: Non Tender, No Calf Tenderness, No Pedal Edema Neurologic/Psychiatric: Alert, Oriented x3 Results Lab Laboratory Tests 12/03/20 14:44: Glucometer 381H 12/03/20 20:44: Glucometer 437*H 12/04/20 05:49: Glucometer 279H 12/04/20 09:51: Glucometer 397H Assessment/Plan Assessment/Plan Assess & Plan/Chief Complaint 1. Acute Respiratory Distress with Hypoxia--on oxygen via NC at 6L 2. COVID-19 Pneumonia--CXR same, on Remdesivir, Decadron, Albuterol, IS and lovenox as well as Rocephin/Zithromax for secondary bacterial pneumonia, got Regeneron on day of admit 3. COPD--on albuterol and ipratropium 4. ANTONIO--restarted CPAP 5. Diabetes mellitus--insulin requiring--on SSI C, increase levemir dose again 6. Class 3 Obesity--patient is very high risk due to numerous comorbidities 7. Insomnia--add melatonin and trazadone 8. Hypertension--on [facility] [place] Clinical Quality Measures Admission Status Admission Dx 1. Acute Respiratory Distress due to COVID-19--admit and use oxygen and will titrate or go to vapotherm if needed, IV decadron, IS, albuterol MDI, lovenox for DVT prophylaxis 2. COVID-19 pneumonia--will add Rocephin/Zithromax for secondary pneumonia, on remdesivir 3. COPD--Albuterol MDI and Decadron as above 4. Hypertension/Tachycardia--restart bystolic 5. Diabetes mellitus--insulin requiring, start accuchecks with SSI C Updated daughter on condition INDU KING Garry DO Dec 04, 2020 11:25
[2020-12-04] MEDS: cefTRIAXone 1,000 MG in WATER (STERILE) FOR INJECTION 10 ML IV SCH (12:32)
[2020-12-04] MEDS: UMECLIDINIUM BROMIDE (INCRUSE ELLIPTA) 7'S IH SCH (12:32)
[2020-12-04] MEDS: RT-ALBUTEROL INHALER HFA (VENTOLIN HFA) 18 GM IH SCH ×2 (12:33→18:32)
[2020-12-04] MEDS: RT-ALBUTEROL INHALER HFA (VENTOLIN HFA) 18 GM IH PRN (12:33)
--- NOTE | 2020-12-04 12:42 | Pulmonary Progress Note ---
Subjective Date Seen by a Provider: Dec 04, 2020 Time Seen by a Provider: 13:32 Subjective/Events-last exam I reviewed CXR from today still shows patchy infiltrates in both lungs, Pt is on 6 lpm, was on 10 ppm SpO2 94% with spont RR 20. Remains on IV Remdesivir 100, Decadron po azithromycin, ceftriaxone, albuterol, LAMA glu almost 400 on 35 U Levimer, will have to go up Review of Systems General: Fatigue Pulmonary: Dyspnea, Other (breathing is better today, able to get out of bed) Sepsis Event Evaluation Height, Weight, BMI Height: 5'." Weight: 340lbs. 0.0oz. 154.138738kd; 61.27 BMI Method:Stated Exam Exam Patient acknowledged, consented, and participated in this virtual visit which was conducted using real time audio/video Vital Signs Date Time Temp Pulse Resp B/P (MAP) Pulse Ox O2 Delivery O2 Flow Rate FiO2 12/04/20 11:29 36.0 55 20 112/66 (81) 94 High Flow N/C 6.00 12/04/20 08:03 35.7 60 20 122/70 (87) 92 NIV CPAP 10.00 12/04/20 08:00 94 High Flow N/C 6.00 12/04/20 05:00 35.7 68 20 147/67 (93) 96 NIV CPAP 10.00 12/04/20 00:55 36.0 63 18 119/67 (84) 94 NIV CPAP 10.00 12/03/20 20:35 High Flow N/C 7.00 12/03/20 20:10 92 Nasal Cannula 7.00 12/03/20 19:15 36.3 73 18 143/70 (94) 92 Nasal Cannula 7.00 12/03/20 15:43 36.4 66 18 139/70 (93) 93 Nasal Cannula 6.00 I & O 12/04/20 07:00 Intake Total 2280 ml Output Total 1700 ml Balance 580 ml Height & Weight Height: 5'5.00" Weight: 340lbs. 0.0oz. 154.957488jp; 61.27 BMI Method:Stated General Appearance: Mild Distress HEENT: Normal ENT Inspection Respiratory: Decreased Breath Sounds, Wheezing Cardiovascular: Regular Rate, Rhythm Capillary Refill: Less Than 3 Seconds Gastrointestinal: normal bowel sounds, non tender, soft Extremity: Non Tender, No Calf Tenderness, No Pedal Edema, Pedal Edema (+1) Neurologic/Psychiatric: Alert, Oriented x3 Skin: Warm/Dry Results Lab Laboratory Tests 12/03/20 06:47 Assessment/Plan Assessment/Plan Extensive PNA from COVID, continue above treatment and monitor SpO2 but looks a little better, Insulin dose is being adjusted. At home she has high insulin needs 160 U of Lantus bid and Novolog 60-65 PC Using BiPAP 18/6 at night for ANTONIO at night DEBRA CHEEMA MD Dec 04, 2020 12:42
[2020-12-04] MEDS ORDERED: SCOPOLAMINE PATCH REMOVAL TP SCH (13:00)
[2020-12-04] MEDS: ONDANSETRON 4 MG/2 ML (SDV) Z0FRAN IVP PRN (13:18)
[2020-12-04] MEDS ORDERED: inSUlin ASPART (NovoLOG) 1 UNIT/0.01 ML (CHARGE PER UNIT) SC NR (15:00)
[2020-12-04] MEDS: traZODone 50 MG (DESYREL) TAB PO SCH (20:59)
[2020-12-04] MEDS: MELATONIN 3 MG TABLET PO SCH (20:59)
[2020-12-05] MEDS: NYSTATIN ORAL SUSP 5 ML UDC PO SCH ×6 (00:02→18:37)
[2020-12-05 03:21] VITALS: BP 129/68
[2020-12-05] MEDS: LEVOTHYROXINE 75 MCG (LEVOTHROID) TABLET PO SCH (06:01)
[2020-12-05] MEDS: dexAMETHasone 6 MG TAB (DECADRON) PO SCH (06:01)
[2020-12-05] MEDS: inSUlin ASPART (NovoLOG) 1 UNIT/0.01 ML (CHARGE PER UNIT) SC SCH ×4 (06:04→20:34)
[2020-12-05 06:09] LABS: HEMATOCRIT 44 % (35-52); HEMOGLOBIN 13.9 g/dL (11.5-16.0); MEAN CORPUSCULAR HEMOGLOBIN 28 pg (25-34); MEAN CORPUSCULAR HGB CONC 32 g/dL (32-36); MEAN CORPUSCULAR VOLUME 87 fL (80-99); MEAN PLATELET VOLUME 10.5 fL (9.0-12.2); PLATELET COUNT 235 10^3/uL (130-400); WHITE BLOOD COUNT 4.1 10^3/uL (4.3-11.0)
[2020-12-05 06:23] LABS: ALBUMIN 3.3 GM/DL (3.2-4.5); POTASSIUM 4.5 MMOL/L (3.6-5.0)
[2020-12-05 06:24] LABS: CALCIUM 9.1 MG/DL (8.5-10.1)
[2020-12-05 06:25] LABS: TOTAL PROTEIN 6.8 GM/DL (6.4-8.2)
[2020-12-05 06:27] LABS: BILIRUBIN,TOTAL 0.4 MG/DL (0.1-1.0)
[2020-12-05 06:29] LABS: CREATININE SERUM 0.81 MG/DL (0.60-1.30)
[2020-12-05 07:31] VITALS: BP 129/76
[2020-12-05] MEDS: UMECLIDINIUM BROMIDE (INCRUSE ELLIPTA) 7'S IH SCH (07:38)
[2020-12-05] MEDS: RT-ALBUTEROL INHALER HFA (VENTOLIN HFA) 18 GM IH SCH ×3 (07:38→23:12)
[2020-12-05] MEDS: PANTOPRAZOLE 40 MG (PROTONIX) TAB PO SCH (08:46)
[2020-12-05] MEDS: AZITHROMYCIN 250 MG TAB (ZITHROMAX) PO SCH (08:46)
[2020-12-05] MEDS: REMDESIVIR INJ 100 MG in NS (IVPB) 230 ML IV SCH (08:47)
[2020-12-05] MEDS: ENOXAPARIN 60 MG/0.6 ML (LOVENOX) SYR SC SCH ×2 (08:47→20:33)
--- NOTE | 2020-12-05 09:35 | Diagnostic Imaging Report ---
Indication: Dyspnea, follow-up Covid pneumonia. Comparison: 12/04/2020. Discussion: Single portable upright view of the chest was obtained. Cardiomegaly is stable. Severe pulmonary infiltrates are again noted diffusely and bilaterally, increased from the prior, likely worsening pneumonia. No pleural fluid or pneumothorax. No osseous abnormality. Impression: 1. Worsening severe bilateral pulmonary infiltrates. Dictated by: Dictated on workstation # [id number]
[2020-12-05 11:15] VITALS: BP 123/72
[2020-12-05] MEDS: cefTRIAXone 1,000 MG in WATER (STERILE) FOR INJECTION 10 ML IV SCH (14:12)
[2020-12-05 15:20] VITALS: BP 115/68
[2020-12-05] MEDS ORDERED: inSUlin ASPART (NovoLOG) 1 UNIT/0.01 ML (CHARGE PER UNIT) SC ONE (15:30)
--- NOTE | 2020-12-05 15:33 | Progress Note ---
Subjective Subjective Date Seen by Provider: Dec 05, 2020 Time Seen by Provider: 14:45 No overnight events- pt reports she feels better every day so far. No issues eating, drinking. blood sugars are remaining high. Review of Systems General: Fatigue HEENT: No Head Aches Pulmonary: Dyspnea, Other (breathing is better) Cardiovascular: No: Chest Pain, Palpitations Gastrointestinal: No: Nausea, Vomiting, Abdominal Pain Genitourinary: No Dysuria Neurological: Weakness Objective Exam Vital Signs Vital Signs Date Time Temp Pulse Resp B/P (MAP) Pulse Ox O2 Delivery O2 Flow Rate FiO2 12/05/20 15:20 35.8 54 20 115/68 (84) 93 High Flow N/C 6.00 12/05/20 11:15 36.0 50 18 123/72 (89) 93 High Flow N/C 6.00 12/05/20 08:00 High Flow N/C 7.00 12/05/20 07:43 Nasal Cannula 8.00 12/05/20 07:38 95 Nasal Cannula 10.00 12/05/20 07:31 36.2 53 16 129/76 (93) 96 High Flow N/C 8.00 12/05/20 03:21 35.9 52 18 129/68 (88) 99 NIV CPAP 8.00 12/04/20 23:22 36.0 51 20 116/65 (82) 96 NIV CPAP 8.00 12/04/20 21:34 36.0 12/04/20 20:00 94 High Flow N/C 8.00 12/04/20 19:30 36.3 63 18 122/71 (88) 97 High Flow N/C 8.00 12/04/20 18:32 95 Nasal Cannula 7.00 I & O 12/05/20 07:00 Intake Total 3510 ml Output Total 2150 ml Balance 1360 ml General Appearance: Mild Distress Eyes: Bilateral Eye Normal Inspection, Bilateral Eye PERRL, Bilateral Eye EOMI HEENT: Normal ENT Inspection Neck: Non Tender Respiratory: Decreased Breath Sounds; No Wheezing Cardiovascular: Regular Rate, Rhythm Gastrointestinal: Normal Bowel Sounds, Non Tender, Soft Rectal: Deferred Back: No CVA Tenderness Extremity: Non Tender, No Calf Tenderness, Pedal Edema (+1) Neurologic/Psychiatric: Alert, Oriented x3 Skin: Warm/Dry Results Lab Laboratory Tests 12/04/20 20:33: Glucometer 400*H 12/05/20 05:54: White Blood Count 4.1L, Red Blood Count 5.01, Hemoglobin 13.9, Hematocrit 44, Mean Corpuscular Volume 87, Mean Corpuscular Hemoglobin 28, Mean Corpuscular Hemoglobin Concent 32, Red Cell Distribution Width 14.3, Platelet Count 235, Mean Platelet Volume 10.5, Sodium Level 135, Potassium Level 4.5, Chloride Level 101, Carbon Dioxide Level 23, Anion Gap 11, Blood Urea Nitrogen 16, Creatinine 0.81, Estimat Glomerular Filtration Rate 74, BUN/Creatinine Ratio 20, Glucose Level 286H, Calcium Level 9.1, Corrected Calcium 9.7, Total Bilirubin 0.4, Aspartate Amino Transf (AST/SGOT) 30, Alanine Aminotransferase (ALT/SGPT) 46, Alkaline Phosphatase 170H, Total Protein 6.8, Albumin 3.3 12/05/20 05:59: Glucometer 251H 12/05/20 10:48: Glucometer 310H 12/05/20 15:19: Glucometer 405*H Assessment/Plan Assessment/Plan Assessment and Plan 12/05/20 -blood sugars still running high- sliding scale c- added on levemir 25units daily allong with her qhs levemir. steroids are not helping. -CXR looks worse in regards to infiltrates- but pt reports feeling better. -continue dexameth, remd, RT, albuterol. -continue rocephin, azithromycin to completion. Prognosis- guarded. Problems: (1) Type 2 diabetes mellitus with hyperglycemia (2) COVID-19 (3) Acute respiratory failure with hypoxia (4) ANTONIO (obstructive sleep apnea) Assessment & Plan: biPAP (5) HTN (hypertension) Qualifiers: Qualified Codes: I10 - Essential (primary) hypertension Assessment & Plan: continue beta rosa m (6) Obesity RAMANA SHEEHAN MD Dec 05, 2020 15:33
[2020-12-05 19:56] VITALS: BP 138/67
[2020-12-05 20:26] VITALS: BP 138/67
[2020-12-05] MEDS: MELATONIN 3 MG TABLET PO SCH (20:33)
[2020-12-05] MEDS: traZODone 50 MG (DESYREL) TAB PO SCH (20:33)
[2020-12-05] MEDS: ONDANSETRON 4 MG/2 ML (SDV) Z0FRAN IVP PRN (20:35)
[2020-12-06] MEDS: NYSTATIN ORAL SUSP 5 ML UDC PO SCH ×5 (00:02→23:18)
[2020-12-06 00:08] VITALS: BP 121/68
[2020-12-06] MEDS: RT-ALBUTEROL INHALER HFA (VENTOLIN HFA) 18 GM IH SCH ×6 (01:42→21:25)
[2020-12-06 04:21] VITALS: BP 124/73
[2020-12-06] MEDS: dexAMETHasone 6 MG TAB (DECADRON) PO SCH (06:07)
[2020-12-06] MEDS: LEVOTHYROXINE 75 MCG (LEVOTHROID) TABLET PO SCH (06:07)
[2020-12-06] MEDS: inSUlin ASPART (NovoLOG) 1 UNIT/0.01 ML (CHARGE PER UNIT) SC SCH ×4 (06:08→21:14)
[2020-12-06 07:37] VITALS: BP 127/64
[2020-12-06 08:09] LABS: BASOPHILS % (AUTO) 0 % (0-10); EOSINOPHILS % (AUTO) 1 % (0-10); HEMATOCRIT 42 % (35-52); HEMOGLOBIN 13.1 g/dL (11.5-16.0); LYMPHOCYTES # (AUTO) 1.8 10^3/uL (1.0-4.0); LYMPHOCYTES % (AUTO) 36 % (12-44); MEAN CORPUSCULAR HEMOGLOBIN 28 pg (25-34); MEAN CORPUSCULAR HGB CONC 31 g/dL (32-36); MEAN CORPUSCULAR VOLUME 89 fL (80-99); MEAN PLATELET VOLUME 10.3 fL (9.0-12.2); MONOCYTES # (AUTO) 0.4 10^3/uL (0.0-1.0); MONOCYTES % (AUTO) 7 % (0-12); NEUTROPHILS # (AUTO) 2.7 10^3/uL (1.8-7.8); NEUTROPHILS % (AUTO) 53 % (42-75); PLATELET COUNT 286 10^3/uL (130-400); WHITE BLOOD COUNT 5.1 10^3/uL (4.3-11.0)
[2020-12-06 08:21] LABS: POTASSIUM 4.2 MMOL/L (3.6-5.0)
[2020-12-06 08:27] LABS: CREATININE SERUM 0.99 MG/DL (0.60-1.30)
--- NOTE | 2020-12-06 09:08 | Diagnostic Imaging Report ---
INDICATION: COVID patient, dyspnea COMPARISON: 12/05 FINDINGS: There is severe 5 lobe infiltrates showing no obvious change. Heart size stable. No effusion or pneumothorax. IMPRESSION: No real change in severe 5 lobe infiltrates. Dictated by: Dictated on workstation # [id number]
[2020-12-06] MEDS: PANTOPRAZOLE 40 MG (PROTONIX) TAB PO SCH (09:09)
[2020-12-06] MEDS: ENOXAPARIN 60 MG/0.6 ML (LOVENOX) SYR SC SCH ×2 (09:09→21:15)
[2020-12-06] MEDS: UMECLIDINIUM BROMIDE (INCRUSE ELLIPTA) 7'S IH SCH (10:28)
[2020-12-06 12:27] VITALS: BP 114/58
--- NOTE | 2020-12-06 14:40 | Progress Note ---
Subjective Subjective Date Seen by Provider: Dec 06, 2020 Time Seen by Provider: 13:00 No overnight events-patient is down in spirits today. Not much motivation. She does note though she is going to push through because she wants to be strong for her family and get back home. She is ambulating to the bathroom. Denies any falls or near falls. Review of Systems General: Fatigue, Other (depression) HEENT: No Head Aches Pulmonary: Dyspnea, Other (breathing is better) Cardiovascular: No: Chest Pain, Palpitations Gastrointestinal: No: Nausea, Vomiting, Abdominal Pain Genitourinary: No Dysuria Neurological: Weakness Objective Exam Vital Signs Vital Signs Date Time Temp Pulse Resp B/P (MAP) Pulse Ox O2 Delivery O2 Flow Rate FiO2 12/06/20 14:20 90 High Flow N/C 5.00 12/06/20 12:27 35.6 54 18 114/58 (76) 96 High Flow N/C 5.00 12/06/20 10:32 90 High Flow N/C 5.00 12/06/20 08:00 97 High Flow N/C 6.00 12/06/20 07:37 35.8 54 20 127/64 (85) 97 NIV CPAP 10.00 12/06/20 07:14 97 NIV CPAP 10.00 12/06/20 04:21 36.6 59 22 124/73 (90) 95 NIV CPAP 10.00 12/06/20 01:42 NIV CPAP 8.00 12/06/20 00:08 36.2 58 24 121/68 (85) 97 NIV CPAP 10.00 12/05/20 20:26 35.8 59 94 12/05/20 20:00 93 High Flow N/C 6.00 12/05/20 19:56 35.8 59 20 138/67 (90) 94 High Flow N/C 6.00 12/05/20 15:20 35.8 54 20 115/68 (84) 93 High Flow N/C 6.00 I & O 12/06/20 07:00 Intake Total 1900 ml Output Total 2150 ml Balance -250 ml General Appearance: Mild Distress Eyes: Bilateral Eye Normal Inspection, Bilateral Eye PERRL, Bilateral Eye EOMI HEENT: PERRL/EOMI Neck: Non Tender Respiratory: Decreased Breath Sounds; No Wheezing Cardiovascular: Regular Rate, Rhythm Gastrointestinal: Normal Bowel Sounds, Non Tender, Soft Rectal: Deferred Back: No CVA Tenderness Extremity: Non Tender, No Calf Tenderness, Pedal Edema (+1) Neurologic/Psychiatric: Alert, Oriented x3 Skin: Warm/Dry Results Lab Laboratory Tests 12/05/20 15:19: Glucometer 405*H 12/05/20 19:57: Glucometer 371H 12/06/20 05:05: Glucometer 277H 12/06/20 07:39: White Blood Count 5.1, Red Blood Count 4.70, Hemoglobin 13.1, Hematocrit 42, Mean Corpuscular Volume 89, Mean Corpuscular Hemoglobin 28, Mean Corpuscular Hemoglobin Concent 31L, Red Cell Distribution Width 14.1, Platelet Count 286, Mean Platelet Volume 10.3, Immature Granulocyte % (Auto) 4, Neutrophils (%) (Auto) 53, Lymphocytes (%) (Auto) 36, Monocytes (%) (Auto) 7, Eosinophils (%) (Auto) 1, Basophils (%) (Auto) 0, Neutrophils # (Auto) 2.7, Lymphocytes # (Auto) 1.8, Monocytes # (Auto) 0.4, Eosinophils # (Auto) 0.0, Basophils # (Auto) 0.0, Immature Granulocyte # (Auto) 0.2H, Sodium Level 139, Potassium Level 4.2, Chloride Level 101, Carbon Dioxide Level 30, Anion Gap 8, Blood Urea Nitrogen 19H, Creatinine 0.99, Estimat Glomerular Filtration Rate 59, BUN/Creatinine Ratio 19, Glucose Level 261H, Calcium Level 9.0 12/06/20 10:19: Glucometer 262H Assessment/Plan Assessment/Plan Assessment and Plan 12/05/20 -blood sugars still running high- sliding scale c- added on levemir 25units daily along with her qhs levemir. steroids are not helping. -CXR looks worse in regards to infiltrates- but pt reports feeling better. -continue dexameth, remd, RT, albuterol. -continue rocephin, azithromycin to completion. 12/06/20- stable. CXR is not worse but still has 5 lobe infiltrates. Blood sugars are better. Prognosis- improving. Problems: (1) Acute respiratory failure with hypoxia (2) COVID-19 (3) Type 2 diabetes mellitus with hyperglycemia (4) ANTONIO (obstructive sleep apnea) Assessment & Plan: biPAP (5) HTN (hypertension) Qualifiers: Qualified Codes: I10 - Essential (primary) hypertension Assessment & Plan: continue beta rosa m (6) Obesity RAMANA SHEEHAN MD Dec 06, 2020 14:40
[2020-12-06 15:44] VITALS: BP 106/67
[2020-12-06] MEDS ORDERED: inSUlin ASPART (NovoLOG) 1 UNIT/0.01 ML (CHARGE PER UNIT) SC ONE (15:45)
[2020-12-06 21:10] VITALS: BP 122/67
[2020-12-06] MEDS: traZODone 50 MG (DESYREL) TAB PO SCH (21:15)
[2020-12-06] MEDS: MELATONIN 3 MG TABLET PO SCH (21:15)
[2020-12-07] VITALS: BP 108/63
[2020-12-07] MEDS: RT-ALBUTEROL INHALER HFA (VENTOLIN HFA) 18 GM IH SCH ×6 (02:29→23:27)
[2020-12-07] MEDS: NYSTATIN ORAL SUSP 5 ML UDC PO SCH ×5 (03:04→23:27)
[2020-12-07 03:52] VITALS: BP 130/68
[2020-12-07] MEDS: LEVOTHYROXINE 75 MCG (LEVOTHROID) TABLET PO SCH (05:29)
[2020-12-07] MEDS: dexAMETHasone 6 MG TAB (DECADRON) PO SCH (05:29)
[2020-12-07] MEDS: inSUlin ASPART (NovoLOG) 1 UNIT/0.01 ML (CHARGE PER UNIT) SC SCH ×5 (05:29→20:22)
[2020-12-07] MEDS: UMECLIDINIUM BROMIDE (INCRUSE ELLIPTA) 7'S IH SCH (07:23)
[2020-12-07 08:01] VITALS: BP 128/77
[2020-12-07] MEDS: PANTOPRAZOLE 40 MG (PROTONIX) TAB PO SCH (09:24)
[2020-12-07] MEDS: ENOXAPARIN 60 MG/0.6 ML (LOVENOX) SYR SC SCH ×2 (09:24→20:02)
--- NOTE | 2020-12-07 10:08 | Progress Note ---
Subjective Date Seen by a Provider: Dec 07, 2020 Time Seen by a Provider: 10:05 Subjective/Events-last exam Fwup acute respiratory distress, COVID-19 pneumonia, COPD, HTN, Class 3 obesity, DM--insulin requiring, ANTONIO. Sitting up in chair. Still requiring 6-7L of oxygen. Objective Exam Vital Signs Date Time Temp Pulse Resp B/P (MAP) Pulse Ox O2 Delivery O2 Flow Rate FiO2 12/07/20 10:00 95 NIV CPAP 5.00 12/07/20 08:01 36.4 56 20 128/77 (94) 96 NIV CPAP 9.00 12/07/20 08:00 High Flow N/C 6.00 12/07/20 07:24 95 NIV CPAP 5.00 12/07/20 03:52 36.0 59 22 130/68 (88) 95 NIV CPAP 9.00 12/07/20 02:29 93 High Flow N/C 5.00 12/07/20 00:00 36.6 61 18 108/63 (78) 96 NIV CPAP 9.00 12/06/20 21:25 93 High Flow N/C 5.00 12/06/20 21:10 55 18 122/67 (85) 92 High Flow N/C 6.00 12/06/20 20:00 High Flow N/C 6.00 12/06/20 18:59 91 High Flow N/C 5.00 12/06/20 15:44 35.8 61 20 106/67 (80) 94 High Flow N/C 6.00 12/06/20 14:20 90 High Flow N/C 5.00 12/06/20 12:27 35.6 54 18 114/58 (76) 96 High Flow N/C 5.00 12/06/20 10:32 90 High Flow N/C 5.00 I & O 12/07/20 07:00 Intake Total 1610 ml Output Total 3050 ml Balance -1440 ml Capillary Refill : Less Than 3 Seconds General Appearance: No Apparent Distress Neck: Supple Respiratory: Decreased Breath Sounds, Wheezing Cardiovascular: Regular Rate, Rhythm Gastrointestinal: normal bowel sounds, non tender, soft Extremity: Non Tender, No Calf Tenderness, No Pedal Edema Skin: Warm/Dry Results Lab Laboratory Tests 12/06/20 10:19: Glucometer 262H 12/06/20 15:27: Glucometer 469*H 12/06/20 21:09: Glucometer 366H 12/07/20 05:07: Glucometer 309H 12/07/20 08:37: Glucometer 267H Assessment/Plan Assessment/Plan Assess & Plan/Chief Complaint 1. Acute Respiratory Distress with Hypoxia--on oxygen via NC at 6L--will try to wean to 5L today and see if can maintain sats for DC home with home oxygen 2. COVID-19 Pneumonia--CXR same, on Decadron, Albuterol, IS and lovenox, done with antibiotics for secondary bacterial pneumonia, got Regeneron on day of admit 3. COPD--on albuterol and ipratropium 4. ANTONIO--restarted CPAP 5. Diabetes mellitus--insulin requiring--on SSI C, increase levemir dose again 6. Class 3 Obesity--patient is very high risk due to numerous comorbidities 7. Insomnia--add melatonin and trazadone 8. Hypertension--on [facility] Clinical Quality Measures Admission Status Admission Dx 1. Acute Respiratory Distress due to COVID-19--admit and use oxygen and will titrate or go to vapotherm if needed, IV decadron, IS, albuterol MDI, lovenox for DVT prophylaxis 2. COVID-19 pneumonia--will add Rocephin/Zithromax for secondary pneumonia, on remdesivir 3. COPD--Albuterol MDI and Decadron as above 4. Hypertension/Tachycardia--restart bystolic 5. Diabetes mellitus--insulin requiring, start accuchecks with SSI C Updated daughter on condition INDU KING DO Dec 07, 2020 10:08
[2020-12-07 11:34] VITALS: BP 135/61
[2020-12-07 15:52] VITALS: BP 148/77
--- NOTE | 2020-12-07 16:26 | Pulmonary Progress Note ---
Subjective Date Seen by a Provider: Dec 07, 2020 Time Seen by a Provider: 16:21 Subjective/Events-last exam doing better with better exercise tolerance, still on 4 lpm with SpO2 93%, less coughing, no chest pain, no hemoptysis. no fever chills, sweats glu has been difficult to control even on high dose Levimer Sepsis Event Evaluation Height, Weight, BMI Height: 5'5.00" Weight: 340lbs. 0.0oz. 154.935607rc; 61.27 BMI Method:Stated Exam Exam Patient acknowledged, consented, and participated in this virtual visit which was conducted using real time audio/video Vital Signs Date Time Temp Pulse Resp B/P (MAP) Pulse Ox O2 Delivery O2 Flow Rate FiO2 12/07/20 15:52 36.0 63 20 148/77 (100) 93 High Flow N/C 4.00 12/07/20 14:41 95 Nasal Cannula 4.00 12/07/20 11:34 36.6 60 20 135/61 (85) 94 Nasal Cannula 5.00 12/07/20 10:00 95 NIV CPAP 5.00 12/07/20 08:01 36.4 56 20 128/77 (94) 96 NIV CPAP 9.00 12/07/20 08:00 High Flow N/C 6.00 12/07/20 07:24 95 NIV CPAP 5.00 12/07/20 03:52 36.0 59 22 130/68 (88) 95 NIV CPAP 9.00 12/07/20 02:29 93 High Flow N/C 5.00 12/07/20 00:00 36.6 61 18 108/63 (78) 96 NIV CPAP 9.00 12/06/20 21:25 93 High Flow N/C 5.00 12/06/20 21:10 55 18 122/67 (85) 92 High Flow N/C 6.00 12/06/20 20:00 High Flow N/C 6.00 12/06/20 18:59 91 High Flow N/C 5.00 I & O 12/07/20 07:00 Intake Total 1610 ml Output Total 3050 ml Balance -1440 ml Height & Weight Height: 5'5.00" Weight: 340lbs. 0.0oz. 154.181368fs; 61.27 BMI Method:Stated General Appearance: No Apparent Distress HEENT: PERRL/EOMI Neck: Supple Respiratory: Decreased Breath Sounds, Wheezing Cardiovascular: Regular Rate, Rhythm Capillary Refill: Less Than 3 Seconds Gastrointestinal: normal bowel sounds, non tender, soft Extremity: Non Tender, No Calf Tenderness, No Pedal Edema, Pedal Edema Neurologic/Psychiatric: Alert, Oriented x3 Skin: Warm/Dry Results Lab Laboratory Tests 12/06/20 07:39 Assessment/Plan Assessment/Plan conitnues to improve, will continue on po decadron, PPI and warfarin and monitor INR, would like a little higher Time spent with patient (mins): 15 DEBRA CHEEMA MD Dec 07, 2020 16:26
[2020-12-07 19:04] VITALS: BP 143/66
[2020-12-07] MEDS: MELATONIN 3 MG TABLET PO SCH (20:02)
[2020-12-07] MEDS: traZODone 50 MG (DESYREL) TAB PO SCH (20:02)
[2020-12-07] MEDS ORDERED: inSUlin ASPART (NovoLOG) 1 UNIT/0.01 ML (CHARGE PER UNIT) SC ONE (20:15)
[2020-12-08 00:46] VITALS: BP 131/74
[2020-12-08] MEDS: RT-ALBUTEROL INHALER HFA (VENTOLIN HFA) 18 GM IH PRN (03:18)
[2020-12-08] MEDS: RT-ALBUTEROL INHALER HFA (VENTOLIN HFA) 18 GM IH SCH ×4 (03:21→14:55)
[2020-12-08] MEDS: NYSTATIN ORAL SUSP 5 ML UDC PO SCH ×2 (05:42→12:36)
[2020-12-08] MEDS: inSUlin ASPART (NovoLOG) 1 UNIT/0.01 ML (CHARGE PER UNIT) SC SCH ×3 (06:33→15:11)
[2020-12-08] MEDS: dexAMETHasone 6 MG TAB (DECADRON) PO SCH (06:33)
[2020-12-08] MEDS: LEVOTHYROXINE 75 MCG (LEVOTHROID) TABLET PO SCH (06:33)
[2020-12-08 07:59] VITALS: BP 140/65
[2020-12-08] MEDS: UMECLIDINIUM BROMIDE (INCRUSE ELLIPTA) 7'S IH SCH (08:11)
--- NOTE | 2020-12-08 08:51 | Pulmonary Progress Note ---
Subjective Date Seen by a Provider: Dec 08, 2020 Time Seen by a Provider: 08:46 Subjective/Events-last exam events over night: feeling better; sob and cough improved; using 4l o2/ home o2 eval pending Sepsis Event Evaluation Height, Weight, BMI Height: 5'5.00" Weight: 340lbs. 0.0oz. 154.591972fr; 61.27 BMI Method:Stated Exam Exam Patient acknowledged, consented, and participated in this virtual visit which was conducted using real time audio/video Vital Signs Date Time Temp Pulse Resp B/P (MAP) Pulse Ox O2 Delivery O2 Flow Rate FiO2 12/08/20 08:11 91 NIV CPAP 9.00 12/08/20 07:59 34.1 65 20 140/65 (90) 95 NIV CPAP 9.00 12/08/20 03:19 94 NIV CPAP 5.00 12/08/20 03:18 4.00 12/08/20 00:46 36.2 58 20 131/74 (93) 97 NIV CPAP 9.00 12/07/20 20:00 High Flow N/C 6.00 12/07/20 19:04 36.0 62 18 143/66 (91) 93 High Flow N/C 4.00 12/07/20 15:52 36.0 63 20 148/77 (100) 93 High Flow N/C 4.00 12/07/20 14:41 95 Nasal Cannula 4.00 12/07/20 11:34 36.6 60 20 135/61 (85) 94 Nasal Cannula 5.00 12/07/20 10:00 95 NIV CPAP 5.00 I & O 12/08/20 07:00 Intake Total 3370 ml Output Total 3900 ml Balance -530 ml Height & Weight Height: 5'5.00" Weight: 340lbs. 0.0oz. 154.350574mf; 61.27 BMI Method:Stated General Appearance: No Apparent Distress HEENT: PERRL/EOMI Neck: Supple Respiratory: Decreased Breath Sounds, Wheezing Cardiovascular: Regular Rate, Rhythm Capillary Refill: Less Than 3 Seconds Gastrointestinal: normal bowel sounds, non tender, soft Extremity: Non Tender, No Calf Tenderness, No Pedal Edema, Pedal Edema Neurologic/Psychiatric: Alert, Oriented x3 Skin: Warm/Dry Assessment/Plan Assessment/Plan Acute hypoxemic resp failure COVID PNA -steroids/ anticoagulation o2 4l ; home o2 pending in preparation for dc ANTONIO compliant with CPAP JACK GUTIERREZ MD Dec 08, 2020 08:51
[2020-12-08] MEDS: PANTOPRAZOLE 40 MG (PROTONIX) TAB PO SCH (10:03)
[2020-12-08] MEDS: ENOXAPARIN 60 MG/0.6 ML (LOVENOX) SYR SC SCH (10:03)
[2020-12-08] MEDS ORDERED: UMEC62.5 IH (10:51)
[2020-12-08] MEDS ORDERED: DEXA4TAB66 PO (10:51)
--- NOTE | 2020-12-08 10:52 | Discharge Inst-Simple/Standard ---
Discharge Inst-Standard Reconcile Patient Problems Problems Reviewed?: Yes Discharge Medications New, Converted or Re-Newed RX: Transmitted to Pharmacy Patient Instructions/Follow Up Plan of Care/Instructions/FU: Fwup in 1 week Activity as Tolerated: Yes Discharge Diet: ADA Diet, Cardiac Diet Other Inst to Patient Home oxygen at 4L NC and 9L in CPAP INDU KING DO Dec 08, 2020 10:52
[2020-12-08 16:18] VITALS: BP 140/65
--- NOTE | 2020-12-08 18:15 | Discharge Summary ---
Diagnosis/Chief Complaint Date of Admission Nov 30, 2020 at 20:28 Date of Discharge Dec 08, 2020 at 16:20 Discharge Date: Dec 08, 2020 Discharge Diagnosis 1. Acute Respiratory Distress with Hypoxia--home today on 4-5L during day and 9L at night with CPAP 2. COVID-19 Pneumonia--home on decadron taper, resume high dose aspirin 3. COPD--on albuterol MDI 4. ANTONIO--restarted CPAP with oxygen 5. Diabetes mellitus--uncontrolled and exacerbated by steroids/illness--home on previous insulin dose with accuchecks 6. Class 3 Obesity-- 7. Insomnia--improved 8. Hypertension--on coreg 9. Nausea and Vomting--resolved 10. Vertigo--resolved 11. Fatigue and Weakness--will increase activity at home as tolerated Reason Hospital Visit This is a 50 year old female who has class 3 obesity with COPD and poorly controlled diabetes. She tested positive for COVID-19 on 11/26/20. She was immediately started on Decadron 6mg daily, aspirin 325mg daily, albuterol MDI 2puffs every 4hrs, Incentive Spirometry and instructed on proning. She was scheduled for Regeneron infusion on 11/30/20. After her infusion she was having worsening oxygen saturations and presented to the emergency room for evaluation. She does have bilateral pulmonary infiltrates with elevated liver enzymes. She was only requiring 2-4 liters of nasal cannula to keep her oxygen saturations above 90% but due to her worsening symptoms and numerous comorbidities it was decided to admit her for more aggressive treatment. Discharge Summary Hospital Course Was the Problem List Reviewed?: Yes Hospital Course This is a 50 year old female who has class 3 obesity with COPD and poorly controlled diabetes. She tested positive for COVID-19 on 11/26/20. She was immediately started on Decadron 6mg daily, aspirin 325mg daily, albuterol MDI 2puffs every 4hrs, Incentive Spirometry and instructed on proning. She was scheduled for Regeneron infusion on 11/30/20. After her infusion she was having worsening oxygen saturations and presented to the emergency room for evaluation. She does have bilateral pulmonary infiltrates with elevated liver enzymes. She was only requiring 2-4 liters of nasal cannula to keep her oxygen saturations above 90% but due to her worsening symptoms and numerous comorbidities it was decided to admit her for more aggressive treatment. She was started on IV decadron, regeneron, albuterol MDI, IS and lovenox for DVT prophylaxis. She did require increased levels of oxygen up to 7liters during the day. Her home CPAP was restarted and she required 9 liters of oxygen with this. She was also given IV rocephina and zithromax to cover for secondary bacterial pneumonia. A telemed pulmonary consult was also obtained. Her first few days of admission were plagued by severe fatigue as well as vertigo with nausea and vomiting. She was given IV zofran and IV phenergan and a scopolamine patch was placed. She also had hyperglycemia due to her underlying uncontrolled diabetes and her overall illness and the IV steroids. Her levemir doses had to be adjusted and she was on the high dose sliding scale insulin. Her liver enzymes trended back down to normal. Her oxygen requirement was down to 4liters at rest and 5 liters with exertion and 9liters with her BIPAP. She will be discharged home on home oxygen, a decadron taper, IS, albuterol MDI and high dose aspirin 325mg in addition to her previous home medications except for what has been discontinued. She will follow up with me in my office in 1 week. Labs Laboratory Tests 12/05/20 19:57: Glucometer 371H 12/06/20 05:05: Glucometer 277H 12/06/20 07:39: Mean Corpuscular Hemoglobin Concent 31L, Immature Granulocyte # (Auto) 0.2H, Blood Urea Nitrogen 19H, Glucose Level 261H 12/06/20 10:19: Glucometer 262H 12/06/20 15:27: Glucometer 469*H 12/06/20 21:09: Glucometer 366H 12/07/20 05:07: Glucometer 309H 12/07/20 08:37: Glucometer 267H 12/07/20 13:50: Glucometer 430*H 12/07/20 19:59: Glucometer 421*H 12/08/20 05:24: Glucometer 341H 12/08/20 09:48: 12/08/20 09:54: Glucometer 316H Procedures None. Discharge Physical Examination Allergies: Coded Allergies: baclofen (Verified Allergy, Unknown, 10/02/18) Vitals & I&Os Vital Signs Date Time Temp Pulse Resp B/P (MAP) Pulse Ox O2 Delivery O2 Flow Rate FiO2 12/08/20 16:18 34.1 83 20 140/65 93 High Flow N/C 4.00 General Appearance: Alert, Oriented X3, No Acute Distress Respiratory: Clear to Auscultation Extremities: No Clubbing, No Cyanosis, No Edema Psych/Mental Status: Mental Status NL, Mood NL Discharge Home Medications Reviewed and agree with Discharge Medication list on patient's Discharge Instruction sheet Instructions to Patient/Family Please see electronic discharge instructions given to patient. INDU KING DO Dec 08, 2020 18:15
== END 2020-12-08 16:20 | disposition home or self-care (01) | DRG 177 ==
LOC: EDUNIT# 20:04 → ER 20:06 → 4TH 20:28
PROVIDERS: ADMIT Family Medicine; ATTEND Family Medicine
PROC: XW033E5 Introduction of Remdesivir Anti-infective into Peripheral Vein, Percutaneous Approach, New Technology Group 5 (ICD-10-PCS; principal; 2020-12-01)
PROC: 5A09357 Assistance with Respiratory Ventilation, Less than 24 Consecutive Hours, Continuous Positive Airway Pressure (ICD-10-PCS; 2020-12-01)
DX: U07.1 COVID-19 (principal); J12.82 Pneumonia due to coronavirus disease 2019; J96.01 Acute respiratory failure with hypoxia; Z68.44 Body mass index [BMI] 60.0-69.9, adult; J44.0 Chronic obstructive pulmonary disease with (acute) lower respiratory infection; E66.01 Morbid (severe) obesity due to excess calories; E11.65 Type 2 diabetes mellitus with hyperglycemia; Z79.4 Long term (current) use of insulin; Z73.0 Burn-out; G47.33 Obstructive sleep apnea (adult) (pediatric); G47.00 Insomnia, unspecified; I10 Essential (primary) hypertension; R11.2 Nausea with vomiting, unspecified; R42 Dizziness and giddiness; E11.40 Type 2 diabetes mellitus with diabetic neuropathy, unspecified; R53.83 Other fatigue; R53.1 Weakness; E03.9 Hypothyroidism, unspecified; Z79.899 Other long term (current) drug therapy; E78.00 Pure hypercholesterolemia, unspecified; K21.9 Gastro-esophageal reflux disease without esophagitis; K58.9 Irritable bowel syndrome, unspecified; M79.7 Fibromyalgia; G89.29 Other chronic pain; M54.9 Dorsalgia, unspecified; F41.9 Anxiety disorder, unspecified; F32.9 Major depressive disorder, single episode, unspecified; Z87.891 Personal history of nicotine dependence
CPT/HCPCS: 36415; 71045; 71275; 80048; 80053; 82805; 82947; 83880; 84145; 85025; 85027; 85379; 86141; 94640; 94664; 94760; 94761

== ENCOUNTER → 2020-11-30 | Outpatient (CLI) | payer MEDICAID ==
[~2020-11-30] VITALS: Ht 167.7 cm; Wt 177.0 kg
[~2020-11-30] MED LIST changes: +CASIRIVIMAB/IMDEVIMAB 1,200 MG in NS (IVPB) 250 ML IV ONE; +CELE-63 PO; +CHOL500044 PO; +DEXA4TAB PO; +DULO60CA59 PO; +EPINEPHrine INJECTION 1 MG/ML AMP IM PRN; +ERGO1250 PO; +INSU100I10 SC; +INSU100I55 SC; -LISI-556 PO; +LISI-729 PO; +METO5TAB2 PO; +ONDA-105 PO; -OXYC-465 PO; +OXYC-556 PO; +PANT40TA52 PO; +POTA10TA PO; +PREG200C28 PO; +SOLI10TA7 PO; +diphenhydrAMINE 50 MG/ML INJ (BENADRYL) IV PRN
[2020-11-30 12:04] VITALS: BP 159/92
[2020-11-30 14:15] VITALS: BP 115/70
== END ==
LOC: INFUSION 12:07
PROVIDERS: ATTEND Family Medicine
DX: Z23 Encounter for immunization (principal); U07.1 COVID-19

== ENCOUNTER → 2021-01-14 | Outpatient (CLI) | payer MEDICAID ==
[~2021-01-14] MED LIST changes: +CELE-63 PO; +CHOL500044 PO; +DEXA4TAB PO; +DEXA4TAB66 PO; +DULO60CA59 PO; +ERGO1250 PO; +INSU100I10 SC; +INSU100I55 SC; +METO5TAB2 PO; +ONDA-105 PO; +PANT40TA52 PO; +POTA10TA PO; +PREG200C28 PO; +SOLI10TA7 PO; +UMEC62.5 IH
[2021-01-14 15:27] LABS: BASOPHILS % (AUTO) 1 % (0-10); EOSINOPHILS # (AUTO) 0.1 10^3/uL (0.0-0.3); EOSINOPHILS % (AUTO) 1 % (0-10); HEMATOCRIT 41 % (35-52); HEMOGLOBIN 13.1 g/dL (11.5-16.0); LYMPHOCYTES # (AUTO) 1.9 10^3/uL (1.0-4.0); LYMPHOCYTES % (AUTO) 36 % (12-44); MEAN CORPUSCULAR HEMOGLOBIN 28 pg (25-34); MEAN CORPUSCULAR HGB CONC 32 g/dL (32-36); MEAN CORPUSCULAR VOLUME 88 fL (80-99); MEAN PLATELET VOLUME 9.6 fL (9.0-12.2); MONOCYTES # (AUTO) 0.4 10^3/uL (0.0-1.0); MONOCYTES % (AUTO) 7 % (0-12); NEUTROPHILS % (AUTO) 55 % (42-75); PLATELET COUNT 250 10^3/uL (130-400); WHITE BLOOD COUNT 5.4 10^3/uL (4.3-11.0)
[2021-01-14 15:43] LABS: BILIRUBIN,TOTAL 0.5 MG/DL (0.1-1.0); CREATININE SERUM 0.95 MG/DL (0.60-1.30); POTASSIUM 4.2 MMOL/L (3.6-5.0); TOTAL PROTEIN 7.2 GM/DL (6.4-8.2)
--- NOTE | 2021-01-14 15:51 | Diagnostic Imaging Report ---
INDICATION: Cough and shortness of breath, post Covid. TIME OF EXAM: 3:36 PM CORRELATION is made with prior chest from 10/27/2017. The heart size is normal. The lungs appear to be fairly clear. No infiltrates are detected. No effusion or pneumothorax is identified. IMPRESSION: No acute cardiopulmonary process is detected. Dictated by: Dictated on workstation # [id number]
[2021-01-14 16:00] LABS: ERYTHROCYTE SEDIMENTATION RATE 21 MM/HR (0-30)
== END ==
LOC: RAD 15:06
PROVIDERS: ATTEND Family Medicine
DX: R05 Cough (principal); R53.83 Other fatigue; Z86.16 Personal history of COVID-19
CPT/HCPCS: 36415; 71046; 80053; 85025; 85652

== ENCOUNTER → 2021-05-25 | Outpatient (CLI) | payer MEDICAID ==
[~2021-05-25] MED LIST changes: +CYCL10TA25 PO; -CYCL10TA9 PO; +DICY20TA PO; -DICY20TA10 PO; -LISI-729 PO; +LISI5TAB20 PO; +SCOP1PAT10 TD; -SCOP1PAT11 TD
[2021-05-25 15:42] LABS: BASOPHILS % (AUTO) 0 % (0-10); EOSINOPHILS % (AUTO) 0 % (0-10); HEMATOCRIT 43 % (35-52); HEMOGLOBIN 13.8 g/dL (11.5-16.0); LYMPHOCYTES # (AUTO) 1.6 X 10^3 (1.0-4.0); LYMPHOCYTES % (AUTO) 20 % (12-44); MEAN CORPUSCULAR HEMOGLOBIN 26 pg (25-34); MEAN CORPUSCULAR HGB CONC 32 g/dL (32-36); MEAN CORPUSCULAR VOLUME 81 fL (80-99); MEAN PLATELET VOLUME 9.6 fL (9.0-12.2); MONOCYTES # (AUTO) 0.3 X 10^3 (0.0-1.0); MONOCYTES % (AUTO) 4 % (0-12); NEUTROPHILS # (AUTO) 5.9 X 10^3 (1.8-7.8); NEUTROPHILS % (AUTO) 75 % (42-75); PLATELET COUNT 288 10^3/uL (130-400); WHITE BLOOD COUNT 7.8 10^3/uL (4.3-11.0)
[2021-05-25 16:08] LABS: ERYTHROCYTE SEDIMENTATION RATE 8 MM/HR (0-30)
--- NOTE | 2021-05-25 16:37 | Diagnostic Imaging Report ---
EXAMINATION: Chest 2 view HISTORY: COUGH, CONGESTION, COVID NEG COMPARISON: 01/14/2021. FINDINGS: Heart size and pulmonary vasculature are normal. The lungs are clear without consolidation, pleural effusion, or pneumothorax. Degenerative changes of the thoracic spine. Osseous structures are otherwise intact. IMPRESSION: 1. No acute radiographic abnormality in the chest. Dictated by: Dictated on workstation # [id number]
== END ==
LOC: RAD 15:14
PROVIDERS: ATTEND Family Medicine
DX: R05.9 Cough, unspecified (principal); R09.89 Other specified symptoms and signs involving the circulatory and respiratory systems; Z20.822 Contact with and (suspected) exposure to COVID-19
CPT/HCPCS: 36415; 71046; 85025; 85652

== ENCOUNTER → 2021-07-27 | Outpatient (CLI) | payer MEDICAID ==
--- NOTE | 2021-07-27 20:19 | Diagnostic Imaging Report ---
PROCEDURE: US Thyroid. TECHNIQUE: Multiple real-time grayscale images were obtained of the thyroid in various projections. INDICATION: Thyroid nodule. Comparison made with prior study from 02/08/2016. FINDINGS: The right lobe of thyroid measures 5.1 x 2.2 x 1.8 cm. The left lobe measures 3.9 x 1.4 x 1.9 cm. The isthmus is 3 mm in thickness. There are no right-sided thyroid nodules. There are small solid hypoechoic nodules within the left lobe of the thyroid with the largest measuring 5 mm in size. IMPRESSION: 1. No findings of right-sided thyroid nodules. Tiny 5 mm or less nodules present within the left lobe of the thyroid. Dictated by: Dictated on workstation # [id number]
--- NOTE | 2021-07-28 14:17 | Diagnostic Imaging Report ---
INDICATION: Routine screening. COMPARISON is made with prior mammograms from 07/10/2013 and 08/28/2009. 2-D and 3-D bilateral screening mammography was performed with CAD. Scattered fibroglandular densities are identified bilaterally. There are scattered benign calcifications in both breasts. A benign nodule in the retroareolar right breast is noted. No spiculated mass or malignant-appearing microcalcifications are seen. The axillae are unremarkable. IMPRESSION: BI-RADS Category 2 No mammographic features suspicious for malignancy are identified. ACR BI-RADS Category 2: Benign findings. Result letter will be mailed to the patient. Note: At least 10% of breast cancer is not imaged by mammography. Dictated by: Dictated on workstation # [id number]
== END ==
LOC: RAD 14:45
PROVIDERS: ATTEND Family Medicine
DX: Z12.31 Encounter for screening mammogram for malignant neoplasm of breast (principal); E04.1 Nontoxic single thyroid nodule
CPT/HCPCS: 76536; 77063; 77067